=== PATIENT | female | born 1945 | race Caucasian/White ===

== ENCOUNTER 2017-03-22 16:22 | Inpatient (IN) | payer OTHER, MEDICARE ==
[2017-03-22] VITALS (12 sets, daily range): BP systolic 127–169; BP diastolic 60–80; PULSE 86–111; RESP 17–36; TEMP 98–98.3; O2SAT 69–97
[~2017-03-22] VITALS: Ht 162.6 cm; Wt 64.0 kg
[~2017-03-22 16:22] MED LIST: ASPI81TA82 PO; ATOR20TA PO; CENTCHW3; FLOR250C PO; FURO20 PO; K-TA10TA5 PO; LACT PO; LEVO88TA2 PO; LOMO PO; METR-1 PO; OMEP40CA2; PRED5 PO; SERT-129 PO; VANC1CAP6 PO
[2017-03-22 16:31] LABS: BLOOD GAS BASE EXCESS 0.2 mmol/L (-2-2); BLOOD GAS CARBOXYHEMOGLOBIN 2.4 % (0-4); BLOOD GAS HCO3 24 mmol/L (22-26); BLOOD GAS METHEMOGLOBIN 0.7 % (0-2); BLOOD GAS O2 HGB SATURATION 95 % (90-100); BLOOD GAS OXYGEN CONTENT 19.2 Vol % (12.0-20.0); BLOOD GAS PCO2 33 mmHg (38-42); BLOOD GAS PO2 112 mmHG (61-120); BLOOD GAS TOTAL HGB 14.2 G/DL (12.0-16.0); CRITICAL VALUE NO; OXYGEN DEVICE NRB; TEMP CORR TO 98.6
[2017-03-22 16:32] LABS: DRAW SITE RT RADIAL; LITER FLOW 15 L/M; NUMBER OF ARTERIAL PUNCTURES 1; STAT YES; ULNAR PULSE PRESENT
[2017-03-22] MEDS ORDERED: methylPREDNISolone SOD SUCC 125 MG/2 ML VIAL IVP ONE (16:45)
[2017-03-22] MEDS ORDERED: MULTTAB67 PO (16:45)
[2017-03-22] MEDS ORDERED: ASPI81CH CHEW (16:45)
[2017-03-22] MEDS ORDERED: APRI0.372 PO (16:45)
[2017-03-22] MEDS ORDERED: LACTPOW68 PO (16:45)
[2017-03-22] MEDS ORDERED: LEVO88TA2 PO (16:45)
[2017-03-22] MEDS ORDERED: ATOR20TA15 PO (16:45)
[2017-03-22] MEDS ORDERED: RESP: ALBUTEROL 2.5 MG/IPRATROPIUM 0.5 MG NEB (SCH) INH ONE (16:45)
[2017-03-22] MEDS ORDERED: SERT-129 PO (16:45)
[2017-03-22] MEDS ORDERED: POTA10CA PO (16:45)
[2017-03-22] MEDS ORDERED: OMEP40CA2 PO (16:45)
[2017-03-22] MEDS ORDERED: SACC1CAP3 PO (16:45)
[2017-03-22] MEDS: RESP: ALBUTEROL 2.5 MG/3 ML NEB (SCH) INH (16:52)
[2017-03-22 17:16] LABS: AUTOMATED NEUTROPHIL # 16.3 TH/MM3 (1.8-7.7); BASOPHIL # 0.1 TH/MM3 (0-0.2); BASOPHIL % 0.3 % (0.0-2.0); EOSINOPHIL # 0.2 TH/MM3 (0-0.4); EOSINOPHIL % 0.8 % (0.0-4.0); HEMATOCRIT 43.6 % (35.0-46.0); LYMPH % 7.1 % (9.0-44.0); LYMPHOCYTE # 1.3 TH/MM3 (1.0-4.8); MEAN CELL VOLUME 92.2 FL (80.0-100.0); MEAN CORPUSCULAR HEMOGLOBIN 30.2 PG (27.0-34.0); MEAN CORPUSCULAR HGB CONC 32.8 % (32.0-36.0); MONO % 3.5 % (0.0-8.0); NEUT % 88.3 % (16.0-70.0); PLATELET COUNT 434 TH/MM3 (150-450); RED BLOOD COUNT 4.74 MIL/MM3 (4.00-5.30); RED CELL DISTRIBUTION WIDTH 14.4 % (11.6-17.2); WHITE BLOOD COUNT 18.4 TH/MM3 (4.0-11.0)
[2017-03-22 17:23] LABS: HEMO FLAGS AUTO DIFF
[2017-03-22 17:49] LABS: APTT (PATIENT) 28.2 SEC (24.3-30.1); PROTHROMBIN TIME - PATIENT 12.2 SEC (9.8-11.6)
[2017-03-22 17:50] LABS: INTERNATIONAL NORMALIZED RATIO 1.1 RATIO
[2017-03-22 17:51] LABS: ALKALINE PHOSPHATASE 148 U/L (45-117); ALT (GPT) 25 U/L (10-53); ANION GAP 11 MEQ/L (5-15); AST (GOT) 70 U/L (15-37); BICARBONATE 26.1 MEQ/L (21.0-32.0); BLOOD UREA NITROGEN 14 MG/DL (7-18); CHLORIDE 102 MEQ/L (98-107); CREATINE KINASE 110 U/L (26-192); GLOMERULAR FILTRATION RATE 66 ML/MIN (>89); SODIUM (NA) 139 MEQ/L (136-145); TOTAL BILIRUBIN ADULT 1.1 MG/DL (0.2-1.0)
[2017-03-22 17:54] LABS: POTASSIUM 4.2 MEQ/L (3.5-5.1)
[2017-03-22 18:07] LABS: CKMB 2.1 NG/ML (0.5-3.6)
[2017-03-22] MEDS ORDERED: MISCELLANEOUS NURSING INFORMATION XX SCH (18:15)
[2017-03-22] MEDS ORDERED: BISACODYL 10 MG SUPP RECTAL PRN (18:15)
[2017-03-22] MEDS ORDERED: MAGNESIUM HYDROXIDE SUSP 30 ML CUP PO PRN (18:15)
[2017-03-22] MEDS ORDERED: ACETAMINOPHEN 325 MG TAB PO PRN (18:15)
[2017-03-22] MEDS ORDERED: CHLORHEXIDINE GLUCONATE 2 % 1 PACK (2 CLOTHS) TOP PRN (18:15)
[2017-03-22] MEDS ORDERED: ONDANSETRON HCL 4 MG/2 ML VIAL IV PRN (18:15)
[2017-03-22] MEDS ORDERED: MORPHINE SULFATE 4 MG/ML INJ IV PRN (18:15)
[2017-03-22] MEDS ORDERED: LACTULOSE SYRUP 20 GM/30 ML CUP PO PRN (18:15)
[2017-03-22] MEDS ORDERED: SENNOSIDES 8.6 MG TAB PO PRN (18:15)
[2017-03-22 18:16] LABS: BACTERIA, URINE RARE /hpf; BLOOD, URINE SMALL (NEG); CALCIUM OXALATE CRYSTALS,URINE RARE /hpf; COMMENT (UR) CULTURE INDICATED; CULTURE IF INDICATED CULTURE INDICATED; GLUCOSE,URINE NEG (NEG); HYALINE CAST, URINE 1 /lpf (RARE); KETONE, URINE NEG (NEG); MUCUS URINE FEW /lpf (OCC); NITRITE,URINE NEG (NEG); SQUAMOUS EPITHELIAL CELL URINE 5 /hpf (0-5); URINE COLOR YELLOW (YELLW/STRAW)
[2017-03-22 18:25] LABS: BANDS 8 % (0-6); NEUTROPHIL # MANUAL DIFF 16.4 TH/MM3 (1.8-7.7); PLATELET ESTIMATE SMEAR NORMAL (NORMAL); PLATELET MORPHOLOGY NORMAL (NORMAL); POLYS (SEG NEUTROPHILS) 81 % (16-70); SCAN/DIFF FINAL DIFF MANUAL; WBC DIFF SAMPLE 100
--- NOTE | 2017-03-22 18:28 | HHI.HP ---
[facility] Service Critical Care Medicine Primary Care Physician Narayan Raymundo, DO Admission Diagnosis Hypoxemic Respiratory Failure Diagnosis: Chief Complaint: Difficulty breathing, SOB. Travel History International Travel<30 Days: No Contact w/Intl Traveler <30 Da: No Traveled to Known Affected Are: No History of Present Illness 71 y/o woman with recent development of SOB and CT shows diffuse interstitial process, ? fibrosis. Severely hypoxemic on arrival, now acceptable on 100% NRBM. Past Family Social History Allergies: Coded Allergies: Ceclor (Verified Allergy, Severe, Rash, 03/22/17) Codeine (Verified Allergy, Severe, Rash, 03/22/17) Physical Exam Vital Signs Vital Signs Date Time Temp Pulse Resp B/P Pulse Ox O2 Delivery O2 Flow Rate FiO2 03/22/17 17:48 92 24 127/60 95 Non-Rebreather 15 03/22/17 17:25 111 24 169/73 95 Non-Rebreather 15 03/22/17 16:54 97 Non-Rebreather 15 03/22/17 16:52 96 Non-Rebreather 15.00 03/22/17 16:49 97 Non-Rebreather 15 03/22/17 16:31 98.0 102 26 130/78 95 Non-Rebreather 15 03/22/17 16:31 26 03/22/17 16:22 86 36 142/80 69 Physical Exam Gen: Ill-appearing, anxious. Head: Normal. Neck: Supple. Airway widely patent. Lungs: Diffuse crackles, good air movement. Heart: NL S1S2, no m,r. Neck veins flat. Abdomen: Benign, soft. Extremities: Warm, well perfused. Neuro: Anxious. O X 3, alert. Moves 4 limbs, follows commands. Laboratory Laboratory Tests Test 03/22/17 03/22/17 16:07 16:52 Blood Gas Puncture Site RT RADIAL Blood Gas Patient Temperature 98.6 Blood Gas HCO3 24 Blood Gas Base Excess 0.2 Blood Gas Oxygen Saturation 95 Arterial Blood pH 7.47 Arterial Blood Partial 33 Pressure CO2 Arterial Blood Partial 112 Pressure O2 Arterial Blood Oxygen Content 19.2 Arterial Blood 2.4 Carboxyhemoglobin Arterial Blood Methemoglobin 0.7 Blood Gas Hemoglobin 14.2 Oxygen Delivery Device NRB Blood Gas Liter Flow 15 White Blood Count 18.4 Red Blood Count 4.74 Hemoglobin 14.3 Hematocrit 43.6 Mean Corpuscular Volume 92.2 Mean Corpuscular Hemoglobin 30.2 Mean Corpuscular Hemoglobin 32.8 Concent Red Cell Distribution Width 14.4 Platelet Count 434 Mean Platelet Volume 8.3 Neutrophils (%) (Auto) 88.3 Lymphocytes (%) (Auto) 7.1 Monocytes (%) (Auto) 3.5 Eosinophils (%) (Auto) 0.8 Basophils (%) (Auto) 0.3 Neutrophils # (Auto) 16.3 Lymphocytes # (Auto) 1.3 Monocytes # (Auto) 0.6 Eosinophils # (Auto) 0.2 Basophils # (Auto) 0.1 CBC Comment AUTO DIFF Prothrombin Time 12.2 Prothromb Time International 1.1 Ratio Activated Partial 28.2 Thromboplast Time D-Dimer Quantitative (PE/DVT) 4.71 Sodium Level 139 Potassium Level 4.2 Chloride Level 102 Carbon Dioxide Level 26.1 Anion Gap 11 Blood Urea Nitrogen 14 Creatinine 0.85 Estimat Glomerular Filtration 66 Rate Random Glucose 100 Calcium Level 9.0 Total Bilirubin 1.1 Aspartate Amino Transf 70 (AST/SGOT) Alanine Aminotransferase 25 (ALT/SGPT) Alkaline Phosphatase 148 Total Creatine Kinase 110 Creatine Kinase MB 2.1 Troponin I 0.06 B-Type Natriuretic Peptide 138 Total Protein 9.3 Albumin 2.3 Result Diagram: 03/22/17165103/22/171651 Assessment and Plan Assessment and Plan Assessment: 1. Hypoxemic Respiratory Failure. 2. Pulmonary fibrosis (? hypersensitivity reaction due to environmental exposure ). 3. Hx of colitis. 4. UTI. Plan: 1. NRBM 100%. 2. Steroids. 3. Broad antibiotric coverage for UTI and possible infectious pneumonitis. 4. Bed rest. 5. Lovenox DVT px. 6. Protonix. 7. Sputum, urine, blood culture. 8. Pulmonology consult - Dr. Banks. Overall impression: Critically ill with rapidly worsening interstitial pneumonitis and hypoxemic respiratory failure. Critical Care 38 mins Jim Adame MD Mar 22, 2017 18:28
--- NOTE | 2017-03-22 18:32 | MB ---
cc: BRICE ROY DATE OF CONSULTATION 03/22/[address] Gu REASON FOR CONSULTATION Respiratory failure. HISTORY OF PRESENT ILLNESS Mrs. Dunne is a pleasant 71-year-old white female with history of colitis, atrial fibrillation and history of colon surgery. She has colostomy done which was reversed. She has been having shortness of breath increasing for the last 2-3 weeks. The patient says that she moved into a new apartment and they had done a chelsey work and there was lot of dust in the house. Two to three weeks later she started having shortness of breath. She was seen by Dr. Narayan Raymundo. She had a chest x-ray done which shows lung infiltrate. The patient was seen in the office. She was started on oxygen therapy. One week later she came back. She was sent for a CT scan of the chest which shows extensive interstitial infiltrate. She was seen in the office today. She was short of breath, has dry cough and she was severely hypoxic with saturations in the 60s. The patient was sent to the emergency room. She was put on non-rebreather mask. She had a blood gas done which showed pH 7.47, pCO2 33, pO2 112, bicarb 24. Her WBC count 18.4, hemoglobin 14.3, hematocrit 43, platelet count 434. Electrolytes are pending. PAST MEDICAL HISTORY Medical history is significant for history of atrial fibrillation, history of colitis. She was taking Humira. History of colon surgery, status post colostomy which was reversed. History of C. diff colitis. MEDICATIONS AT HOME 1. She takes Levothyroxine 88 micrograms. 2. Zoloft 100 milligrams. 3. Prilosec 40 milligrams a day. 4. Lipitor 20 milligrams a day. 6. Aspirin 81 milligrams a day. 7. Apriso 0.375 oral capsule, two capsules twice a day. 8. Florastor 250 milligrams a day. 10. Humira 40 milligrams every 2 weeks. 11. Meloxicam 7.5 milligrams a day. ALLERGIES SHE IS ALLERGIC TO CODEINE AND CECLOR. SOCIAL HISTORY She has a history of smoking 48 years, one pack a day which she quit 6 years ago. She drinks on occasion. 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 FAMILY HISTORY She is for 50 years. She has two children. No siblings. Both parents are . REVIEW OF SYSTEMS She is short of breath with any activity, has lost some weight. No hemoptysis. No DVT or pulmonary embolism. PHYSICAL EXAMINATION GENERAL: Frail elderly female, short of breath. VITAL SIGNS: Blood pressure 169/73, heart rate 111, respirations 24, temperature 98.0. HEENT: Examination unremarkable. NECK: Supple. JVP not raised. CHEST: She has bilateral inspiratory rales. CARDIOVASCULAR: S1-S2 normal. ABDOMEN: Benign. EXTREMITIES: No edema. IMPRESSION 1. Acute hypoxic respiratory failure. 2. Pulmonary fibrosis. 3. Exacerbation of pulmonary fibrosis or superimposed hypersensitivity pneumonia. 4. History of colitis. She was taking Humira. 5. Atrial fibrillation. 6. History of C. Diff colitis. PLAN I discussed with the patient and family at the bedside. She is on non-rebreather mask. She will be admitted to the intensive care unit and if she does not get better she needs to be intubated which they agree at this point, I will start her on Solu-Medrol 125 milligrams q.6 hours, Protonix 40 milligrams a day and start her on antibiotic Rocephin and Zithromax. Check sputum for culture sensitivity. Further treatment will depend on the course in the hospital. Thank you gu for this consultation. MD JOSSELIN Freedman/EAN /5:47 PM /6:14 PM SHANNA
--- NOTE | 2017-03-22 18:41 | PD ---
HPI Chief Complaint: Respiratory Distress Time Seen by Provider: 16:37 Travel History International Travel<30 days: No Contact w/Intl Traveler<30days: No Traveled to known affect area: No History of Present Illness HPI This is a 71-year-old female with a history of pulmonary fibrosis, who presents from her student life dean office for admission for severe hypoxemia. Apparently the patient had recently been started on home O2. She was currently on 2 L of oxygen at home and when she presented to the student life dean office she was found to have a PO2 of 35. He sent her here as she could not get her oxygen level up on the nasal cannula. She denies any chest pain chest pressure. She does report shortness of breath. She denies any dizziness. She recently had a CT scan done at [facility] on Saturday that showed diffuse pulmonary fibrosis and disease. PFSH Past Medical History Hx Anticoagulant Therapy: Yes (ASA 81 MG) Anxiety: Yes Heart Rhythm Problems: Yes Cancer: No Cardiovascular Problems: No Chemotherapy: No COPD: Yes Cerebrovascular Accident: No Diabetes: No Diminished Hearing: No Gastrointestinal Disorders: Yes (C-DIFF) Genitourinary: Yes Immune Disorder: No Musculoskeletal: No Neurologic: No Reproductive: No Respiratory: No Thyroid Disease: Yes Ectopic : No Ovarian Cysts: No Dilation and Curettage (D&C): No Tubal Ligation: No Past Surgical History Abdominal Surgery: Yes (colon resection, colostomy, reversal05/02/15) Cardiac Surgery: No Section: No Ear Surgery: No Endocrine Surgery: No Eye Surgery: No Genitourinary Surgery: No Gynecologic Surgery: No Hysterectomy: Yes Oral Surgery: No Thoracic Surgery: No Social History Alcohol Use: No Tobacco Use: No Substance Use: No Allergies-Medications (Allergen,Severity, Reaction): Coded Allergies: Ceclor (Verified Allergy, Severe, Rash, 03/22/17) Codeine (Verified Allergy, Severe, Rash, 03/22/17) Reported Meds & Prescriptions Reported Meds & Active Scripts Active Reported Sertraline (Sertraline HCl) 100 Mg Tab 100 Mg PO DAILY Probiotic (Saccharomyces Boulardii) 250 Mg Cap 250 Mg PO BID Potassium Chloride ER (Potassium Chloride) 10 Meq Cap 10 Meq PO DAILY Omeprazole 40 Mg Cap 40 Mg PO DAILY Multiple Vitamin 1 Tab 1 Tab PO DAILY Levothyroxine (Levothyroxine Sodium) 88 Mcg Tab 88 Mcg PO DAILY Lactobacillus Acidophilus 1 Pkt 1 Pkt PO TID Atorvastatin (Atorvastatin Calcium) 20 Mg Tab 20 Mg PO HS Aspirin 81 Mg Chew 81 Mg CHEW DAILY Apriso (Mesalamine) 0.375 Gm Caper 1.5 Gm PO DAILY Review of Systems Except as stated in HPI: all other systems reviewed are Neg General / Constitutional: No: Fever, Chills HENT: Positive: Lightheadedness, No: Headaches Cardiovascular: No: Chest Pain or Discomfort, Palpitations Respiratory: Positive: Shortness of Breath, No: Cough Gastrointestinal: No: Nausea, Vomiting, Abdominal Pain Genitourinary: No: Frequency, Dysuria Musculoskeletal: No: Weakness, Pain Neurologic: Positive: Dizziness, No: Weakness, Headache Physical Exam Narrative GENERAL: Well-developed well-nourished female in severe respiratory distress. SKIN: Focused skin assessment warm/dry. HEAD: Atraumatic. Normocephalic. EYES: No scleral icterus. No injection or drainage. ENT: No nasal bleeding or discharge. Mucous membranes pink and moist. NECK: Trachea midline. No JVD. CARDIOVASCULAR: Initial rhythm was sinus tachycardia with a rate of 108. No murmur appreciated. RESPIRATORY: Positive accessory muscle use. Diffuse Rales appreciated in all 4 lung hyman. GASTROINTESTINAL: Abdomen soft, non-tender, nondistended. MUSCULOSKELETAL: No obvious deformities. No clubbing. No cyanosis. No edema. NEUROLOGICAL: Awake and fragmented speech secondary to shortness of breath.. No obvious cranial nerve deficits. Motor grossly within normal limits. Data Data Last Documented VS Vital Signs Date Time Temp Pulse Resp B/P Pulse Ox O2 Delivery O2 Flow Rate FiO2 03/22/17 17:48 92 24 127/60 95 Non-Rebreather 15 03/22/17 16:31 98.0 Orders Electrocardiogram (03/22/17 16:29) Arterial Blood Gas (Abg) (03/22/17 16:07) Complete Blood Count With Diff (03/22/17 16:37) Comprehensive Metabolic Panel (03/22/17 16:37) B-Type Natriuretic Peptide (03/22/17 16:37) D-Dimer (03/22/17 16:37) Act Partial Throm Time (Ptt) (03/22/17 16:37) Prothrombin Time / Inr (Pt) (03/22/17 16:37) Ckmb (Isoenzyme) Profile (03/22/17 16:37) Troponin I (03/22/17 16:37) Urinalysis - C+S If Indicated (03/22/17 16:37) Iv Access Insert/Monitor (03/22/17 16:37) Ecg Monitoring (03/22/17 16:37) Oximetry (03/22/17 16:37) Oxygen Administration (03/22/17 16:37) Sodium Chloride 0.9% Flush (Ns Flush) (03/22/17 16:45) Methylprednisolone So Succ Inj (Solumedr (03/22/17 16:45) Albuterol-Ipratropium Neb (Duoneb Neb) (03/22/17 16:45) Albuterol Neb (Albuterol Neb) (03/22/17 16:45) Methylprednisolone So Succ Inj (Solumedr (03/22/17 18:00) Ceftriaxone Inj (Rocephin Inj) (03/22/17 17:45) Azithromycin Inj (Zithromax Inj) (03/22/17 20:00) CKMB (03/22/17 16:52) CKMB% (03/22/17 16:52) Code Status (03/22/17 18:10) Vital Signs (Adult) NATALIE.Q1H (03/22/17 18:10) Elevate Head Of Bed (03/22/17 18:10) Activity Oob With Assistance (03/22/17 18:10) Intake + Output Q1H (03/22/17 18:10) Diet Heart Healthy (03/22/17 Dinner) Sodium Chlor 0.9% 1000 Ml Inj (Ns 1000 M (03/22/17 19:00) Acetaminophen (Tylenol) (03/22/17 18:15) Morphine Inj (Morphine Inj) (03/22/17 18:15) Famotidine (Pepcid) (03/22/17 21:00) Ondansetron Inj (Zofran Inj) (03/22/17 18:15) Complete Blood Count With Diff (03/23/17 04:00) Sputum Culture And Gram Stain (03/22/17 18:10) Chest, Single Ap (03/24/17 05:00) Resp Pulse Oximetry (03/22/17 ) Resp Pulse Oximetry (03/23/17 ) Resp Pulse Oximetry (03/24/17 ) Resp Pulse Oximetry (03/25/17 ) Agriculture Instructor / Telemetry NATALIE.Q8H (03/22/17 18:10) Enoxaparin Inj (Lovenox Inj) (03/22/17 20:00) ^ Initiate Protocol (03/22/17 18:10) Instruction (03/22/17 18:10) Misc Nursing Information (03/22/17 18:15) Chlorhexidine 2% Cloth (Chlorhexidine 2% (03/23/17 04:00) Chlorhexidine 2% Cloth (Chlorhexidine 2% (03/22/17 18:15) Mrsa Pcr Surveillance (03/22/17 18:10) Docusate Sodium-Senna (Maryjo-Colace) (03/22/17 21:00) Magnesium Hydroxide Liq (Milk Of Magnesi (03/22/17 18:15) Sennosides (Senokot) (03/22/17 18:15) Bisacodyl Supp (Dulcolax Supp) (03/22/17 18:15) Lactulose Liq (Lactulose Liq) (03/22/17 18:15) Urine Culture (03/22/17 17:46) Aspirin Chew (Aspirin Chew) (03/23/17 09:00) Atorvastatin (Lipitor) (03/22/17 21:00) Lactobacillus Acidophilus Pkt (Lactinex (03/23/17 09:00) Levothyroxine (Synthroid) (03/23/17 06:00) Sertraline (Zoloft) (03/23/17 09:00) (Nf) Mesalamine Er 24 Hr (Apriso) (03/23/17 09:00) (Nf) Multiple Vitamin (03/23/17 09:00) (Nf) Saccharomyces Boulardii (Probiotic) (03/22/17 21:00) Admit Order (Ed Use Only) (03/22/17 18:30) Labs Laboratory Tests Test 03/22/17 03/22/17 03/22/17 16:07 16:52 17:46 Blood Gas Puncture Site RT RADIAL Blood Gas Patient Temperature 98.6 Blood Gas HCO3 24 mmol/L Blood Gas Base Excess 0.2 mmol/L Blood Gas Oxygen Saturation 95 % Arterial Blood pH 7.47 Arterial Blood Partial 33 mmHg Pressure CO2 Arterial Blood Partial 112 mmHG Pressure O2 Arterial Blood Oxygen Content 19.2 Vol % Arterial Blood 2.4 % Carboxyhemoglobin Arterial Blood Methemoglobin 0.7 % Blood Gas Hemoglobin 14.2 G/DL Oxygen Delivery Device NRB Blood Gas Liter Flow 15 L/M White Blood Count 18.4 TH/MM3 Red Blood Count 4.74 MIL/MM3 Hemoglobin 14.3 GM/DL Hematocrit 43.6 % Mean Corpuscular Volume 92.2 FL Mean Corpuscular Hemoglobin 30.2 PG Mean Corpuscular Hemoglobin 32.8 % Concent Red Cell Distribution Width 14.4 % Platelet Count 434 TH/MM3 Mean Platelet Volume 8.3 FL Neutrophils (%) (Auto) 88.3 % Lymphocytes (%) (Auto) 7.1 % Monocytes (%) (Auto) 3.5 % Eosinophils (%) (Auto) 0.8 % Basophils (%) (Auto) 0.3 % Neutrophils # (Auto) 16.3 TH/MM3 Lymphocytes # (Auto) 1.3 TH/MM3 Monocytes # (Auto) 0.6 TH/MM3 Eosinophils # (Auto) 0.2 TH/MM3 Basophils # (Auto) 0.1 TH/MM3 CBC Comment AUTO DIFF Differential Total Cells 100 Counted Neutrophils % (Manual) 81 % Band Neutrophils % 8 % Lymphocytes % 11 % Neutrophils # (Manual) 16.4 TH/MM3 Differential Comment FINAL DIFF MANUAL Platelet Estimate NORMAL Platelet Morphology Comment NORMAL Prothrombin Time 12.2 SEC Prothromb Time International 1.1 RATIO Ratio Activated Partial 28.2 SEC Thromboplast Time D-Dimer Quantitative (PE/DVT) 4.71 MG/L FEU Sodium Level 139 MEQ/L Potassium Level 4.2 MEQ/L Chloride Level 102 MEQ/L Carbon Dioxide Level 26.1 MEQ/L Anion Gap 11 MEQ/L Blood Urea Nitrogen 14 MG/DL Creatinine 0.85 MG/DL Estimat Glomerular Filtration 66 ML/MIN Rate Random Glucose 100 MG/DL Calcium Level 9.0 MG/DL Total Bilirubin 1.1 MG/DL Aspartate Amino Transf 70 U/L (AST/SGOT) Alanine Aminotransferase 25 U/L (ALT/SGPT) Alkaline Phosphatase 148 U/L Total Creatine Kinase 110 U/L Creatine Kinase MB 2.1 NG/ML Troponin I 0.06 NG/ML B-Type Natriuretic Peptide 138 PG/ML Total Protein 9.3 GM/DL Albumin 2.3 GM/DL Urine Color YELLOW Urine Turbidity HAZY Urine pH 6.0 Urine Specific [place] 1.025 Urine Protein 30 mg/dL Urine Glucose (UA) NEG mg/dL Urine Ketones NEG mg/dL Urine Occult Blood SMALL Urine Nitrite NEG Urine Bilirubin NEG Urine Urobilinogen 2.0 MG/DL Urine Leukocyte Esterase LARGE Urine RBC 5 /hpf Urine WBC 75 /hpf Urine Squamous Epithelial 5 /hpf Cells Urine Calcium Oxalate Crystals RARE /hpf Urine Bacteria RARE /hpf Urine Hyaline Casts 1 /lpf Urine Mucus FEW /lpf Microscopic Urinalysis Comment CULTURE INDICATED MDM Medical Decision Making Medical Screen Exam Complete: Yes Emergency Medical Condition: Yes Differential Diagnosis Pneumonia versus COPD exacerbation versus pulmonary embolus Narrative Course 71-year-old female history pulmonary fibrosis, presents from her pulmonology's office for respiratory distress and hypoxemia. The patient's O2 sat was 61% when she arrived. She's been started on 100% nonrebreather and is in no acute distress at this point. She will be admitted to the intensive care unit. Dr. Banks, the patient's student life dean is come in to see her. He is recommending high dose steroids. The case was discussed Dr. Crystal who will be the admitting doctor for the intensive care unit. Critical Care Narrative Aggregate critical care time was 60 minutes. Time to perform other separately billable procedures was not included in the critical care time. My time did not include minutes spent treating any other patients simultaneously or on activities that did not directly contribute to the patient's treatment. The services I provided to this patient were to treat and/or prevent clinically significant deterioration that could result in: I provided critical care services requiring my management, as noted below: Chart data review, documentation time, medication orders and management, vital sign assessments/reviewing monitor data, ordering and reviewing lab tests, ordering and interpreting/reviewing x-rays and diagnostic studies, care of the patient and discussion of the patient with the admitting physicians. Diagnosis Primary Impression: Acute respiratory distress Additional Impressions: Severe hypoxemia Pulmonary fibrosis Admitting Information Admitting Physician Requests: Admit Jim Montelongo MD Mar 22, 2017 18:41
[2017-03-22] MEDS: SODIUM CHLOR 0.9% 1000 ML INJ 1,000 ML IV SCH ×2 (19:34→21:39)
[2017-03-22] MEDS: cefTRIAXone 1,000 MG/NS 100 ML IV SCH ×4 (19:34→21:39)
[2017-03-22] MEDS: AZITHROMYCIN INJ 500 MG in SODIUM CHLOR 0.9% 250 ML INJ 250 ML IV SCH (20:00)
[2017-03-22] MEDS: CHLORHEXIDINE GLUCONATE 2 % 1 PACK (2 CLOTHS) TOP SCH (20:54)
[2017-03-22] MEDS ORDERED: NON-FORMULARY DRUG (Saccharomyces Boulardii (Probiotic) 250 MG) PO SCH (21:00)
[2017-03-22] MEDS: FAMOTIDINE 20 MG TAB PO SCH (21:38)
[2017-03-22] MEDS: DOCUSATE SODIUM 50 MG/SENNA 8.6 MG TAB PO SCH (21:38)
[2017-03-22] MEDS: ATORVASTATIN 20 MG TAB PO SCH (21:38)
[2017-03-22] MEDS: ENOXAPARIN SODIUM 40 MG/0.4 ML SYRINGE SQ SCH (21:38)
[2017-03-22] MEDS: methylPREDNISolone SOD SUCC 125 MG/2 ML VIAL IV PUSH SCH (21:38)
[2017-03-22] MEDS: ALPRAZolam 0.25 MG TAB PO PRN (23:56)
[2017-03-23] VITALS (15 sets, daily range): BP systolic 114–160; BP diastolic 63–84; PULSE 78–103; RESP 24–36; TEMP 97–98.1; O2SAT 90–96
[2017-03-23 04:53] LABS: AUTOMATED NEUTROPHIL # 10.6 TH/MM3 (1.8-7.7); BASOPHIL # 0.1 TH/MM3 (0-0.2); BASOPHIL % 0.6 % (0.0-2.0); HEMATOCRIT 35.2 % (35.0-46.0); HEMO FLAGS DIFF FINAL; LYMPH % 8.1 % (9.0-44.0); MEAN CELL VOLUME 90.5 FL (80.0-100.0); MEAN CORPUSCULAR HGB CONC 33.1 % (32.0-36.0); MONO % 1.3 % (0.0-8.0); PLATELET COUNT 326 TH/MM3 (150-450); RED BLOOD COUNT 3.89 MIL/MM3 (4.00-5.30); RED CELL DISTRIBUTION WIDTH 14.5 % (11.6-17.2); WHITE BLOOD COUNT 11.8 TH/MM3 (4.0-11.0)
[2017-03-23] MEDS: LEVOTHYROXINE SODIUM 88 MCG TAB PO SCH (05:42)
[2017-03-23] MEDS: methylPREDNISolone SOD SUCC 125 MG/2 ML VIAL IV PUSH SCH ×4 (05:43→23:00)
[2017-03-23] MEDS ORDERED: NON-FORMULARY DRUG (Mesalamine ER 24 HR (Apriso) 1.5 GM) PO SCH (09:00)
[2017-03-23] MEDS ORDERED: [UNRECOGNIZED DRUG - OTHER] PO SCH (09:00)
[2017-03-23] MEDS ORDERED: MESALAMINE 0.375 GM PO SCH (09:00)
[2017-03-23] MEDS ORDERED: NON-FORMULARY DRUG (Multiple Vitamin 1 TAB) PO SCH (09:00)
[2017-03-23] MEDS: LACTOBACILLUS ACIDOPHILUS 1 GM PACKET PO SCH ×3 (09:00→16:32)
--- NOTE | 2017-03-23 09:03 | HHI.CCPN ---
Subjective Remarks/Hospital Course 71 y/o woman with recent development of SOB and CT shows diffuse interstitial process, ? fibrosis. Severely hypoxemic on arrival, now acceptable on 100% NRBM. 03/23 Patient is on partial rebreather with good sats. Afebrile. Awake and alert. Objective Vital Signs Date Time Temp Pulse Resp B/P Pulse Ox O2 Delivery O2 Flow Rate FiO2 03/23/17 08:29 96 Partial Rebreather 03/23/17 06:00 80 03/23/17 04:00 97.5 26 114/65 03/22/17 22:00 15.00 Intake and Output 03/22/17 03/22/17 03/23/17 08:00 16:00 00:00 Intake Total 605 ml Balance 605 ml Result Diagram: 03/23/17 0413 03/22/17 1652 Other Results Laboratory Tests Test 03/22/17 03/22/17 03/22/17 03/22/17 16:07 16:52 17:46 20:30 Blood Gas Puncture Site RT RADIAL Blood Gas Patient Temperature 98.6 Blood Gas HCO3 24 mmol/L Blood Gas Base Excess 0.2 mmol/L Blood Gas Oxygen Saturation 95 % Arterial Blood pH 7.47 Arterial Blood Partial 33 mmHg Pressure CO2 Arterial Blood Partial 112 mmHG Pressure O2 Arterial Blood Oxygen Content 19.2 Vol % Arterial Blood 2.4 % Carboxyhemoglobin Arterial Blood Methemoglobin 0.7 % Blood Gas Hemoglobin 14.2 G/DL Oxygen Delivery Device NRB Blood Gas Liter Flow 15 L/M White Blood Count 18.4 TH/MM3 Red Blood Count 4.74 MIL/MM3 Hemoglobin 14.3 GM/DL Hematocrit 43.6 % Mean Corpuscular Volume 92.2 FL Mean Corpuscular Hemoglobin 30.2 PG Mean Corpuscular Hemoglobin 32.8 % Concent Red Cell Distribution Width 14.4 % Platelet Count 434 TH/MM3 Mean Platelet Volume 8.3 FL Neutrophils (%) (Auto) 88.3 % Lymphocytes (%) (Auto) 7.1 % Monocytes (%) (Auto) 3.5 % Eosinophils (%) (Auto) 0.8 % Basophils (%) (Auto) 0.3 % Neutrophils # (Auto) 16.3 TH/MM3 Lymphocytes # (Auto) 1.3 TH/MM3 Monocytes # (Auto) 0.6 TH/MM3 Eosinophils # (Auto) 0.2 TH/MM3 Basophils # (Auto) 0.1 TH/MM3 CBC Comment AUTO DIFF Differential Total Cells 100 Counted Neutrophils % (Manual) 81 % Band Neutrophils % 8 % Lymphocytes % 11 % Neutrophils # (Manual) 16.4 TH/MM3 Differential Comment FINAL DIFF MANUAL Platelet Estimate NORMAL Platelet Morphology Comment NORMAL Prothrombin Time 12.2 SEC Prothromb Time International 1.1 RATIO Ratio Activated Partial 28.2 SEC Thromboplast Time D-Dimer Quantitative (PE/DVT) 4.71 MG/L FEU Sodium Level 139 MEQ/L Potassium Level 4.2 MEQ/L Chloride Level 102 MEQ/L Carbon Dioxide Level 26.1 MEQ/L Anion Gap 11 MEQ/L Blood Urea Nitrogen 14 MG/DL Creatinine 0.85 MG/DL Estimat Glomerular Filtration 66 ML/MIN Rate Random Glucose 100 MG/DL Calcium Level 9.0 MG/DL Total Bilirubin 1.1 MG/DL Aspartate Amino Transf 70 U/L (AST/SGOT) Alanine Aminotransferase 25 U/L (ALT/SGPT) Alkaline Phosphatase 148 U/L Total Creatine Kinase 110 U/L Creatine Kinase MB 2.1 NG/ML Troponin I 0.06 NG/ML B-Type Natriuretic Peptide 138 PG/ML Total Protein 9.3 GM/DL Albumin 2.3 GM/DL Urine Color YELLOW Urine Turbidity HAZY Urine pH 6.0 Urine Specific [place] 1.025 Urine Protein 30 mg/dL Urine Glucose (UA) NEG mg/dL Urine Ketones NEG mg/dL Urine Occult Blood SMALL Urine Nitrite NEG Urine Bilirubin NEG Urine Urobilinogen 2.0 MG/DL Urine Leukocyte Esterase LARGE Urine RBC 5 /hpf Urine WBC 75 /hpf Urine Squamous Epithelial 5 /hpf Cells Urine Calcium Oxalate Crystals RARE /hpf Urine Bacteria RARE /hpf Urine Hyaline Casts 1 /lpf Urine Mucus FEW /lpf Microscopic Urinalysis Comment CULTURE INDICATED Nasal Screen MRSA (PCR) MRSA NOT DETECTED Test 03/23/17 04:13 White Blood Count 11.8 TH/MM3 Red Blood Count 3.89 MIL/MM3 Hemoglobin 11.7 GM/DL Hematocrit 35.2 % Mean Corpuscular Volume 90.5 FL Mean Corpuscular Hemoglobin 30.0 PG Mean Corpuscular Hemoglobin 33.1 % Concent Red Cell Distribution Width 14.5 % Platelet Count 326 TH/MM3 Mean Platelet Volume 8.0 FL Neutrophils (%) (Auto) 90.0 % Lymphocytes (%) (Auto) 8.1 % Monocytes (%) (Auto) 1.3 % Eosinophils (%) (Auto) 0.0 % Basophils (%) (Auto) 0.6 % Neutrophils # (Auto) 10.6 TH/MM3 Lymphocytes # (Auto) 1.0 TH/MM3 Monocytes # (Auto) 0.2 TH/MM3 Eosinophils # (Auto) 0.0 TH/MM3 Basophils # (Auto) 0.1 TH/MM3 CBC Comment DIFF FINAL Differential Comment Objective Remarks GENERAL: Patient is 71 yo on partial rebreather with good sats SKIN: Warm and dry. HEAD: Normocephalic. EYES: No scleral icterus. No injection or drainage. NECK: Supple, trachea midline. No JVD or lymphadenopathy. CARDIOVASCULAR: Regular rate and rhythm without murmurs, gallops, or rubs. RESPIRATORY: Breath sounds equal bilaterally. Coarse BS/crackles GASTROINTESTINAL: Abdomen soft, non-tender, nondistended. MUSCULOSKELETAL: No cyanosis, or edema. Neuro: Awake and alert. A/P Assessment and Plan Imp 1) Hypoxemic Respiratory Failure. 2)Pulmonary fibrosis (? hypersensitivity reaction due to environmental exposure) . 3)Hx of colitis. 4)UTI. 50Leukocytosis...trending down 6)Elevated AST 7)Hypothyroidism Plan: Neuro: Awake and alert Pulm: Wean down oxygen as chance keep sat >92% Bronchodilators, Solumederol 125mg IV Q6, Pulm is follow -Dr. Jocelyn GERMANPV PRN for resp distress CV: Monitor HR and BP keep MAP>65mmHg. On ASA, Lipitor ; Monitor renal function, I/O's, electrolytes replacement per protocol GI: On PO diet, monitor LFT's. Heme: Monitor CBC ID: Continue with abx ( Rocephin, Zithromax)monitor for signs of infections ( Fever, WBC) WBC trending down Check sputum cx, follow up on urine cx Endo: SSI with accuchecks for glycemic control GI prophylaxis- On pepcid DVT prophylaxis- On Lovenox 40mg daily level 3 Reynaldo Gutierrez MD Mar 23, 2017 09:03
[2017-03-23] MEDS: SERTRALINE HCL 100 MG TAB PO SCH (09:07)
[2017-03-23] MEDS: MULTIVITAMIN TAB PO SCH (09:07)
[2017-03-23] MEDS: DOCUSATE SODIUM 50 MG/SENNA 8.6 MG TAB PO SCH ×2 (09:07→21:00)
[2017-03-23] MEDS: FAMOTIDINE 20 MG TAB PO SCH ×2 (09:07→21:00)
[2017-03-23] MEDS: ASPIRIN 81 MG CHEW TAB CHEW SCH (09:08)
[2017-03-23] MEDS ORDERED: GLUCAGON 1 MG/ML VIAL OTHER PRN (09:15)
[2017-03-23] MEDS ORDERED: DEXTROSE 50% IN WATER 50 ML VIAL(D50) IV PRN (09:15)
--- NOTE | 2017-03-23 09:38 | RADRPT ---
EXAM DATE/TIME: 03/23/2017 09:16 [facility] COMPARISON: No previous studies available for comparison. INDICATIONS : Shortness of breath. MEDICAL HISTORY : None. SURGICAL HISTORY : None. ENCOUNTER: Initial ACUITY: 1 day PAIN SCORE: 0/10 LOCATION: chest FINDINGS: There is interstitial infiltrate throughout both lung hyman. No definite pleural effusions. The hear t size is within normal limits. Bony structures are grossly intact. There are no prior studies for co mparison. CONCLUSION: Bilateral interstitial infiltrates which can be seen with either interstitial pulmonary edema versus pneumonia. This could also be on a chronic basis however there are no prior studies for comparison. Norberto Jesus MD on March 23, 2017 at 9:36 Board Certified Radiologist. This report was verified electronically.
[2017-03-23] MEDS: INSULIN NovoLIN REGULAR SUPPLEMENTAL SCALE SQ SCH ×3 (10:00→22:00)
[2017-03-23] MEDS ORDERED: RESP: ALBUTEROL 2.5 MG/IPRATROPIUM 0.5 MG NEB (SCH) NEB (12:00)
[2017-03-23 12:15] LABS: AUTOMATED NEUTROPHIL # 17.1 TH/MM3 (1.8-7.7); BASOPHIL # 0.1 TH/MM3 (0-0.2); BASOPHIL % 0.4 % (0.0-2.0); HEMATOCRIT 36.5 % (35.0-46.0); HEMO FLAGS DIFF FINAL; LYMPH % 6.5 % (9.0-44.0); LYMPHOCYTE # 1.2 TH/MM3 (1.0-4.8); MEAN CELL VOLUME 90.3 FL (80.0-100.0); MEAN CORPUSCULAR HEMOGLOBIN 31.1 PG (27.0-34.0); MEAN CORPUSCULAR HGB CONC 34.4 % (32.0-36.0); MONO % 1.5 % (0.0-8.0); NEUT % 91.6 % (16.0-70.0); PLATELET COUNT 371 TH/MM3 (150-450); RED BLOOD COUNT 4.05 MIL/MM3 (4.00-5.30); RED CELL DISTRIBUTION WIDTH 14.6 % (11.6-17.2); WHITE BLOOD COUNT 18.6 TH/MM3 (4.0-11.0)
--- NOTE | 2017-03-23 12:18 | EKG ---
Date Performed: 03/22/2017 Time Performed: 16:32:18 PTAGE: 71 years EKG: Sinus rhythm POSSIBLE INFERIOR MYOCARDIAL INFARCTION BORDERLINE ECG NO PREVIOUS TRACING DOCTOR: Jorge Robles Interpretating Date/Time 03/23/2017 12:15:49
[2017-03-23 12:33] LABS: ALT (GPT) 24 U/L (10-53); ANION GAP 8 MEQ/L (5-15); AST (GOT) 43 U/L (15-37); BICARBONATE 25.7 MEQ/L (21.0-32.0); BLOOD UREA NITROGEN 14 MG/DL (7-18); CHLORIDE 107 MEQ/L (98-107); GLOMERULAR FILTRATION RATE 88 ML/MIN (>89); MAGNESIUM 2.2 MG/DL (1.5-2.5); POTASSIUM 3.5 MEQ/L (3.5-5.1); SODIUM (NA) 141 MEQ/L (136-145)
[2017-03-23 12:35] LABS: ALKALINE PHOSPHATASE 130 U/L (45-117); TOTAL BILIRUBIN ADULT 0.6 MG/DL (0.2-1.0)
[2017-03-23] MEDS: RESP: ALBUTEROL 2.5 MG/IPRATROPIUM 0.5 MG NEB (SCH) NEB ×2 (14:26→20:35)
[2017-03-23] MEDS ORDERED: MAGNESIUM SULFATE INJ 4 GM in SODIUM CHLORIDE 0.9% INJ 92 ML IV PRN (16:30)
[2017-03-23] MEDS ORDERED: MAGNESIUM OXIDE 400 MG TAB PO PRN (16:30)
[2017-03-23] MEDS ORDERED: POTASSIUM CHLOR 20 MEQ PREMIX 100 ML IV PRN ×2 (16:30)
[2017-03-23] MEDS ORDERED: POTASSIUM PHOSPHATE MONOBASIC 500 MG TAB PO/TUBE PRN (16:30)
[2017-03-23] MEDS ORDERED: POTASSIUM CHLOR 40 MEQ PREMIX 100 ML IV PRN ×2 (16:30)
[2017-03-23] MEDS ORDERED: POTASSIUM CHLORIDE 25 MEQ EFFERVESCENT TAB PO PRN (16:30)
[2017-03-23] MEDS ORDERED: POTASSIUM PHOSPHATE INJ 30 MMOL in SODIUM CHLOR 0.9% 250 ML INJ 250 ML IV PRN (16:30)
[2017-03-23] MEDS ORDERED: MAGNESIUM SULFATE INJ 2 GM in SODIUM CHLORIDE 0.9% INJ 96 ML IV PRN (16:30)
[2017-03-23] MEDS: AZITHROMYCIN INJ 500 MG in SODIUM CHLOR 0.9% 250 ML INJ 250 ML IV SCH (19:51)
[2017-03-23] MEDS: ENOXAPARIN SODIUM 40 MG/0.4 ML SYRINGE SQ SCH (19:52)
[2017-03-23] MEDS: SODIUM CHLORIDE 0.9% FLUSH 10 ML FLUSH IVF PRN (19:52)
[2017-03-23] MEDS: ATORVASTATIN 20 MG TAB PO SCH (21:00)
[2017-03-24] VITALS (13 sets, daily range): BP systolic 114–147; BP diastolic 56–81; PULSE 78–101; RESP 24–32; TEMP 97.5–98.5; O2SAT 90–95
[2017-03-24] MEDS: CHLORHEXIDINE GLUCONATE 2 % 1 PACK (2 CLOTHS) TOP SCH (01:00)
[2017-03-24] MEDS: INSULIN NovoLIN REGULAR SUPPLEMENTAL SCALE SQ SCH ×4 (04:00→22:00)
[2017-03-24 05:49] LABS: AUTOMATED NEUTROPHIL # 21.8 TH/MM3 (1.8-7.7); BASOPHIL % 0.1 % (0.0-2.0); HEMATOCRIT 34.3 % (35.0-46.0); HEMO FLAGS DIFF FINAL; LYMPH % 4.7 % (9.0-44.0); LYMPHOCYTE # 1.1 TH/MM3 (1.0-4.8); MEAN CELL VOLUME 90.7 FL (80.0-100.0); MEAN CORPUSCULAR HEMOGLOBIN 29.6 PG (27.0-34.0); MEAN CORPUSCULAR HGB CONC 32.6 % (32.0-36.0); MONO % 2.6 % (0.0-8.0); NEUT % 92.6 % (16.0-70.0); PLATELET COUNT 382 TH/MM3 (150-450); RED BLOOD COUNT 3.79 MIL/MM3 (4.00-5.30); RED CELL DISTRIBUTION WIDTH 14.4 % (11.6-17.2); WHITE BLOOD COUNT 23.6 TH/MM3 (4.0-11.0)
[2017-03-24 06:16] LABS: ANION GAP 8 MEQ/L (5-15); AST (GOT) 77 U/L (15-37); BLOOD UREA NITROGEN 13 MG/DL (7-18); CHLORIDE 109 MEQ/L (98-107); GLOMERULAR FILTRATION RATE 116 ML/MIN (>89); POTASSIUM 4.1 MEQ/L (3.5-5.1); SODIUM (NA) 142 MEQ/L (136-145)
[2017-03-24 06:17] LABS: ALT (GPT) 33 U/L (10-53)
--- NOTE | 2017-03-24 06:18 | RADRPT ---
EXAM DATE/TIME: 03/24/2017 05:05 [facility] COMPARISON: CHEST SINGLE AP, March 23, 2017, 9:16. INDICATIONS : Shortness of breath, possible pulmonary disease. MEDICAL HISTORY : None. SURGICAL HISTORY : None. ENCOUNTER: Subsequent ACUITY: 2 days PAIN SCORE: 0/10 LOCATION: Bilateral chest FINDINGS: A single view of the chest demonstrates diffuse interstitial and alveolar opacities. Heart enlarged. Osseous structures are intact. CONCLUSION: 1. Stable chest with interstitial and alveolar opacities. Sebastien Tolbert MD on March 24, 2017 at 6:16 Board Certified Radiologist. This report was verified electronically.
[2017-03-24 06:19] LABS: ALKALINE PHOSPHATASE 114 U/L (45-117); TOTAL BILIRUBIN ADULT 0.6 MG/DL (0.2-1.0)
[2017-03-24] MEDS: methylPREDNISolone SOD SUCC 125 MG/2 ML VIAL IV PUSH SCH ×3 (06:21→22:02)
[2017-03-24] MEDS: LEVOTHYROXINE SODIUM 88 MCG TAB PO SCH (06:21)
[2017-03-24] MEDS: RESP: ALBUTEROL 2.5 MG/IPRATROPIUM 0.5 MG NEB (SCH) NEB ×3 (07:57→20:05)
--- NOTE | 2017-03-24 08:48 | HHI.CCPN ---
Subjective Remarks/Hospital Course 71 y/o woman with recent development of SOB and CT shows diffuse interstitial process, ? fibrosis. Severely hypoxemic on arrival, now acceptable on 100% NRBM. 03/23 Patient is on partial rebreather with good sats. Afebrile. Awake and alert. 03/24 Patient is on non rebreather states she is feeling somewhat better. Objective Vital Signs Date Time Temp Pulse Resp B/P Pulse Ox O2 Delivery O2 Flow Rate FiO2 03/24/17 08:00 97.9 91 27 134/81 91 03/24/17 07:57 Non-Rebreather 03/24/17 07:00 15.00 03/23/17 20:37 100 Intake and Output 03/23/17 03/23/17 03/24/17 08:00 16:00 00:00 Intake Total 709 ml 1112 ml 1170 ml Output Total 225 ml 150 ml Balance 709 ml 887 ml 1020 ml Result Diagram: 03/24/17 0426 03/24/17 0426 Other Results Laboratory Tests Test 03/23/17 03/23/17 03/24/17 03/24/17 11:10 18:28 02:02 04:26 White Blood Count 18.6 TH/MM3 23.6 TH/MM3 Red Blood Count 4.05 MIL/MM3 3.79 MIL/MM3 Hemoglobin 12.6 GM/DL 11.2 GM/DL Hematocrit 36.5 % 34.3 % Mean Corpuscular Volume 90.3 FL 90.7 FL Mean Corpuscular Hemoglobin 31.1 PG 29.6 PG Mean Corpuscular Hemoglobin 34.4 % 32.6 % Concent Red Cell Distribution Width 14.6 % 14.4 % Platelet Count 371 TH/MM3 382 TH/MM3 Mean Platelet Volume 8.1 FL 8.0 FL Neutrophils (%) (Auto) 91.6 % 92.6 % Lymphocytes (%) (Auto) 6.5 % 4.7 % Monocytes (%) (Auto) 1.5 % 2.6 % Eosinophils (%) (Auto) 0.0 % 0.0 % Basophils (%) (Auto) 0.4 % 0.1 % Neutrophils # (Auto) 17.1 TH/MM3 21.8 TH/MM3 Lymphocytes # (Auto) 1.2 TH/MM3 1.1 TH/MM3 Monocytes # (Auto) 0.3 TH/MM3 0.6 TH/MM3 Eosinophils # (Auto) 0.0 TH/MM3 0.0 TH/MM3 Basophils # (Auto) 0.1 TH/MM3 0.0 TH/MM3 CBC Comment DIFF FINAL DIFF FINAL Differential Comment Sodium Level 141 MEQ/L 142 MEQ/L Potassium Level 3.5 MEQ/L 4.1 MEQ/L Chloride Level 107 MEQ/L 109 MEQ/L Carbon Dioxide Level 25.7 MEQ/L 25.0 MEQ/L Anion Gap 8 MEQ/L 8 MEQ/L Blood Urea Nitrogen 14 MG/DL 13 MG/DL Creatinine 0.66 MG/DL 0.52 MG/DL Estimat Glomerular Filtration 88 ML/MIN 116 ML/MIN Rate Random Glucose 143 MG/DL 110 MG/DL Calcium Level 8.5 MG/DL 8.6 MG/DL Phosphorus Level 2.5 MG/DL 2.1 MG/DL Magnesium Level 2.2 MG/DL Total Bilirubin 0.6 MG/DL 0.6 MG/DL Aspartate Amino Transf 43 U/L 77 U/L (AST/SGOT) Alanine Aminotransferase 24 U/L 33 U/L (ALT/SGPT) Alkaline Phosphatase 130 U/L 114 U/L Troponin I 0.03 NG/ML 0.04 NG/ML 0.05 NG/ML Total Protein 8.4 GM/DL 7.4 GM/DL Albumin 2.2 GM/DL 2.0 GM/DL Imaging Last Impressions Chest X-Ray 03/24/17 0500 Signed Impressions: Service Date/Time: Friday, March 24, 2017 05:05 - CONCLUSION: 1. Stable chest with interstitial and alveolar opacities. Sebastien Tolbert MD Objective Remarks GENERAL: Patient is 71 yo on non rebreather with good sats SKIN: Warm and dry. HEAD: Normocephalic. EYES: No scleral icterus. No injection or drainage. NECK: Supple, trachea midline. No JVD or lymphadenopathy. CARDIOVASCULAR: Regular rate and rhythm without murmurs, gallops, or rubs. RESPIRATORY: Breath sounds equal bilaterally. Coarse BS/crackles GASTROINTESTINAL: Abdomen soft, non-tender, nondistended. MUSCULOSKELETAL: No cyanosis, or edema. Neuro: Awake and alert. A/P Assessment and Plan Imp 1) Hypoxemic Respiratory Failure. 2)Pulmonary fibrosis 3)Hx of colitis. 4)UTI. 50Leukocytosis...trending down 6)Elevated AST 7)Hypothyroidism 8)Leukocytosis Plan: Neuro: Awake and alert Pulm: Wean down oxygen as chance keep sat >92% Bronchodilators, decrease Solumederol 80mg IV Q8, Pulm is follow -Dr. Jocelyn GERMANPV PRN for resp distress CV: Monitor HR and BP keep MAP>65mmHg. On ASA, Lipitor ; Monitor renal function, I/O's, electrolytes replacement per protocol Diurese with Bumex 1mg x1 GI: On PO diet, monitor LFT's.check US liver Heme: Monitor CBC, Leukocytosis likely related to high dose steroids, continue with abx. ID: Continue with abx ( Rocephin, Zithromax)monitor for signs of infections ( Fever, WBC) Check sputum cx, follow up on urine cx, check strep pneumonia and Legionella urinary Ag Endo: SSI with accuchecks for glycemic control Hold Synthroid 88 mcg daily. TSH : 0.23 GI prophylaxis- On pepcid DVT prophylaxis- On Lovenox 40mg daily level 3 Reynaldo Gutierrez MD Mar 24, 2017 08:48
[2017-03-24] MEDS: LACTOBACILLUS ACIDOPHILUS 1 GM PACKET PO SCH ×3 (09:00→18:00)
[2017-03-24] MEDS ORDERED: BUMETANIDE INJ 1 MG/4 ML VIAL IV PUSH ONE (09:00)
[2017-03-24] MEDS: ASPIRIN 81 MG CHEW TAB CHEW SCH (09:00)
[2017-03-24] MEDS: FAMOTIDINE 20 MG TAB PO SCH ×2 (09:00→20:54)
[2017-03-24] MEDS: DOCUSATE SODIUM 50 MG/SENNA 8.6 MG TAB PO SCH ×2 (09:00→21:00)
[2017-03-24] MEDS: SERTRALINE HCL 100 MG TAB PO SCH (09:00)
[2017-03-24] MEDS: MULTIVITAMIN TAB PO SCH (09:00)
[2017-03-24] MEDS: POTASSIUM PHOSPHATE MONOBASIC 500 MG TAB PO PRN (09:00)
[2017-03-24] MEDS: SODIUM PHOSPHATE INJ 30 MMOL in SODIUM CHLOR 0.9% 250 ML INJ 240 ML IV PRN (09:03)
--- NOTE | 2017-03-24 16:43 | RADRPT ---
EXAM DATE/TIME: 03/24/2017 15:32 [facility] COMPARISON: CHEST SINGLE AP, March 24, 2017, 5:05. INDICATIONS : Increased lab values. MEDICAL HISTORY : Chronic obstructive pulmonary disease. Anticoagulant therapy, Aspirin. C.diff. Depression. Anxiet y. Measles. Blood transfusion. SURGICAL HISTORY : Hysterectomy. Colostomy. Colon resection. ENCOUNTER: Initial ACUITY: 1 day PAIN SCORE: 0/10 LOCATION: Abdomen. MEASUREMENTS: LIVER: 13.8 cm length COMMON DUCT: 6 mm RIGHT KIDNEY: 10.2 x 3.9 x 4.6 cm SPLEEN: 8.1 cm length FINDINGS: LIVER: Normal echotexture without focal lesion or ductal dilatation. COMMON DUCT: No intraluminal mass or stone visualized. GALLBLADDER: The patient is status post cholecystectomy. PANCREAS: The visualized portions are within normal limits. RIGHT KIDNEY: No hydronephrosis, stone or mass. SPLEEN: No focal lesion. There is a 1. 3 cm rounded calcification of the splenic hilum likely related to vas cular structure/splenic artery aneurysm. CONCLUSION: No acute disease. 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 All Prater MD on March 24, 2017 at 16:36 Board Certified Radiologist. This report was verified electronically.
[2017-03-24] MEDS: cefTRIAXone 1,000 MG/NS 100 ML IV SCH ×2 (20:53)
[2017-03-24] MEDS: ENOXAPARIN SODIUM 40 MG/0.4 ML SYRINGE SQ SCH (20:54)
[2017-03-24] MEDS: SODIUM CHLORIDE 0.9% FLUSH 10 ML FLUSH IVF PRN (20:54)
[2017-03-24] MEDS: ATORVASTATIN 20 MG TAB PO SCH (20:54)
[2017-03-24] MEDS: AZITHROMYCIN INJ 500 MG in SODIUM CHLOR 0.9% 250 ML INJ 250 ML IV SCH (21:27)
[2017-03-25] VITALS (26 sets, daily range): BP systolic 123–170; BP diastolic 66–106; PULSE 65–93; RESP 19–48; TEMP 97.9–98.2; O2SAT 87–98
[2017-03-25] MEDS: CHLORHEXIDINE GLUCONATE 2 % 1 PACK (2 CLOTHS) TOP SCH (01:00)
[2017-03-25] MEDS: INSULIN NovoLIN REGULAR SUPPLEMENTAL SCALE SQ SCH ×4 (04:00→21:47)
[2017-03-25] MEDS: RESP: ALBUTEROL 2.5 MG/IPRATROPIUM 0.5 MG NEB (PRN) NEB (04:39)
[2017-03-25] MEDS: methylPREDNISolone SOD SUCC 125 MG/2 ML VIAL IV PUSH SCH ×3 (05:29→21:47)
[2017-03-25] MEDS: ALPRAZolam 0.25 MG TAB PO PRN ×2 (05:29→21:53)
[2017-03-25 05:55] LABS: BASOPHIL % 0.2 % (0.0-2.0); HEMATOCRIT 34.7 % (35.0-46.0); LYMPH % 5.4 % (9.0-44.0); MEAN CELL VOLUME 90.7 FL (80.0-100.0); MEAN CORPUSCULAR HEMOGLOBIN 29.7 PG (27.0-34.0); MEAN CORPUSCULAR HGB CONC 32.7 % (32.0-36.0); MONO % 2.7 % (0.0-8.0); NEUT % 91.7 % (16.0-70.0); PLATELET COUNT 373 TH/MM3 (150-450); RED BLOOD COUNT 3.83 MIL/MM3 (4.00-5.30); WHITE BLOOD COUNT 18.5 TH/MM3 (4.0-11.0)
[2017-03-25 05:56] LABS: HEMO FLAGS AUTO DIFF
[2017-03-25 06:26] LABS: BICARBONATE 28.9 MEQ/L (21.0-32.0); MAGNESIUM 2.2 MG/DL (1.5-2.5); POTASSIUM 3.8 MEQ/L (3.5-5.1)
[2017-03-25 07:06] LABS: SCAN/DIFF AUTO DIFF CONFIRMED
[2017-03-25] MEDS: RESP: ALBUTEROL 2.5 MG/IPRATROPIUM 0.5 MG NEB (SCH) NEB ×3 (07:54→20:37)
[2017-03-25] MEDS: LACTOBACILLUS ACIDOPHILUS 1 GM PACKET PO SCH ×3 (09:00→17:48)
[2017-03-25] MEDS: DOCUSATE SODIUM 50 MG/SENNA 8.6 MG TAB PO SCH ×2 (09:00→21:00)
[2017-03-25] MEDS: MULTIVITAMIN TAB PO SCH (09:38)
[2017-03-25] MEDS: SERTRALINE HCL 100 MG TAB PO SCH (09:38)
[2017-03-25] MEDS: FAMOTIDINE 20 MG TAB PO SCH ×2 (09:38→21:47)
[2017-03-25] MEDS: ASPIRIN 81 MG CHEW TAB CHEW SCH (09:38)
--- NOTE | 2017-03-25 10:29 | HHI.CCPN ---
Subjective Remarks/Hospital Course 71 y/o woman with recent development of SOB and CT shows diffuse interstitial process, ? fibrosis. Severely hypoxemic on arrival, now acceptable on 100% NRBM. 03/23 Patient is on partial rebreather with good sats. Afebrile. Awake and alert. 03/24 Patient is on non rebreather states she is feeling somewhat better. 03/25 No events overnight. Patient is on high flow O2 with 100% FIO2. Objective Vital Signs Date Time Temp Pulse Resp B/P Pulse Ox O2 Delivery O2 Flow Rate FiO2 03/25/17 07:55 97 High Flow Nasal Cannula 35.00 100 03/25/17 06:00 89 03/25/17 06:00 48 170/81 03/25/17 04:00 98.2 Intake and Output 03/24/17 03/24/17 03/24/17 07:59 15:59 23:59 Intake Total 560 ml 970 ml 1131 ml Output Total 230 ml 2000 ml 100 ml Balance 330 ml -1030 ml 1031 ml Result Diagram: 03/25/17 0444 03/25/17 0444 Other Results Laboratory Tests Test 03/25/17 04:44 White Blood Count 18.5 TH/MM3 Red Blood Count 3.83 MIL/MM3 Hemoglobin 11.4 GM/DL Hematocrit 34.7 % Mean Corpuscular Volume 90.7 FL Mean Corpuscular Hemoglobin 29.7 PG Mean Corpuscular Hemoglobin 32.7 % Concent Red Cell Distribution Width 15.0 % Platelet Count 373 TH/MM3 Mean Platelet Volume 8.3 FL Neutrophils (%) (Auto) 91.7 % Lymphocytes (%) (Auto) 5.4 % Monocytes (%) (Auto) 2.7 % Eosinophils (%) (Auto) 0.0 % Basophils (%) (Auto) 0.2 % Neutrophils # (Auto) 17.0 TH/MM3 Lymphocytes # (Auto) 1.0 TH/MM3 Monocytes # (Auto) 0.5 TH/MM3 Eosinophils # (Auto) 0.0 TH/MM3 Basophils # (Auto) 0.0 TH/MM3 CBC Comment AUTO DIFF Differential Comment AUTO DIFF CONFIRMED Sodium Level 142 MEQ/L Potassium Level 3.8 MEQ/L Chloride Level 105 MEQ/L Carbon Dioxide Level 28.9 MEQ/L Anion Gap 8 MEQ/L Blood Urea Nitrogen 17 MG/DL Creatinine 0.55 MG/DL Estimat Glomerular Filtration 109 ML/MIN Rate Random Glucose 106 MG/DL Calcium Level 8.3 MG/DL Phosphorus Level 2.6 MG/DL Magnesium Level 2.2 MG/DL Imaging Last Impressions Chest X-Ray 03/24/17 0500 Signed Impressions: Service Date/Time: Friday, March 24, 2017 05:05 - CONCLUSION: 1. Stable chest with interstitial and alveolar opacities. Sebastien Tolbert MD Liver Ultrasound 03/24/17 0000 Signed Impressions: Service Date/Time: Friday, March 24, 2017 15:32 - CONCLUSION: No acute disease. 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 All Prater MD Objective Remarks GENERAL: Patient is 71 yo remains on high flow oxygen SKIN: Warm and dry. HEAD: Normocephalic. EYES: No scleral icterus. No injection or drainage. NECK: Supple, trachea midline. No JVD or lymphadenopathy. CARDIOVASCULAR: Regular rate and rhythm without murmurs, gallops, or rubs. RESPIRATORY: Breath sounds equal bilaterally. Coarse BS/crackles GASTROINTESTINAL: Abdomen soft, non-tender, nondistended. MUSCULOSKELETAL: No cyanosis, or edema. Neuro: Awake and alert. A/P Assessment and Plan Imp 1) Hypoxemic Respiratory Failure. 2)Pulmonary fibrosis 3)Hx of colitis. 4)UTI. 50Leukocytosis...trending down 6)Elevated AST 7)Hypothyroidism 8)Leukocytosis...trending down Plan: Neuro: Awake and alert Pulm: Wean down oxygen as chance keep sat >92% Bronchodilators, decrease Solumederol 80mg IV Q8, Pulm is follow -Dr. Jocelyn ROMERO PRN for resp distress CV: Monitor HR and BP keep MAP>65mmHg. On ASA, Lipitor Place on Lopressor 25mg Q12 ; Monitor renal function, I/O's, electrolytes replacement per protocol Diurese with Bumex 1mg x1 GI: On PO diet, monitor LFT's. US liver: No acute disease. 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 Heme: Monitor CBC, ID: Continue with abx ( Rocephin, Zithromax)monitor for signs of infections ( Fever, WBC) strep pneumonia Ag positive Endo: SSI with accuchecks for glycemic control Synthroid 88 mcg daily on hold. TSH : 0.23 GI prophylaxis- On Pepcid DVT prophylaxis- On Lovenox 40mg daily level 3 Reynaldo Gutierrez MD Mar 25, 2017 10:28
[2017-03-25] MEDS ORDERED: BUMETANIDE INJ 1 MG/4 ML VIAL IV PUSH ONE (10:30)
[2017-03-25] MEDS ORDERED: hydrALAZINE HCL 20 MG/ML VIAL IV PUSH PRN (10:30)
[2017-03-25] MEDS: METOPROLOL TARTRATE 25 MG TAB PO SCH ×2 (11:02→21:47)
--- NOTE | 2017-03-25 19:41 | HHI.PR ---
Subjective Remarks 71 YOWF with Hypoxic RF,Colitis,PF Worsening bilat infilt On High flow 02 100% Feels comfortable, able to talk in Full sentences No Fever Objective Vital Signs Vital Signs Date Time Temp Pulse Resp B/P Pulse Ox O2 Delivery O2 Flow Rate FiO2 03/25/17 17:00 71 28 98 03/25/17 16:00 98.2 68 24 148/83 96 03/25/17 15:00 75 30 149/106 98 03/25/17 14:00 72 31 143/90 91 03/25/17 13:00 68 35 164/100 93 03/25/17 12:00 98.2 65 19 146/77 95 03/25/17 11:00 86 39 160/93 92 03/25/17 10:00 87 30 149/79 90 03/25/17 09:00 92 37 156/83 87 03/25/17 08:00 97.9 28 155/96 96 03/25/17 07:55 97 High Flow Nasal Cannula 35.00 100 03/25/17 07:00 100 03/25/17 06:21 96 High Flow Nasal Cannula 35.00 100 03/25/17 06:00 89 03/25/17 06:00 89 48 170/81 95 03/25/17 05:00 84 45 147/72 96 03/25/17 04:56 93 High Flow Nasal Cannula 40.00 100 03/25/17 04:48 95 High Flow Nasal Cannula 35.00 100 03/25/17 04:00 79 03/25/17 04:00 98.2 79 32 135/70 94 03/25/17 04:00 79 25 135/70 94 03/25/17 03:00 82 26 141/74 95 03/25/17 02:00 86 31 131/76 94 03/25/17 02:00 86 03/25/17 01:00 90 36 123/66 93 03/25/17 00:00 98.1 93 28 129/79 93 03/25/17 00:00 93 42 129/79 93 03/25/17 00:00 93 03/24/17 22:00 94 03/24/17 21:18 93 High Flow Nasal Cannula 25.00 100 03/24/17 21:05 100 03/24/17 20:04 94 Non-Rebreather 15.00 100 03/24/17 20:00 95 Non-Rebreather 100 03/24/17 20:00 91 03/24/17 20:00 98.3 91 32 123/67 95 I/O 03/24/17 03/24/17 03/24/17 03/25/17 03/25/17 03/25/17 07:00 15:00 23:00 07:00 15:00 23:00 Intake Total 560 ml 970 ml 1131 ml 254 ml 502 ml Output Total 230 ml 2000 ml 100 ml 225 ml 1000 ml 250 ml Balance 330 ml -1030 ml 1031 ml 29 ml -498 ml -250 ml Intake Oral 560 ml 720 ml 720 ml 34 ml 480 ml IV Total 0 ml 250 ml 411 ml 220 ml 22 ml Output Urine Total 230 ml 2000 ml 100 ml 225 ml 1000 ml 250 ml # Voids 2 6 2 # Bowel Movements 1 0 0 0 Result Diagram: 03/25/174 03/25/17443 Objective Remarks GENERAL: MBMN WF, sob SKIN: Warm and dry. HEAD: Normocephalic. EYES: No scleral icterus. No injection or drainage. NECK: Supple, trachea midline. No JVD or lymphadenopathy. CARDIOVASCULAR: Regular rate and rhythm without murmurs, gallops, or rubs. RESPIRATORY: Breath sounds equal bilaterally. No accessory muscle use. Bilat insp rales GASTROINTESTINAL: Abdomen soft, non-tender, nondistended. MUSCULOSKELETAL: No cyanosis, or edema. BACK: Nontender without obvious deformity. No CVA tenderness. A/P Assessment and Plan Hypoxic RF Pulm Fibrosis with exac Colitis Anxiert Bilat infilt PLAN: DW pt and her Will try BIPAP 10/5 Cont Abx IV solumedrol DVT Prophylaxis Gurinder Banks MD Mar 25, 2017 19:41
[2017-03-25] MEDS: AZITHROMYCIN INJ 500 MG in SODIUM CHLOR 0.9% 250 ML INJ 250 ML IV SCH (21:45)
[2017-03-25] MEDS: ENOXAPARIN SODIUM 40 MG/0.4 ML SYRINGE SQ SCH (21:46)
[2017-03-25] MEDS: cefTRIAXone 1,000 MG/NS 100 ML IV SCH ×2 (21:46)
[2017-03-25] MEDS: ATORVASTATIN 20 MG TAB PO SCH (21:47)
[2017-03-26] VITALS (29 sets, daily range): BP systolic 133–174; BP diastolic 70–102; PULSE 53–74; RESP 16–46; TEMP 97.3–98.3; O2SAT 88–100
[2017-03-26] MEDS: INSULIN NovoLIN REGULAR SUPPLEMENTAL SCALE SQ SCH ×4 (04:00→21:34)
[2017-03-26] MEDS: CHLORHEXIDINE GLUCONATE 2 % 1 PACK (2 CLOTHS) TOP SCH ×2 (05:52→21:34)
[2017-03-26] MEDS: methylPREDNISolone SOD SUCC 125 MG/2 ML VIAL IV PUSH SCH ×3 (05:52→21:31)
--- NOTE | 2017-03-26 07:03 | HHI.CCPN ---
Subjective Remarks/Hospital Course 71 y/o woman with recent development of SOB and CT shows diffuse interstitial process, ? fibrosis. Severely hypoxemic on arrival, now acceptable on 100% NRBM. 03/23 Patient is on partial rebreather with good sats. Afebrile. Awake and alert. 03/24 Patient is on non rebreather states she is feeling somewhat better. 03/25 No events overnight. Patient is on high flow O2 with 100% FIO2. 03/26 Patient was placed on BIPAP x 5 hrs overnight now back to high flow oxygen 35L with 100% FIO2. Awake and alert states she is feeling better. Objective Vital Signs Date Time Temp Pulse Resp B/P Pulse Ox O2 Delivery O2 Flow Rate FiO2 03/26/17 06:00 58 03/26/17 06:00 98 03/26/17 05:41 High Flow Nasal Cannula 35.00 100 03/26/17 04:00 97.3 18 144/85 Intake and Output 03/25/17 03/25/17 03/26/17 08:00 16:00 00:00 Intake Total 254 ml 502 ml 863 ml Output Total 225 ml 1000 ml 600 ml Balance 29 ml -498 ml 263 ml Result Diagram: 03/25/17 0444 03/25/17 0444 Imaging Last Impressions Chest X-Ray 03/24/17 0500 Signed Impressions: Service Date/Time: Friday, March 24, 2017 05:05 - CONCLUSION: 1. Stable chest with interstitial and alveolar opacities. Sebastien Tolbert MD Liver Ultrasound 03/24/17 0000 Signed Impressions: Service Date/Time: Friday, March 24, 2017 15:32 - CONCLUSION: No acute disease. 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 All Prater MD Objective Remarks GENERAL: Patient is 71 yo remains on high flow oxygen SKIN: Warm and dry. HEAD: Normocephalic. EYES: No scleral icterus. No injection or drainage. NECK: Supple, trachea midline. No JVD or lymphadenopathy. CARDIOVASCULAR: Regular rate and rhythm without murmurs, gallops, or rubs. RESPIRATORY: Breath sounds equal bilaterally. Coarse BS/crackles GASTROINTESTINAL: Abdomen soft, non-tender, nondistended. MUSCULOSKELETAL: No cyanosis, or edema. Neuro: Awake and alert. A/P Assessment and Plan Imp 1) Hypoxemic Respiratory Failure. 2)Pulmonary fibrosis 3)Hx of colitis. 4)UTI. 50Leukocytosis...trending down 6)Elevated AST 7)Hypothyroidism 8)Leukocytosis...trending down Plan: Neuro: Awake and alert Pulm: Wean down oxygen as chance keep sat >92% Bronchodilators, decrease Solumederol 80mg IV Q8, Pulm is follow -Dr. Jocelyn ROMERO PRN for resp distress CV: Monitor HR and BP keep MAP>65mmHg. On ASA, Lipitor on Lopressor 25mg Q12 ; Monitor renal function, I/O's, electrolytes replacement per protocol GI: On PO diet, monitor LFT's. US liver: No acute disease. 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 Heme: Monitor CBC, ID: Continue with abx ( Rocephin, Zithromax)monitor for signs of infections ( Fever, WBC) strep pneumonia Ag positive. WBC trending down Endo: SSI with accuchecks for glycemic control Synthroid 88 mcg daily on hold. TSH : 0.23 GI prophylaxis- On Pepcid DVT prophylaxis- On Lovenox 40mg daily Follow up on labs Spoke to patient's yesterday and updated him on patient's condition. All questions answered. level 3 Reynaldo Gutierrez MD Mar 26, 2017 07:03
[2017-03-26 07:06] LABS: AUTOMATED NEUTROPHIL # 17.8 TH/MM3 (1.8-7.7); BASOPHIL % 0.2 % (0.0-2.0); HEMATOCRIT 39.1 % (35.0-46.0); LYMPH % 6.4 % (9.0-44.0); LYMPHOCYTE # 1.3 TH/MM3 (1.0-4.8); MEAN CELL VOLUME 90.8 FL (80.0-100.0); MEAN CORPUSCULAR HEMOGLOBIN 29.8 PG (27.0-34.0); MEAN CORPUSCULAR HGB CONC 32.9 % (32.0-36.0); NEUT % 90.4 % (16.0-70.0); PLATELET COUNT 403 TH/MM3 (150-450); RED CELL DISTRIBUTION WIDTH 14.5 % (11.6-17.2); WHITE BLOOD COUNT 19.7 TH/MM3 (4.0-11.0)
[2017-03-26 07:07] LABS: HEMO FLAGS AUTO DIFF
[2017-03-26 07:27] LABS: BICARBONATE 33.1 MEQ/L (21.0-32.0); POTASSIUM 4.2 MEQ/L (3.5-5.1)
[2017-03-26] MEDS: RESP: ALBUTEROL 2.5 MG/IPRATROPIUM 0.5 MG NEB (SCH) NEB ×3 (07:38→19:49)
[2017-03-26 08:11] LABS: BANDS 4 % (0-6); MYELOCYTES 2 % (0-0); NEUTROPHIL # MANUAL DIFF 18.7 TH/MM3 (1.8-7.7); PLATELET ESTIMATE SMEAR NORMAL (NORMAL); PLATELET MORPHOLOGY NORMAL (NORMAL); POLYS (SEG NEUTROPHILS) 89 % (16-70); SCAN/DIFF FINAL DIFF MANUAL; WBC DIFF SAMPLE 100
[2017-03-26] MEDS: FAMOTIDINE 20 MG TAB PO SCH ×2 (08:50→21:32)
[2017-03-26] MEDS: LACTOBACILLUS ACIDOPHILUS 1 GM PACKET PO SCH ×3 (08:50→18:00)
[2017-03-26] MEDS: METOPROLOL TARTRATE 25 MG TAB PO SCH ×2 (08:50→21:32)
[2017-03-26] MEDS: SERTRALINE HCL 100 MG TAB PO SCH (08:50)
[2017-03-26] MEDS: MULTIVITAMIN TAB PO SCH (08:50)
[2017-03-26] MEDS: ASPIRIN 81 MG CHEW TAB CHEW SCH (08:50)
[2017-03-26] MEDS: DOCUSATE SODIUM 50 MG/SENNA 8.6 MG TAB PO SCH ×2 (08:50→21:00)
--- NOTE | 2017-03-26 17:54 | HHI.PR ---
Subjective Remarks 71 YOWF with Hypoxic RF,Colitis,PF Worsening bilat infilt Feels comfortable, able to talk in Full sentences No Fever Tried and Tolerated BIPAP on high bryanna, weaned to 60% Objective Vital Signs Vital Signs Date Time Temp Pulse Resp B/P Pulse Ox O2 Delivery O2 Flow Rate FiO2 03/26/17 12:00 97.6 53 19 138/84 93 03/26/17 11:00 60 28 155/89 90 03/26/17 10:01 60 27 156/80 100 03/26/17 09:26 69 30 168/75 90 03/26/17 09:00 68 46 166/102 93 03/26/17 08:00 97.6 61 16 174/85 97 03/26/17 07:40 100 High Flow Nasal Cannula 35.00 90 03/26/17 07:00 Nasal Cannula 100 03/26/17 06:00 58 03/26/17 06:00 98 03/26/17 05:41 98 High Flow Nasal Cannula 35.00 100 03/26/17 05:30 93 Nasal Cannula 03/26/17 05:00 97 03/26/17 04:00 58 03/26/17 04:00 97.3 58 18 144/85 97 03/26/17 04:00 97 03/26/17 03:46 98 90 03/26/17 03:00 57 16 147/81 96 03/26/17 03:00 57 03/26/17 03:00 96 03/26/17 02:00 95 03/26/17 02:00 65 03/26/17 01:00 95 03/26/17 00:30 96 Bi-Pap 100 03/26/17 00:30 97 100 03/26/17 00:01 97.4 74 39 168/85 93 03/26/17 00:00 63 35 91 03/26/17 00:00 91 03/26/17 00:00 91 03/26/17 00:00 63 03/25/17 23:00 92 03/25/17 23:00 74 44 159/85 92 03/25/17 23:00 74 03/25/17 22:00 79 03/25/17 22:00 79 41 153/86 90 03/25/17 22:00 90 03/25/17 21:00 68 36 138/79 95 03/25/17 21:00 68 03/25/17 21:00 95 03/25/17 20:39 93 High Flow Nasal Cannula 40.00 100 03/25/17 20:00 75 03/25/17 20:00 98.1 75 30 138/82 94 03/25/17 20:00 94 03/25/17 19:00 92 100 I/O 03/25/17 03/25/17 03/25/17 03/26/17 03/26/17 03/26/17 07:00 15:00 23:00 07:00 15:00 23:00 Intake Total 254 ml 502 ml 963 ml Output Total 225 ml 1000 ml 250 ml 475 ml Balance 29 ml -498 ml -250 ml 488 ml Intake Oral 34 ml 480 ml 600 ml IV Total 220 ml 22 ml 363 ml Output Urine Total 225 ml 1000 ml 250 ml 475 ml # Voids 6 2 4 # Bowel Movements 0 0 Result Diagram: 03/26/1751203/26/17512 Objective Remarks GENERAL: MBMN WF, sob SKIN: Warm and dry. HEAD: Normocephalic. EYES: No scleral icterus. No injection or drainage. NECK: Supple, trachea midline. No JVD or lymphadenopathy. CARDIOVASCULAR: Regular rate and rhythm without murmurs, gallops, or rubs. RESPIRATORY: Breath sounds equal bilaterally. No accessory muscle use. Bilat insp rales GASTROINTESTINAL: Abdomen soft, non-tender, nondistended. MUSCULOSKELETAL: No cyanosis, or edema. BACK: Nontender without obvious deformity. No CVA tenderness. A/P Assessment and Plan Hypoxic RF Pulm Fibrosis with exac Colitis Anxiert Bilat infilt PLAN: DW pt and her Will try BIPAP 10/5 Cont Abx IV solumedrol DVT Prophylaxis titerate 02 to keep sat >88% Gurinder Banks MD Mar 26, 2017 17:54
[2017-03-26] MEDS: ENOXAPARIN SODIUM 40 MG/0.4 ML SYRINGE SQ SCH (21:31)
[2017-03-26] MEDS: ATORVASTATIN 20 MG TAB PO SCH (21:31)
[2017-03-26] MEDS: AZITHROMYCIN INJ 500 MG in SODIUM CHLOR 0.9% 250 ML INJ 250 ML IV SCH (21:32)
[2017-03-26] MEDS: cefTRIAXone 1,000 MG/NS 100 ML IV SCH ×2 (21:32)
[2017-03-26] MEDS: ALPRAZolam 0.25 MG TAB PO PRN (22:49)
[2017-03-27] VITALS (25 sets, daily range): BP systolic 124–162; BP diastolic 67–113; PULSE 7–83; RESP 21–47; TEMP 97.4–98.5; O2SAT 84–100
[2017-03-27] MEDS: INSULIN NovoLIN REGULAR SUPPLEMENTAL SCALE SQ SCH ×4 (04:00→21:36)
[2017-03-27 05:41] LABS: AUTOMATED NEUTROPHIL # 18.4 TH/MM3 (1.8-7.7); BASOPHIL % 0.2 % (0.0-2.0); HEMATOCRIT 38.4 % (35.0-46.0); LYMPH % 5.6 % (9.0-44.0); LYMPHOCYTE # 1.1 TH/MM3 (1.0-4.8); MEAN CELL VOLUME 90.3 FL (80.0-100.0); MEAN CORPUSCULAR HGB CONC 33.2 % (32.0-36.0); MONO % 3.4 % (0.0-8.0); NEUT % 90.8 % (16.0-70.0); PLATELET COUNT 410 TH/MM3 (150-450); RED BLOOD COUNT 4.25 MIL/MM3 (4.00-5.30); RED CELL DISTRIBUTION WIDTH 14.5 % (11.6-17.2); WHITE BLOOD COUNT 20.2 TH/MM3 (4.0-11.0)
[2017-03-27 06:00] LABS: BICARBONATE 28.1 MEQ/L (21.0-32.0); POTASSIUM 4.3 MEQ/L (3.5-5.1)
[2017-03-27 06:03] LABS: HEMO FLAGS AUTO DIFF
[2017-03-27] MEDS: methylPREDNISolone SOD SUCC 125 MG/2 ML VIAL IV PUSH SCH ×3 (06:04→21:36)
[2017-03-27] MEDS: RESP: ALBUTEROL 2.5 MG/IPRATROPIUM 0.5 MG NEB (SCH) NEB ×3 (07:22→19:46)
[2017-03-27] MEDS ORDERED: CEFEPIME INJ 2,000 MG in SODIUM CHLORIDE 0.9% INJ 100 ML IV ONE (07:37)
--- NOTE | 2017-03-27 07:43 | HHI.CCPN ---
Subjective Remarks/Hospital Course 71 y/o woman with recent development of SOB and CT shows diffuse interstitial process, ? fibrosis. Severely hypoxemic on arrival, now acceptable on 100% NRBM. 03/23 Patient is on partial rebreather with good sats. Afebrile. Awake and alert. 03/24 Patient is on non rebreather states she is feeling somewhat better. 03/25 No events overnight. Patient is on high flow O2 with 100% FIO2. 03/26 Patient was placed on BIPAP x 5 hrs overnight now back to high flow oxygen 35L with 100% FIO2. Awake and alert states she is feeling better. 03/27: Tolerated BiPAP overnight, currently on hi bryanna oxygen at 55%. Sputum culture 03/24 pseudomonas, I have discontinued ceftriaxone and started Cefepime 2 GM IV q 8hr, ist dose stat called to pharmacy. Also DCd Azithro and placed on Levaquin Objective Vital Signs Date Time Temp Pulse Resp B/P Pulse Ox O2 Delivery O2 Flow Rate FiO2 03/27/17 07:23 91 High Flow Nasal Cannula 35.00 55 03/27/17 06:00 53 03/27/17 04:01 97.4 32 152/96 Intake and Output 03/26/17 03/26/17 03/27/17 08:00 16:00 00:00 Intake Total 100 ml 400 ml 365 ml Output Total 125 ml 325 ml 200 ml Balance -25 ml 75 ml 165 ml Result Diagram: 03/27/17 0316 03/27/17 0316 Other Results Microbiology Date/Time Procedure Status Source Growth 03/24/17 10:05 Legionella Antigen - Final Complete Urine Catheterized Urine PRESUMPTIVE NEGATIVE FOR LEGIONELLA P... 03/24/17 10:05 Streptococcus pneumoniae Antigen (M - Final Complete Pos S.pneumoniae Antigen Imaging Last Impressions Chest X-Ray 03/24/17 0500 Signed Impressions: Service Date/Time: Friday, March 24, 2017 05:05 - CONCLUSION: 1. Stable chest with interstitial and alveolar opacities. Sebastien Tolbert MD Liver Ultrasound 03/24/17 0000 Signed Impressions: Service Date/Time: Friday, March 24, 2017 15:32 - CONCLUSION: No acute disease. 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 All Prater MD Objective Remarks GENERAL: Patient is 71 yo remains on high flow oxygen at 55% SKIN: Warm and dry. HEAD: Normocephalic. EYES: No scleral icterus. No injection or drainage. NECK: Supple, trachea midline. No JVD or lymphadenopathy. CARDIOVASCULAR: Regular rate and rhythm without murmurs, gallops, or rubs. RESPIRATORY: Breath sounds equal bilaterally. Coarse BS/crackles bilaterally GASTROINTESTINAL: Abdomen soft, non-tender, nondistended. MUSCULOSKELETAL: No cyanosis, or edema. Neuro: Awake and alert. No FND A/P Assessment and Plan Imp: Hypoxemic Respiratory Failure. Acute on chronic Pneumonia with Pseudomonas and strep pneumo Sepsis Pulmonary fibrosis UTI. Elevated AST Hypothyroidism Leukocytosis...trending down Plan: Neuro: Awake and alert. Minimize sedation Pulm: Wean down oxygen as chance keep sat >88% Bronchodilators, Solumedrol 80mg IV Q8, Pulm is follow -Dr. Banks NIPPV PRN for resp distress Add EzPAP, IS Start Spiriva 1 cap daily, Pulmicort 1 puff daily. Pulm Jocelyn ABX as below CV: Monitor HR and BP keep MAP>65mmHg. On ASA, Lipitor On Lopressor 25mg Q12 : Monitor renal function, I/O's, electrolytes replacement per protocol GI: On PO diet, monitor LFT's. US liver: No acute disease. 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 Heme: Monitor CBC, ID: DC Rocephin, Zithromax. Start Cefepime, Levaquin for sputum cx growing pseudomonas sp. Strep pneumonia Ag positive. WBC trending up. CXR pending Endo: SSI with accuchecks for glycemic control Synthroid 88 mcg daily on hold. TSH : 0.23 GI prophylaxis- On Pepcid DVT prophylaxis- On Lovenox 40mg daily Follow up on labs Dr. valadez had spoken to patient's and updated him on patient's condition. All questions answered. level 3 Penny Carrizales MD Mar 27, 2017 07:43
[2017-03-27] MEDS: RESP: BUDESONIDE 0.5 MG/2 ML NEB NEB SCH ×2 (08:15→19:46)
[2017-03-27 08:20] LABS: BANDS 3 % (0-6); METAMYELOCYTES 1 % (0-1); MYELOCYTES 1 % (0-0); NEUTROPHIL # MANUAL DIFF 19.6 TH/MM3 (1.8-7.7); POLYS (SEG NEUTROPHILS) 92 % (16-70); WBC DIFF SAMPLE 100
[2017-03-27 08:21] LABS: PLATELET ESTIMATE SMEAR HIGH (NORMAL); PLATELET MORPHOLOGY ENLARGED (NORMAL); SCAN/DIFF FINAL DIFF MANUAL
[2017-03-27] MEDS: LEVOFLOXACIN 750 MG PREMIX INJ 150 ML IV SCH (08:39)
[2017-03-27] MEDS: LACTOBACILLUS ACIDOPHILUS 1 GM PACKET PO SCH ×3 (08:40→18:00)
[2017-03-27] MEDS: SERTRALINE HCL 100 MG TAB PO SCH (08:41)
[2017-03-27] MEDS: ASPIRIN 81 MG CHEW TAB CHEW SCH (08:41)
[2017-03-27] MEDS: FAMOTIDINE 20 MG TAB PO SCH ×2 (08:41→20:58)
[2017-03-27] MEDS: MULTIVITAMIN TAB PO SCH (08:41)
[2017-03-27] MEDS: METOPROLOL TARTRATE 25 MG TAB PO SCH ×2 (08:41→20:58)
[2017-03-27] MEDS: DOCUSATE SODIUM 50 MG/SENNA 8.6 MG TAB PO SCH ×2 (08:41→20:58)
--- NOTE | 2017-03-27 09:20 | RADRPT ---
EXAM DATE/TIME: 03/27/2017 08:25 [facility] COMPARISON: CHEST SINGLE AP, March 24, 2017, 5:05. INDICATIONS : Short of breath. MEDICAL HISTORY : None. SURGICAL HISTORY : None. ENCOUNTER: Subsequent ACUITY: 3 days PAIN SCORE: 0/10 LOCATION: Bilateral chest FINDINGS: Course interstitial changes are present in both lungs with cardiomegaly, thought to representing fibr osis. This is substantially improved from 03/24/17. The portion of the bony skeleton visualized is un remarkable. CONCLUSION: Coarse interstitial changes both lungs, probably fibrosis. The heart is enlarged. Congestive failur e should be excluded clinically. Narayan Lane MD FACR on March 27, 2017 at 9:15 Board Certified Radiologist. This report was verified electronically.
[2017-03-27] MEDS: TIOTROPIUM BROMIDE 18 MCG INH INH SCH (12:25)
--- NOTE | 2017-03-27 15:17 | HHI.PR ---
Subjective Remarks 71 YOWF with Hypoxic RF,Colitis,PF Worsening bilat infilt Feels comfortable, able to talk in Full sentences No Fever weaned to Oxymask On Cefepime and Levquin for Pseudomonas coverage. Objective Vital Signs Vital Signs Date Time Temp Pulse Resp B/P Pulse Ox O2 Delivery O2 Flow Rate FiO2 03/27/17 14:00 62 03/27/17 12:00 57 03/27/17 12:00 98.0 57 32 148/89 96 03/27/17 10:34 90 Venturi Mask 8.00 50 03/27/17 10:00 63 03/27/17 08:00 57 03/27/17 08:00 98.1 57 29 160/85 90 03/27/17 07:23 91 High Flow Nasal Cannula 35.00 55 03/27/17 07:00 92 Nasal Cannula 55 [employer] 03/27/17 06:00 53 03/27/17 04:10 94 70 03/27/17 04:01 97.4 63 32 152/96 84 03/27/17 04:00 60 43 88 03/27/17 04:00 60 03/27/17 03:35 90 High Flow Nasal Cannula 35.00 60 03/27/17 03:00 54 21 129/67 89 03/27/17 02:00 63 03/27/17 02:00 96 High Flow Nasal Cannula 35.00 60 03/27/17 02:00 63 27 154/86 96 03/27/17 01:00 68 32 137/85 86 03/27/17 00:20 96 70 03/27/17 00:00 52 24 147/82 99 03/27/17 00:00 52 03/27/17 00:00 97.6 51 24 147/82 99 03/26/17 23:00 58 29 166/88 97 03/26/17 22:52 97 70 03/26/17 22:00 65 31 157/78 88 03/26/17 22:00 65 03/26/17 21:00 59 17 137/74 93 03/26/17 20:00 94 Nasal Cannula 100 03/26/17 20:00 98.2 59 34 136/78 94 03/26/17 20:00 59 03/26/17 19:58 94 High Flow Nasal Cannula 35.00 60 03/26/17 19:00 62 29 138/80 96 03/26/17 18:01 67 35 166/79 93 03/26/17 17:00 59 19 137/70 93 03/26/17 16:00 98.3 62 28 148/78 96 I/O 03/26/17 03/26/17 03/26/17 03/27/17 03/27/17 03/27/17 07:00 15:00 23:00 07:00 15:00 23:00 Intake Total 963 ml 400 ml 365 ml 256 ml 600 ml Output Total 475 ml 325 ml 200 ml 300 ml Balance 488 ml 75 ml 165 ml -44 ml 600 ml Intake Oral 600 ml 400 ml 250 ml 600 ml IV Total 363 ml 115 ml 256 ml Output Urine Total 475 ml 325 ml 200 ml 300 ml # Voids 4 6 # Bowel Movements 0 1 Result Diagram: 03/27/1731503/27/17315 Objective Remarks GENERAL: MBMN WF, sob SKIN: Warm and dry. HEAD: Normocephalic. EYES: No scleral icterus. No injection or drainage. NECK: Supple, trachea midline. No JVD or lymphadenopathy. CARDIOVASCULAR: Regular rate and rhythm without murmurs, gallops, or rubs. RESPIRATORY: Breath sounds equal bilaterally. No accessory muscle use. Bilat insp rales GASTROINTESTINAL: Abdomen soft, non-tender, nondistended. MUSCULOSKELETAL: No cyanosis, or edema. BACK: Nontender without obvious deformity. No CVA tenderness. A/P Assessment and Plan Hypoxic RF Pulm Fibrosis with exac Colitis Anxiert Bilat infilt PLAN: DW pt and her Cont VM Cont Abx Cefepime and Levaquin IV solumedrol DVT Prophylaxis titerate 02 to keep sat >88% Gurinder Banks MD Mar 27, 2017 15:17
[2017-03-27] MEDS: CEFEPIME INJ 2,000 MG in SODIUM CHLORIDE 0.9% INJ 100 ML IV SCH (16:00)
[2017-03-27] MEDS: SODIUM CHLORIDE 0.9% FLUSH 10 ML FLUSH IVF PRN (20:58)
[2017-03-27] MEDS: ATORVASTATIN 20 MG TAB PO SCH (20:58)
[2017-03-27] MEDS: ENOXAPARIN SODIUM 40 MG/0.4 ML SYRINGE SQ SCH (20:58)
[2017-03-27] MEDS: ALPRAZolam 0.25 MG TAB PO PRN (22:47)
[2017-03-28] VITALS (18 sets, daily range): BP systolic 124–164; BP diastolic 69–100; PULSE 56–76; RESP 20–28; TEMP 94.7–99; O2SAT 87–100
[2017-03-28] MEDS: CEFEPIME INJ 2,000 MG in SODIUM CHLORIDE 0.9% INJ 100 ML IV SCH ×4 (00:55→23:52)
[2017-03-28] MEDS: RESP: ALBUTEROL 2.5 MG/IPRATROPIUM 0.5 MG NEB (SCH) NEB ×4 (03:29→19:24)
[2017-03-28] MEDS: CHLORHEXIDINE GLUCONATE 2 % 1 PACK (2 CLOTHS) TOP SCH (04:00)
[2017-03-28] MEDS: INSULIN NovoLIN REGULAR SUPPLEMENTAL SCALE SQ SCH ×4 (04:00→21:17)
[2017-03-28] MEDS: methylPREDNISolone SOD SUCC 125 MG/2 ML VIAL IV PUSH SCH ×3 (05:27→21:13)
[2017-03-28] MEDS: LACTOBACILLUS ACIDOPHILUS 1 GM PACKET PO SCH ×3 (08:10→17:41)
[2017-03-28] MEDS: FAMOTIDINE 20 MG TAB PO SCH ×2 (08:10→21:12)
[2017-03-28] MEDS: METOPROLOL TARTRATE 25 MG TAB PO SCH ×2 (08:10→21:12)
[2017-03-28] MEDS: ASPIRIN 81 MG CHEW TAB CHEW SCH (08:10)
[2017-03-28] MEDS: TIOTROPIUM BROMIDE 18 MCG INH INH SCH (08:10)
[2017-03-28] MEDS: SERTRALINE HCL 100 MG TAB PO SCH (08:11)
[2017-03-28] MEDS: MULTIVITAMIN TAB PO SCH (08:11)
[2017-03-28] MEDS: DOCUSATE SODIUM 50 MG/SENNA 8.6 MG TAB PO SCH ×2 (08:11→21:00)
[2017-03-28] MEDS: ALPRAZolam 0.25 MG TAB PO PRN ×3 (08:12→23:52)
[2017-03-28] MEDS: RESP: BUDESONIDE 0.5 MG/2 ML NEB NEB SCH ×2 (09:12→19:24)
--- NOTE | 2017-03-28 09:27 | HHI.CCPN ---
Subjective Remarks/Hospital Course 71 y/o woman with recent development of SOB and CT shows diffuse interstitial process, ? fibrosis. Severely hypoxemic on arrival, now acceptable on 100% NRBM. 03/23 Patient is on partial rebreather with good sats. Afebrile. Awake and alert. 03/24 Patient is on non rebreather states she is feeling somewhat better. 03/25 No events overnight. Patient is on high flow O2 with 100% FIO2. 03/26 Patient was placed on BIPAP x 5 hrs overnight now back to high flow oxygen 35L with 100% FIO2. Awake and alert states she is feeling better. 03/27: Tolerated BiPAP overnight, currently on hi bryanna oxygen at 55%. Sputum culture 03/24 pseudomonas, I have discontinued ceftriaxone and started Cefepime 2 GM IV q 8hr, ist dose stat called to pharmacy. Also DCd Azithro and placed on Levaquin 03/28: Remains on high flow oxygen 70% FiO2. appears comfortable, but desaturates quickly with any activity. Cefepime and Levaquin started yesterday for pseudomonas in sputum Objective Vital Signs Date Time Temp Pulse Resp B/P Pulse Ox O2 Delivery O2 Flow Rate FiO2 03/28/17 09:18 96 High Flow Nasal Cannula 20.00 70 03/28/17 08:00 98.0 68 24 164/86 Intake and Output 03/27/17 03/27/17 03/28/17 08:00 16:00 00:00 Intake Total 256 ml 600 ml 160 ml Output Total 300 ml 225 ml Balance -44 ml 600 ml -65 ml Result Diagram: 03/27/17 0316 03/27/17 0316 Imaging Last Impressions Chest X-Ray 03/24/17 0500 Signed Impressions: Service Date/Time: Friday, March 24, 2017 05:05 - CONCLUSION: 1. Stable chest with interstitial and alveolar opacities. Sebastien Tolbert MD Liver Ultrasound 03/24/17 0000 Signed Impressions: Service Date/Time: Friday, March 24, 2017 15:32 - CONCLUSION: No acute disease. 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 All Prater MD Objective Remarks GENERAL: Patient is 71 yo remains on high flow oxygen at 70% SKIN: Warm and dry. HEAD: Normocephalic. EYES: No scleral icterus. No injection or drainage. NECK: Supple, trachea midline. No JVD or lymphadenopathy. CARDIOVASCULAR: Regular rate and rhythm without murmurs, gallops, or rubs. RESPIRATORY: Breath sounds equal bilaterally. Coarse BS/crackles bilaterally, no wheezes GASTROINTESTINAL: Abdomen soft, non-tender, nondistended. MUSCULOSKELETAL: No cyanosis, or edema. Neuro: Awake and alert. No FND A/P Assessment and Plan Imp: Hypoxemic Respiratory Failure. Acute on chronic Pneumonia with Pseudomonas and strep pneumo Sepsis Pulmonary fibrosis UTI. Elevated AST Hypothyroidism Leukocytosis Plan: Neuro: Awake and alert. Minimize sedation Pulm: Wean down oxygen as chance keep sat >88% currently on 70% oxygen by high flow cannula Bronchodilators, Solumedrol 80mg IV Q8, Pulm is follow -Dr. Jocelyn GERMANPV PRN for resp distress EzPAP, IS Continue Spiriva 1 cap daily, Pulmicort 1 puff daily. ABX as below CV: Monitor HR and BP keep MAP>65mmHg. On ASA, Lipitor On Lopressor 25mg Q12 : Monitor renal function, I/O's, electrolytes replacement per protocol GI: On PO diet, monitor LFT's. US liver: No acute disease. 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 Heme: Monitor CBC, ID: Cefepime, Levaquin for sputum cx growing pseudomonas sp. Strep pneumonia Ag positive. WBC trending up. CXR pending Endo: SSI with accuchecks for glycemic control Synthroid 88 mcg daily on hold. TSH : 0.23 GI prophylaxis- On Pepcid DVT prophylaxis- On Lovenox 40mg daily Follow up on labs Dr. valadez had spoken to patient's and updated him on patient's condition. All questions answered. level 2 Penny Carrizales MD Mar 28, 2017 09:27
--- NOTE | 2017-03-28 10:35 | RADRPT ---
EXAM DATE/TIME: 03/28/2017 09:24 [facility] COMPARISON: CHEST SINGLE AP, March 27, 2017, 8:25. INDICATIONS : Respiratory disease MEDICAL HISTORY : None. SURGICAL HISTORY : None. ENCOUNTER: Subsequent ACUITY: 4 - 6 days PAIN SCORE: 0/10 LOCATION: Bilateral chest FINDINGS: Diffuse infiltrates are noted bilaterally and are stable. The heart is stable. Degenerative changes and scoliosis of the thoracic spine are noted. CONCLUSION: 1. Stable diffuse infiltrates. 2. Mild cardiomegaly. 3. Degenerative changes and scoliosis of the thoracic spine. Buddy Garcia MD on March 28, 2017 at 10:24 Board Certified Radiologist. This report was verified electronically.
[2017-03-28 11:22] LABS: AUTOMATED NEUTROPHIL # 19.1 TH/MM3 (1.8-7.7); EOSINOPHIL # 0.2 TH/MM3 (0-0.4); EOSINOPHIL % 0.7 % (0.0-4.0); HEMATOCRIT 43.3 % (35.0-46.0); LYMPH % 4.2 % (9.0-44.0); LYMPHOCYTE # 0.9 TH/MM3 (1.0-4.8); MEAN CELL VOLUME 90.9 FL (80.0-100.0); MEAN CORPUSCULAR HEMOGLOBIN 30.2 PG (27.0-34.0); MEAN CORPUSCULAR HGB CONC 33.2 % (32.0-36.0); MONO % 2.9 % (0.0-8.0); NEUT % 92.2 % (16.0-70.0); PLATELET COUNT 419 TH/MM3 (150-450); RED BLOOD COUNT 4.77 MIL/MM3 (4.00-5.30); RED CELL DISTRIBUTION WIDTH 14.7 % (11.6-17.2); WHITE BLOOD COUNT 20.7 TH/MM3 (4.0-11.0)
[2017-03-28 11:24] LABS: HEMO FLAGS AUTO DIFF
[2017-03-28 12:03] LABS: MYELOCYTES 1 % (0-0); NEUTROPHIL # MANUAL DIFF 19.7 TH/MM3 (1.8-7.7); POLYS (SEG NEUTROPHILS) 94 % (16-70); WBC DIFF SAMPLE 100
[2017-03-28 12:04] LABS: TOXIC VACUOLATION PRESENT (NONE SEEN)
[2017-03-28 12:06] LABS: PLATELET ESTIMATE SMEAR HIGH (NORMAL); PLATELET MORPHOLOGY NORMAL (NORMAL); SCAN/DIFF FINAL DIFF MANUAL
--- NOTE | 2017-03-28 17:58 | HHI.PR ---
Subjective Remarks 71 YOWF with Hypoxic RF,Colitis,PF Worsening bilat infilt No Fever weaned to Oxymask On Cefepime and Levquin for Pseudomonas coverage. More SOB, on high flow 75% Objective Vital Signs Vital Signs Date Time Temp Pulse Resp B/P Pulse Ox O2 Delivery O2 Flow Rate FiO2 03/28/17 17:08 96 75 03/28/17 16:00 76 03/28/17 16:00 99.0 72 24 146/76 94 03/28/17 14:00 68 03/28/17 12:00 99.0 75 24 124/70 94 03/28/17 12:00 76 03/28/17 10:00 76 03/28/17 09:18 90 High Flow Nasal Cannula 20.00 76 03/28/17 08:00 98.0 68 24 164/86 94 03/28/17 08:00 76 03/28/17 06:00 56 03/28/17 04:00 94.7 59 24 142/73 94 03/28/17 04:00 59 03/28/17 02:00 61 03/28/17 00:45 99 Nasal Cannula 80 03/28/17 00:00 100 Nasal Cannula 100 03/28/17 00:00 64 03/28/17 00:00 98.1 64 28 144/84 100 03/27/17 23:10 Bi-Pap 75 03/27/17 23:00 65 27 159/79 100 03/27/17 23:00 98 75 03/27/17 22:00 71 47 152/81 100 03/27/17 22:00 74 03/27/17 21:01 83 46 162/113 97 03/27/17 21:00 81 44 98 03/27/17 20:00 76 03/27/17 20:00 97 Nasal Cannula 100 03/27/17 20:00 97.7 76 24 124/71 97 03/27/17 19:49 93 High Flow Nasal Cannula 20.00 100 03/27/17 18:00 74 I/O 03/27/17 03/27/17 03/27/17 03/28/17 03/28/17 03/28/17 07:00 15:00 23:00 07:00 15:00 23:00 Intake Total 256 ml 600 ml 160 ml 251 ml 370 ml Output Total 300 ml 225 ml 350 ml 500 ml Balance -44 ml 600 ml -65 ml -99 ml -130 ml Intake Oral 600 ml 120 ml 120 ml 240 ml IV Total 256 ml 40 ml 131 ml 130 ml Output Urine Total 300 ml 225 ml 350 ml 500 ml # Voids 6 # Bowel Movements 1 0 0 0 Result Diagram: 03/28/17 1024 03/27/17 0316 Objective Remarks GENERAL: MBMN WF, sob SKIN: Warm and dry. HEAD: Normocephalic. EYES: No scleral icterus. No injection or drainage. NECK: Supple, trachea midline. No JVD or lymphadenopathy. CARDIOVASCULAR: Regular rate and rhythm without murmurs, gallops, or rubs. RESPIRATORY: Breath sounds equal bilaterally. No accessory muscle use. Bilat insp rales GASTROINTESTINAL: Abdomen soft, non-tender, nondistended. MUSCULOSKELETAL: No cyanosis, or edema. BACK: Nontender without obvious deformity. No CVA tenderness. A/P Assessment and Plan Hypoxic RF Pulm Fibrosis with exac Colitis Anxiert Bilat infilt PLAN: DW pt and her Cont Abx Cefepime and Levaquin IV solumedrol DVT Prophylaxis titerate 02 to keep sat >88% Will try BIPAP Gurinder Banks MD Mar 28, 2017 17:58
[2017-03-28] MEDS: ATORVASTATIN 20 MG TAB PO SCH (21:12)
[2017-03-28] MEDS: ENOXAPARIN SODIUM 40 MG/0.4 ML SYRINGE SQ SCH (21:12)
[2017-03-29] VITALS (21 sets, daily range): BP systolic 115–165; BP diastolic 63–91; PULSE 54–80; RESP 15–36; TEMP 97.8–98.7; O2SAT 88–100
[2017-03-29] MEDS: RESP: ALBUTEROL 2.5 MG/IPRATROPIUM 0.5 MG NEB (SCH) NEB ×4 (03:01→19:45)
[2017-03-29] MEDS: INSULIN NovoLIN REGULAR SUPPLEMENTAL SCALE SQ SCH ×4 (04:00→22:00)
[2017-03-29] MEDS: CHLORHEXIDINE GLUCONATE 2 % 1 PACK (2 CLOTHS) TOP SCH (04:00)
--- NOTE | 2017-03-29 04:34 | RADRPT ---
EXAM DATE/TIME: 03/29/2017 03:31 [facility] COMPARISON: CHEST SINGLE AP, March 28, 2017, 9:24. INDICATIONS : Re-evaluate after respiratory failure. MEDICAL HISTORY : None. SURGICAL HISTORY : None. ENCOUNTER: Subsequent ACUITY: 1 week PAIN SCORE: Non-responsive. LOCATION: Bilateral chest FINDINGS: Bilateral reticular interstitial process has not significantly changed. Heart and mediastinum are unr emarkable for technique. CONCLUSION: No appreciable change. Austin Hector MD on March 29, 2017 at 4:32 Board Certified Radiologist. This report was verified electronically.
[2017-03-29] MEDS: methylPREDNISolone SOD SUCC 125 MG/2 ML VIAL IV PUSH SCH ×3 (05:28→21:58)
[2017-03-29 06:09] LABS: AUTOMATED NEUTROPHIL # 16.2 TH/MM3 (1.8-7.7); BASOPHIL # 0.1 TH/MM3 (0-0.2); BASOPHIL % 0.4 % (0.0-2.0); HEMATOCRIT 43.4 % (35.0-46.0); LYMPH % 6.5 % (9.0-44.0); LYMPHOCYTE # 1.2 TH/MM3 (1.0-4.8); MEAN CELL VOLUME 91.3 FL (80.0-100.0); MEAN CORPUSCULAR HEMOGLOBIN 30.3 PG (27.0-34.0); MEAN CORPUSCULAR HGB CONC 33.2 % (32.0-36.0); MONO % 3.9 % (0.0-8.0); NEUT % 89.2 % (16.0-70.0); PLATELET COUNT 403 TH/MM3 (150-450); RED BLOOD COUNT 4.75 MIL/MM3 (4.00-5.30); RED CELL DISTRIBUTION WIDTH 14.6 % (11.6-17.2); WHITE BLOOD COUNT 18.2 TH/MM3 (4.0-11.0)
[2017-03-29 06:14] LABS: HEMO FLAGS AUTO DIFF
[2017-03-29 06:32] LABS: ALT (GPT) 136 U/L (10-53); ANION GAP 6 MEQ/L (5-15); AST (GOT) 54 U/L (15-37); BICARBONATE 26.3 MEQ/L (21.0-32.0); BLOOD UREA NITROGEN 27 MG/DL (7-18); CHLORIDE 107 MEQ/L (98-107); GLOMERULAR FILTRATION RATE 95 ML/MIN (>89); POTASSIUM 4.5 MEQ/L (3.5-5.1); SODIUM (NA) 139 MEQ/L (136-145)
[2017-03-29 06:34] LABS: ALKALINE PHOSPHATASE 104 U/L (45-117); TOTAL BILIRUBIN ADULT 0.5 MG/DL (0.2-1.0)
[2017-03-29 08:41] LABS: SCAN/DIFF AUTO DIFF CONFIRMED; TOXIC VACUOLATION PRESENT (NONE SEEN)
[2017-03-29] MEDS: ASPIRIN 81 MG CHEW TAB CHEW SCH (08:51)
[2017-03-29] MEDS: CEFEPIME INJ 2,000 MG in SODIUM CHLORIDE 0.9% INJ 100 ML IV SCH ×3 (08:51→23:57)
[2017-03-29] MEDS: SERTRALINE HCL 100 MG TAB PO SCH (08:51)
[2017-03-29] MEDS: MULTIVITAMIN TAB PO SCH (08:51)
[2017-03-29] MEDS: DOCUSATE SODIUM 50 MG/SENNA 8.6 MG TAB PO SCH ×2 (08:51→21:00)
[2017-03-29] MEDS: LACTOBACILLUS ACIDOPHILUS 1 GM PACKET PO SCH ×3 (08:51→17:35)
[2017-03-29] MEDS: LEVOFLOXACIN 750 MG PREMIX INJ 150 ML IV SCH (08:51)
[2017-03-29] MEDS: FAMOTIDINE 20 MG TAB PO SCH ×2 (08:52→21:58)
[2017-03-29] MEDS: METOPROLOL TARTRATE 25 MG TAB PO SCH ×2 (08:52→21:57)
[2017-03-29] MEDS: SODIUM CHLORIDE 0.9% FLUSH 10 ML FLUSH IVF PRN (08:52)
[2017-03-29] MEDS: TIOTROPIUM BROMIDE 18 MCG INH INH SCH (08:53)
[2017-03-29] MEDS: RESP: BUDESONIDE 0.5 MG/2 ML NEB NEB SCH ×2 (10:06→19:45)
--- NOTE | 2017-03-29 10:49 | HHI.CCPN ---
Subjective Remarks/Hospital Course 71 y/o woman with recent development of SOB and CT shows diffuse interstitial process, ? fibrosis. Severely hypoxemic on arrival, now acceptable on 100% NRBM. 03/23 Patient is on partial rebreather with good sats. Afebrile. Awake and alert. 03/24 Patient is on non rebreather states she is feeling somewhat better. 03/25 No events overnight. Patient is on high flow O2 with 100% FIO2. 03/26 Patient was placed on BIPAP x 5 hrs overnight now back to high flow oxygen 35L with 100% FIO2. Awake and alert states she is feeling better. 03/27: Tolerated BiPAP overnight, currently on hi bryanna oxygen at 55%. Sputum culture 03/24 pseudomonas, I have discontinued ceftriaxone and started Cefepime 2 GM IV q 8hr, ist dose stat called to pharmacy. Also DCd Azithro and placed on Levaquin 03/28: Remains on high flow oxygen 70% FiO2. appears comfortable, but desaturates quickly with any activity. Cefepime and Levaquin started yesterday for pseudomonas in sputum Subjective 03/29: Afebrile. On high flow nasal cannula 60%/25 L feels better today. Desaturates with any movement. Objective Vital Signs Date Time Temp Pulse Resp B/P Pulse Ox O2 Delivery O2 Flow Rate FiO2 03/29/17 10:07 96 High Flow Nasal Cannula 25.00 65 03/29/17 08:00 57 03/29/17 06:00 21 131/79 03/29/17 04:00 97.9 Intake and Output 03/28/17 03/28/17 03/29/17 08:00 16:00 00:00 Intake Total 251 ml 370 ml 659 ml Output Total 350 ml 500 ml 175 ml Balance -99 ml -130 ml 484 ml Result Diagram: 03/29/17 0523 03/29/17 0523 Other Results Microbiology Date/Time Procedure Status Source Growth 03/25/17 16:40 Acid Fast Stain - Final Resulted Sputum Expectorated Sputum NO ACID FAST BACILLI SEEN 03/25/17 16:40 Mycobacterial Culture Resulted Sputum Expectorated Sputum Pending 03/24/17 11:05 Gram Stain - Final Complete Sputum Expectorated Sputum 03/24/17 11:05 Sputum Culture - Final Complete Pseudomonas Aeruginosa 03/24/17 11:05 Acid Fast Stain Ordered Sputum Expectorated Sputum Pending 03/24/17 11:05 Mycobacterial Culture Ordered Sputum Expectorated Sputum Pending Imaging Last Impressions Chest X-Ray 03/29/17 0600 Signed Impressions: Service Date/Time: Wednesday, March 29, 2017 03:31 - CONCLUSION: No appreciable change. Austin Hector MD Liver Ultrasound 03/24/17 0000 Signed Impressions: Service Date/Time: Friday, March 24, 2017 15:32 - CONCLUSION: No acute disease. 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 All Prater MD Objective Remarks GENERAL: Patient is 71 yo female, critically ill currently on high flow nasal cannula SKIN: Warm and dry. No rash HEAD: Normocephalic. EYES: Pupils equally round and reactive. No scleral icterus. No injection or drainage. NECK: Supple, trachea midline. No JVD or lymphadenopathy. CARDIOVASCULAR: RRR. S1, S2 no S4 without murmur RESPIRATORY: Breath sounds equal and symmetrical excursion bilaterally. Coarse BS/crackles bilaterally, no wheezes GASTROINTESTINAL: Abdomen soft, non-tender, nondistended. Hypoactive bowel sounds MUSCULOSKELETAL: No peripheral edema. Neuro: Awake and alert. No FND A/P Assessment and Plan Neuro/Psych: Depression Awake and alert. Minimize sedation Acetaminophen for pain/fever On sertraline 100 mg by mouth daily for depression On Xanax 0.25 mg every 8 when necessary anxiety Pulm: Community acquired pneumonia COPD Type I respiratory failure/acute and chronic Wean down oxygen as chance keep sat >88% currently on 70% oxygen by high flow cannula Bronchodilators with DuoNeb every 6 hours/2 hours when necessary, Pulmicort twice a day, Solumedrol 80mg IV Q8, Pulm is follow -Dr. Jocelyn ROMERO PRN for resp distress Currently on high flow nasal cannula 6%/25 L EzPAP, IS as needed Continue Spiriva 1 cap daily ABX as below CV: Hypertension Dyslipidemia Monitor HR and BP keep MAP>65mmHg. On ASA 81 mg daily, Lipitor 20 mg by mouth daily On Lopressor 25mg Q12 : Monitor renal function, I/O's, electrolytes replacement per protocol GI: IBS Splenic artery aneurysm Elevated transaminases Gastroesophageal reflux disease Currently on mesalamine 1.5 g by mouth daily. Tolerating oral diet Pepcid for GI prophylaxis Maryjo-Colace twice a day for bowel regimen On PO diet, monitor LFT's. US liver: No acute disease. 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 On Prilosec 40 mg by mouth daily at home for GERD Heme: Leukocytosis Monitor CBC, ID: Pseudomonas/strep pneumonia pneumonia Cefepime, Levaquin for sputum cx 03/24 growing pseudomonas sp. 03/24 Strep pneumonia Ag positive. WBC trending up. Chest x-ray in a.m. Endo: Hypothyroidism SSI with accuchecks for glycemic control Synthroid 88 mcg daily on hold. Switch to 25 mics grams daily TSH : 0.23 GI prophylaxis- On Pepcid DVT prophylaxis- On Lovenox 40mg daily Level II Ever Gallardo MD Mar 29, 2017 10:49
--- NOTE | 2017-03-29 19:16 | HHI.PR ---
Subjective Remarks 71 YOWF with Hypoxic RF,Colitis,PF Worsening bilat infilt No Fever weaned to Oxymask On Cefepime and Levquin for Pseudomonas coverage. More SOB, on high flow 65% Little upset which makes her breathing worse Objective Vital Signs Vital Signs Date Time Temp Pulse Resp B/P Pulse Ox O2 Delivery O2 Flow Rate FiO2 03/29/17 18:00 80 03/29/17 16:00 69 03/29/17 16:00 98.7 69 25 138/82 96 03/29/17 14:00 69 03/29/17 12:00 58 03/29/17 12:00 98.1 58 19 126/72 98 03/29/17 10:07 96 High Flow Nasal Cannula 25.00 65 03/29/17 10:00 62 03/29/17 08:00 57 03/29/17 08:00 98.5 61 22 152/83 100 03/29/17 07:00 99 Nasal Cannula 80 03/29/17 06:00 60 21 131/79 93 03/29/17 06:00 60 03/29/17 05:00 57 16 120/69 93 03/29/17 04:00 54 17 124/69 94 03/29/17 04:00 97.9 61 24 124/69 94 03/29/17 04:00 54 03/29/17 03:00 56 15 115/71 94 03/29/17 02:00 55 03/29/17 02:00 55 16 121/74 95 03/29/17 01:00 61 23 159/87 95 03/29/17 00:00 61 27 165/79 94 03/29/17 00:00 61 03/29/17 00:00 61 27 165/79 94 03/29/17 00:00 98.6 61 24 165/79 94 03/28/17 23:00 59 25 138/69 95 03/28/17 22:08 71 28 141/76 87 03/28/17 22:00 72 28 155/100 92 03/28/17 22:00 72 03/28/17 21:00 68 20 125/71 98 03/28/17 20:00 75 03/28/17 20:00 98.1 75 24 131/78 99 03/28/17 20:00 99 Nasal Cannula 80 03/28/17 19:24 98 High Flow Nasal Cannula 25.00 80 I/O 03/28/17 03/28/17 03/28/17 03/29/17 03/29/17 03/29/17 07:00 15:00 23:00 07:00 15:00 23:00 Intake Total 251 ml 370 ml 659 ml 195 ml 727 ml Output Total 350 ml 500 ml 175 ml 275 ml Balance -99 ml -130 ml 484 ml -80 ml 727 ml Intake Oral 120 ml 240 ml 480 ml 60 ml 480 ml IV Total 131 ml 130 ml 179 ml 135 ml 247 ml Output Urine Total 350 ml 500 ml 175 ml 275 ml # Voids 4 # Bowel Movements 0 0 0 0 Result Diagram: 03/29/1752203/29/17522 Objective Remarks GENERAL: MBMN WF, sob SKIN: Warm and dry. HEAD: Normocephalic. EYES: No scleral icterus. No injection or drainage. NECK: Supple, trachea midline. No JVD or lymphadenopathy. CARDIOVASCULAR: Regular rate and rhythm without murmurs, gallops, or rubs. RESPIRATORY: Breath sounds equal bilaterally. No accessory muscle use. Bilat insp rales GASTROINTESTINAL: Abdomen soft, non-tender, nondistended. MUSCULOSKELETAL: No cyanosis, or edema. BACK: Nontender without obvious deformity. No CVA tenderness. A/P Assessment and Plan Hypoxic RF Pulm Fibrosis with exac Colitis Anxiert Bilat infilt PLAN: DW pt and her Cont Abx Cefepime and Levaquin IV solumedrol DVT Prophylaxis High flow 02 titerate 02 to keep sat >88% Will try BIPAP Gurinder Banks MD Mar 29, 2017 19:16
[2017-03-29] MEDS: ENOXAPARIN SODIUM 40 MG/0.4 ML SYRINGE SQ SCH (20:19)
[2017-03-29] MEDS: ATORVASTATIN 20 MG TAB PO SCH (21:58)
[2017-03-29] MEDS: ALPRAZolam 0.25 MG TAB PO PRN (21:58)
[2017-03-30] VITALS (19 sets, daily range): BP systolic 120–166; BP diastolic 5–96; PULSE 54–75; RESP 16–44; TEMP 97.8–98.1; O2SAT 91–97
[2017-03-30] MEDS: RESP: ALBUTEROL 2.5 MG/IPRATROPIUM 0.5 MG NEB (SCH) NEB ×4 (02:47→21:49)
[2017-03-30] MEDS: CHLORHEXIDINE GLUCONATE 2 % 1 PACK (2 CLOTHS) TOP SCH (04:00)
[2017-03-30] MEDS: INSULIN NovoLIN REGULAR SUPPLEMENTAL SCALE SQ SCH ×4 (04:00→21:27)
--- NOTE | 2017-03-30 05:03 | RADRPT ---
EXAM DATE/TIME: 03/30/2017 03:42 [facility] COMPARISON: CHEST SINGLE AP, March 29, 2017, 3:31. INDICATIONS : Shortness of breath, possible pulmonary disease. MEDICAL HISTORY : Colitis SURGICAL HISTORY : None. ENCOUNTER: Subsequent ACUITY: 1 week PAIN SCORE: Non-responsive. LOCATION: Bilateral chest FINDINGS: A single view of the chest demonstrates diffuse interstitial lung disease, stable. The cardiomediast inal contours are unremarkable. Osseous structures are intact. CONCLUSION: Diffuse interstitial lung disease worse in the apices, unchanged since previous study. Tate Duran MD on March 30, 2017 at 5:01 Board Certified Radiologist. This report was verified electronically.
[2017-03-30] MEDS: methylPREDNISolone SOD SUCC 125 MG/2 ML VIAL IV PUSH SCH ×3 (05:40→21:18)
[2017-03-30] MEDS: LEVOTHYROXINE SODIUM 25 MCG TAB PO SCH (05:40)
[2017-03-30] MEDS: CEFEPIME INJ 2,000 MG in SODIUM CHLORIDE 0.9% INJ 100 ML IV SCH ×2 (07:59→17:06)
[2017-03-30] MEDS: RESP: BUDESONIDE 0.5 MG/2 ML NEB NEB SCH ×2 (08:00→21:49)
[2017-03-30] MEDS: TIOTROPIUM BROMIDE 18 MCG INH INH SCH (08:05)
[2017-03-30] MEDS: FAMOTIDINE 20 MG TAB PO SCH ×2 (08:05→21:17)
[2017-03-30] MEDS: MULTIVITAMIN TAB PO SCH (08:05)
[2017-03-30] MEDS: DOCUSATE SODIUM 50 MG/SENNA 8.6 MG TAB PO SCH ×2 (08:05→21:00)
[2017-03-30] MEDS: METOPROLOL TARTRATE 25 MG TAB PO SCH ×2 (08:05→21:17)
[2017-03-30] MEDS: ASPIRIN 81 MG CHEW TAB CHEW SCH (08:05)
[2017-03-30] MEDS: SERTRALINE HCL 100 MG TAB PO SCH (08:05)
[2017-03-30] MEDS: LACTOBACILLUS ACIDOPHILUS 1 GM PACKET PO SCH ×3 (08:06→17:06)
[2017-03-30 08:24] LABS: ALKALINE PHOSPHATASE 104 U/L (45-117); ALT (GPT) 147 U/L (10-53); ANION GAP 5 MEQ/L (5-15); AST (GOT) 48 U/L (15-37); BICARBONATE 23.6 MEQ/L (21.0-32.0); BLOOD UREA NITROGEN 27 MG/DL (7-18); CHLORIDE 107 MEQ/L (98-107); GLOMERULAR FILTRATION RATE 104 ML/MIN (>89); MAGNESIUM 2.2 MG/DL (1.5-2.5); POTASSIUM 4.2 MEQ/L (3.5-5.1); SODIUM (NA) 136 MEQ/L (136-145); TOTAL BILIRUBIN ADULT 0.6 MG/DL (0.2-1.0)
--- NOTE | 2017-03-30 10:09 | HHI.CCPN ---
Subjective Remarks/Hospital Course 71 y/o woman with recent development of SOB and CT shows diffuse interstitial process, ? fibrosis. Severely hypoxemic on arrival, now acceptable on 100% NRBM. 03/23 Patient is on partial rebreather with good sats. Afebrile. Awake and alert. 03/24 Patient is on non rebreather states she is feeling somewhat better. 03/25 No events overnight. Patient is on high flow O2 with 100% FIO2. 03/26 Patient was placed on BIPAP x 5 hrs overnight now back to high flow oxygen 35L with 100% FIO2. Awake and alert states she is feeling better. 03/27: Tolerated BiPAP overnight, currently on hi bryanna oxygen at 55%. Sputum culture 03/24 pseudomonas, I have discontinued ceftriaxone and started Cefepime 2 GM IV q 8hr, ist dose stat called to pharmacy. Also DCd Azithro and placed on Levaquin 03/28: Remains on high flow oxygen 70% FiO2. appears comfortable, but desaturates quickly with any activity. Cefepime and Levaquin started yesterday for pseudomonas in sputum 03/29: Afebrile. On high flow nasal cannula 60%/25 L feels better today. Desaturates with any movement. Subjective 03/30: Afebrile. On high flow nasal cannula 40%/25 L. Desaturated with any movement. No bowel movement overnight. Tolerating diet. Objective Vital Signs Date Time Temp Pulse Resp B/P Pulse Ox O2 Delivery O2 Flow Rate FiO2 03/30/17 08:26 96 High Flow Nasal Cannula 20.00 40 03/30/17 08:00 75 03/30/17 08:00 97.8 24 148/96 Intake and Output 03/29/17 03/29/17 03/30/17 08:00 16:00 00:00 Intake Total 195 ml 727 ml 607 ml Output Total 275 ml 225 ml Balance -80 ml 727 ml 382 ml Result Diagram: 03/29/17 0523 03/30/17 0726 Other Results Microbiology Date/Time Procedure Status Source Growth 03/25/17 16:40 Acid Fast Stain - Final Resulted Sputum Expectorated Sputum NO ACID FAST BACILLI SEEN 03/25/17 16:40 Mycobacterial Culture Resulted Sputum Expectorated Sputum Pending Imaging Last Impressions Chest X-Ray 03/30/17 0600 Signed Impressions: Service Date/Time: Thursday, March 30, 2017 03:42 - CONCLUSION: Diffuse interstitial lung disease worse in the apices, unchanged since previous study. Tate Duran MD Liver Ultrasound 03/24/17 0000 Signed Impressions: Service Date/Time: Friday, March 24, 2017 15:32 - CONCLUSION: No acute disease. 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 All Prater MD Objective Remarks GENERAL: Patient is 71 yo female, critically ill currently on high flow nasal cannula SKIN: Warm and dry. No rash HEAD: Normocephalic. EYES: Pupils equally round and reactive. No scleral icterus. No injection or drainage. NECK: Supple, trachea midline. No JVD or lymphadenopathy. CARDIOVASCULAR: RRR. S1, S2 no S4 without murmur RESPIRATORY: Breath sounds equal and symmetrical excursion bilaterally. Coarse BS/crackles bilaterally, no wheezes GASTROINTESTINAL: Abdomen soft, non-tender, nondistended. Hypoactive bowel sounds MUSCULOSKELETAL: No peripheral edema. Neuro: Awake and alert. No FND A/P Assessment and Plan Neuro/Psych: Depression Awake and alert. Minimize sedation Acetaminophen for pain/fever On sertraline 100 mg by mouth daily for depression On Xanax 0.25 mg every 8 when necessary anxiety Pulm: Community acquired pneumonia COPD Type I respiratory failure/acute on chronic Wean down oxygen as chance keep sat >88% currently on 70% oxygen by high flow cannula Bronchodilators with DuoNeb every 6 hours/2 hours when necessary, Pulmicort twice a day, Solumedrol 80mg IV Q8, Pulm is follow -Dr. Jocelyn ROMERO PRN for resp distress Currently on high flow nasal rxgnvij35%/20 L EzPAP, IS as needed Continue Spiriva 18 g 1 cap daily ABX as below CV: Hypertension Dyslipidemia Monitor HR and BP keep MAP>65mmHg. On ASA 81 mg daily, Lipitor 20 mg by mouth daily On Lopressor 25mg Q12 : Monitor renal function, I/O's, electrolytes replacement per protocol GI: IBS Splenic artery aneurysm Elevated transaminases Gastroesophageal reflux disease Currently on mesalamine 1.5 g by mouth daily. Tolerating oral diet Pepcid for GI prophylaxis Maryjo-Colace twice a day for bowel regimen On PO diet, monitor LFT's. US liver: No acute disease. 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 On Prilosec 40 mg by mouth daily at home for GERD Heme: Leukocytosis Monitor CBC, follow daily. Today's pending ID: Pseudomonas/strep pneumonia pneumonia Cefepime, Levaquin for sputum cx 03/24 growing pseudomonas sp. 03/24 Strep pneumonia Ag positive. WBC trending up. Chest x-ray in a.m. 03/30 stable. Holiday for 03/31 Endo: Hypothyroidism SSI with accuchecks for glycemic control Synthroid 88 mcg daily on hold. Switch to 25 mics grams daily TSH : 0.23 GI prophylaxis- On Pepcid DVT prophylaxis- On Lovenox 40mg daily Level II Ever Gallardo MD Mar 30, 2017 10:09
[2017-03-30 13:23] LABS: AUTOMATED NEUTROPHIL # 16.9 TH/MM3 (1.8-7.7); BASOPHIL % 0.1 % (0.0-2.0); EOSINOPHIL % 0.1 % (0.0-4.0); HEMATOCRIT 43.8 % (35.0-46.0); LYMPH % 5.6 % (9.0-44.0); MEAN CELL VOLUME 90.6 FL (80.0-100.0); MEAN CORPUSCULAR HEMOGLOBIN 30.5 PG (27.0-34.0); MEAN CORPUSCULAR HGB CONC 33.7 % (32.0-36.0); MONO % 2.9 % (0.0-8.0); NEUT % 91.3 % (16.0-70.0); PLATELET COUNT 432 TH/MM3 (150-450); RED BLOOD COUNT 4.83 MIL/MM3 (4.00-5.30); RED CELL DISTRIBUTION WIDTH 14.9 % (11.6-17.2); WHITE BLOOD COUNT 18.5 TH/MM3 (4.0-11.0)
[2017-03-30 13:26] LABS: HEMO FLAGS AUTO DIFF
[2017-03-30 13:58] LABS: SCAN/DIFF AUTO DIFF CONFIRMED
--- NOTE | 2017-03-30 15:32 | HHI.PR ---
Subjective Remarks 71 YOWF with Hypoxic RF,Colitis,PF Worsening bilat infilt No Fever weaned to Oxymask On Cefepime and Levquin for Pseudomonas coverage. Betetr rested high flow decreased to 45% Fi02 Objective Vital Signs Vital Signs Date Time Temp Pulse Resp B/P Pulse Ox O2 Delivery O2 Flow Rate FiO2 03/30/17 14:09 64 03/30/17 12:00 65 03/30/17 12:00 98.1 66 28 152/68 92 03/30/17 10:00 70 03/30/17 08:26 96 High Flow Nasal Cannula 20.00 40 03/30/17 08:00 75 03/30/17 08:00 97.8 60 24 148/96 94 03/30/17 07:00 Nasal Cannula 25.00 45 03/30/17 06:00 61 36 153/82 91 03/30/17 06:00 61 03/30/17 05:58 97 High Flow Nasal Cannula 25.00 45 03/30/17 05:00 54 16 120/72 93 03/30/17 04:45 Nasal Cannula 25.00 45 03/30/17 04:00 57 25 140/79 94 03/30/17 04:00 57 03/30/17 04:00 98.0 57 22 140/76 95 03/30/17 03:00 59 44 146/79 95 03/30/17 03:00 Nasal Cannula 25.00 50 03/30/17 02:45 Nasal Cannula 25.00 60 03/30/17 02:00 55 03/30/17 02:00 55 17 134/72 95 03/30/17 01:25 Nasal Cannula 25.00 65 03/30/17 01:00 56 37 122/70 97 03/30/17 00:00 60 03/30/17 00:00 98.1 60 22 146/85 95 03/30/17 00:00 60 28 146/85 95 03/30/17 00:00 60 28 146/85 95 03/29/17 23:00 64 17 115/63 93 03/29/17 22:21 94 High Flow Nasal Cannula 25.00 70 03/29/17 22:00 79 03/29/17 22:00 96 Nasal Cannula 25.00 70 03/29/17 22:00 79 36 142/78 94 03/29/17 21:00 79 31 156/91 94 03/29/17 20:24 95 75 03/29/17 20:20 Bi-Pap 75 03/29/17 20:00 97.8 75 24 151/70 88 03/29/17 20:00 75 29 151/90 88 03/29/17 20:00 88 Nasal Cannula 25.00 60 03/29/17 20:00 75 03/29/17 19:45 99 Nasal Cannula 60 03/29/17 19:42 93 High Flow Nasal Cannula 25.00 60 03/29/17 18:00 80 03/29/17 16:00 69 03/29/17 16:00 98.7 69 25 138/82 96 I/O 03/29/17 03/29/17 03/29/17 03/30/17 03/30/17 03/30/17 07:00 15:00 23:00 07:00 15:00 23:00 Intake Total 195 ml 727 ml 607 ml 166 ml 445 ml Output Total 275 ml 225 ml 325 ml 450 ml Balance -80 ml 727 ml 382 ml -159 ml -5 ml Intake Oral 60 ml 480 ml 500 ml 30 ml 320 ml IV Total 135 ml 247 ml 107 ml 136 ml 125 ml Output Urine Total 275 ml 225 ml 325 ml 450 ml # Voids 4 # Bowel Movements 0 0 0 0 Result Diagram: 03/30/17 1256 03/30/17 0726 Objective Remarks GENERAL: MBMN WF, sob SKIN: Warm and dry. HEAD: Normocephalic. EYES: No scleral icterus. No injection or drainage. NECK: Supple, trachea midline. No JVD or lymphadenopathy. CARDIOVASCULAR: Regular rate and rhythm without murmurs, gallops, or rubs. RESPIRATORY: Breath sounds equal bilaterally. No accessory muscle use. Bilat insp rales GASTROINTESTINAL: Abdomen soft, non-tender, nondistended. MUSCULOSKELETAL: No cyanosis, or edema. BACK: Nontender without obvious deformity. No CVA tenderness. 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
[2017-03-30] MEDS: POTASSIUM PHOSPHATE MONOBASIC 500 MG TAB PO PRN (18:55)
[2017-03-30] MEDS: ATORVASTATIN 20 MG TAB PO SCH (21:17)
[2017-03-30] MEDS: ENOXAPARIN SODIUM 40 MG/0.4 ML SYRINGE SQ SCH (21:18)
[2017-03-31] VITALS (28 sets, daily range): BP systolic 122–183; BP diastolic 69–88; PULSE 57–84; RESP 19–36; TEMP 97.6–98.2; O2SAT 82–100
[2017-03-31] MEDS: CHLORHEXIDINE GLUCONATE 2 % 1 PACK (2 CLOTHS) TOP SCH (00:14)
[2017-03-31] MEDS: CEFEPIME INJ 2,000 MG in SODIUM CHLORIDE 0.9% INJ 100 ML IV SCH ×3 (00:25→16:00)
[2017-03-31] MEDS: POTASSIUM PHOSPHATE MONOBASIC 500 MG TAB PO PRN (03:01)
[2017-03-31] MEDS: RESP: ALBUTEROL 2.5 MG/IPRATROPIUM 0.5 MG NEB (SCH) NEB ×4 (03:09→19:57)
[2017-03-31] MEDS: INSULIN NovoLIN REGULAR SUPPLEMENTAL SCALE SQ SCH ×4 (04:00→20:39)
[2017-03-31 04:37] LABS: HEMATOCRIT 45.1 % (35.0-46.0); MEAN CELL VOLUME 92.7 FL (80.0-100.0); MEAN CORPUSCULAR HEMOGLOBIN 30.3 PG (27.0-34.0); MEAN CORPUSCULAR HGB CONC 32.7 % (32.0-36.0); PLATELET COUNT 364 TH/MM3 (150-450); RED BLOOD COUNT 4.87 MIL/MM3 (4.00-5.30); RED CELL DISTRIBUTION WIDTH 14.9 % (11.6-17.2); REVIEW FLAG FINAL; WHITE BLOOD COUNT 18.9 TH/MM3 (4.0-11.0)
[2017-03-31 04:54] LABS: BICARBONATE 19.8 MEQ/L (21.0-32.0); POTASSIUM 4.4 MEQ/L (3.5-5.1)
[2017-03-31] MEDS: methylPREDNISolone SOD SUCC 125 MG/2 ML VIAL IV PUSH SCH ×3 (05:23→20:33)
[2017-03-31] MEDS: LEVOTHYROXINE SODIUM 25 MCG TAB PO SCH (05:23)
[2017-03-31] MEDS: RESP: BUDESONIDE 0.5 MG/2 ML NEB NEB SCH ×2 (07:20→19:57)
[2017-03-31] MEDS: LACTOBACILLUS ACIDOPHILUS 1 GM PACKET PO SCH ×3 (09:00→18:00)
[2017-03-31] MEDS: DOCUSATE SODIUM 50 MG/SENNA 8.6 MG TAB PO SCH ×2 (09:00→20:33)
[2017-03-31] MEDS: TIOTROPIUM BROMIDE 18 MCG INH INH SCH (09:18)
[2017-03-31] MEDS: LEVOFLOXACIN 750 MG PREMIX INJ 150 ML IV SCH (09:18)
[2017-03-31] MEDS: SERTRALINE HCL 100 MG TAB PO SCH (09:18)
[2017-03-31] MEDS: MULTIVITAMIN TAB PO SCH (09:19)
[2017-03-31] MEDS: FAMOTIDINE 20 MG TAB PO SCH ×2 (09:19→20:33)
[2017-03-31] MEDS: METOPROLOL TARTRATE 25 MG TAB PO SCH ×2 (09:19→20:33)
[2017-03-31] MEDS: ASPIRIN 81 MG CHEW TAB CHEW SCH (09:19)
--- NOTE | 2017-03-31 12:47 | HHI.CCPN ---
Subjective Remarks/Hospital Course 71 y/o woman with recent development of SOB and CT shows diffuse interstitial process, ? fibrosis. Severely hypoxemic on arrival, now acceptable on 100% NRBM. 03/23 Patient is on partial rebreather with good sats. Afebrile. Awake and alert. 03/24 Patient is on non rebreather states she is feeling somewhat better. 03/25 No events overnight. Patient is on high flow O2 with 100% FIO2. 03/26 Patient was placed on BIPAP x 5 hrs overnight now back to high flow oxygen 35L with 100% FIO2. Awake and alert states she is feeling better. 03/27: Tolerated BiPAP overnight, currently on hi bryanna oxygen at 55%. Sputum culture 03/24 pseudomonas, I have discontinued ceftriaxone and started Cefepime 2 GM IV q 8hr, ist dose stat called to pharmacy. Also DCd Azithro and placed on Levaquin 03/28: Remains on high flow oxygen 70% FiO2. appears comfortable, but desaturates quickly with any activity. Cefepime and Levaquin started yesterday for pseudomonas in sputum 03/29: Afebrile. On high flow nasal cannula 60%/25 L feels better today. Desaturates with any movement. 03/30: Afebrile. On high flow nasal cannula 40%/25 L. Desaturated with any movement. No bowel movement overnight. Tolerating diet. Subjective 03/31: Resting comfortably in bed. On eye flow nasal cannula 40%/10 L. Easily desaturates. No bowel movement overnight. Objective Vital Signs Date Time Temp Pulse Resp B/P Pulse Ox O2 Delivery O2 Flow Rate FiO2 03/31/17 09:43 96 High Flow Nasal Cannula 10.00 40 03/31/17 06:00 65 03/31/17 04:00 98.1 29 163/79 Intake and Output 03/30/17 03/30/17 03/31/17 08:00 16:00 00:00 Intake Total 166 ml 445 ml 200 ml Output Total 325 ml 450 ml 125 ml Balance -159 ml -5 ml 75 ml Result Diagram: 03/31/17 0411 03/31/17 041 Imaging Last Impressions Chest X-Ray 03/30/17 0600 Signed Impressions: Service Date/Time: Thursday, March 30, 2017 03:42 - CONCLUSION: Diffuse interstitial lung disease worse in the apices, unchanged since previous study. Tate Duran MD Liver Ultrasound 03/24/17 0000 Signed Impressions: Service Date/Time: Friday, March 24, 2017 15:32 - CONCLUSION: No acute disease. 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 All Prater MD Objective Remarks GENERAL: Patient is 71 yo female, critically ill currently on high flow nasal cannula SKIN: Warm and dry. No rash HEAD: Normocephalic. EYES: Pupils equally round and reactive. No scleral icterus. No injection or drainage. NECK: Supple, trachea midline. No JVD or lymphadenopathy. CARDIOVASCULAR: RRR. S1, S2 no S4 without murmur RESPIRATORY: Breath sounds equal and symmetrical excursion bilaterally. Coarse BS/crackles bilaterally, no wheezes GASTROINTESTINAL: Abdomen soft, non-tender, nondistended. Hypoactive bowel sounds MUSCULOSKELETAL: No peripheral edema. Neuro: Awake and alert. No FND A/P Assessment and Plan Neuro/Psych: Depression Awake and alert. Minimize sedation Acetaminophen for pain/fever On sertraline 100 mg by mouth daily for depression On Xanax 0.25 mg every 8 when necessary anxiety Pulm: Community acquired pneumonia COPD Type I respiratory failure/acute on chronic Wean down oxygen as chance keep sat >88% currently on 70% oxygen by high flow cannula Bronchodilators with DuoNeb every 6 hours/2 hours when necessary, Pulmicort twice a day, Solumedrol 80mg IV Q8, Pulm is follow -Dr. Jocelyn ROMERO PRN for resp distress Currently on high flow nasal [id number]%/20 L EzPAP, IS as needed Continue Spiriva 18 g 1 cap daily ABX as below CV: Hypertension Dyslipidemia Monitor HR and BP keep MAP>65mmHg. On ASA 81 mg daily, Lipitor 20 mg by mouth daily On Lopressor 25mg Q12 : Monitor renal function, I/O's, electrolytes replacement per protocol GI: IBS Splenic artery aneurysm Elevated transaminases Gastroesophageal reflux disease Currently on mesalamine 1.5 g by mouth daily. Tolerating oral diet Pepcid for GI prophylaxis Maryjo-Colace twice a day for bowel regimen On PO diet, monitor LFT's. US liver: No acute disease. 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 On Prilosec 40 mg by mouth daily at home for GERD Heme: Leukocytosis Monitor CBC, follow daily. Stable on 18 ID: Pseudomonas/strep pneumonia pneumonia Cefepime, Levaquin for sputum cx 03/24 growing pseudomonas sp. 03/24 Strep pneumonia Ag positive. WBC trending up. Chest x-ray in a.m. 03/30 stable. Holiday for 03/31 Endo: Hypothyroidism SSI with accuchecks for glycemic control Synthroid 88 mcg daily on hold. Switch to 25 mics grams daily TSH : 0.23 GI prophylaxis- On Pepcid DVT prophylaxis- On Lovenox 40mg daily Level II Ever Gallardo MD Mar 31, 2017 12:47
--- NOTE | 2017-03-31 16:33 | HHI.PR ---
Subjective Remarks 71 YOWF with Hypoxic RF,Colitis,PF Worsening bilat infilt No Fever weaned to Oxymask On Cefepime and Levquin for Pseudomonas coverage. high flow decreased to 60% Fi02 Objective Vital Signs Vital Signs Date Time Temp Pulse Resp B/P Pulse Ox O2 Delivery O2 Flow Rate FiO2 03/31/17 09:43 96 High Flow Nasal Cannula 10.00 40 03/31/17 08:46 100 High Flow Nasal Cannula 15.00 40 03/31/17 07:22 99 High Flow Nasal Cannula 25.00 40 03/31/17 06:00 65 03/31/17 05:31 97 Nasal Cannula 25.00 60 03/31/17 05:20 92 High Flow Nasal Cannula 25.00 60 03/31/17 04:13 99 Bi-Pap 03/31/17 04:00 98.1 68 29 163/79 97 03/31/17 04:00 68 03/31/17 03:30 97 70 03/31/17 03:09 90 Nasal Cannula 25.00 60 03/31/17 03:09 91 High Flow Nasal Cannula 25.00 60 03/31/17 02:00 58 03/31/17 00:00 57 03/31/17 00:00 98.0 57 19 142/77 96 03/30/17 22:00 63 03/30/17 21:51 93 High Flow Nasal Cannula 20.00 38 03/30/17 20:00 68 03/30/17 20:00 98.1 68 29 137/73 96 03/30/17 19:00 Nasal Cannula 25.00 40 03/30/17 18:00 67 03/30/17 17:22 Nasal Cannula 25.00 40 03/30/17 17:14 98.0 75 26 166/5 96 I/O 03/30/17 03/30/17 03/30/17 03/31/17 03/31/17 03/31/17 07:00 15:00 23:00 07:00 15:00 23:00 Intake Total 166 ml 445 ml 200 ml 200 ml Output Total 325 ml 450 ml 125 ml Balance -159 ml -5 ml 75 ml 200 ml Intake Oral 30 ml 320 ml 200 ml 100 ml IV Total 136 ml 125 ml 100 ml Output Urine Total 325 ml 450 ml 125 ml # Voids 2 1 # Bowel Movements 0 0 3 1 Result Diagram: 03/31/1741003/31/17410 Objective Remarks GENERAL: MBMN WF, sob SKIN: Warm and dry. HEAD: Normocephalic. EYES: No scleral icterus. No injection or drainage. NECK: Supple, trachea midline. No JVD or lymphadenopathy. CARDIOVASCULAR: Regular rate and rhythm without murmurs, gallops, or rubs. RESPIRATORY: Breath sounds equal bilaterally. No accessory muscle use. Bilat insp rales GASTROINTESTINAL: Abdomen soft, non-tender, nondistended. MUSCULOSKELETAL: No cyanosis, or edema. BACK: Nontender without obvious deformity. No CVA tenderness. 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
[2017-03-31] MEDS: ENOXAPARIN SODIUM 40 MG/0.4 ML SYRINGE SQ SCH (20:33)
[2017-03-31] MEDS: ATORVASTATIN 20 MG TAB PO SCH (20:33)
[2017-04-01] VITALS (35 sets, daily range): BP systolic 118–138; BP diastolic 63–87; PULSE 59–77; RESP 20–41; TEMP 97.5–98.5; O2SAT 87–97
[2017-04-01] MEDS: CEFEPIME INJ 2,000 MG in SODIUM CHLORIDE 0.9% INJ 100 ML IV SCH ×3 (00:38→15:55)
[2017-04-01] MEDS: RESP: ALBUTEROL 2.5 MG/IPRATROPIUM 0.5 MG NEB (SCH) NEB ×4 (02:31→20:13)
[2017-04-01] MEDS: CHLORHEXIDINE GLUCONATE 2 % 1 PACK (2 CLOTHS) TOP SCH (04:00)
[2017-04-01] MEDS: INSULIN NovoLIN REGULAR SUPPLEMENTAL SCALE SQ SCH (04:00)
[2017-04-01 05:05] LABS: AUTOMATED NEUTROPHIL # 15.4 TH/MM3 (1.8-7.7); BASOPHIL % 0.2 % (0.0-2.0); HEMATOCRIT 43.7 % (35.0-46.0); LYMPH % 5.2 % (9.0-44.0); LYMPHOCYTE # 0.9 TH/MM3 (1.0-4.8); MEAN CELL VOLUME 91.6 FL (80.0-100.0); MEAN CORPUSCULAR HEMOGLOBIN 29.6 PG (27.0-34.0); MEAN CORPUSCULAR HGB CONC 32.3 % (32.0-36.0); MONO % 4.5 % (0.0-8.0); NEUT % 90.1 % (16.0-70.0); PLATELET COUNT 342 TH/MM3 (150-450); RED BLOOD COUNT 4.77 MIL/MM3 (4.00-5.30); RED CELL DISTRIBUTION WIDTH 14.9 % (11.6-17.2); WHITE BLOOD COUNT 17.1 TH/MM3 (4.0-11.0)
[2017-04-01 05:16] LABS: HEMO FLAGS AUTO DIFF
[2017-04-01 05:33] LABS: ALT (GPT) 149 U/L (10-53); ANION GAP 8 MEQ/L (5-15); AST (GOT) 47 U/L (15-37); BICARBONATE 22.1 MEQ/L (21.0-32.0); BLOOD UREA NITROGEN 27 MG/DL (7-18); CHLORIDE 109 MEQ/L (98-107); GLOMERULAR FILTRATION RATE 109 ML/MIN (>89); POTASSIUM 4.1 MEQ/L (3.5-5.1); SODIUM (NA) 139 MEQ/L (136-145)
[2017-04-01 05:35] LABS: ALKALINE PHOSPHATASE 96 U/L (45-117); TOTAL BILIRUBIN ADULT 0.7 MG/DL (0.2-1.0)
--- NOTE | 2017-04-01 05:42 | RADRPT ---
EXAM DATE/TIME: 04/01/2017 04:27 [facility] COMPARISON: CHEST SINGLE AP, March 30, 2017, 3:42. INDICATIONS : Shortness of breath, possible pulmonary disease. MEDICAL HISTORY : A-Fib Colitis SURGICAL HISTORY : Colon resection. ENCOUNTER: Subsequent ACUITY: 1 week PAIN SCORE: Non-responsive. LOCATION: Bilateral chest FINDINGS: A single view of the chest demonstrates unchanged interstitial lung disease. Cardiomegaly.. Osseous structures are intact. CONCLUSION: 1. Stable interstitial lung changes. 2. Cardiomegaly. Sebastien Tolbert MD on April 01, 2017 at 5:40 Board Certified Radiologist. This report was verified electronically.
[2017-04-01] MEDS: LEVOTHYROXINE SODIUM 25 MCG TAB PO SCH (06:29)
[2017-04-01] MEDS: methylPREDNISolone SOD SUCC 125 MG/2 ML VIAL IV PUSH SCH (06:30)
[2017-04-01] MEDS: SODIUM PHOSPHATE INJ 30 MMOL in SODIUM CHLOR 0.9% 250 ML INJ 240 ML IV PRN (06:30)
[2017-04-01 07:00] LABS: SCAN/DIFF AUTO DIFF CONFIRMED
--- NOTE | 2017-04-01 07:09 | HHI.CCPN ---
Subjective Remarks/Hospital Course 71 y/o woman with recent development of SOB and CT shows diffuse interstitial process, ? fibrosis. Severely hypoxemic on arrival, now acceptable on 100% NRBM. 03/23 Patient is on partial rebreather with good sats. Afebrile. Awake and alert. 03/24 Patient is on non rebreather states she is feeling somewhat better. 03/25 No events overnight. Patient is on high flow O2 with 100% FIO2. 03/26 Patient was placed on BIPAP x 5 hrs overnight now back to high flow oxygen 35L with 100% FIO2. Awake and alert states she is feeling better. 03/27: Tolerated BiPAP overnight, currently on hi bryanna oxygen at 55%. Sputum culture 03/24 pseudomonas, I have discontinued ceftriaxone and started Cefepime 2 GM IV q 8hr, ist dose stat called to pharmacy. Also DCd Azithro and placed on Levaquin 03/28: Remains on high flow oxygen 70% FiO2. appears comfortable, but desaturates quickly with any activity. Cefepime and Levaquin started yesterday for pseudomonas in sputum 03/29: Afebrile. On high flow nasal cannula 60%/25 L feels better today. Desaturates with any movement. 03/30: Afebrile. On high flow nasal cannula 40%/25 L. Desaturated with any movement. No bowel movement overnight. Tolerating diet. Subjective 03/31: Resting comfortably in bed. On eye flow nasal cannula 40%/10 L. Easily desaturates. No bowel movement overnight. 04/01 Patient was on BIPAP overnight now on high flow oxygen with 60% FIO2. Afebrile. CXR unchanged this morning. Objective Vital Signs Date Time Temp Pulse Resp B/P Pulse Ox O2 Delivery O2 Flow Rate FiO2 04/01/17 06:00 65 04/01/17 04:00 98.1 26 128/70 90 04/01/17 02:30 70 03/31/17 19:57 BiPAP 03/31/17 09:43 10.00 Intake and Output 03/31/17 03/31/17 04/01/17 08:00 16:00 00:00 Intake Total 200 ml 550 ml 50 ml Output Total 500 ml 250 ml Balance 200 ml 50 ml -200 ml Result Diagram: 04/01/17 0359 04/01/17 0359 Other Results Laboratory Tests Test 04/01/17 03:59 White Blood Count 17.1 TH/MM3 Red Blood Count 4.77 MIL/MM3 Hemoglobin 14.1 GM/DL Hematocrit 43.7 % Mean Corpuscular Volume 91.6 FL Mean Corpuscular Hemoglobin 29.6 PG Mean Corpuscular Hemoglobin 32.3 % Concent Red Cell Distribution Width 14.9 % Platelet Count 342 TH/MM3 Mean Platelet Volume 8.6 FL Neutrophils (%) (Auto) 90.1 % Lymphocytes (%) (Auto) 5.2 % Monocytes (%) (Auto) 4.5 % Eosinophils (%) (Auto) 0.0 % Basophils (%) (Auto) 0.2 % Neutrophils # (Auto) 15.4 TH/MM3 Lymphocytes # (Auto) 0.9 TH/MM3 Monocytes # (Auto) 0.8 TH/MM3 Eosinophils # (Auto) 0.0 TH/MM3 Basophils # (Auto) 0.0 TH/MM3 CBC Comment AUTO DIFF Differential Comment AUTO DIFF CONFIRMED Sodium Level 139 MEQ/L Potassium Level 4.1 MEQ/L Chloride Level 109 MEQ/L Carbon Dioxide Level 22.1 MEQ/L Anion Gap 8 MEQ/L Blood Urea Nitrogen 27 MG/DL Creatinine 0.55 MG/DL Estimat Glomerular Filtration 109 ML/MIN Rate Random Glucose 103 MG/DL Calcium Level 8.3 MG/DL Phosphorus Level 2.4 MG/DL Magnesium Level 2.0 MG/DL Total Bilirubin 0.7 MG/DL Aspartate Amino Transf 47 U/L (AST/SGOT) Alanine Aminotransferase 149 U/L (ALT/SGPT) Alkaline Phosphatase 96 U/L Total Protein 7.0 GM/DL Albumin 2.4 GM/DL Imaging Last Impressions Chest X-Ray 04/01/17 0600 Signed Impressions: Service Date/Time: Saturday, April 01, 2017 04:27 - CONCLUSION: 1. Stable interstitial lung changes. 2. Cardiomegaly. Sebastien Tolbert MD Liver Ultrasound 03/24/17 0000 Signed Impressions: Service Date/Time: Friday, March 24, 2017 15:32 - CONCLUSION: No acute disease. 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 All Prater MD Objective Remarks GENERAL: Patient is 71 yo female, critically ill currently on high flow nasal cannula SKIN: Warm and dry. No rash HEAD: Normocephalic. EYES: Pupils equally round and reactive. No scleral icterus. No injection or drainage. NECK: Supple, trachea midline. No JVD or lymphadenopathy. CARDIOVASCULAR: RRR. S1, S2 no S4 without murmur RESPIRATORY: Breath sounds equal and symmetrical excursion bilaterally. Coarse BS/crackles bilaterally, no wheezes GASTROINTESTINAL: Abdomen soft, non-tender, nondistended. Hypoactive bowel sounds MUSCULOSKELETAL: No peripheral edema. Neuro: Awake and alert. No FND A/P Assessment and Plan Neuro/Psych: Depression Awake and alert. Minimize sedation Acetaminophen for pain/fever On sertraline 100 mg by mouth daily for depression On Xanax 0.25 mg every 8 when necessary anxiety Pulm: Community acquired pneumonia COPD Type I respiratory failure/acute on chronic Wean down oxygen as chance keep sat >88% currently on 60% oxygen by high flow cannula Bronchodilators with DuoNeb every 6 hours/2 hours when necessary, Pulmicort twice a day, decrease Solumedrol 40mg IV Q8, Pulm is follow -Dr. Jocelyn ROMERO PRN for resp distress Currently on high flow nasal cannula 60%/25 L EzPAP, IS as needed Continue Spiriva 18 g 1 cap daily ABX as below CV: Hypertension Dyslipidemia Monitor HR and BP keep MAP>65mmHg. On ASA 81 mg daily, Lipitor 20 mg by mouth daily On Lopressor 25mg Q12 : Monitor renal function, I/O's, electrolytes replacement per protocol GI: IBS Splenic artery aneurysm Elevated transaminases Gastroesophageal reflux disease Currently on mesalamine 1.5 g by mouth daily. Tolerating oral diet Pepcid for GI prophylaxis Maryjo-Colace twice a day for bowel regimen On PO diet, monitor LFT's. US liver: No acute disease. 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 On Prilosec 40 mg by mouth daily at home for GERD Heme: Leukocytosis Monitor CBC, follow daily. ID: Pseudomonas/strep pneumonia pneumonia Cefepime, Levaquin for sputum cx 03/24 growing pseudomonas sp. 03/24 Strep pneumonia Ag positive. Recheck sputum cx CXR this morning unchanged Endo: Hypothyroidism SSI with accuchecks for glycemic control Synthroid 25 mics grams daily TSH : 0.23 GI prophylaxis- On Pepcid DVT prophylaxis- On Lovenox 40mg daily Level III Reynaldo Gutierrez MD Apr 01, 2017 07:09
[2017-04-01] MEDS: TIOTROPIUM BROMIDE 18 MCG INH INH SCH (08:34)
[2017-04-01] MEDS: SERTRALINE HCL 100 MG TAB PO SCH (08:34)
[2017-04-01] MEDS: METOPROLOL TARTRATE 25 MG TAB PO SCH ×2 (08:34→21:00)
[2017-04-01] MEDS: FAMOTIDINE 20 MG TAB PO SCH ×2 (08:35→21:00)
[2017-04-01] MEDS: LACTOBACILLUS ACIDOPHILUS 1 GM PACKET PO SCH (08:35)
[2017-04-01] MEDS: ASPIRIN 81 MG CHEW TAB CHEW SCH (08:35)
[2017-04-01] MEDS: DOCUSATE SODIUM 50 MG/SENNA 8.6 MG TAB PO SCH ×2 (08:35→21:00)
[2017-04-01] MEDS: MULTIVITAMIN TAB PO SCH (08:35)
[2017-04-01] MEDS: RESP: BUDESONIDE 0.5 MG/2 ML NEB NEB SCH ×2 (09:12→20:13)
[2017-04-01] MEDS: LACTOBACILLUS ACIDOPHILUS TAB PO SCH ×2 (13:22→18:03)
[2017-04-01] MEDS: methylPREDNISolone SOD SUCC 40 MG/1 ML VIAL IV PUSH SCH ×2 (13:23→22:00)
--- NOTE | 2017-04-01 19:59 | HHI.PR ---
Subjective Remarks 71 YOWF with Hypoxic RF,Colitis,PF Worsening bilat infilt No Fever weaned to Oxymask On Cefepime and Levquin for Pseudomonas coverage. high flow decreased to 60% Fi02 Feels much better today more energy Worked with PT Objective Vital Signs Vital Signs Date Time Temp Pulse Resp B/P Pulse Ox O2 Delivery O2 Flow Rate FiO2 04/01/17 18:00 71 29 120/87 94 04/01/17 17:00 66 24 118/66 94 04/01/17 16:00 98.5 73 28 124/66 90 04/01/17 15:00 75 33 136/71 93 04/01/17 14:00 66 25 128/67 93 04/01/17 13:00 70 36 138/80 93 04/01/17 12:00 97.5 64 26 128/63 93 04/01/17 11:00 65 27 122/68 91 04/01/17 10:00 73 28 134/73 89 04/01/17 09:00 77 28 132/70 87 04/01/17 08:00 97.5 64 25 136/75 92 04/01/17 07:45 97 High Flow Nasal Cannula 25.00 60 04/01/17 07:00 Nasal Cannula 60 04/01/17 06:00 65 04/01/17 04:00 62 04/01/17 04:00 98.1 62 26 128/70 90 04/01/17 02:30 91 70 04/01/17 02:00 70 04/01/17 01:06 91 70 04/01/17 00:00 59 04/01/17 00:00 98.0 59 34 125/72 92 03/31/17 22:15 95 70 03/31/17 22:00 67 03/31/17 20:00 79 03/31/17 20:00 98.2 79 36 130/72 82 I/O 03/31/17 03/31/17 03/31/17 04/01/17 04/01/17 04/01/17 07:00 15:00 23:00 07:00 15:00 23:00 Intake Total 200 ml 550 ml 50 ml 150 ml 875 ml Output Total 500 ml 250 ml 300 ml 300 ml 100 ml Balance 200 ml 50 ml -200 ml -150 ml 575 ml -100 ml Intake Oral 100 ml 400 ml 50 ml 50 ml 400 ml IV Total 100 ml 150 ml 100 ml 475 ml Output Urine Total 500 ml 250 ml 300 ml 300 ml 100 ml # Voids 1 # Bowel Movements 1 1 1 Result Diagram: 04/01/1735804/01/17358 Objective Remarks GENERAL: MBMN WF, sob SKIN: Warm and dry. HEAD: Normocephalic. EYES: No scleral icterus. No injection or drainage. NECK: Supple, trachea midline. No JVD or lymphadenopathy. CARDIOVASCULAR: Regular rate and rhythm without murmurs, gallops, or rubs. RESPIRATORY: Breath sounds equal bilaterally. No accessory muscle use. Bilat insp rales GASTROINTESTINAL: Abdomen soft, non-tender, nondistended. MUSCULOSKELETAL: No cyanosis, or edema. BACK: Nontender without obvious deformity. No CVA tenderness. 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
[2017-04-01] MEDS: ENOXAPARIN SODIUM 40 MG/0.4 ML SYRINGE SQ SCH (20:00)
[2017-04-01] MEDS: ATORVASTATIN 20 MG TAB PO SCH (21:00)
[2017-04-02] VITALS (42 sets, daily range): BP systolic 118–160; BP diastolic 63–86; PULSE 57–78; RESP 16–47; TEMP 97.7–98.5; O2SAT 80–98
[2017-04-02] MEDS: CEFEPIME INJ 2,000 MG in SODIUM CHLORIDE 0.9% INJ 100 ML IV SCH ×4 (00:43→23:51)
[2017-04-02] MEDS: CHLORHEXIDINE GLUCONATE 2 % 1 PACK (2 CLOTHS) TOP SCH (04:00)
[2017-04-02 04:09] LABS: AUTOMATED NEUTROPHIL # 17.7 TH/MM3 (1.8-7.7); BASOPHIL % 0.2 % (0.0-2.0); HEMATOCRIT 41.6 % (35.0-46.0); LYMPH % 4.8 % (9.0-44.0); LYMPHOCYTE # 0.9 TH/MM3 (1.0-4.8); MEAN CORPUSCULAR HEMOGLOBIN 29.6 PG (27.0-34.0); MEAN CORPUSCULAR HGB CONC 32.6 % (32.0-36.0); MONO % 4.5 % (0.0-8.0); NEUT % 90.5 % (16.0-70.0); PLATELET COUNT 302 TH/MM3 (150-450); RED BLOOD COUNT 4.57 MIL/MM3 (4.00-5.30); RED CELL DISTRIBUTION WIDTH 14.6 % (11.6-17.2); WHITE BLOOD COUNT 19.5 TH/MM3 (4.0-11.0)
[2017-04-02 04:13] LABS: HEMO FLAGS AUTO DIFF
[2017-04-02] MEDS: RESP: ALBUTEROL 2.5 MG/IPRATROPIUM 0.5 MG NEB (SCH) NEB ×4 (04:15→19:15)
[2017-04-02 04:39] LABS: ANION GAP 8 MEQ/L (5-15); AST (GOT) 51 U/L (15-37); BICARBONATE 22.8 MEQ/L (21.0-32.0); BLOOD UREA NITROGEN 25 MG/DL (7-18); CHLORIDE 109 MEQ/L (98-107); GLOMERULAR FILTRATION RATE 104 ML/MIN (>89); POTASSIUM 4.1 MEQ/L (3.5-5.1); SODIUM (NA) 140 MEQ/L (136-145)
[2017-04-02 04:40] LABS: ALT (GPT) 159 U/L (10-53)
[2017-04-02 04:42] LABS: ALKALINE PHOSPHATASE 88 U/L (45-117); TOTAL BILIRUBIN ADULT 0.6 MG/DL (0.2-1.0)
[2017-04-02] MEDS: methylPREDNISolone SOD SUCC 40 MG/1 ML VIAL IV PUSH SCH ×3 (05:44→20:08)
[2017-04-02] MEDS: LEVOTHYROXINE SODIUM 25 MCG TAB PO SCH (05:45)
--- NOTE | 2017-04-02 07:01 | HHI.CCPN ---
Subjective Remarks/Hospital Course 71 y/o woman with recent development of SOB and CT shows diffuse interstitial process, ? fibrosis. Severely hypoxemic on arrival, now acceptable on 100% NRBM. 03/23 Patient is on partial rebreather with good sats. Afebrile. Awake and alert. 03/24 Patient is on non rebreather states she is feeling somewhat better. 03/25 No events overnight. Patient is on high flow O2 with 100% FIO2. 03/26 Patient was placed on BIPAP x 5 hrs overnight now back to high flow oxygen 35L with 100% FIO2. Awake and alert states she is feeling better. 03/27: Tolerated BiPAP overnight, currently on hi bryanna oxygen at 55%. Sputum culture 03/24 pseudomonas, I have discontinued ceftriaxone and started Cefepime 2 GM IV q 8hr, ist dose stat called to pharmacy. Also DCd Azithro and placed on Levaquin 03/28: Remains on high flow oxygen 70% FiO2. appears comfortable, but desaturates quickly with any activity. Cefepime and Levaquin started yesterday for pseudomonas in sputum 03/29: Afebrile. On high flow nasal cannula 60%/25 L feels better today. Desaturates with any movement. 03/30: Afebrile. On high flow nasal cannula 40%/25 L. Desaturated with any movement. No bowel movement overnight. Tolerating diet. Subjective 03/31: Resting comfortably in bed. On eye flow nasal cannula 40%/10 L. Easily desaturates. No bowel movement overnight. 04/01 Patient was on BIPAP overnight now on high flow oxygen with 60% FIO2. Afebrile. CXR unchanged this morning. 04/02 No events overnight. on high flow oxygen 25L with 60% FIO2. Afebrile. Objective Vital Signs Date Time Temp Pulse Resp B/P Pulse Ox O2 Delivery O2 Flow Rate FiO2 04/02/17 06:00 63 04/02/17 05:15 27 93 04/02/17 05:00 151/77 04/02/17 04:00 97.8 04/01/17 20:28 High Flow Nasal Cannula 25.00 50 Intake and Output 04/01/17 04/01/17 04/02/17 08:00 16:00 00:00 Intake Total 150 ml 875 ml 380 ml Output Total 300 ml 300 ml 200 ml Balance -150 ml 575 ml 180 ml Result Diagram: 04/02/17 0350 04/02/17 0350 Other Results Laboratory Tests Test 04/02/17 03:50 White Blood Count 19.5 TH/MM3 Red Blood Count 4.57 MIL/MM3 Hemoglobin 13.5 GM/DL Hematocrit 41.6 % Mean Corpuscular Volume 91.0 FL Mean Corpuscular Hemoglobin 29.6 PG Mean Corpuscular Hemoglobin 32.6 % Concent Red Cell Distribution Width 14.6 % Platelet Count 302 TH/MM3 Mean Platelet Volume 8.6 FL Neutrophils (%) (Auto) 90.5 % Lymphocytes (%) (Auto) 4.8 % Monocytes (%) (Auto) 4.5 % Eosinophils (%) (Auto) 0.0 % Basophils (%) (Auto) 0.2 % Neutrophils # (Auto) 17.7 TH/MM3 Lymphocytes # (Auto) 0.9 TH/MM3 Monocytes # (Auto) 0.9 TH/MM3 Eosinophils # (Auto) 0.0 TH/MM3 Basophils # (Auto) 0.0 TH/MM3 CBC Comment AUTO DIFF Sodium Level 140 MEQ/L Potassium Level 4.1 MEQ/L Chloride Level 109 MEQ/L Carbon Dioxide Level 22.8 MEQ/L Anion Gap 8 MEQ/L Blood Urea Nitrogen 25 MG/DL Creatinine 0.57 MG/DL Estimat Glomerular Filtration 104 ML/MIN Rate Random Glucose 110 MG/DL Calcium Level 7.7 MG/DL Phosphorus Level 2.1 MG/DL Magnesium Level 2.0 MG/DL Total Bilirubin 0.6 MG/DL Aspartate Amino Transf 51 U/L (AST/SGOT) Alanine Aminotransferase 159 U/L (ALT/SGPT) Alkaline Phosphatase 88 U/L Total Protein 6.4 GM/DL Albumin 2.3 GM/DL Imaging Last Impressions Chest X-Ray 04/01/17 0600 Signed Impressions: Service Date/Time: Saturday, April 01, 2017 04:27 - CONCLUSION: 1. Stable interstitial lung changes. 2. Cardiomegaly. Sebastien Tolbert MD Liver Ultrasound 03/24/17 0000 Signed Impressions: Service Date/Time: Friday, March 24, 2017 15:32 - CONCLUSION: No acute disease. 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 All Prater MD Objective Remarks GENERAL: Patient is 71 yo female, critically ill currently on high flow nasal cannula SKIN: Warm and dry. No rash HEAD: Normocephalic. EYES: Pupils equally round and reactive. No scleral icterus. No injection or drainage. NECK: Supple, trachea midline. No JVD or lymphadenopathy. CARDIOVASCULAR: RRR. S1, S2 no S4 without murmur RESPIRATORY: Breath sounds equal and symmetrical excursion bilaterally. Coarse BS/crackles bilaterally, no wheezes GASTROINTESTINAL: Abdomen soft, non-tender, nondistended. Hypoactive bowel sounds MUSCULOSKELETAL: No peripheral edema. Neuro: Awake and alert. No FND A/P Assessment and Plan Neuro/Psych: Depression Awake and alert. Minimize sedation Acetaminophen for pain/fever On sertraline 100 mg by mouth daily for depression On Xanax 0.25 mg every 8 when necessary anxiety Pulm: Community acquired pneumonia COPD Type I respiratory failure/acute on chronic Wean down oxygen as chance keep sat >88% currently on 60% oxygen by high flow cannula-25L Bronchodilators with DuoNeb every 6 hours/2 hours when necessary, Pulmicort twice a day, Solumedrol 40mg IV Q8, Pulm is follow -Dr. Jocelyn GERMANPV PRN for resp distress Currently on high flow nasal cannula 60%/25 L EzPAP, IS as needed Continue Spiriva 18 g 1 cap daily ABX as below CV: Hypertension Dyslipidemia Monitor HR and BP keep MAP>65mmHg. On ASA 81 mg daily, Hold Lipitor for elevated LFT's. On Lopressor 25mg Q12 : Monitor renal function, I/O's, electrolytes replacement per protocol GI: IBS Splenic artery aneurysm Elevated transaminases Gastroesophageal reflux disease on mesalamine 1.5 g by mouth daily. Tolerating oral diet Pepcid for GI prophylaxis Maryjo-Colace twice a day for bowel regimen On PO diet, monitor LFT's. US liver: No acute disease. 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 On Prilosec 40 mg by mouth daily at home for GERD Heme: Leukocytosis Monitor CBC, follow daily. ID: Pseudomonas/strep pneumonia pneumonia Cefepime, Levaquin for sputum cx 03/24 growing pseudomonas sp. 03/24 Strep pneumonia Ag positive. Recheck sputum cx Endo: Hypothyroidism SSI with accuchecks for glycemic control Synthroid 25 mics grams daily TSH : 0.23 GI prophylaxis- On Pepcid DVT prophylaxis- On Lovenox 40mg daily Level III Reynaldo Gutierrez MD Apr 02, 2017 07:01
[2017-04-02 07:07] LABS: SCAN/DIFF AUTO DIFF CONFIRMED
[2017-04-02] MEDS: LEVOFLOXACIN 750 MG PREMIX INJ 150 ML IV SCH (08:24)
[2017-04-02] MEDS: FAMOTIDINE 20 MG TAB PO SCH ×2 (08:26→20:07)
[2017-04-02] MEDS: METOPROLOL TARTRATE 25 MG TAB PO SCH ×2 (08:26→20:00)
[2017-04-02] MEDS: LACTOBACILLUS ACIDOPHILUS TAB PO SCH ×3 (08:26→19:59)
[2017-04-02] MEDS: SERTRALINE HCL 100 MG TAB PO SCH (08:27)
[2017-04-02] MEDS: MULTIVITAMIN TAB PO SCH (08:27)
[2017-04-02] MEDS: ASPIRIN 81 MG CHEW TAB CHEW SCH (08:27)
[2017-04-02] MEDS: DOCUSATE SODIUM 50 MG/SENNA 8.6 MG TAB PO SCH ×2 (08:29→20:08)
[2017-04-02] MEDS: TIOTROPIUM BROMIDE 18 MCG INH INH SCH (08:30)
[2017-04-02] MEDS: RESP: BUDESONIDE 0.5 MG/2 ML NEB NEB SCH ×2 (09:40→19:15)
--- NOTE | 2017-04-02 14:53 | HHI.PR ---
Subjective Remarks 71 YOWF with Hypoxic RF,Colitis,PF Worsening bilat infilt No Fever weaned to Oxymask On Cefepime and Levquin for Pseudomonas coverage. high flow decreased to 60% Fi02 Feels much better today Objective Vital Signs Vital Signs Date Time Temp Pulse Resp B/P Pulse Ox O2 Delivery O2 Flow Rate FiO2 04/02/17 07:45 98.2 04/02/17 07:00 22 04/02/17 06:00 63 04/02/17 05:15 68 27 93 04/02/17 05:00 71 35 151/77 95 04/02/17 04:45 68 47 83 04/02/17 04:30 62 35 92 04/02/17 04:15 59 24 95 04/02/17 04:00 97.8 04/02/17 04:00 66 04/02/17 04:00 66 39 140/86 95 04/02/17 03:53 64 33 134/66 92 04/02/17 03:45 59 25 85 04/02/17 03:30 58 28 95 04/02/17 03:15 65 33 91 04/02/17 03:00 57 24 87 04/02/17 02:45 57 19 92 04/02/17 02:30 58 24 91 04/02/17 02:15 60 28 90 04/02/17 02:00 61 04/02/17 02:00 61 18 124/70 85 04/02/17 01:45 61 18 89 04/02/17 01:30 63 26 94 04/02/17 01:15 64 23 94 04/02/17 01:00 63 31 146/70 89 04/02/17 00:45 60 23 93 04/02/17 00:30 60 40 80 04/02/17 00:15 66 35 98 04/02/17 00:00 97.7 04/02/17 00:00 61 04/02/17 00:00 61 20 143/79 92 04/02/17 00:00 61 20 143/79 92 04/01/17 23:45 62 21 94 04/01/17 23:30 67 27 96 04/01/17 23:15 63 28 95 04/01/17 23:00 64 21 135/73 93 04/01/17 22:45 65 20 96 04/01/17 22:30 73 40 91 04/01/17 22:15 77 33 88 04/01/17 22:00 72 04/01/17 22:00 72 27 135/72 88 04/01/17 21:45 76 37 94 04/01/17 21:30 74 41 94 04/01/17 21:15 71 27 92 04/01/17 21:00 72 26 123/68 92 04/01/17 20:45 68 32 94 04/01/17 20:30 68 31 90 04/01/17 20:28 92 High Flow Nasal Cannula 25.00 50 04/01/17 20:15 69 35 95 04/01/17 20:00 67 24 134/69 91 04/01/17 20:00 98.0 04/01/17 20:00 67 04/01/17 20:00 Nasal Cannula 60 04/01/17 18:00 71 29 120/87 94 04/01/17 17:00 66 24 118/66 94 04/01/17 16:00 98.5 73 28 124/66 90 04/01/17 15:00 75 33 136/71 93 I/O 04/01/17 04/01/17 04/01/17 04/02/17 04/02/17 04/02/17 07:00 15:00 23:00 07:00 15:00 23:00 Intake Total 150 ml 875 ml 380 ml 309 ml 603 ml Output Total 300 ml 300 ml 200 ml 350 ml 350 ml Balance -150 ml 575 ml 180 ml -41 ml 253 ml Intake Oral 50 ml 400 ml 380 ml 140 ml 480 ml IV Total 100 ml 475 ml 169 ml 123 ml Output Urine Total 300 ml 300 ml 200 ml 350 ml 350 ml # Bowel Movements 1 0 Result Diagram: 04/02/17 0350 04/02/17 0350 Objective Remarks GENERAL: MBMN WF, sob SKIN: Warm and dry. HEAD: Normocephalic. EYES: No scleral icterus. No injection or drainage. NECK: Supple, trachea midline. No JVD or lymphadenopathy. CARDIOVASCULAR: Regular rate and rhythm without murmurs, gallops, or rubs. RESPIRATORY: Breath sounds equal bilaterally. No accessory muscle use. Bilat insp rales GASTROINTESTINAL: Abdomen soft, non-tender, nondistended. MUSCULOSKELETAL: No cyanosis, or edema. BACK: Nontender without obvious deformity. No CVA tenderness. 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
[2017-04-02] MEDS: ENOXAPARIN SODIUM 40 MG/0.4 ML SYRINGE SQ SCH (19:59)
[2017-04-03] VITALS (14 sets, daily range): BP systolic 111–139; BP diastolic 61–87; PULSE 59–83; RESP 14–36; TEMP 97.4–98.6; O2SAT 86–95
[2017-04-03] MEDS: ALPRAZolam 0.25 MG TAB PO PRN ×2 (00:46→14:51)
[2017-04-03] MEDS: RESP: ALBUTEROL 2.5 MG/IPRATROPIUM 0.5 MG NEB (SCH) NEB ×2 (03:22→08:07)
[2017-04-03] MEDS: CHLORHEXIDINE GLUCONATE 2 % 1 PACK (2 CLOTHS) TOP SCH (03:59)
[2017-04-03] MEDS: LEVOTHYROXINE SODIUM 25 MCG TAB PO SCH (05:44)
[2017-04-03] MEDS: methylPREDNISolone SOD SUCC 40 MG/1 ML VIAL IV PUSH SCH ×3 (05:44→20:21)
[2017-04-03 06:19] LABS: AUTOMATED NEUTROPHIL # 16.5 TH/MM3 (1.8-7.7); BASOPHIL % 0.1 % (0.0-2.0); HEMATOCRIT 42.1 % (35.0-46.0); LYMPHOCYTE # 1.3 TH/MM3 (1.0-4.8); MEAN CELL VOLUME 92.2 FL (80.0-100.0); MEAN CORPUSCULAR HEMOGLOBIN 29.3 PG (27.0-34.0); MEAN CORPUSCULAR HGB CONC 31.8 % (32.0-36.0); MONO % 5.2 % (0.0-8.0); NEUT % 87.7 % (16.0-70.0); PLATELET COUNT 296 TH/MM3 (150-450); RED BLOOD COUNT 4.57 MIL/MM3 (4.00-5.30); RED CELL DISTRIBUTION WIDTH 15.1 % (11.6-17.2); WHITE BLOOD COUNT 18.8 TH/MM3 (4.0-11.0)
[2017-04-03 06:20] LABS: HEMO FLAGS AUTO DIFF
[2017-04-03 06:51] LABS: ALT (GPT) 136 U/L (10-53); ANION GAP 8 MEQ/L (5-15); AST (GOT) 32 U/L (15-37); BICARBONATE 24.2 MEQ/L (21.0-32.0); BLOOD UREA NITROGEN 21 MG/DL (7-18); CHLORIDE 106 MEQ/L (98-107); GLOMERULAR FILTRATION RATE 124 ML/MIN (>89); SODIUM (NA) 138 MEQ/L (136-145)
[2017-04-03 06:54] LABS: ALKALINE PHOSPHATASE 82 U/L (45-117); TOTAL BILIRUBIN ADULT 0.7 MG/DL (0.2-1.0)
[2017-04-03 08:00] LABS: SCAN/DIFF AUTO DIFF CONFIRMED
[2017-04-03] MEDS: RESP: BUDESONIDE 0.5 MG/2 ML NEB NEB SCH ×2 (08:08→19:30)
[2017-04-03] MEDS: TIOTROPIUM BROMIDE 18 MCG INH INH SCH (08:18)
[2017-04-03] MEDS: FAMOTIDINE 20 MG TAB PO SCH ×2 (08:18→20:21)
[2017-04-03] MEDS: SERTRALINE HCL 100 MG TAB PO SCH (08:18)
[2017-04-03] MEDS: METOPROLOL TARTRATE 25 MG TAB PO SCH ×2 (08:18→20:21)
[2017-04-03] MEDS: ASPIRIN 81 MG CHEW TAB CHEW SCH (08:18)
[2017-04-03] MEDS: MULTIVITAMIN TAB PO SCH (08:18)
[2017-04-03] MEDS: LACTOBACILLUS ACIDOPHILUS TAB PO SCH ×3 (08:18→18:11)
[2017-04-03] MEDS: CEFEPIME INJ 2,000 MG in SODIUM CHLORIDE 0.9% INJ 100 ML IV SCH ×3 (08:19→23:36)
[2017-04-03] MEDS: DOCUSATE SODIUM 50 MG/SENNA 8.6 MG TAB PO SCH ×2 (08:33→20:21)
--- NOTE | 2017-04-03 09:11 | HHI.CCPN ---
Subjective Remarks/Hospital Course 71 y/o woman with recent development of SOB and CT shows diffuse interstitial process, ? fibrosis. Severely hypoxemic on arrival, now acceptable on 100% NRBM. 03/23 Patient is on partial rebreather with good sats. Afebrile. Awake and alert. 03/24 Patient is on non rebreather states she is feeling somewhat better. 03/25 No events overnight. Patient is on high flow O2 with 100% FIO2. 03/26 Patient was placed on BIPAP x 5 hrs overnight now back to high flow oxygen 35L with 100% FIO2. Awake and alert states she is feeling better. 03/27: Tolerated BiPAP overnight, currently on hi bryanna oxygen at 55%. Sputum culture 03/24 pseudomonas, I have discontinued ceftriaxone and started Cefepime 2 GM IV q 8hr, ist dose stat called to pharmacy. Also DCd Azithro and placed on Levaquin 03/28: Remains on high flow oxygen 70% FiO2. appears comfortable, but desaturates quickly with any activity. Cefepime and Levaquin started yesterday for pseudomonas in sputum 03/29: Afebrile. On high flow nasal cannula 60%/25 L feels better today. Desaturates with any movement. 03/30: Afebrile. On high flow nasal cannula 40%/25 L. Desaturated with any movement. No bowel movement overnight. Tolerating diet. Subjective 03/31: Resting comfortably in bed. On eye flow nasal cannula 40%/10 L. Easily desaturates. No bowel movement overnight. 04/01 Patient was on BIPAP overnight now on high flow oxygen with 60% FIO2. Afebrile. CXR unchanged this morning. 04/02 No events overnight. on high flow oxygen 25L with 60% FIO2. Afebrile. 04/03: Remains on high flow oxygen 55%, with a saturation 96%., I have requested RT to titrate FiO2 down to keep oxygen saturation 88-89% Objective Vital Signs Date Time Temp Pulse Resp B/P Pulse Ox O2 Delivery O2 Flow Rate FiO2 04/03/17 08:10 95 High Flow Nasal Cannula 25.00 55 04/03/17 08:00 66 26 139/75 04/03/17 04:00 98.1 Intake and Output 04/02/17 04/02/17 04/03/17 08:00 16:00 00:00 Intake Total 309 ml 603 ml 150 ml Output Total 350 ml 350 ml 300 ml Balance -41 ml 253 ml -150 ml Result Diagram: 04/03/17 0516 04/03/17 0516 Imaging Last Impressions Chest X-Ray 04/01/17 0600 Signed Impressions: Service Date/Time: Saturday, April 01, 2017 04:27 - CONCLUSION: 1. Stable interstitial lung changes. 2. Cardiomegaly. Sebastien Tolbert MD Liver Ultrasound 03/24/17 0000 Signed Impressions: Service Date/Time: Friday, March 24, 2017 15:32 - CONCLUSION: No acute disease. 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 All Prater MD Objective Remarks GENERAL: Patient is 71 yo female, on high flow nasal cannula SKIN: Warm and dry. No rash HEAD: Normocephalic. EYES: Pupils equally round and reactive. No scleral icterus. No injection or drainage. NECK: Supple, trachea midline. No JVD or lymphadenopathy. CARDIOVASCULAR: RRR. S1, S2 no S4 without murmur RESPIRATORY: Breath sounds equal and symmetrical excursion bilaterally. Coarse BS/crackles bilaterally, no wheezes GASTROINTESTINAL: Abdomen soft, non-tender, nondistended. Hypoactive bowel sounds MUSCULOSKELETAL: No peripheral edema. Neuro: Awake and alert. No FND A/P Assessment and Plan Neuro/Psych: Depression Awake and alert. Minimize sedation Acetaminophen for pain/fever On sertraline 100 mg by mouth daily for depression On Xanax 0.25 mg every 8 when necessary anxiety Pulm: Pneumonia COPD Type I respiratory failure/acute on chronic Wean down oxygen as chance keep sat >88% currently on 55% oxygen by high flow cannula-25L Bronchodilators with DuoNeb q 6 hours/2 hours when necessary, Pulmicort twice a day, Solumedrol 40mg IV Q8. Pulm is follow -Dr. Jocelyn GERMANPV PRN for resp distress Currently on high flow nasal cannula 55%/25 L EzPAP, IS as needed Continue Spiriva 18 g 1 cap daily ABX as below Aggressive pulmonary toilet. Up to chair daily CV: Hypertension Dyslipidemia Monitor HR and BP keep MAP>65mmHg. On ASA 81 mg daily, Hold Lipitor for elevated LFT's. On Lopressor 25mg Q12 : Monitor renal function, I/O's, electrolytes replacement per protocol GI: IBS Splenic artery aneurysm Elevated transaminases Gastroesophageal reflux disease On mesalamine 1.5 g by mouth daily. Tolerating oral diet Pepcid for GI prophylaxis, Maryjo-Colace twice a day for bowel regimen On PO diet, monitor LFT's. US liver: No acute disease. 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 On Prilosec 40 mg by mouth daily at home for GERD Heme: Leukocytosis Monitor CBC, follow daily. ID: Pseudomonas/strep pneumonia pneumonia Cefepime, Levaquin for sputum cx 03/24 growing pseudomonas sp. 03/24 Strep pneumonia Ag positive. Endo: Hypothyroidism SSI with accuchecks for glycemic control Synthroid 25 mics grams daily TSH : 0.23 GI prophylaxis- On Pepcid DVT prophylaxis- On Lovenox 40mg daily Level III Remains critically ill on high flow nasal cannula, but stable Penny Carrizales MD Apr 03, 2017 09:11
--- NOTE | 2017-04-03 18:15 | HHI.PR ---
Subjective Remarks 71 YOWF with Hypoxic RF,Colitis,PF Worsening bilat infilt No Fever On Cefepime and Levquin for Pseudomonas coverage. high flow decreased to 65% Fi02 Feels much better today Objective Vital Signs Vital Signs Date Time Temp Pulse Resp B/P Pulse Ox O2 Delivery O2 Flow Rate FiO2 04/03/17 16:00 75 04/03/17 16:00 97.9 75 31 111/65 89 04/03/17 14:00 80 04/03/17 12:00 97.7 68 36 124/79 88 04/03/17 12:00 68 04/03/17 10:00 65 04/03/17 08:10 95 High Flow Nasal Cannula 25.00 55 04/03/17 08:00 66 26 139/75 89 04/03/17 08:00 66 04/03/17 07:00 89 Timber Setter 45 04/03/17 06:00 63 04/03/17 04:00 98.1 59 14 122/65 93 04/03/17 04:00 59 04/03/17 02:00 63 04/03/17 00:00 65 04/03/17 00:00 98.6 65 36 132/87 86 04/02/17 23:00 94 45 04/02/17 22:00 71 04/02/17 20:00 98.5 74 29 132/63 94 04/02/17 20:00 74 04/02/17 19:15 92 High Flow Nasal Cannula 25.00 45 04/02/17 19:00 Timber Setter 45 04/02/17 19:00 78 24 131/63 91 I/O 04/02/17 04/02/17 04/02/17 04/03/17 04/03/17 04/03/17 07:00 15:00 23:00 07:00 15:00 23:00 Intake Total 309 ml 603 ml 150 ml 250 ml 634 ml Output Total 350 ml 350 ml 300 ml 150 ml 200 ml Balance -41 ml 253 ml -150 ml 100 ml 434 ml Intake Oral 140 ml 480 ml 150 ml 150 ml 420 ml IV Total 169 ml 123 ml 100 ml 214 ml Output Urine Total 350 ml 350 ml 300 ml 150 ml 200 ml # Bowel Movements 0 1 Result Diagram: 04/03/1751504/03/1716 Objective Remarks GENERAL: MBMN WF, sob SKIN: Warm and dry. HEAD: Normocephalic. EYES: No scleral icterus. No injection or drainage. NECK: Supple, trachea midline. No JVD or lymphadenopathy. CARDIOVASCULAR: Regular rate and rhythm without murmurs, gallops, or rubs. RESPIRATORY: Breath sounds equal bilaterally. No accessory muscle use. Bilat insp rales GASTROINTESTINAL: Abdomen soft, non-tender, nondistended. MUSCULOSKELETAL: No cyanosis, or edema. BACK: Nontender without obvious deformity. No CVA tenderness. 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
[2017-04-03] MEDS: ENOXAPARIN SODIUM 40 MG/0.4 ML SYRINGE SQ SCH (20:20)
[2017-04-04] VITALS (14 sets, daily range): BP systolic 132–155; BP diastolic 65–80; PULSE 61–92; RESP 24–38; TEMP 96.8–98.4; O2SAT 85–98
[2017-04-04] MEDS: CHLORHEXIDINE GLUCONATE 2 % 1 PACK (2 CLOTHS) TOP SCH (03:33)
--- NOTE | 2017-04-04 04:14 | RADRPT ---
EXAM DATE/TIME: 04/04/2017 02:53 [facility] COMPARISON: CHEST SINGLE AP, April 01, 2017, 4:27. INDICATIONS : Shortness of breath, possible pulmonary disease. MEDICAL HISTORY : Colitis A-fib SURGICAL HISTORY : Colon resection. ENCOUNTER: Subsequent ACUITY: 2 weeks PAIN SCORE: Non-responsive. LOCATION: Bilateral chest FINDINGS: A single view of the chest demonstrates scattered interstitial densities. Heart enlarged. Osseous st ructures are intact. CONCLUSION: Stable scattered interstitial densities. Sebastien Tolbert MD on April 04, 2017 at 4:12 Board Certified Radiologist. This report was verified electronically.
[2017-04-04] MEDS: LEVOTHYROXINE SODIUM 25 MCG TAB PO SCH (05:53)
[2017-04-04] MEDS: methylPREDNISolone SOD SUCC 40 MG/1 ML VIAL IV PUSH SCH ×3 (05:54→20:16)
[2017-04-04] MEDS: RESP: BUDESONIDE 0.5 MG/2 ML NEB NEB SCH ×2 (07:44→19:59)
[2017-04-04] MEDS: RESP: ALBUTEROL 2.5 MG/IPRATROPIUM 0.5 MG NEB (PRN) NEB ×2 (07:45→15:43)
[2017-04-04] MEDS: TIOTROPIUM BROMIDE 18 MCG INH INH SCH (08:03)
[2017-04-04] MEDS: FAMOTIDINE 20 MG TAB PO SCH ×2 (08:03→20:16)
[2017-04-04] MEDS: LACTOBACILLUS ACIDOPHILUS TAB PO SCH ×3 (08:03→18:21)
[2017-04-04] MEDS: LEVOFLOXACIN 750 MG PREMIX INJ 150 ML IV SCH (08:03)
[2017-04-04] MEDS: DOCUSATE SODIUM 50 MG/SENNA 8.6 MG TAB PO SCH ×2 (08:03→20:15)
[2017-04-04] MEDS: CEFEPIME INJ 2,000 MG in SODIUM CHLORIDE 0.9% INJ 100 ML IV SCH ×2 (08:03→15:10)
[2017-04-04] MEDS: METOPROLOL TARTRATE 25 MG TAB PO SCH ×2 (08:03→20:16)
[2017-04-04] MEDS: ASPIRIN 81 MG CHEW TAB CHEW SCH (08:04)
[2017-04-04] MEDS: SERTRALINE HCL 100 MG TAB PO SCH (08:04)
[2017-04-04] MEDS: MULTIVITAMIN TAB PO SCH (08:04)
--- NOTE | 2017-04-04 10:20 | HHI.CCPN ---
Subjective Remarks/Hospital Course 71 y/o woman with recent development of SOB and CT shows diffuse interstitial process, ? fibrosis. Severely hypoxemic on arrival, now acceptable on 100% NRBM. 03/23 Patient is on partial rebreather with good sats. Afebrile. Awake and alert. 03/24 Patient is on non rebreather states she is feeling somewhat better. 03/25 No events overnight. Patient is on high flow O2 with 100% FIO2. 03/26 Patient was placed on BIPAP x 5 hrs overnight now back to high flow oxygen 35L with 100% FIO2. Awake and alert states she is feeling better. 03/27: Tolerated BiPAP overnight, currently on hi bryanna oxygen at 55%. Sputum culture 03/24 pseudomonas, I have discontinued ceftriaxone and started Cefepime 2 GM IV q 8hr, ist dose stat called to pharmacy. Also DCd Azithro and placed on Levaquin 03/28: Remains on high flow oxygen 70% FiO2. appears comfortable, but desaturates quickly with any activity. Cefepime and Levaquin started yesterday for pseudomonas in sputum 03/29: Afebrile. On high flow nasal cannula 60%/25 L feels better today. Desaturates with any movement. 03/30: Afebrile. On high flow nasal cannula 40%/25 L. Desaturated with any movement. No bowel movement overnight. Tolerating diet. Subjective 03/31: Resting comfortably in bed. On eye flow nasal cannula 40%/10 L. Easily desaturates. No bowel movement overnight. 04/01 Patient was on BIPAP overnight now on high flow oxygen with 60% FIO2. Afebrile. CXR unchanged this morning. 04/02 No events overnight. on high flow oxygen 25L with 60% FIO2. Afebrile. 04/03: Remains on high flow oxygen 55%, with a saturation 96%., I have requested RT to titrate FiO2 down to keep oxygen saturation 88-89% 04/04: Breathing comfortably but requiring 60% oxygen. Clinically improving but slowly. Not requiring pressors. Objective Vital Signs Date Time Temp Pulse Resp B/P Pulse Ox O2 Delivery O2 Flow Rate FiO2 04/04/17 08:00 96.8 67 25 155/78 97 04/04/17 07:45 High Flow Nasal Cannula 30.00 60 Intake and Output 7/02/1304/03/17 04/03/17 07:59 15:59 23:59 Intake Total 250 ml 634 ml 240 ml Output Total 150 ml 200 ml 150 ml Balance 100 ml 434 ml 90 ml Result Diagram: 04/03/17 0516 04/03/17 0516 Imaging Last Impressions Chest X-Ray 04/01/17 0600 Signed Impressions: Service Date/Time: Saturday, April 01, 2017 04:27 - CONCLUSION: 1. Stable interstitial lung changes. 2. Cardiomegaly. Sebastien Tolbert MD Liver Ultrasound 03/24/17 0000 Signed Impressions: Service Date/Time: Friday, March 24, 2017 15:32 - CONCLUSION: No acute disease. 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 All Prater MD Objective Remarks GENERAL: Patient is 71 yo female, on high flow nasal cannula SKIN: Warm and dry. HEAD: Normocephalic. EYES: Pupils equally round and reactive. No scleral icterus. No injection or drainage. NECK: Supple, trachea midline. No JVD or lymphadenopathy. CARDIOVASCULAR: RRR. S1, S2 no S4 without murmur RESPIRATORY: Breath sounds equal and symmetrical excursion bilaterally. Coarse BS/crackles bilaterally, no wheezes GASTROINTESTINAL: Abdomen soft, non-tender, nondistended. MUSCULOSKELETAL: No peripheral edema. Neuro: Awake and alert. No focal deficits Urinary Catheter: Yes Assessment to: Continue A/P Assessment and Plan Neuro/Psych: Depression Awake and alert. Minimize sedation Acetaminophen for pain/fever Sertraline 100 mg by mouth daily for depression Xanax 0.25 mg every 8 when necessary anxiety Pulm: Pneumonia COPD Type I respiratory failure/acute on chronic Wean down oxygen as chance keep sat >88% currently on 60% oxygen by high flow cannula Bronchodilators with DuoNeb q 6 hours/2 hours when necessary, Pulmicort twice a day, Solumedrol 40mg IV Q8. Pulm is follow -Dr. Jocelyn ROMERO PRN for resp distress EzPAP, IS Continue Spiriva 18 g 1 cap daily ABX as below Aggressive pulmonary toilet. Up to chair daily CV: Hypertension Dyslipidemia Monitor HR and BP keep MAP>65mmHg. On ASA 81 mg daily, Hold Lipitor for elevated LFT's. On Lopressor 25mg Q12 : Monitor renal function, I/O's, electrolytes replacement per protocol GI: IBS Splenic artery aneurysm Elevated transaminases Gastroesophageal reflux disease On mesalamine 1.5 g by mouth daily. Tolerating oral diet Pepcid for GI prophylaxis, Maryjo-Colace twice a day for bowel regimen On PO diet, monitor LFT's. US liver: No acute disease. 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 On Prilosec 40 mg by mouth daily at home for GERD Heme: Leukocytosis Monitor CBC, follow daily. ID: Pseudomonas/strep pneumonia pneumonia Cefepime, Levaquin for sputum cx 03/24 growing pseudomonas sp. 03/24 Strep pneumonia Ag positive. Endo: Hypothyroidism SSI with accuchecks for glycemic control Synthroid 25 mics grams daily TSH : 0.23 GI prophylaxis- On Pepcid DVT prophylaxis- On Lovenox 40mg daily Level II Remains on high flow nasal cannula, but stable Penny Carrizales MD Apr 04, 2017 10:20
[2017-04-04] MEDS: ALPRAZolam 0.25 MG TAB PO PRN ×2 (11:11→20:16)
--- NOTE | 2017-04-04 18:53 | HHI.PR ---
Subjective Remarks 71 YOWF with Hypoxic RF,Colitis,PF Worsening bilat infilt No Fever On Cefepime and Levquin for Pseudomonas coverage. high flow decreased to 55% Fi02 Feels much better today Was oob in chair Desaturates with any activity. CXR stable infilterates Objective Vital Signs Vital Signs Date Time Temp Pulse Resp B/P Pulse Ox O2 Delivery O2 Flow Rate FiO2 04/04/17 16:00 97.9 66 28 133/67 98 04/04/17 16:00 66 04/04/17 14:00 92 04/04/17 12:00 70 04/04/17 12:00 96.8 70 28 148/80 95 04/04/17 10:00 68 04/04/17 08:00 96.8 67 25 155/78 97 04/04/17 08:00 67 04/04/17 07:45 96 High Flow Nasal Cannula 30.00 60 04/04/17 07:00 93 Director Supply 50 04/04/17 06:00 64 04/04/17 04:00 80 04/04/17 04:00 98.4 61 27 137/74 93 04/04/17 02:00 62 04/04/17 00:00 98.4 65 24 137/72 94 04/04/17 00:00 65 04/03/17 22:00 69 04/03/17 20:00 98.2 75 20 115/61 91 04/03/17 20:00 75 04/03/17 19:33 92 High Flow Nasal Cannula 30.00 60 04/03/17 19:00 92 Director Supply 50 I/O 04/03/17 04/03/17 04/03/17 04/04/17 04/04/17 04/04/17 07:00 15:00 23:00 07:00 15:00 23:00 Intake Total 250 ml 634 ml 240 ml 100 ml 710 ml Output Total 150 ml 200 ml 150 ml 150 ml 570 ml Balance 100 ml 434 ml 90 ml -50 ml 140 ml Intake Oral 150 ml 420 ml 240 ml 360 ml IV Total 100 ml 214 ml 100 ml 350 ml Output Urine Total 150 ml 200 ml 150 ml 150 ml 570 ml # Bowel Movements 1 1 Result Diagram: 04/03/1751504/03/1716 Objective Remarks GENERAL: MBMN WF, sob SKIN: Warm and dry. HEAD: Normocephalic. EYES: No scleral icterus. No injection or drainage. NECK: Supple, trachea midline. No JVD or lymphadenopathy. CARDIOVASCULAR: Regular rate and rhythm without murmurs, gallops, or rubs. RESPIRATORY: Breath sounds equal bilaterally. No accessory muscle use. Bilat insp rales GASTROINTESTINAL: Abdomen soft, non-tender, nondistended. MUSCULOSKELETAL: No cyanosis, or edema. BACK: Nontender without obvious deformity. No CVA tenderness. 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
[2017-04-04] MEDS: ENOXAPARIN SODIUM 40 MG/0.4 ML SYRINGE SQ SCH (20:16)
[2017-04-05] VITALS (20 sets, daily range): BP systolic 118–198; BP diastolic 67–95; PULSE 61–93; RESP 17–34; TEMP 97.6–98; O2SAT 89–97
[2017-04-05] MEDS: CEFEPIME INJ 2,000 MG in SODIUM CHLORIDE 0.9% INJ 100 ML IV SCH ×3 (01:12→17:01)
[2017-04-05] MEDS: CHLORHEXIDINE GLUCONATE 2 % 1 PACK (2 CLOTHS) TOP SCH (04:00)
[2017-04-05] MEDS: LEVOTHYROXINE SODIUM 25 MCG TAB PO SCH (05:01)
[2017-04-05] MEDS: methylPREDNISolone SOD SUCC 40 MG/1 ML VIAL IV PUSH SCH ×3 (05:02→20:03)
--- NOTE | 2017-04-05 05:35 | RADRPT ---
EXAM DATE/TIME: 04/05/2017 03:58 [facility] COMPARISON: CHEST SINGLE AP, April 04, 2017, 2:53. INDICATIONS : Evaluate for respiratory disease. MEDICAL HISTORY : Colitis A-fib SURGICAL HISTORY : None. ENCOUNTER: Subsequent ACUITY: 2 weeks PAIN SCORE: Non-responsive. LOCATION: chest FINDINGS: A single view of the chest demonstrates persistent bilateral interstitial lung disease most prominent in the apices. Findings are basically stable. No associated effusions. Heart size is borderline prom inent but well compensated. There are emphysematous changes in the soft tissues of the upper chest/ne ck base. CONCLUSION: 1. Stable, diffuse interstitial changes, most prominent in the apices. 2. Developing emphysematous changes in the soft tissues of the upper chest/lower neck. Nolberto Gonsalves MD on April 05, 2017 at 5:30 Board Certified Radiologist. This report was verified electronically.
--- NOTE | 2017-04-05 06:54 | HHI.CCPN ---
Subjective Remarks/Hospital Course 71 y/o woman with recent development of SOB and CT shows diffuse interstitial process, ? fibrosis. Severely hypoxemic on arrival, now acceptable on 100% NRBM. 03/23 Patient is on partial rebreather with good sats. Afebrile. Awake and alert. 03/24 Patient is on non rebreather states she is feeling somewhat better. 03/25 No events overnight. Patient is on high flow O2 with 100% FIO2. 03/26 Patient was placed on BIPAP x 5 hrs overnight now back to high flow oxygen 35L with 100% FIO2. Awake and alert states she is feeling better. 03/27: Tolerated BiPAP overnight, currently on hi bryanna oxygen at 55%. Sputum culture 03/24 pseudomonas, I have discontinued ceftriaxone and started Cefepime 2 GM IV q 8hr, ist dose stat called to pharmacy. Also DCd Azithro and placed on Levaquin 03/28: Remains on high flow oxygen 70% FiO2. appears comfortable, but desaturates quickly with any activity. Cefepime and Levaquin started yesterday for pseudomonas in sputum 03/29: Afebrile. On high flow nasal cannula 60%/25 L feels better today. Desaturates with any movement. 03/30: Afebrile. On high flow nasal cannula 40%/25 L. Desaturated with any movement. No bowel movement overnight. Tolerating diet. Subjective 03/31: Resting comfortably in bed. On eye flow nasal cannula 40%/10 L. Easily desaturates. No bowel movement overnight. 04/01 Patient was on BIPAP overnight now on high flow oxygen with 60% FIO2. Afebrile. CXR unchanged this morning. 04/02 No events overnight. on high flow oxygen 25L with 60% FIO2. Afebrile. 04/03: Remains on high flow oxygen 55%, with a saturation 96%., I have requested RT to titrate FiO2 down to keep oxygen saturation 88-89% 04/04: Breathing comfortably but requiring 60% oxygen. Clinically improving but slowly. Not requiring pressors. 04/05 Patient states she is breathing better on high flow oxygen 30L with 45% FIO2. Afebrile. Objective Vital Signs Date Time Temp Pulse Resp B/P Pulse Ox O2 Delivery O2 Flow Rate FiO2 04/05/17 04:00 97.9 61 21 140/70 97 04/04/17 20:01 High Flow Nasal Cannula 30.00 60 Intake and Output 04/04/17 04/04/17 04/05/17 08:00 16:00 00:00 Intake Total 100 ml 710 ml 240 ml Output Total 150 ml 570 ml 600 ml Balance -50 ml 140 ml -360 ml Result Diagram: 04/03/17 0516 04/03/17 0516 Imaging Last Impressions Chest X-Ray 04/05/17 0600 Signed Impressions: Service Date/Time: Wednesday, April 05, 2017 03:58 - CONCLUSION: 1. Stable, diffuse interstitial changes, most prominent in the apices. 2. Developing emphysematous changes in the soft tissues of the upper chest/lower neck. Nolberto Gonsalves MD Liver Ultrasound 03/24/17 0000 Signed Impressions: Service Date/Time: Friday, March 24, 2017 15:32 - CONCLUSION: No acute disease. 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 All Prater MD Objective Remarks GENERAL: Patient is 71 yo female, on high flow nasal cannula SKIN: Warm and dry. HEAD: Normocephalic. EYES: Pupils equally round and reactive. No scleral icterus. No injection or drainage. NECK: Supple, trachea midline. No JVD or lymphadenopathy. CARDIOVASCULAR: RRR. S1, S2 no S4 without murmur RESPIRATORY: Breath sounds equal and symmetrical excursion bilaterally. Coarse BS/crackles bilaterally, no wheezes GASTROINTESTINAL: Abdomen soft, non-tender, nondistended. MUSCULOSKELETAL: No peripheral edema. Neuro: Awake and alert. No focal deficits A/P Assessment and Plan Neuro/Psych: Depression Awake and alert. Minimize sedation Acetaminophen for pain/fever Sertraline 100 mg by mouth daily for depression Xanax 0.25 mg every 8 when necessary anxiety Pulm: Pneumonia COPD Type I respiratory failure/acute on chronic Wean down oxygen as chance keep sat >88% currently on 60% oxygen by high flow cannula Bronchodilators with DuoNeb q 6 hours/2 hours when necessary, Pulmicort twice a day, Solumedrol 40mg IV Q8. Pulm is follow -Dr. Jocelyn ROMERO PRN for resp distress EzPAP, IS Continue Spiriva 18 g 1 cap daily ABX as below Aggressive pulmonary toilet. Up to chair daily CV: Hypertension Dyslipidemia Monitor HR and BP keep MAP>65mmHg. On ASA 81 mg daily, Hold Lipitor for elevated LFT's. On Lopressor 25mg Q12 : Monitor renal function, I/O's, electrolytes replacement per protocol GI: IBS Splenic artery aneurysm Elevated transaminases Gastroesophageal reflux disease On mesalamine 1.5 g by mouth daily. Tolerating oral diet Pepcid for GI prophylaxis, Maryjo-Colace twice a day for bowel regimen On PO diet, monitor LFT's. US liver: No acute disease. 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 On Prilosec 40 mg by mouth daily at home for GERD Heme: Leukocytosis Monitor CBC, follow daily. ID: Pseudomonas/strep pneumonia pneumonia Cefepime, Levaquin for sputum cx 03/24 growing pseudomonas sp. 03/24 Strep pneumonia Ag positive. Recheck sputum cx Endo: Hypothyroidism SSI with accuchecks for glycemic control Synthroid 25 mics grams daily TSH : 0.23 GI prophylaxis- On Pepcid DVT prophylaxis- On Lovenox 40mg daily Level II Remains on high flow nasal cannula, but stable Reynaldo Gutierrez MD Apr 05, 2017 06:54
[2017-04-05 07:06] LABS: AUTOMATED NEUTROPHIL # 19.8 TH/MM3 (1.8-7.7); BASOPHIL % 0.1 % (0.0-2.0); EOSINOPHIL % 0.1 % (0.0-4.0); HEMATOCRIT 42.9 % (35.0-46.0); LYMPH % 5.3 % (9.0-44.0); LYMPHOCYTE # 1.2 TH/MM3 (1.0-4.8); MEAN CELL VOLUME 92.8 FL (80.0-100.0); MEAN CORPUSCULAR HGB CONC 31.3 % (32.0-36.0); MONO % 5.3 % (0.0-8.0); NEUT % 89.2 % (16.0-70.0); PLATELET COUNT 273 TH/MM3 (150-450); RED BLOOD COUNT 4.62 MIL/MM3 (4.00-5.30); RED CELL DISTRIBUTION WIDTH 15.5 % (11.6-17.2); WHITE BLOOD COUNT 22.2 TH/MM3 (4.0-11.0)
[2017-04-05 07:09] LABS: ANION GAP 6 MEQ/L (5-15); AST (GOT) 25 U/L (15-37); BLOOD UREA NITROGEN 23 MG/DL (7-18); CHLORIDE 105 MEQ/L (98-107); GLOMERULAR FILTRATION RATE 116 ML/MIN (>89); POTASSIUM 4.1 MEQ/L (3.5-5.1); SODIUM (NA) 139 MEQ/L (136-145)
[2017-04-05 07:11] LABS: ALT (GPT) 103 U/L (10-53)
[2017-04-05 07:13] LABS: ALKALINE PHOSPHATASE 84 U/L (45-117); TOTAL BILIRUBIN ADULT 0.7 MG/DL (0.2-1.0)
[2017-04-05 07:18] LABS: HEMO FLAGS AUTO DIFF
[2017-04-05] MEDS: RESP: BUDESONIDE 0.5 MG/2 ML NEB NEB SCH ×2 (07:24→20:05)
[2017-04-05] MEDS: TIOTROPIUM BROMIDE 18 MCG INH INH SCH (07:49)
[2017-04-05] MEDS: ASPIRIN 81 MG CHEW TAB CHEW SCH (07:50)
[2017-04-05] MEDS: METOPROLOL TARTRATE 25 MG TAB PO SCH ×2 (07:50→20:03)
[2017-04-05] MEDS: SERTRALINE HCL 100 MG TAB PO SCH (07:50)
[2017-04-05] MEDS: LACTOBACILLUS ACIDOPHILUS TAB PO SCH ×3 (07:50→17:15)
[2017-04-05] MEDS: FAMOTIDINE 20 MG TAB PO SCH ×2 (07:50→20:03)
[2017-04-05] MEDS: MULTIVITAMIN TAB PO SCH (07:50)
[2017-04-05] MEDS: DOCUSATE SODIUM 50 MG/SENNA 8.6 MG TAB PO SCH ×3 (07:50→20:04)
[2017-04-05 08:07] LABS: BANDS 2 % (0-6); METAMYELOCYTES 2 % (0-1); MYELOCYTES 1 % (0-0); NEUTROPHIL # MANUAL DIFF 21.3 TH/MM3 (1.8-7.7); POLYS (SEG NEUTROPHILS) 91 % (16-70); WBC DIFF SAMPLE 100
[2017-04-05 08:08] LABS: SCAN/DIFF FINAL DIFF MANUAL
[2017-04-05] MEDS: ALPRAZolam 0.25 MG TAB PO PRN ×2 (09:42→20:01)
--- NOTE | 2017-04-05 17:48 | HHI.PR ---
Subjective Remarks 71 YOWF with Hypoxic RF,Colitis,PF Worsening bilat infilt No Fever On Cefepime and Levquin for Pseudomonas coverage. high flow decreased to 45% Fi02, sat 95% Feels much better today Was oob in chair Desaturates with any activity. Was up in chair Objective Vital Signs Vital Signs Date Time Temp Pulse Resp B/P Pulse Ox O2 Delivery O2 Flow Rate FiO2 04/05/17 16:00 97.9 74 30 125/67 95 04/05/17 16:00 74 04/05/17 15:25 75 32 118/70 90 04/05/17 15:00 72 26 121/75 94 04/05/17 15:00 72 04/05/17 14:00 71 26 130/75 94 04/05/17 14:00 71 04/05/17 13:00 80 29 129/86 94 04/05/17 13:00 80 04/05/17 12:00 97.9 66 26 122/82 94 04/05/17 12:00 66 04/05/17 11:00 74 04/05/17 10:00 75 04/05/17 09:00 93 30 155/95 89 04/05/17 09:00 93 04/05/17 08:00 97.6 73 28 152/72 93 04/05/17 08:00 73 04/05/17 08:00 93 Nasal Cannula 45 04/05/17 07:29 94 High Flow Nasal Cannula 30.00 40 04/05/17 07:00 67 27 152/80 93 04/05/17 07:00 67 04/05/17 06:00 61 17 148/72 96 04/05/17 05:00 67 28 159/74 92 04/05/17 04:00 97.9 61 21 140/70 97 04/05/17 00:00 97.8 69 34 198/93 94 04/04/17 20:01 88 High Flow Nasal Cannula 30.00 60 04/04/17 20:00 97.6 91 38 132/65 85 04/04/17 19:00 92 Nasal Cannula 45 Physician Office Rep 04/04/17 18:00 88 I/O 04/04/17 04/04/17 04/04/17 04/05/17 04/05/17 04/05/17 07:00 15:00 23:00 07:00 15:00 23:00 Intake Total 100 ml 710 ml 240 ml 315 ml 340 ml Output Total 150 ml 570 ml 600 ml 400 ml 300 ml Balance -50 ml 140 ml -360 ml -85 ml 40 ml Intake Oral 360 ml 240 ml 240 ml 240 ml IV Total 100 ml 350 ml 0 ml 75 ml 100 ml Output Urine Total 150 ml 570 ml 600 ml 400 ml 300 ml # Bowel Movements 1 0 0 Result Diagram: 04/05/1762004/05/17620 Objective Remarks GENERAL: MBMN WF, sob SKIN: Warm and dry. HEAD: Normocephalic. EYES: No scleral icterus. No injection or drainage. NECK: Supple, trachea midline. No JVD or lymphadenopathy. CARDIOVASCULAR: Regular rate and rhythm without murmurs, gallops, or rubs. RESPIRATORY: Breath sounds equal bilaterally. No accessory muscle use. Bilat insp rales GASTROINTESTINAL: Abdomen soft, non-tender, nondistended. MUSCULOSKELETAL: No cyanosis, or edema. BACK: Nontender without obvious deformity. No CVA tenderness. A/P Assessment and Plan Hypoxic RF Pulm Fibrosis with exac Colitis Anxiert Bilat infilt PLAN: DW pt and her Cont Abx Cefepime and Levaquin IV solumedrol DVT Prophylaxis High flow 02 55% titerate 02 to keep sat >88% BIPAP at night and prn Will try to wean to 6LNC uGrinder Banks MD Apr 05, 2017 17:48
[2017-04-05] MEDS: ENOXAPARIN SODIUM 40 MG/0.4 ML SYRINGE SQ SCH (20:03)
[2017-04-05] MEDS: RESP: ALBUTEROL 2.5 MG/IPRATROPIUM 0.5 MG NEB (PRN) NEB (20:05)
[2017-04-06] VITALS (20 sets, daily range): BP systolic 107–163; BP diastolic 62–80; PULSE 61–90; RESP 16–34; TEMP 97.9–98.2; O2SAT 88–98
[2017-04-06] MEDS: CHLORHEXIDINE GLUCONATE 2 % 1 PACK (2 CLOTHS) TOP SCH ×2 (03:30→20:27)
[2017-04-06] MEDS: methylPREDNISolone SOD SUCC 40 MG/1 ML VIAL IV PUSH SCH ×3 (04:47→21:22)
[2017-04-06] MEDS: LEVOTHYROXINE SODIUM 25 MCG TAB PO SCH (04:47)
--- NOTE | 2017-04-06 05:12 | RADRPT ---
EXAM DATE/TIME: 04/06/2017 03:26 [facility] COMPARISON: CHEST SINGLE AP, April 05, 2017, 3:58. INDICATIONS : Shortness of breath, possible pulmonary disease. MEDICAL HISTORY : Colitis A-Fib SURGICAL HISTORY : Colon resection. ENCOUNTER: Subsequent ACUITY: 2 weeks PAIN SCORE: 1/10 LOCATION: Bilateral chest FINDINGS: A single view of the chest demonstrates stable but rather extensive interstitial changes most promine nt in the apices. This may be chronic. No associated effusions. Heart size is borderline prominent th e lung compensated. Again noted are some emphysematous changes in the deep tissues of the upper chest and neck. CONCLUSION: 1. Stable appearance of the chest with extensive bilateral interstitial changes most prominent in the apices. 2. Borderline prominent for compensated heart. 3. Deep tissue emphysematous changes in the upper chest and lower neck. Nolberto Gonsalves MD on April 06, 2017 at 5:09 Board Certified Radiologist. This report was verified electronically.
[2017-04-06 05:34] LABS: AUTOMATED NEUTROPHIL # 19.5 TH/MM3 (1.8-7.7); BASOPHIL # 0.1 TH/MM3 (0-0.2); BASOPHIL % 0.5 % (0.0-2.0); LYMPH % 4.7 % (9.0-44.0); MEAN CELL VOLUME 91.1 FL (80.0-100.0); MEAN CORPUSCULAR HEMOGLOBIN 30.1 PG (27.0-34.0); MEAN CORPUSCULAR HGB CONC 33.1 % (32.0-36.0); MONO % 4.3 % (0.0-8.0); NEUT % 90.5 % (16.0-70.0); PLATELET COUNT 277 TH/MM3 (150-450); RED BLOOD COUNT 4.39 MIL/MM3 (4.00-5.30); RED CELL DISTRIBUTION WIDTH 15.4 % (11.6-17.2); WHITE BLOOD COUNT 21.6 TH/MM3 (4.0-11.0)
[2017-04-06 05:37] LABS: HEMO FLAGS AUTO DIFF
[2017-04-06 05:51] LABS: ANION GAP 7 MEQ/L (5-15); AST (GOT) 31 U/L (15-37); BICARBONATE 27.8 MEQ/L (21.0-32.0); BLOOD UREA NITROGEN 24 MG/DL (7-18); CHLORIDE 104 MEQ/L (98-107); GLOMERULAR FILTRATION RATE 111 ML/MIN (>89); MAGNESIUM 1.9 MG/DL (1.5-2.5); SODIUM (NA) 139 MEQ/L (136-145)
[2017-04-06 05:52] LABS: ALT (GPT) 100 U/L (10-53)
[2017-04-06 05:54] LABS: ALKALINE PHOSPHATASE 83 U/L (45-117); TOTAL BILIRUBIN ADULT 0.6 MG/DL (0.2-1.0)
[2017-04-06 07:08] LABS: PLATELET ESTIMATE SMEAR NORMAL (NORMAL); PLATELET MORPHOLOGY NORMAL (NORMAL); SCAN/DIFF AUTO DIFF CONFIRMED
[2017-04-06] MEDS: ALPRAZolam 0.25 MG TAB PO PRN ×3 (07:25→20:26)
[2017-04-06] MEDS: CEFEPIME INJ 2,000 MG in SODIUM CHLORIDE 0.9% INJ 100 ML IV SCH ×4 (07:56→16:39)
[2017-04-06] MEDS: LEVOFLOXACIN 750 MG PREMIX INJ 150 ML IV SCH (07:56)
[2017-04-06] MEDS: LACTOBACILLUS ACIDOPHILUS TAB PO SCH ×3 (08:06→17:59)
[2017-04-06] MEDS: DOCUSATE SODIUM 50 MG/SENNA 8.6 MG TAB PO SCH ×2 (08:06→20:27)
[2017-04-06] MEDS: MULTIVITAMIN TAB PO SCH (08:07)
[2017-04-06] MEDS: TIOTROPIUM BROMIDE 18 MCG INH INH SCH (08:07)
[2017-04-06] MEDS: METOPROLOL TARTRATE 25 MG TAB PO SCH ×2 (08:07→20:27)
[2017-04-06] MEDS: FAMOTIDINE 20 MG TAB PO SCH ×2 (08:07→20:26)
[2017-04-06] MEDS: SERTRALINE HCL 100 MG TAB PO SCH (08:07)
[2017-04-06] MEDS: ASPIRIN 81 MG CHEW TAB CHEW SCH (08:07)
[2017-04-06] MEDS: RESP: BUDESONIDE 0.5 MG/2 ML NEB NEB SCH ×2 (09:35→19:52)
--- NOTE | 2017-04-06 11:48 | PD.TRANSFR ---
Transfer Summary Admission Date Mar 22, 2017 at 18:38 Admitting Diagnosis Hypoxemic Respiratory Failure Diagnoses: (1) Acute on chronic respiratory failure Diagnosis: Principal (2) Pseudomonas pneumonia Diagnosis: Principal (3) Severe hypoxemia Diagnosis: Principal (4) COPD (chronic obstructive pulmonary disease) Diagnosis: Principal (5) Pulmonary fibrosis Diagnosis: Secondary Transfer Summary/Subjective 71 y/o woman with recent development of SOB and CT shows diffuse interstitial process, ? fibrosis. Severely hypoxemic on arrival, now acceptable on 100% NRBM. 03/23 Patient is on partial rebreather with good sats. Afebrile. Awake and alert. 03/24 Patient is on non rebreather states she is feeling somewhat better. 03/25 No events overnight. Patient is on high flow O2 with 100% FIO2. 03/26 Patient was placed on BIPAP x 5 hrs overnight now back to high flow oxygen 35L with 100% FIO2. Awake and alert states she is feeling better. 03/27: Tolerated BiPAP overnight, currently on hi bryanna oxygen at 55%. Sputum culture 03/24 pseudomonas, I have discontinued ceftriaxone and started Cefepime 2 GM IV q 8hr, ist dose stat called to pharmacy. Also DCd Azithro and placed on Levaquin 03/28: Remains on high flow oxygen 70% FiO2. appears comfortable, but desaturates quickly with any activity. Cefepime and Levaquin started yesterday for pseudomonas in sputum 03/29: Afebrile. On high flow nasal cannula 60%/25 L feels better today. Desaturates with any movement. 03/30: Afebrile. On high flow nasal cannula 40%/25 L. Desaturated with any movement. No bowel movement overnight. Tolerating diet. 03/31: Resting comfortably in bed. On eye flow nasal cannula 40%/10 L. Easily desaturates. No bowel movement overnight. 04/01 Patient was on BIPAP overnight now on high flow oxygen with 60% FIO2. Afebrile. CXR unchanged this morning. 04/02 No events overnight. on high flow oxygen 25L with 60% FIO2. Afebrile. 04/03: Remains on high flow oxygen 55%, with a saturation 96%., I have requested RT to titrate FiO2 down to keep oxygen saturation 88-89% 04/04: Breathing comfortably but requiring 60% oxygen. Clinically improving but slowly. Not requiring pressors. 04/05 Patient states she is breathing better on high flow oxygen 30L with 45% FIO2. Afebrile. 04/06: Subjectively improved. Weaned off high flow nasal cannula currently on 3 L nasal cannula with good oxygen saturation Objective Vital Signs Date Time Temp Pulse Resp B/P Pulse Ox O2 Delivery O2 Flow Rate FiO2 04/06/17 11:00 75 24 132/73 96 04/06/17 09:35 Nasal Cannula 3.00 04/06/17 08:00 98.0 04/05/17 08:00 45 Intake and Output 04/05/17 04/05/17 04/06/17 08:00 16:00 00:00 Intake Total 315 ml 691 ml Output Total 400 ml 600 ml Balance -85 ml 91 ml Result Diagram: 04/06/17 0432 04/06/17 0432 Imaging Last Impressions Chest X-Ray 04/05/17 0600 Signed Impressions: Service Date/Time: Wednesday, April 05, 2017 03:58 - CONCLUSION: 1. Stable, diffuse interstitial changes, most prominent in the apices. 2. Developing emphysematous changes in the soft tissues of the upper chest/lower neck. Nolberto Gonsalves MD Liver Ultrasound 03/24/17 0000 Signed Impressions: Service Date/Time: Friday, March 24, 2017 15:32 - CONCLUSION: No acute disease. 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 All Prater MD Objective Remarks GENERAL: Patient is 71 yo female, on 3L nasal cannula SKIN: Warm and dry. HEAD: Normocephalic. EYES: Pupils equally round and reactive. No scleral icterus. No injection or drainage. NECK: Supple, trachea midline. No JVD or lymphadenopathy. CARDIOVASCULAR: RRR. S1, S2 no S4 without murmur RESPIRATORY: Breath sounds equal and symmetrical excursion bilaterally. Coarse BS/crackles bilaterally, no wheezes GASTROINTESTINAL: Abdomen soft, non-tender, nondistended. MUSCULOSKELETAL: No peripheral edema. Neuro: Awake and alert. No focal deficits A/P Assessment and Plan Neuro/Psych: Depression Acetaminophen for pain/fever Sertraline 100 mg by mouth daily for depression Xanax 0.25 mg every 8 when necessary anxiety Pulm: Pneumonia, with Pseudomonas COPD Type I respiratory failure/acute on chronic Pulmonary fibrosis Wean down oxygen as chance keep sat >88% currently on 3L NC Bronchodilators with DuoNeb q 6 hours/2 hours when necessary, Pulmicort twice a day, Solumedrol 40mg IV Q8. Pulm is follow -Dr. Jocelyn ROMERO PRN for resp distress EzPAP, IS Continue Spiriva 18 g 1 cap daily ABX as below Aggressive pulmonary toilet. Up to chair daily CV: Hypertension Dyslipidemia Monitor HR and BP keep MAP>65mmHg. On ASA 81 mg daily, Hold Lipitor for elevated LFT's. On Lopressor 25mg Q12 : Monitor renal function, I/O's, electrolytes replacement per protocol GI: IBS Splenic artery aneurysm Elevated transaminases Gastroesophageal reflux disease On mesalamine 1.5 g by mouth daily. Tolerating oral diet Pepcid for GI prophylaxis, Maryjo-Colace twice a day for bowel regimen On PO diet, monitor LFT's. US liver: No acute disease. 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 On Prilosec 40 mg by mouth daily at home for GERD Heme: Leukocytosis Monitor CBC, follow daily. ID: Pseudomonas/strep pneumonia pneumonia Cefepime, Levaquin for sputum cx 03/24 growing pseudomonas sp. 03/24 Strep pneumonia Ag positive. Recheck sputum cx Endo: Hypothyroidism SSI with accuchecks for glycemic control Synthroid 25 mics grams daily TSH : 0.23 GI prophylaxis- On Pepcid DVT prophylaxis- On Lovenox 40mg daily Level II Remains on nasal cannula, stable, transfer to Med-Surg. Consult hospitalist to assume care in a.. Penny Carrizales MD Apr 06, 2017 11:48
[2017-04-06] MEDS: ENOXAPARIN SODIUM 40 MG/0.4 ML SYRINGE SQ SCH (20:26)
[2017-04-07] VITALS (15 sets, daily range): BP systolic 117–146; BP diastolic 58–81; PULSE 61–88; RESP 18–24; TEMP 96.4–98.1; O2SAT 88–96
[2017-04-07] MEDS: CEFEPIME INJ 2,000 MG in SODIUM CHLORIDE 0.9% INJ 100 ML IV SCH ×3 (00:48→15:59)
[2017-04-07] MEDS: LEVOTHYROXINE SODIUM 25 MCG TAB PO SCH (05:27)
[2017-04-07] MEDS: methylPREDNISolone SOD SUCC 40 MG/1 ML VIAL IV PUSH SCH ×3 (05:27→20:50)
[2017-04-07] MEDS: RESP: BUDESONIDE 0.5 MG/2 ML NEB NEB SCH ×2 (08:08→20:11)
[2017-04-07] MEDS: METOPROLOL TARTRATE 25 MG TAB PO SCH ×2 (08:33→20:49)
[2017-04-07] MEDS: ASPIRIN 81 MG CHEW TAB CHEW SCH (08:33)
[2017-04-07] MEDS: SERTRALINE HCL 100 MG TAB PO SCH (08:33)
[2017-04-07] MEDS: FAMOTIDINE 20 MG TAB PO SCH ×2 (08:33→20:49)
[2017-04-07] MEDS: MULTIVITAMIN TAB PO SCH (08:33)
[2017-04-07] MEDS: LACTOBACILLUS ACIDOPHILUS TAB PO SCH ×3 (08:33→17:00)
[2017-04-07] MEDS: DOCUSATE SODIUM 50 MG/SENNA 8.6 MG TAB PO SCH ×2 (08:33→21:00)
--- NOTE | 2017-04-07 09:37 | HHI.PR ---
Subjective Remarks Follow-up acute on chronic type I respiratory failure/strep pneumonia 04/07/17-patient seen and examined, currently on 4 L nasal cannula oxygen and afebrile. Some shortness of breath. Tolerated by mouth without any complication nausea and vomiting. Objective Vitals Vital Signs Date Time Temp Pulse Resp B/P Pulse Ox O2 Delivery O2 Flow Rate FiO2 04/07/17 08:44 96.8 71 20 146/77 90 04/07/17 08:12 Nasal Cannula 4.00 04/07/17 07:00 69 04/07/17 07:00 90 Nasal Cannula 4.00 04/07/17 06:34 97.0 88 18 127/81 88 04/07/17 06:00 66 04/07/17 04:00 98.1 68 24 122/58 93 04/07/17 04:00 70 04/07/17 02:00 77 04/07/17 00:00 61 04/07/17 00:00 98.1 63 21 117/66 96 04/06/17 22:00 63 04/06/17 20:00 98.0 79 26 107/62 91 04/06/17 20:00 79 04/06/17 19:52 89 Nasal Cannula 4.00 04/06/17 19:00 Nasal Cannula 3.00 04/06/17 18:00 90 04/06/17 17:00 76 24 119/63 88 04/06/17 17:00 76 04/06/17 16:51 Nasal Cannula 3.00 04/06/17 16:00 98.2 73 27 121/75 90 04/06/17 16:00 73 04/06/17 15:00 81 04/06/17 15:00 81 29 156/80 89 04/06/17 14:00 73 26 129/69 93 04/06/17 14:00 73 04/06/17 13:00 80 34 129/71 96 04/06/17 13:00 80 04/06/17 12:00 97.9 61 16 131/67 98 04/06/17 12:00 61 04/06/17 11:00 75 24 132/73 96 04/06/17 11:00 75 04/06/17 10:00 80 04/06/17 10:00 80 25 126/75 93 04/06/17 09:35 93 Nasal Cannula 3.00 I/O 04/06/17 04/06/17 04/06/17 04/07/17 04/07/17 04/07/17 07:00 15:00 23:00 07:00 15:00 23:00 Intake Total 345 ml 730 ml 250 ml Balance 345 ml 730 ml 250 ml Intake Oral 240 ml 480 ml 120 ml IV Total 105 ml 250 ml 130 ml # Voids 3 3 2 # Bowel Movements 0 1 1 Result Diagram: 04/06/17 0432 04/06/17 0432 Imaging Last Impressions Chest X-Ray 04/06/17 0600 Signed Impressions: Service Date/Time: Thursday, April 06, 2017 03:26 - CONCLUSION: 1. Stable appearance of the chest with extensive bilateral interstitial changes most prominent in the apices. 2. Borderline prominent for compensated heart. 3. Deep tissue emphysematous changes in the upper chest and lower neck. Nolberto Gonsalves MD Liver Ultrasound 03/24/17 0000 Signed Impressions: Service Date/Time: Friday, March 24, 2017 15:32 - CONCLUSION: No acute disease. 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 All Prater MD Objective Remarks GENERAL: NAD SKIN: Warm and dry. HEAD: Normocephalic. EYES: No scleral icterus. No injection or drainage. NECK: Supple, trachea midline. No JVD or lymphadenopathy. CARDIOVASCULAR: Regular rate and rhythm without murmurs, gallops, or rubs. RESPIRATORY: Breath sounds decrease bilaterally. No accessory muscle use. GASTROINTESTINAL: Abdomen soft, non-tender, nondistended. MUSCULOSKELETAL: No cyanosis, or edema. BACK: Nontender without obvious deformity. No CVA tenderness. A/P Problem List: (1) Acute on chronic respiratory failure ICD Code: J96.20 Status: Acute (2) Pseudomonas pneumonia ICD Code: J15.1 Status: Acute (3) Severe hypoxemia ICD Code: R09.02 Status: Resolved (4) COPD (chronic obstructive pulmonary disease) ICD Code: J44.9 Status: Chronic (5) Pulmonary fibrosis ICD Code: J84.10 Status: Chronic Assessment and Plan 71-year-old female with Depression Sertraline 100 mg by mouth daily for depression Xanax 0.25 mg every 8 when necessary anxiety Pneumonia, with Pseudomonas COPD Type I respiratory failure/acute on chronic Pulmonary fibrosis Bronchodilators with DuoNeb q 6 hours/2 hours when necessary, Pulmicort twice a day, Solumedrol 40mg IV Q8. Pulmonary medicine input appreciated -Dr. Banks Aggressive pulmonary toilet Hypertension Dyslipidemia On ASA 81 mg daily, Lopressor 25 mg every 12 hours, Hold Lipitor for elevated LFT's. IBS Splenic artery aneurysm Elevated transaminases Gastroesophageal reflux disease On mesalamine 1.5 g by mouth daily. Pepcid for GI prophylaxis, Maryjo-Colace twice a day for bowel regimen US liver: No acute disease. 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 Pseudomonas/strep pneumonia pneumonia Cefepime, Levaquin for sputum cx 03/24 growing pseudomonas sp. 03/24 Strep pneumonia Ag positive. Hypothyroidism Synthroid 25 mics grams daily GI prophylaxis- On Pepcid DVT prophylaxis- On Lovenox 40mg daily Sebastien Mitchell MD Apr 07, 2017 09:37
[2017-04-07] MEDS: TIOTROPIUM BROMIDE 18 MCG INH INH SCH (12:38)
[2017-04-07] MEDS: ALPRAZolam 0.25 MG TAB PO PRN (20:49)
[2017-04-07] MEDS: ENOXAPARIN SODIUM 40 MG/0.4 ML SYRINGE SQ SCH (20:51)
[2017-04-08] VITALS (13 sets, daily range): BP systolic 126–154; BP diastolic 70–91; PULSE 61–98; RESP 16–23; TEMP 96.3–98.3; O2SAT 93–96
[2017-04-08] MEDS: CEFEPIME INJ 2,000 MG in SODIUM CHLORIDE 0.9% INJ 100 ML IV SCH ×3 (00:49→15:50)
[2017-04-08] MEDS: CHLORHEXIDINE GLUCONATE 2 % 1 PACK (2 CLOTHS) TOP SCH ×2 (03:26→23:59)
[2017-04-08] MEDS: LEVOTHYROXINE SODIUM 25 MCG TAB PO SCH (07:26)
[2017-04-08] MEDS: RESP: BUDESONIDE 0.5 MG/2 ML NEB NEB SCH ×2 (08:06→21:13)
[2017-04-08] MEDS: LEVOFLOXACIN 750 MG PREMIX INJ 150 ML IV SCH (08:44)
[2017-04-08] MEDS: FAMOTIDINE 20 MG TAB PO SCH ×2 (08:45→20:35)
[2017-04-08] MEDS: METOPROLOL TARTRATE 25 MG TAB PO SCH ×2 (08:45→20:35)
[2017-04-08] MEDS: MULTIVITAMIN TAB PO SCH (08:45)
[2017-04-08] MEDS: methylPREDNISolone SOD SUCC 40 MG/1 ML VIAL IV PUSH SCH (08:45)
[2017-04-08] MEDS: LACTOBACILLUS ACIDOPHILUS TAB PO SCH ×3 (08:45→18:02)
[2017-04-08] MEDS: DOCUSATE SODIUM 50 MG/SENNA 8.6 MG TAB PO SCH ×2 (08:46→19:17)
[2017-04-08] MEDS: SERTRALINE HCL 100 MG TAB PO SCH (08:46)
[2017-04-08] MEDS: ASPIRIN 81 MG CHEW TAB CHEW SCH (08:46)
[2017-04-08] MEDS: TIOTROPIUM BROMIDE 18 MCG INH INH SCH (08:48)
--- NOTE | 2017-04-08 09:46 | HHI.PR ---
Subjective Remarks Follow-up acute on chronic type I respiratory failure/strep pneumonia 04/07/17-patient seen and examined, currently on 4 L nasal cannula oxygen and afebrile. Some shortness of breath. Tolerated by mouth without any complication nausea and vomiting. 04/08/17-patient seen and examined, currently on 2 L nasal cannula and satting at 96%. No significant shortness of breath this morning. No acute event overnight. by the bedside Objective Vitals Vital Signs Date Time Temp Pulse Resp B/P Pulse Ox O2 Delivery O2 Flow Rate FiO2 04/08/17 08:44 96 Nasal Cannula 2.00 04/08/17 08:43 98.3 67 16 133/70 96 04/08/17 08:08 95 Nasal Cannula 3.00 04/08/17 04:00 96.3 66 21 129/76 96 04/08/17 00:00 97.6 89 20 141/76 94 04/07/17 20:53 Nasal Cannula 4.00 45 04/07/17 20:18 82 04/07/17 20:11 93 Nasal Cannula 4.00 04/07/17 20:00 96.6 84 19 128/75 94 04/07/17 16:20 97.5 72 21 124/64 96 04/07/17 16:00 75 04/07/17 12:45 96.4 68 22 126/66 88 04/07/17 12:04 81 I/O 04/07/17 04/07/17 04/07/17 04/08/17 04/08/17 04/08/17 07:00 15:00 23:00 07:00 15:00 23:00 Intake Total 250 ml 480 ml 480 ml 240 ml Output Total 400 ml 700 ml Balance 250 ml 480 ml 80 ml -460 ml Intake Oral 120 ml 480 ml 480 ml 240 ml IV Total 130 ml Output Urine Total 400 ml 700 ml # Voids 2 2 # Bowel Movements 1 1 Result Diagram: 04/06/1743104/06/17431 Imaging Last Impressions Chest X-Ray 04/06/17 06 Signed Impressions: Service Date/Time: Thursday, April 06, 2017 03:26 - CONCLUSION: 1. Stable appearance of the chest with extensive bilateral interstitial changes most prominent in the apices. 2. Borderline prominent for compensated heart. 3. Deep tissue emphysematous changes in the upper chest and lower neck. Nolberto Gonsalves MD Liver Ultrasound 03/24/17 0000 Signed Impressions: Service Date/Time: Friday, March 24, 2017 15:32 - CONCLUSION: No acute disease. 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 All Prater MD Objective Remarks GENERAL: NAD SKIN: Warm and dry. HEAD: Normocephalic. EYES: No scleral icterus. No injection or drainage. NECK: Supple, trachea midline. No JVD or lymphadenopathy. CARDIOVASCULAR: Regular rate and rhythm without murmurs, gallops, or rubs. RESPIRATORY: Breath sounds decrease bilaterally. No accessory muscle use. GASTROINTESTINAL: Abdomen soft, non-tender, nondistended. MUSCULOSKELETAL: No cyanosis, or edema. BACK: Nontender without obvious deformity. No CVA tenderness. A/P Problem List: (1) Acute on chronic respiratory failure ICD Code: J96.20 Status: Acute (2) Pseudomonas pneumonia ICD Code: J15.1 Status: Acute (3) Severe hypoxemia ICD Code: R09.02 Status: Resolved (4) COPD (chronic obstructive pulmonary disease) ICD Code: J44.9 Status: Chronic (5) Pulmonary fibrosis ICD Code: J84.10 Status: Chronic Assessment and Plan 71-year-old female with Depression Sertraline 100 mg by mouth daily for depression Xanax 0.25 mg every 8 when necessary anxiety Pneumonia, with Pseudomonas COPD Type I respiratory failure/acute on chronic Pulmonary fibrosis Bronchodilators with DuoNeb q 6 hours/2 hours when necessary, Pulmicort twice a day, Solumedrol 40mg IV Q12H. Pulmonary medicine input appreciated -Dr. Banks Aggressive pulmonary toilet Hypertension Dyslipidemia On ASA 81 mg daily, Lopressor 25 mg every 12 hours, Hold Lipitor for elevated LFT's. IBS Splenic artery aneurysm Elevated transaminases Gastroesophageal reflux disease On mesalamine 1.5 g by mouth daily. Pepcid for GI prophylaxis, Maryjo-Colace twice a day for bowel regimen US liver: No acute disease. 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 Pseudomonas/strep pneumonia pneumonia Cefepime, Levaquin for sputum cx 03/24 growing pseudomonas sp. Will discontinue Levaquin and only continue cefepime IV 03/24 Strep pneumonia Ag positive. Hypothyroidism Synthroid 25 mics grams daily GI prophylaxis- On Pepcid DVT prophylaxis- On Lovenox 40mg daily Sebastien Mitchell MD Apr 08, 2017 09:46 Sebastien Mitchell MD Apr 08, 2017 09:46
--- NOTE | 2017-04-08 18:49 | HHI.PR ---
Subjective Remarks 71 YOWF with Hypoxic RF,Colitis,PF Worsening bilat infilt No Fever On Cefepime and Levquin for Pseudomonas coverage. Feels much better today Was up in chair weaned to NC Objective Vital Signs Vital Signs Date Time Temp Pulse Resp B/P Pulse Ox O2 Delivery O2 Flow Rate FiO2 04/08/17 17:30 143/83 04/08/17 16:09 88 04/08/17 16:00 97.0 80 23 154/91 93 04/08/17 12:15 61 04/08/17 12:00 96.6 83 18 128/81 96 04/08/17 08:44 96 Nasal Cannula 2.00 04/08/17 08:43 98.3 67 16 133/70 96 04/08/17 08:08 95 Nasal Cannula 3.00 04/08/17 08:06 86 04/08/17 04:00 96.3 66 21 129/76 96 04/08/17 00:00 97.6 89 20 141/76 94 04/07/17 20:53 Nasal Cannula 4.00 45 04/07/17 20:18 82 04/07/17 20:11 93 Nasal Cannula 4.00 04/07/17 20:00 96.6 84 19 128/75 94 I/O 04/07/17 04/07/17 04/07/17 04/08/17 04/08/17 04/08/17 07:00 15:00 23:00 07:00 15:00 23:00 Intake Total 250 ml 480 ml 480 ml 240 ml Output Total 400 ml 700 ml Balance 250 ml 480 ml 80 ml -460 ml Intake Oral 120 ml 480 ml 480 ml 240 ml IV Total 130 ml Output Urine Total 400 ml 700 ml # Voids 2 2 # Bowel Movements 1 1 Result Diagram: 04/06/1743104/06/17 0432 Objective Remarks GENERAL: MBMN WF, sob SKIN: Warm and dry. HEAD: Normocephalic. EYES: No scleral icterus. No injection or drainage. NECK: Supple, trachea midline. No JVD or lymphadenopathy. CARDIOVASCULAR: Regular rate and rhythm without murmurs, gallops, or rubs. RESPIRATORY: Breath sounds equal bilaterally. No accessory muscle use. Bilat insp rales GASTROINTESTINAL: Abdomen soft, non-tender, nondistended. MUSCULOSKELETAL: No cyanosis, or edema. BACK: Nontender without obvious deformity. No CVA tenderness. A/P Assessment and Plan Hypoxic RF Pulm Fibrosis with exac Colitis Anxiert Bilat infilt PLAN: DW pt and her Cont Abx Cefepime and Levaquin IV solumedrol DVT Prophylaxis 02 3LNC titerate 02 to keep sat >88% PT eval Will try to wean to 6LNC Gurinder Banks MD Apr 08, 2017 18:48
[2017-04-08] MEDS: ALPRAZolam 0.25 MG TAB PO PRN (20:35)
[2017-04-08] MEDS: ENOXAPARIN SODIUM 40 MG/0.4 ML SYRINGE SQ SCH (20:36)
[2017-04-09] VITALS (16 sets, daily range): BP systolic 104–123; BP diastolic 60–69; PULSE 53–104; RESP 16–20; TEMP 96.5–97.8; O2SAT 86–94
[2017-04-09] MEDS: CEFEPIME INJ 2,000 MG in SODIUM CHLORIDE 0.9% INJ 100 ML IV SCH ×3 (00:22→16:02)
[2017-04-09] MEDS: SODIUM CHLORIDE 0.9% FLUSH 10 ML FLUSH IVF PRN ×2 (01:40→07:59)
[2017-04-09 05:29] LABS: AUTOMATED NEUTROPHIL # 16.3 TH/MM3 (1.8-7.7); BASOPHIL % 0.2 % (0.0-2.0); EOSINOPHIL # 0.2 TH/MM3 (0-0.4); EOSINOPHIL % 0.9 % (0.0-4.0); HEMO FLAGS DIFF FINAL; LYMPH % 11.6 % (9.0-44.0); LYMPHOCYTE # 2.3 TH/MM3 (1.0-4.8); MEAN CORPUSCULAR HEMOGLOBIN 29.8 PG (27.0-34.0); NEUT % 83.3 % (16.0-70.0); PLATELET COUNT 157 TH/MM3 (150-450); RED BLOOD COUNT 4.41 MIL/MM3 (4.00-5.30); RED CELL DISTRIBUTION WIDTH 16.4 % (11.6-17.2); WHITE BLOOD COUNT 19.6 TH/MM3 (4.0-11.0)
[2017-04-09 05:42] LABS: BICARBONATE 25.9 MEQ/L (21.0-32.0); MAGNESIUM 1.8 MG/DL (1.5-2.5); POTASSIUM 3.7 MEQ/L (3.5-5.1)
[2017-04-09] MEDS: LEVOTHYROXINE SODIUM 25 MCG TAB PO SCH (06:12)
[2017-04-09] MEDS: LACTOBACILLUS ACIDOPHILUS TAB PO SCH ×3 (08:00→18:18)
[2017-04-09] MEDS: ASPIRIN 81 MG CHEW TAB CHEW SCH (08:00)
[2017-04-09] MEDS: FAMOTIDINE 20 MG TAB PO SCH ×2 (08:00→20:50)
[2017-04-09] MEDS: DOCUSATE SODIUM 50 MG/SENNA 8.6 MG TAB PO SCH ×2 (08:00→20:56)
[2017-04-09] MEDS: SERTRALINE HCL 100 MG TAB PO SCH (08:00)
[2017-04-09] MEDS: MULTIVITAMIN TAB PO SCH (08:00)
[2017-04-09] MEDS: RESP: BUDESONIDE 0.5 MG/2 ML NEB NEB SCH ×2 (08:40→21:38)
--- NOTE | 2017-04-09 09:11 | HHI.PR ---
Subjective Remarks Follow-up acute on chronic type I respiratory failure/strep pneumonia 04/07/17-patient seen and examined, currently on 4 L nasal cannula oxygen and afebrile. Some shortness of breath. Tolerated by mouth without any complication nausea and vomiting. 04/08/17-patient seen and examined, currently on 2 L nasal cannula and satting at 96%. No significant shortness of breath this morning. No acute event overnight. by the bedside 04/09/17-patient seen and examined, positive for shortness of breath, currently on 3 L nasal cannula, no acute event overnight Objective Vitals Vital Signs Date Time Temp Pulse Resp B/P Pulse Ox O2 Delivery O2 Flow Rate FiO2 04/09/17 08:43 93 Nasal Cannula 3.00 04/09/17 08:00 Nasal Cannula 3.00 04/09/17 08:00 97.8 53 20 104/69 93 04/09/17 07:15 92 04/09/17 04:16 73 04/09/17 04:00 96.5 67 16 119/69 93 04/09/17 03:46 98 04/09/17 00:03 80 04/09/17 00:00 96.6 86 18 123/60 93 04/08/17 23:41 90 Nasal Cannula 3.00 04/08/17 21:15 93 Nasal Cannula 3.00 04/08/17 20:21 98 04/08/17 20:00 96.7 70 16 126/74 95 04/08/17 17:30 143/83 04/08/17 16:09 88 04/08/17 16:00 97.0 80 23 154/91 93 04/08/17 12:15 61 04/08/17 12:00 96.6 83 18 128/81 96 I/O 04/08/17 04/08/17 04/08/17 04/09/17 04/09/17 04/09/17 07:00 15:00 23:00 07:00 15:00 23:00 Intake Total 240 ml 1320 ml 110 ml Output Total 700 ml 200 ml 225 ml Balance -460 ml 1120 ml -115 ml Intake Oral 240 ml 1320 ml IV Total 110 ml Output Urine Total 700 ml 200 ml 225 ml # Voids 3 # Bowel Movements 1 1 1 Result Diagram: 04/09/1751604/09/17516 Objective Remarks GENERAL: NAD SKIN: Warm and dry. HEAD: Normocephalic. EYES: No scleral icterus. No injection or drainage. NECK: Supple, trachea midline. No JVD or lymphadenopathy. CARDIOVASCULAR: Regular rate and rhythm without murmurs, gallops, or rubs. RESPIRATORY: Breath sounds decrease bilaterally. No accessory muscle use. GASTROINTESTINAL: Abdomen soft, non-tender, nondistended. MUSCULOSKELETAL: No cyanosis, or edema. BACK: Nontender without obvious deformity. No CVA tenderness. A/P Problem List: (1) Acute on chronic respiratory failure ICD Code: J96.20 Status: Acute (2) Pseudomonas pneumonia ICD Code: J15.1 Status: Acute (3) Severe hypoxemia ICD Code: R09.02 Status: Resolved (4) COPD (chronic obstructive pulmonary disease) ICD Code: J44.9 Status: Chronic (5) Pulmonary fibrosis ICD Code: J84.10 Status: Chronic Assessment and Plan 71-year-old female with Depression Sertraline 100 mg by mouth daily for depression Xanax 0.25 mg every 8 when necessary anxiety Pneumonia, with Pseudomonas COPD Type I respiratory failure/acute on chronic Pulmonary fibrosis Bronchodilators with DuoNeb q 6 hours/2 hours when necessary, Pulmicort twice a day, s/p Solumedrol 40mg IV Q12H start by mouth prednisone Pulmonary medicine input appreciated -Dr. Banks Aggressive pulmonary toilet Hypertension Dyslipidemia On ASA 81 mg daily, Lopressor 25 mg every 12 hours, Hold Lipitor for elevated LFT's. IBS Splenic artery aneurysm Elevated transaminases Gastroesophageal reflux disease On mesalamine 1.5 g by mouth daily. Pepcid for GI prophylaxis US liver: No acute disease. 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 Pseudomonas/strep pneumonia pneumonia Currently on Cefepime for sputum cx 03/24 growing pseudomonas sp. 03/24 Strep pneumonia Ag positive. Hypothyroidism Synthroid 25 mics grams daily GI prophylaxis- On Pepcid DVT prophylaxis- On Lovenox 40mg daily Consult OT Discharge Planning Consider discharge to Sebastien Lovell MD Apr 09, 2017 09:11
[2017-04-09] MEDS: TIOTROPIUM BROMIDE 18 MCG INH INH SCH (11:37)
[2017-04-09] MEDS: ALPRAZolam 0.25 MG TAB PO PRN ×2 (11:37→21:02)
[2017-04-09] MEDS: METOPROLOL TARTRATE 25 MG TAB PO SCH ×2 (12:50→20:49)
--- NOTE | 2017-04-09 20:02 | HHI.PR ---
Subjective Remarks 71 YOWF with Hypoxic RF,Colitis,PF Worsening bilat infilt No Fever On Cefepime and Levquin for Pseudomonas coverage. Feels much better today weaned to NC Objective Vital Signs Vital Signs Date Time Temp Pulse Resp B/P Pulse Ox O2 Delivery O2 Flow Rate FiO2 04/09/17 16:16 88 04/09/17 16:00 94 Nasal Cannula 2.50 04/09/17 16:00 97.4 61 18 106/66 94 04/09/17 12:07 104 04/09/17 12:00 97.7 76 18 119/68 92 04/09/17 08:43 93 Nasal Cannula 3.00 04/09/17 08:00 Nasal Cannula 3.00 04/09/17 08:00 97.8 53 20 104/69 93 04/09/17 07:15 92 04/09/17 04:16 73 04/09/17 04:00 96.5 67 16 119/69 93 04/09/17 03:46 98 04/09/17 00:03 80 04/09/17 00:00 96.6 86 18 123/60 93 04/08/17 23:41 90 Nasal Cannula 3.00 04/08/17 21:15 93 Nasal Cannula 3.00 04/08/17 20:21 98 I/O 04/08/17 04/08/17 04/08/17 04/09/17 04/09/17 04/09/17 07:00 15:00 23:00 07:00 15:00 23:00 Intake Total 240 ml 1320 ml 110 ml 1080 ml Output Total 700 ml 200 ml 225 ml 400 ml 150 ml Balance -460 ml 1120 ml -115 ml 680 ml -150 ml Intake Oral 240 ml 1320 ml 1080 ml IV Total 110 ml Output Urine Total 700 ml 200 ml 225 ml 400 ml 150 ml # Voids 3 # Bowel Movements 1 1 2 1 Result Diagram: 04/09/1751604/09/17516 Objective Remarks GENERAL: MBMN WF, sob SKIN: Warm and dry. HEAD: Normocephalic. EYES: No scleral icterus. No injection or drainage. NECK: Supple, trachea midline. No JVD or lymphadenopathy. CARDIOVASCULAR: Regular rate and rhythm without murmurs, gallops, or rubs. RESPIRATORY: Breath sounds equal bilaterally. No accessory muscle use. Bilat insp rales GASTROINTESTINAL: Abdomen soft, non-tender, nondistended. MUSCULOSKELETAL: No cyanosis, or edema. BACK: Nontender without obvious deformity. No CVA tenderness. A/P Assessment and Plan Hypoxic RF Pulm Fibrosis with exac Colitis Anxiert Bilat infilt PLAN: DW pt and her Cont Abx Cefepime and Levaquin IV solumedrol DVT Prophylaxis 02 3LNC titerate 02 to keep sat >88% PT Gurinder Campos MD Apr 09, 2017 20:02
[2017-04-09] MEDS: ENOXAPARIN SODIUM 40 MG/0.4 ML SYRINGE SQ SCH (20:50)
[2017-04-09] MEDS: predniSONE 10 MG TAB PO SCH (20:50)
[2017-04-10] VITALS (13 sets, daily range): BP systolic 111–130; BP diastolic 64–78; PULSE 59–90; RESP 16–20; TEMP 96.3–97.3; O2SAT 92–98
[2017-04-10] MEDS: CEFEPIME INJ 2,000 MG in SODIUM CHLORIDE 0.9% INJ 100 ML IV SCH ×4 (00:52→23:40)
[2017-04-10] MEDS: SODIUM CHLORIDE 0.9% FLUSH 10 ML FLUSH IVF PRN ×2 (00:53→02:11)
[2017-04-10] MEDS: CHLORHEXIDINE GLUCONATE 2 % 1 PACK (2 CLOTHS) TOP SCH (00:57)
[2017-04-10] MEDS: LEVOTHYROXINE SODIUM 25 MCG TAB PO SCH (06:27)
[2017-04-10] MEDS: RESP: BUDESONIDE 0.5 MG/2 ML NEB NEB SCH ×2 (08:00→21:12)
[2017-04-10] MEDS: METOPROLOL TARTRATE 25 MG TAB PO SCH ×2 (08:31→20:32)
[2017-04-10] MEDS: SERTRALINE HCL 100 MG TAB PO SCH (08:31)
[2017-04-10] MEDS: LACTOBACILLUS ACIDOPHILUS TAB PO SCH ×3 (08:31→17:50)
[2017-04-10] MEDS: MULTIVITAMIN TAB PO SCH (08:31)
[2017-04-10] MEDS: predniSONE 10 MG TAB PO SCH ×2 (08:31→20:32)
[2017-04-10] MEDS: FAMOTIDINE 20 MG TAB PO SCH ×2 (08:31→20:32)
[2017-04-10] MEDS: DOCUSATE SODIUM 50 MG/SENNA 8.6 MG TAB PO SCH ×2 (08:42→20:32)
[2017-04-10] MEDS: ASPIRIN 81 MG CHEW TAB CHEW SCH (08:43)
--- NOTE | 2017-04-10 09:43 | HHI.PR ---
Subjective Remarks Follow-up acute on chronic type I respiratory failure/strep pneumonia 04/07/17-patient seen and examined, currently on 4 L nasal cannula oxygen and afebrile. Some shortness of breath. Tolerated by mouth without any complication nausea and vomiting. 04/08/17-patient seen and examined, currently on 2 L nasal cannula and satting at 96%. No significant shortness of breath this morning. No acute event overnight. by the bedside 04/09/17-patient seen and examined, positive for shortness of breath, currently on 3 L nasal cannula, no acute event overnight 04/10/17-patient seen and examined and currently on 4 L nasal cannula, some shortness of breath however stable. Case discussed with case management rn regarding discharge disposition to [place] versus SNF by the bedside Objective Vitals Vital Signs Date Time Temp Pulse Resp B/P Pulse Ox O2 Delivery O2 Flow Rate FiO2 04/10/17 08:00 96.7 76 20 113/73 93 04/10/17 07:39 69 04/10/17 04:30 97.3 90 18 113/69 96 04/10/17 04:05 81 04/10/17 00:30 96.3 72 18 111/64 98 04/10/17 00:10 73 04/09/17 21:40 94 Nasal Cannula 4.00 04/09/17 20:48 92 04/09/17 20:43 90 Nasal Cannula 4.00 04/09/17 20:30 96.8 74 18 115/69 04/09/17 20:30 86 04/09/17 20:11 98 04/09/17 16:16 88 04/09/17 16:00 94 Nasal Cannula 2.50 04/09/17 16:00 97.4 61 18 106/66 94 04/09/17 12:07 104 04/09/17 12:00 97.7 76 18 119/68 92 I/O 04/09/17 04/09/17 04/09/17 04/10/17 04/10/17 04/10/17 07:00 15:00 23:00 07:00 15:00 23:00 Intake Total 110 ml 1080 ml 240 ml 350 ml 300 ml Output Total 225 ml 400 ml 325 ml Balance -115 ml 680 ml -85 ml 350 ml 300 ml Intake Oral 1080 ml 240 ml 240 ml 300 ml IV Total 110 ml 110 ml Output Urine Total 225 ml 400 ml 325 ml # Voids 1 # Bowel Movements 1 2 1 Result Diagram: 04/09/17 0517 04/09/17 0517 Imaging Last Impressions Chest X-Ray 04/06/17 0600 Signed Impressions: Service Date/Time: Thursday, April 06, 2017 03:26 - CONCLUSION: 1. Stable appearance of the chest with extensive bilateral interstitial changes most prominent in the apices. 2. Borderline prominent for compensated heart. 3. Deep tissue emphysematous changes in the upper chest and lower neck. Nolberto Gonsalves MD Liver Ultrasound 03/24/17 0000 Signed Impressions: Service Date/Time: Friday, March 24, 2017 15:32 - CONCLUSION: No acute disease. 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 All Prater MD Objective Remarks GENERAL: NAD SKIN: Warm and dry. HEAD: Normocephalic. EYES: No scleral icterus. No injection or drainage. NECK: Supple, trachea midline. No JVD or lymphadenopathy. CARDIOVASCULAR: Regular rate and rhythm without murmurs, gallops, or rubs. RESPIRATORY: Breath sounds decrease bilaterally. No accessory muscle use. GASTROINTESTINAL: Abdomen soft, non-tender, nondistended. MUSCULOSKELETAL: No cyanosis, or edema. BACK: Nontender without obvious deformity. No CVA tenderness. Procedures None A/P Problem List: (1) Acute on chronic respiratory failure ICD Code: J96.20 Status: Resolved (2) Pseudomonas pneumonia ICD Code: J15.1 Status: Acute (3) Severe hypoxemia ICD Code: R09.02 Status: Resolved (4) COPD (chronic obstructive pulmonary disease) ICD Code: J44.9 Status: Chronic (5) Pulmonary fibrosis ICD Code: J84.10 Status: Chronic Assessment and Plan 71-year-old female with Depression Sertraline 100 mg by mouth daily for depression Xanax 0.25 mg every 8 when necessary anxiety Pneumonia, with Pseudomonas COPD Type I respiratory failure/acute on chronic Pulmonary fibrosis Bronchodilators with DuoNeb q 6 hours/2 hours when necessary, Pulmicort twice a day, s/p Solumedrol 40mg IV Q12H . Now on 10 mg prednisone twice a day Pulmonary medicine input appreciated -Dr. Banks Aggressive pulmonary toilet Hypertension Dyslipidemia On ASA 81 mg daily, Lopressor 25 mg every 12 hours, Hold Lipitor for elevated LFT's. IBS Splenic artery aneurysm Elevated transaminases Gastroesophageal reflux disease On mesalamine 1.5 g by mouth daily. Pepcid for GI prophylaxis US liver: No acute disease. 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 Pseudomonas/strep pneumonia pneumonia Currently on Cefepime for sputum cx 03/24 growing pseudomonas sp. 03/24 Strep pneumonia Ag positive. Hypothyroidism Synthroid 25 mics grams daily GI prophylaxis- On Pepcid DVT prophylaxis- On Lovenox 40mg daily Discharge Planning Discharged to [facility] Sebastien Mitchell MD Apr 10, 2017 09:43
[2017-04-10] MEDS: TIOTROPIUM BROMIDE 18 MCG INH INH SCH (14:01)
[2017-04-10] MEDS: ENOXAPARIN SODIUM 40 MG/0.4 ML SYRINGE SQ SCH (20:31)
[2017-04-10] MEDS: ALPRAZolam 0.25 MG TAB PO PRN (20:32)
[2017-04-11] VITALS (13 sets, daily range): BP systolic 109–141; BP diastolic 55–77; PULSE 63–89; RESP 16–20; TEMP 96.1–98.4; O2SAT 90–95
[2017-04-11] MEDS: CHLORHEXIDINE GLUCONATE 2 % 1 PACK (2 CLOTHS) TOP SCH (03:29)
[2017-04-11] MEDS: LEVOTHYROXINE SODIUM 25 MCG TAB PO SCH (06:39)
[2017-04-11] MEDS: DOCUSATE SODIUM 50 MG/SENNA 8.6 MG TAB PO SCH ×2 (09:00→20:39)
[2017-04-11] MEDS: CEFEPIME INJ 2,000 MG in SODIUM CHLORIDE 0.9% INJ 100 ML IV SCH (09:16)
[2017-04-11] MEDS: LACTOBACILLUS ACIDOPHILUS TAB PO SCH ×3 (09:17→17:56)
[2017-04-11] MEDS: FAMOTIDINE 20 MG TAB PO SCH ×2 (09:17→20:36)
[2017-04-11] MEDS: METOPROLOL TARTRATE 25 MG TAB PO SCH ×2 (09:17→20:36)
[2017-04-11] MEDS: ASPIRIN 81 MG CHEW TAB CHEW SCH (09:18)
[2017-04-11] MEDS: SERTRALINE HCL 100 MG TAB PO SCH (09:18)
[2017-04-11] MEDS: MULTIVITAMIN TAB PO SCH (09:18)
[2017-04-11] MEDS: predniSONE 10 MG TAB PO SCH ×2 (09:18→20:36)
[2017-04-11] MEDS: TIOTROPIUM BROMIDE 18 MCG INH INH SCH (09:24)
[2017-04-11] MEDS: RESP: BUDESONIDE 0.5 MG/2 ML NEB NEB SCH ×2 (10:05→22:00)
--- NOTE | 2017-04-11 12:42 | HHI.PR ---
Subjective Remarks Follow-up acute on chronic type I respiratory failure/strep pneumonia 04/07/17-patient seen and examined, currently on 4 L nasal cannula oxygen and afebrile. Some shortness of breath. Tolerated by mouth without any complication nausea and vomiting. 04/08/17-patient seen and examined, currently on 2 L nasal cannula and satting at 96%. No significant shortness of breath this morning. No acute event overnight. by the bedside 04/09/17-patient seen and examined, positive for shortness of breath, currently on 3 L nasal cannula, no acute event overnight 04/10/17-patient seen and examined and currently on 4 L nasal cannula, some shortness of breath however stable. Case discussed with piano case and bench assembler regarding discharge disposition to [place] versus [facility] by the bedside 04/11/17-patient seen and examined, stable and 90% currently on 3 L. Afebrile. [facility] Objective Vitals Vital Signs Date Time Temp Pulse Resp B/P Pulse Ox O2 Delivery O2 Flow Rate FiO2 04/11/17 10:06 90 Nasal Cannula 3.00 04/11/17 09: Nasal Cannula 3.00 04/11/17 08:51 96.1 69 20 141/77 93 04/11/17 04:00 96.9 85 16 115/75 94 04/11/17 00:03 82 04/11/17 00:00 97.7 66 16 109/55 94 04/10/17 21:13 94 Nasal Cannula 3.00 04/10/17 20:35 Nasal Cannula 3.00 45 04/10/17 20:24 87 04/10/17 20:00 97.2 86 16 130/68 93 04/10/17 16:24 79 04/10/17 16:00 96.7 59 20 116/78 95 I/O 04/10/17 04/10/17 04/10/17 04/11/17 04/11/17 04/11/17 07:00 15:00 23:00 07:00 15:00 23:00 Intake Total 350 ml 660 ml 460 ml 450 ml Output Total 400 ml 600 ml Balance 350 ml 660 ml 60 ml -150 ml Intake Oral 240 ml 660 ml 460 ml 450 ml IV Total 110 ml Output Urine Total 400 ml 600 ml # Voids 1 # Bowel Movements 0 1 Result Diagram: 04/09/1717 04/09/17 0517 Imaging Last Impressions Chest X-Ray 04/06/17 0600 Signed Impressions: Service Date/Time: Thursday, April 06, 2017 03:26 - CONCLUSION: 1. Stable appearance of the chest with extensive bilateral interstitial changes most prominent in the apices. 2. Borderline prominent for compensated heart. 3. Deep tissue emphysematous changes in the upper chest and lower neck. Nolberto Gonsalves MD Liver Ultrasound 03/24/17 0000 Signed Impressions: Service Date/Time: Friday, March 24, 2017 15:32 - CONCLUSION: No acute disease. 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 All Prater MD Objective Remarks GENERAL: NAD SKIN: Warm and dry. HEAD: Normocephalic. EYES: No scleral icterus. No injection or drainage. NECK: Supple, trachea midline. No JVD or lymphadenopathy. CARDIOVASCULAR: Regular rate and rhythm without murmurs, gallops, or rubs. RESPIRATORY: Breath sounds decrease bilaterally. No accessory muscle use. GASTROINTESTINAL: Abdomen soft, non-tender, nondistended. MUSCULOSKELETAL: No cyanosis, or edema. BACK: Nontender without obvious deformity. No CVA tenderness. Procedures None A/P Problem List: (1) Acute on chronic respiratory failure ICD Code: J96.20 Status: Resolved (2) Pseudomonas pneumonia ICD Code: J15.1 Status: Acute (3) Severe hypoxemia ICD Code: R09.02 Status: Resolved (4) COPD (chronic obstructive pulmonary disease) ICD Code: J44.9 Status: Chronic (5) Pulmonary fibrosis ICD Code: J84.10 Status: Chronic Assessment and Plan 71-year-old female with Depression Sertraline 100 mg by mouth daily for depression Xanax 0.25 mg every 8 when necessary anxiety Pneumonia, with Pseudomonas COPD Type I respiratory failure/acute on chronic Pulmonary fibrosis Bronchodilators with DuoNeb q 6 hours/2 hours when necessary, Pulmicort twice a day, s/p Solumedrol 40mg IV Q12H . Currently on 10 mg prednisone twice a day Pulmonary medicine input appreciated -Dr. Banks Aggressive pulmonary toilet Hypertension Dyslipidemia On ASA 81 mg daily, Lopressor 25 mg every 12 hours, Hold Lipitor for elevated LFT's. IBS Splenic artery aneurysm Elevated transaminases Gastroesophageal reflux disease On mesalamine 1.5 g by mouth daily. Pepcid for GI prophylaxis US liver: No acute disease. 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 Pseudomonas/strep pneumonia pneumonia Currently on Cefepime for sputum cx 03/24 growing pseudomonas sp. Switch to by mouth Levaquin Hypothyroidism Synthroid 25 mics grams daily GI prophylaxis- On Pepcid DVT prophylaxis- On Lovenox 40mg daily Discharge Planning Discharged to [place] versus [facility] pending approval Sebastien Mitchell MD Apr 11, 2017 12:42
[2017-04-11] MEDS ORDERED: BUDE.5I NEB (12:47)
[2017-04-11] MEDS ORDERED: ALPR.25 PO (12:47)
[2017-04-11] MEDS ORDERED: SPIRCAP INH (12:47)
[2017-04-11] MEDS ORDERED: LEVO25TA4 PO (12:47)
[2017-04-11] MEDS ORDERED: PRED10 PO (12:47)
[2017-04-11] MEDS ORDERED: METO25TA3 PO (12:47)
[2017-04-11] MEDS ORDERED: LEVA750T9 PO (13:12)
[2017-04-11] MEDS: ENOXAPARIN SODIUM 40 MG/0.4 ML SYRINGE SQ SCH (20:36)
[2017-04-11] MEDS: ALPRAZolam 0.25 MG TAB PO PRN (20:38)
[2017-04-12] VITALS (9 sets, daily range): BP systolic 124–152; BP diastolic 63–82; PULSE 66–95; RESP 16–20; TEMP 96.2–97.3; O2SAT 90–99
[2017-04-12] MEDS: CHLORHEXIDINE GLUCONATE 2 % 1 PACK (2 CLOTHS) TOP SCH (03:26)
[2017-04-12] MEDS: LEVOTHYROXINE SODIUM 25 MCG TAB PO SCH (06:11)
[2017-04-12] MEDS: DOCUSATE SODIUM 50 MG/SENNA 8.6 MG TAB PO SCH (09:00)
[2017-04-12] MEDS ORDERED: LEVOFLOXACIN 750 MG TAB PO SCH (09:00)
[2017-04-12] MEDS: MULTIVITAMIN TAB PO SCH (09:01)
[2017-04-12] MEDS: METOPROLOL TARTRATE 25 MG TAB PO SCH (09:01)
[2017-04-12] MEDS: predniSONE 10 MG TAB PO SCH (09:01)
[2017-04-12] MEDS: ASPIRIN 81 MG CHEW TAB CHEW SCH (09:01)
[2017-04-12] MEDS: FAMOTIDINE 20 MG TAB PO SCH (09:02)
[2017-04-12] MEDS: LACTOBACILLUS ACIDOPHILUS TAB PO SCH ×2 (09:02→12:38)
[2017-04-12] MEDS: TIOTROPIUM BROMIDE 18 MCG INH INH SCH (09:02)
[2017-04-12] MEDS: SERTRALINE HCL 100 MG TAB PO SCH (09:02)
[2017-04-12] MEDS: RESP: BUDESONIDE 0.5 MG/2 ML NEB NEB SCH (09:07)
--- NOTE | 2017-04-12 09:18 | HHI.PR ---
Subjective Remarks Follow-up acute on chronic type I respiratory failure/strep pneumonia. Patient states she is doing okay on 3 L nasal cannula denies shortness of breath. Seen with discussed with RN and physical therapy Objective Vitals Vital Signs Date Time Temp Pulse Resp B/P Pulse Ox O2 Delivery O2 Flow Rate FiO2 04/12/17 09:08 90 Nasal Cannula 3.00 04/12/17 08:39 96.2 67 20 152/82 90 04/12/17 04:08 78 04/12/17 04:00 96.2 81 16 137/63 98 04/12/17 00:28 78 04/12/17 00:00 96.4 86 16 149/71 95 04/11/17 22:02 95 Nasal Cannula 3.00 04/11/17 20:36 Nasal Cannula 3.00 45 04/11/17 20:05 81 04/11/17 20:00 98.4 63 18 122/65 94 04/11/17 16:40 96.7 65 20 118/70 92 04/11/17 16:03 86 04/11/17 12:59 96.5 84 20 138/63 93 04/11/17 12:09 74 04/11/17 10:06 90 Nasal Cannula 3.00 04/11/17 09:17 Nasal Cannula 3.00 I/O 04/11/17 04/11/17 04/11/17 04/12/17 04/12/17 04/12/17 07:00 15:00 23:00 07:00 15:00 23:00 Intake Total 450 ml 720 ml 480 ml 400 ml Output Total 600 ml 300 ml 500 ml Balance -150 ml 720 ml 180 ml -100 ml Intake Oral 450 ml 600 ml 480 ml 400 ml IV Total 120 ml Output Urine Total 600 ml 300 ml 500 ml # Voids 3 # Bowel Movements 1 0 1 Result Diagram: 04/09/1717 04/09/17 0517 Imaging Last Impressions Chest X-Ray 04/06/17 0600 Signed Impressions: Service Date/Time: Thursday, April 06, 2017 03:26 - CONCLUSION: 1. Stable appearance of the chest with extensive bilateral interstitial changes most prominent in the apices. 2. Borderline prominent for compensated heart. 3. Deep tissue emphysematous changes in the upper chest and lower neck. Nolberto Gonsalves MD Liver Ultrasound 03/24/17 0000 Signed Impressions: Service Date/Time: Friday, March 24, 2017 15:32 - CONCLUSION: No acute disease. 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 All Prater MD Objective Remarks GENERAL: NAD SKIN: Warm and dry. HEAD: Normocephalic. EYES: No scleral icterus. No injection or drainage. NECK: Supple, trachea midline. No JVD or lymphadenopathy. CARDIOVASCULAR: Regular rate and rhythm without murmurs, gallops, or rubs. RESPIRATORY: Breath sounds decrease bilaterally. No accessory muscle use. GASTROINTESTINAL: Abdomen soft, non-tender, nondistended. MUSCULOSKELETAL: No cyanosis, or edema. BACK: Nontender without obvious deformity. No CVA tenderness. Procedures None A/P Problem List: (1) Acute on chronic respiratory failure ICD Code: J96.20 Status: Resolved (2) Pseudomonas pneumonia ICD Code: J15.1 Status: Resolved (3) Severe hypoxemia ICD Code: R09.02 Status: Resolved (4) COPD (chronic obstructive pulmonary disease) ICD Code: J44.9 Status: Chronic (5) Pulmonary fibrosis ICD Code: J84.10 Status: Chronic Assessment and Plan 71-year-old female with respiratory failure secondary to pneumonia, COPD and pulmonary fibrosis Pneumonia, with Pseudomonas status post treatment COPD. Improving Type I respiratory failure/acute on chronic. Improved Pulmonary fibrosis Bronchodilators with DuoNeb q 6 hours/2 hours when necessary, Pulmicort twice a day, s/p Solumedrol 40mg IV Q12H . Currently on 10 mg prednisone twice a day will taper Pulmonary medicine input appreciated -Dr. Banks Aggressive pulmonary toilet Hypertension Dyslipidemia On ASA 81 mg daily, Lopressor 25 mg every 12 hours, Hold Lipitor for elevated LFT's. IBS Splenic artery aneurysm Elevated transaminases Gastroesophageal reflux disease On home mesalamine but not in formulary may use own med Pepcid for GI prophylaxis US liver: No acute disease. 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 Outpatient follow-up Pseudomonas/strep pneumonia pneumonia S/p Cefepime for sputum for 2 weeks cx 03/24 growing pseudomonas sp. Discontinue Levaquin Hypothyroidism TSH low needs Synthroid adjustment. to confirm dose Depression Sertraline 100 mg by mouth daily for depression Xanax 0.25 mg every 8 when necessary anxiety GI prophylaxis- On Pepcid DVT prophylaxis- On Lovenox 40mg daily Discharge Planning Discharge to SNF pending approval Ryley Garrison MD Apr 12, 2017 09:18
--- NOTE | 2017-04-12 15:14 | HHI.DCPOC ---
Discharge Care Plan Diagnosis: (1) Acute on chronic respiratory failure (2) Pulmonary fibrosis (3) COPD (chronic obstructive pulmonary disease) Your Health Problems Are: Difficulty with ADL Exercise Tolerance Goals to Promote Your Health * To prevent worsening of your condition and complications * To maintain your health at the optimal level Directions to Meet Your Goals Take your medications as prescribed Follow your dietary instruction Follow activity as directed Keep your appointments as scheduled Take your immunizations and boosters as scheduled If your symptoms worsen call your PCP, if no PCP go to Urgent Care Center or Emergency Room Smoking is Dangerous to Your Health. Avoid second hand smoke Call the 24-hour hour crisis hotline for domestic abuse at Ryley Garrison MD Apr 12, 2017 15:14
--- NOTE | 2017-04-12 15:16 | HHI.DS ---
Discharge Summary Admission Date Mar 22, 2017 at 18:38 Discharge Date: Apr 12, 2017 Admitting Diagnosis Hypoxemic Respiratory Failure (1) Acute on chronic respiratory failure ICD Code: J96.20 Diagnosis: Principal (2) Pseudomonas pneumonia ICD Code: J15.1 Diagnosis: Principal (3) Severe hypoxemia ICD Code: R09.02 Diagnosis: Principal (4) COPD (chronic obstructive pulmonary disease) ICD Code: J44.9 Diagnosis: Principal (5) Pulmonary fibrosis ICD Code: J84.10 Diagnosis: Secondary Procedures None Brief History - From Admission 71 y/o woman with recent development of SOB and CT shows diffuse interstitial process, ? fibrosis. Severely hypoxemic on arrival, now acceptable on 100% NRBM. CBC/BMP: 04/09/17 0517 04/09/17 0517 Imaging Last Impressions Chest X-Ray 04/06/17 0600 Signed Impressions: Service Date/Time: Thursday, April 06, 2017 03:26 - CONCLUSION: 1. Stable appearance of the chest with extensive bilateral interstitial changes most prominent in the apices. 2. Borderline prominent for compensated heart. 3. Deep tissue emphysematous changes in the upper chest and lower neck. Nolberto Gonsalves MD Liver Ultrasound 03/24/17 0000 Signed Impressions: Service Date/Time: Friday, March 24, 2017 15:32 - CONCLUSION: No acute disease. 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 All Prater MD PE at Discharge GENERAL: NAD SKIN: Warm and dry. HEAD: Normocephalic. EYES: No scleral icterus. No injection or drainage. NECK: Supple, trachea midline. No JVD or lymphadenopathy. CARDIOVASCULAR: Regular rate and rhythm without murmurs, gallops, or rubs. RESPIRATORY: Breath sounds decrease bilaterally. No accessory muscle use. GASTROINTESTINAL: Abdomen soft, non-tender, nondistended. MUSCULOSKELETAL: No cyanosis, or edema. BACK: Nontender without obvious deformity. No CVA tenderness. Transfer Summary 71 y/o woman with recent development of SOB and CT shows diffuse interstitial process, ? fibrosis. Severely hypoxemic on arrival, now acceptable on 100% NRBM. 03/23 Patient is on partial rebreather with good sats. Afebrile. Awake and alert. 03/24 Patient is on non rebreather states she is feeling somewhat better. 03/25 No events overnight. Patient is on high flow O2 with 100% FIO2. 03/26 Patient was placed on BIPAP x 5 hrs overnight now back to high flow oxygen 35L with 100% FIO2. Awake and alert states she is feeling better. 03/27: Tolerated BiPAP overnight, currently on hi bryanna oxygen at 55%. Sputum culture 03/24 pseudomonas, I have discontinued ceftriaxone and started Cefepime 2 GM IV q 8hr, ist dose stat called to pharmacy. Also DCd Azithro and placed on Levaquin 03/28: Remains on high flow oxygen 70% FiO2. appears comfortable, but desaturates quickly with any activity. Cefepime and Levaquin started yesterday for pseudomonas in sputum 03/29: Afebrile. On high flow nasal cannula 60%/25 L feels better today. Desaturates with any movement. 03/30: Afebrile. On high flow nasal cannula 40%/25 L. Desaturated with any movement. No bowel movement overnight. Tolerating diet. 03/31: Resting comfortably in bed. On eye flow nasal cannula 40%/10 L. Easily desaturates. No bowel movement overnight. 04/01 Patient was on BIPAP overnight now on high flow oxygen with 60% FIO2. Afebrile. CXR unchanged this morning. 04/02 No events overnight. on high flow oxygen 25L with 60% FIO2. Afebrile. 04/03: Remains on high flow oxygen 55%, with a saturation 96%., I have requested RT to titrate FiO2 down to keep oxygen saturation 88-89% 04/04: Breathing comfortably but requiring 60% oxygen. Clinically improving but slowly. Not requiring pressors. 04/05 Patient states she is breathing better on high flow oxygen 30L with 45% FIO2. Afebrile. 04/06: Subjectively improved. Weaned off high flow nasal cannula currently on 3 L nasal cannula with good oxygen saturation Hospital Course 71-year-old female with respiratory failure secondary to pneumonia, COPD and pulmonary fibrosis Pneumonia, with Pseudomonas status post treatment COPD. Improving Type I respiratory failure/acute on chronic. Improved Pulmonary fibrosis Bronchodilators with DuoNeb q 6 hours/2 hours when necessary, Pulmicort twice a day, s/p Solumedrol 40mg IV Q12H . Currently on 10 mg prednisone twice a day will taper Pulmonary medicine input appreciated -Dr. Banks Aggressive pulmonary toilet Hypertension Dyslipidemia On ASA 81 mg daily, Lopressor 25 mg every 12 hours, Hold Lipitor for elevated LFT's. IBS Splenic artery aneurysm Elevated transaminases Gastroesophageal reflux disease On home mesalamine but not in formulary may use own med Pepcid for GI prophylaxis US liver: No acute disease. 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 Outpatient follow-up Pseudomonas/strep pneumonia pneumonia S/p Cefepime for sputum for 2 weeks cx 03/24 growing pseudomonas sp. Discontinue Levaquin Hypothyroidism TSH low needs Synthroid adjustment. to confirm dose Depression Sertraline 100 mg by mouth daily for depression Xanax 0.25 mg every 8 when necessary anxiety GI prophylaxis- On Pepcid DVT prophylaxis- On Lovenox 40mg daily Pt Condition on Discharge: Stable Discharge Disposition: Discharge to SNF Discharge Time: > 30 minutes Discharge Instructions DIET: Follow Instructions for: Heart Healthy Diet Activities you can perform: Regular-No Restrictions Activities to Avoid: Driving Follow up Referrals: PCP Follow-up - 2-3 Days Pulmonology - 1 Week New Orders: TSH 3RD GEN - 6 Weeks New Medications: Levothyroxine (Levothyroxine) 75 Mcg Tab 75 MCG PO DAILY Thyroid #30 Ref 0 TAB Alprazolam (Xanax) 0.25 Mg Tab 0.25 MG PO Q8H PRN INSOMNIA #10 TAB Budesonide Neb (Pulmicort Respules) 0.5 Mg/2 Ml Neb 0.5 MG NEB Q12HR NEB Breathing Treatment #60 Ref 3 MG Metoprolol Tartrate (Metoprolol Tartrate) 25 Mg Tab 25 MG PO Q12HR Blood Pressure Management #60 TAB Prednisone (Prednisone) 10 Mg Tab 10 MG PO DAILY Breathing Treatment #7 TAB Tiotropium Inh (Spiriva Handihaler) 18 Mcg Cap 18 MCG INH DAILY Breathing Treatment #1 CAP Continued Medications: Aspirin (Aspirin) 81 Mg Chew 81 MG CHEW DAILY Ref 0 TAB Atorvastatin (Atorvastatin) 20 Mg Tab 20 MG PO HS Cholesterol Management #30 Ref 0 TAB Lactobacillus Acidophilus (Lactobacillus Acidophilus) 1 Pkt 1 PKT PO TID Nutritional Supplement #12 Ref 0 PKT Mesalamine ER 24 HR (Apriso) 0.375 Gm Caper 1.5 GM PO DAILY Ulcerative colitis Ref 0 CAP Multiple Vitamin (Multiple Vitamin) 1 Tab 1 TAB PO DAILY Nutritional Supplement Ref 0 TAB Omeprazole (Omeprazole) 40 Mg Cap 40 MG PO DAILY #30 Ref 0 CAP Sertraline (Sertraline) 100 Mg Tab 100 MG PO DAILY #30 Ref 0 TAB Discontinued Medications: Levothyroxine (Levothyroxine) 88 Mcg Tab 88 MCG PO DAILY Thyroid #30 Ref 0 TAB Potassium Chloride ER (Potassium Chloride ER) 10 Meq Cap 10 MEQ PO DAILY Electrolyte Replacement #30 Ref 0 CAP Saccharomyces Boulardii (Probiotic) 250 Mg Cap 250 MG PO BID Nutritional Supplement Ref 0 CAP Additional Information I spent 35 minutes [id number] with the patient or on the benedict discussing the patient's disposition, prognosis, and plan of care with patient's caregivers. Over half the time spent was devoted to counseling the patient regarding placement in coordinating care with caregivers and case management. Ryley Garrison MD Apr 12, 2017 15:16
[2017-04-12] MEDS ORDERED: LEVO75TA3 PO (15:50)
[2017-04-12] MEDS: ALPRAZolam 0.25 MG TAB PO PRN (16:08)
[2017-04-13] MEDS ORDERED: LEVOTHYROXINE SODIUM 75 MCG TAB PO SCH (06:00)
== END 2017-04-12 17:14 | DRG 177 ==
LOC: NEPC 16:22 → NEDA 18:38 → HIMW 20:15 → HOCA 04-07 06:20
PROVIDERS: ADMIT Internal Medicine; ATTEND Internal Medicine
PROC: 5A09457 Assistance with Respiratory Ventilation, 24-96 Consecutive Hours, Continuous Positive Airway Pressure (ICD-10-PCS; principal; 2017-03-22)
DX: J15.1 Pneumonia due to Pseudomonas (principal); J96.21 Acute and chronic respiratory failure with hypoxia; I72.8 Aneurysm of other specified arteries; N39.0 Urinary tract infection, site not specified; J44.0 Chronic obstructive pulmonary disease with (acute) lower respiratory infection; J15.4 Pneumonia due to other streptococci; J84.112 Idiopathic pulmonary fibrosis; I48.91 Unspecified atrial fibrillation; Z99.81 Dependence on supplemental oxygen; E03.9 Hypothyroidism, unspecified; T38.0X5A Adverse effect of glucocorticoids and synthetic analogues, initial encounter; I10 Essential (primary) hypertension; K21.9 Gastro-esophageal reflux disease without esophagitis; E78.5 Hyperlipidemia, unspecified; R74.0 Nonspecific elevation of levels of transaminase and lactic acid dehydrogenase [LDH]; K58.9 Irritable bowel syndrome, unspecified; F32.9 Major depressive disorder, single episode, unspecified; F41.9 Anxiety disorder, unspecified; Z87.891 Personal history of nicotine dependence; Z88.1 Allergy status to other antibiotic agents; Z88.5 Allergy status to narcotic agent
CPT/HCPCS: 36600; 71010; 76705; 76937; 80048; 80053; 81001; 82550; 82552; 82805; 82948; 83735; 83880; 84100; 84443; 84484; 85007; 85025; 85027; 85379; 85610; 85730; 87015; 87070; 87077; 87086; 87116; 87186; 87205; 87206; 87449; 87641; 93005; 94002; 94003; 94150; 94640; 94664; 96374; J0456; J0692; J0696; J1650; J1956; J2405; J2920; J2930; J7030; J7050; J7512; J7613; J7626

== ENCOUNTER 2017-07-19 14:59 | Inpatient (IN) | payer OTHER, MEDICARE ==
[2017-07-19] VITALS (10 sets, daily range): BP systolic 103–131; BP diastolic 72–80; PULSE 96–121; RESP 24–40; TEMP 98.6–99.7; O2SAT 87–97
[~2017-07-19] VITALS: Ht 160 cm; Wt 62.1 kg
[~2017-07-19 14:59] MED LIST changes: +ALPR.25 PO; +APRI0.372 PO; +ASPI81CH CHEW; -ASPI81TA82 PO; -ATOR20TA PO; +ATOR20TA15 PO; +BUDE.5I NEB; -CENTCHW3; -FLOR250C PO; -FURO20 PO; -K-TA10TA5 PO; -LACT PO; +LACTPOW68 PO; +LEVO75TA3 PO; -LEVO88TA2 PO; -LOMO PO; +METO25TA3 PO; -METR-1 PO; +MULTTAB67 PO; -OMEP40CA2; +OMEP40CA2 PO; +PRED10 PO; -PRED5 PO; +SPIRCAP INH; -VANC1CAP6 PO
[2017-07-19 15:56] LABS: BLOOD GAS BASE EXCESS 0.7 mmol/L (-2-2); BLOOD GAS CARBOXYHEMOGLOBIN 0.9 % (0-4); BLOOD GAS HCO3 24 mmol/L (22-26); BLOOD GAS METHEMOGLOBIN 0.6 % (0-2); BLOOD GAS O2 HGB SATURATION 97 % (90-100); BLOOD GAS OXYGEN CONTENT 23.4 Vol % (12.0-20.0); BLOOD GAS PCO2 35 mmHg (38-42); BLOOD GAS PO2 113 mmHG (61-120); BLOOD GAS TOTAL HGB 17.2 G/DL (12.0-16.0); CRITICAL VALUE NO; FIO2 75 %; OXYGEN DEVICE BiPAP; TEMP CORR TO 98.6
[2017-07-19 15:57] LABS: DRAW SITE RT RADIAL; NUMBER OF ARTERIAL PUNCTURES 1; STAT YES; ULNAR PULSE PRESENT
[2017-07-19 16:10] LABS: AUTOMATED NEUTROPHIL # 17.2 TH/MM3 (1.8-7.7); BASOPHIL # 0.1 TH/MM3 (0-0.2); BASOPHIL % 0.5 % (0.0-2.0); EOSINOPHIL # 0.9 TH/MM3 (0-0.4); EOSINOPHIL % 4.1 % (0.0-4.0); HEMATOCRIT 51.3 % (35.0-46.0); HEMO FLAGS DIFF FINAL; LYMPH % 13.3 % (9.0-44.0); MEAN CELL VOLUME 90.6 FL (80.0-100.0); MEAN CORPUSCULAR HEMOGLOBIN 29.7 PG (27.0-34.0); MEAN CORPUSCULAR HGB CONC 32.8 % (32.0-36.0); MONO % 5.7 % (0.0-8.0); NEUT % 76.4 % (16.0-70.0); PLATELET COUNT 365 TH/MM3 (150-450); RED BLOOD COUNT 5.67 MIL/MM3 (4.00-5.30); RED CELL DISTRIBUTION WIDTH 16.3 % (11.6-17.2); WHITE BLOOD COUNT 22.6 TH/MM3 (4.0-11.0)
--- NOTE | 2017-07-19 16:12 | RADRPT ---
EXAM DATE/TIME: 07/19/2017 15:34 [facility] COMPARISON: CHEST SINGLE AP, April 06, 2017, 3:26. INDICATIONS : Shortness of breath. MEDICAL HISTORY : Colitis, A-Fib. SURGICAL HISTORY : Colon resection. ENCOUNTER: Initial ACUITY: 1 day PAIN SCORE: 0/10 LOCATION: Bilateral chest FINDINGS: A single portable frontal view of the chest shows coarse interstitial markings throughout the lungs b ilaterally. These have progressed from the prior exam. In intra-alveolar opacities seen within the ri ght lung base. This is new. No effusions. Mild cardiomegaly. Bony structures are unremarkable. CONCLUSION: 1. Right lower lobe infiltrate. 2. Worsening chronic interstitial changes. 3. Cardiomegaly. Eusebio Lebron Jr., MD on July 19, 2017 at 16:10 Board Certified Radiologist. This report was verified electronically.
[2017-07-19 16:29] LABS: ANION GAP 9 MEQ/L (5-15); AST (GOT) 46 U/L (15-37); BLOOD UREA NITROGEN 14 MG/DL (7-18); CHLORIDE 98 MEQ/L (98-107); GLOMERULAR FILTRATION RATE 46 ML/MIN (>89); SODIUM (NA) 133 MEQ/L (136-145)
[2017-07-19 16:30] LABS: ALKALINE PHOSPHATASE 82 U/L (45-117); ALT (GPT) 58 U/L (10-53); TOTAL BILIRUBIN ADULT 0.6 MG/DL (0.2-1.0)
[2017-07-19 16:30] LABS: APTT (PATIENT) 25.7 SEC (24.3-30.1); PROTHROMBIN TIME - PATIENT 11.6 SEC (9.8-11.6)
--- NOTE | 2017-07-19 16:43 | PD ---
HPI Chief Complaint: Respiratory Distress Time Seen by Provider: 15:27 Travel History International Travel<30 days: No Contact w/Intl Traveler<30days: No Traveled to known affect area: No History of Present Illness HPI 72-year-old female complains of shortness of breath. Patient was admitted to [facility] in February for pneumonia. Culture grew Pseudomonas. Patient also was diagnosed with possible pulmonary fibrosis and on O2. Patient has been using her nebulizer treatment as directed. Patient had been seen by Dr. Banks, local in process inspector. Patient states that the shortness breath is worse for the past 2 days. Patient denies any fever chills. Patient denies any chest pain. EMS was called today. Patient was given BiPAP on with the ED. Patient has history hypertension, hyperlipidemia. Patient quit smoking about 7 years ago. PFSH Past Medical History Hx Anticoagulant Therapy: Yes (ASA 81 MG) Anxiety: Yes Depression: Yes Heart Rhythm Problems: Yes Cancer: No Cardiovascular Problems: No Chemotherapy: No COPD: Yes Cerebrovascular Accident: No Diabetes: No Diminished Hearing: No Endocrine: No Gastrointestinal Disorders: Yes (C-DIFF) Genitourinary: Yes Immune Disorder: No Musculoskeletal: No Neurologic: No Psychiatric: No Reproductive: No Respiratory: No Thyroid Disease: No ?: Not Ectopic : No Ovarian Cysts: No Dilation and Curettage (D&C): No Tubal Ligation: No Past Surgical History Abdominal Surgery: Yes (colon resection, colostomy, reversal05/02/15) Cardiac Surgery: No Section: No Cholecystectomy: Yes Ear Surgery: No Endocrine Surgery: No Eye Surgery: No Genitourinary Surgery: No Gynecologic Surgery: No Hysterectomy: Yes Oral Surgery: No Thoracic Surgery: No Other Surgery: Yes Social History Alcohol Use: No Tobacco Use: No Substance Use: No Allergies-Medications (Allergen,Severity, Reaction): Coded Allergies: cefaclor (Verified Allergy, Severe, Rash, 07/19/17) codeine (Verified Allergy, Severe, Rash, 07/19/17) Reported Meds & Prescriptions Reported Meds & Active Scripts Active Levothyroxine (Levothyroxine Sodium) 75 Mcg Tab 75 Mcg PO DAILY Pulmicort Respules (Budesonide) 0.5 Mg/2 Ml Neb 0.5 Mg NEB Q12HR NEB Metoprolol Tartrate 25 Mg Tab 25 Mg PO Q12HR Prednisone 10 Mg Tab 10 Mg PO DAILY Spiriva Handihaler (Tiotropium Inh) 18 Mcg Cap 18 Mcg INH DAILY Xanax (Alprazolam) 0.25 Mg Tab 0.25 Mg PO Q8H PRN Reported Sertraline (Sertraline HCl) 100 Mg Tab 100 Mg PO DAILY Omeprazole 40 Mg Cap 40 Mg PO DAILY Multiple Vitamin 1 Tab 1 Tab PO DAILY Lactobacillus Acidophilus 1 Pkt 1 Pkt PO TID Atorvastatin (Atorvastatin Calcium) 20 Mg Tab 20 Mg PO HS Aspirin 81 Mg Chew 81 Mg CHEW DAILY Apriso (Mesalamine) 0.375 Gm Caper 1.5 Gm PO DAILY Review of Systems General / Constitutional: No: Fever Eyes: No: Visual changes HENT: No: Headaches Cardiovascular: No: Chest Pain or Discomfort Respiratory: Positive: Shortness of Breath Gastrointestinal: No: Abdominal Pain Genitourinary: No: Dysuria Musculoskeletal: No: Pain Skin: No Rash Neurologic: No: Weakness Psychiatric: No: Depression Endocrine: No: Polydipsia Hematologic/Lymphatic: No: Easy Bruising Physical Exam Narrative GENERAL: Well-nourished, well-developed patient. Patient with tachypnea, mild respiratory distress. SKIN: Focused skin assessment warm/dry. HEAD: Normocephalic. EYES: No scleral icterus. No injection or drainage. NECK: Supple, trachea midline. No JVD or lymphadenopathy. CARDIOVASCULAR: Regular rate and rhythm without murmurs, gallops, or rubs. RESPIRATORY: Breath sounds equal bilaterally. No accessory muscle use. Patient has diffuse rhonchi bilaterally. No wheezes. GASTROINTESTINAL: Abdomen soft, non-tender, nondistended. MUSCULOSKELETAL: No cyanosis, or edema. BACK: Nontender without obvious deformity. No CVA tenderness. Neurologic exam normal. Data Data Last Documented VS Vital Signs Date Time Temp Pulse Resp B/P (MAP) Pulse Ox O2 Delivery O2 Flow Rate FiO2 07/19/17 15:46 99.7 109 29 111/74 (86) 96 BiPAP 75 07/19/17 15:11 15.00 Orders Orders Electrocardiogram (07/19/17 15:27) Complete Blood Count With Diff (07/19/17 15:27) Comprehensive Metabolic Panel (07/19/17 15:27) B-Type Natriuretic Peptide (07/19/17 15:27) Prothrombin Time / Inr (Pt) (07/19/17 15:27) Act Partial Throm Time (Ptt) (07/19/17 15:27) Arterial Blood Gas (Abg) (07/19/17 15:27) Blood Culture (07/19/17 15:27) Chest, Single Ap (07/19/17 15:27) Iv Access Insert/Monitor (07/19/17 15:27) Ecg Monitoring (07/19/17 15:27) Oximetry (07/19/17 15:27) Cefepime Inj (Maxipime Inj) (07/19/17 16:45) Levofloxacin 750 Mg Premix Inj (Levaquin (07/19/17 16:45) Aspirin Chew (Aspirin Chew) (07/20/17 09:00) Atorvastatin (Lipitor) (07/19/17 21:00) Budesonide Neb (Pulmicort Respule Neb) (07/19/17 20:00) Levothyroxine (Synthroid) (07/20/17 09:00) Metoprolol Tartrate (Lopressor) (07/19/17 21:00) Tiotropium Inh (Spiriva Inh) (07/20/17 09:00) (Nf) Mesalamine Er 24 Hr (Apriso) (07/20/17 09:00) Admit To Inpatient (07/19/17 ) Code Status (07/19/17 17:15) Vital Signs (Adult) NATALIE.Q1H (07/19/17 17:15) Activity Bed Rest (07/19/17 17:15) Threading Machine Operator / Telemetry NATALIE.Q8H (07/19/17 17:15) Intake + Output NATALIE.Q8H (07/19/17 17:15) Diet Npo (07/19/17 Dinner) Sodium Chlor 0.9% 1000 Ml Inj (Ns 1000 M (07/19/17 17:15) Sodium Chloride 0.9% Flush (Ns Flush) (07/19/17 17:15) Sodium Chloride 0.9% Flush (Ns Flush) (07/19/17 21:00) Albuterol-Ipratropium Neb (Duoneb Neb) (07/19/17 22:00) Albuterol-Ipratropium Neb (Duoneb Neb) (07/19/17 17:15) Chlorhexidine 0.12% Liq (Peridex 0.12% L (07/19/17 20:00) Complete Blood Count With Diff (07/20/17 06:00) Comprehensive Metabolic Panel (07/20/17 06:00) Chest, Single Ap (07/20/17 06:00) Resp Bipap / Cpap Non Invas Vt (07/19/17 ) Consult Cm-Day 5 Ltac Eval (07/19/17 ) Enoxaparin Inj (Lovenox Inj) (07/19/17 17:15) Scd Bilateral/Knee High NATALIE.BID (07/19/17 17:15) Abraham Bilateral/Knee High NATALIE.QSHIFT (07/19/17 18:00) ^ Initiate Protocol (07/19/17 17:15) Instruction (07/19/17 17:15) Misc Nursing Information (07/19/17 17:15) Chlorhexidine 2% Cloth (Chlorhexidine 2% (07/20/17 04:00) Chlorhexidine 2% Cloth (Chlorhexidine 2% (07/19/17 17:15) Mrsa Pcr Surveillance (07/19/17 17:15) Inpatient Certification (07/19/17 ) Piperacil-Tazo 4.5 Gm Premix (Zosyn 4.5 (07/19/17 17:15) Levofloxacin 750 Mg Premix Inj (Levaquin (07/19/17 17:15) Consult Pulmonology (07/19/17 ) Admit Order (Ed Use Only) (07/19/17 17:17) ^ Medication Admin Instruction (07/19/17 17:20) Notify Dr: Other (07/19/17 17:20) Phosphorus (Po4) (07/19/17 17:20) Magnesium (Mg) (07/19/17 17:20) Potassium Chlor 40 Meq Premix (Kcl 40 Me (07/19/17 17:30) Potassium Chlor 20 Meq Premix (Kcl 20 Me (07/19/17 17:30) Potassium Chloride Eff (K-Lyte Cl Eff) (07/19/17 17:30) Potassium Chlor 40 Meq Premix (Kcl 40 Me (07/19/17 17:30) Potassium Chlor 20 Meq Premix (Kcl 20 Me (07/19/17 17:30) Magnesium Sulfate Inj (Magnesium Sulfate (07/19/17 17:30) Magnesium Oxide (Mag-Ox) (07/19/17 17:30) Magnesium Sulfate Inj (Magnesium Sulfate (07/19/17 17:30) Potassium Phosphate (K-Phos) (07/19/17 17:30) Sodium Phosphate Inj (Sodium Phosphate I (07/19/17 17:30) Potassium Phosphate (K-Phos) (07/19/17 17:30) Potassium Phosphate Inj (Potassium Phosp (07/19/17 17:30) Labs Laboratory Tests Test 07/19/17 15:05 07/19/17 15:35 07/19/17 15:48 Prothrombin Time 11.6 SEC Prothromb Time International Ratio 1.0 RATIO Activated Partial Thromboplast Time 25.7 SEC White Blood Count 22.6 TH/MM3 Red Blood Count 5.67 MIL/MM3 Hemoglobin 16.9 GM/DL Hematocrit 51.3 % Mean Corpuscular Volume 90.6 FL Mean Corpuscular Hemoglobin 29.7 PG Mean Corpuscular Hemoglobin Concent 32.8 % Red Cell Distribution Width 16.3 % Platelet Count 365 TH/MM3 Mean Platelet Volume 9.2 FL Neutrophils (%) (Auto) 76.4 % Lymphocytes (%) (Auto) 13.3 % Monocytes (%) (Auto) 5.7 % Eosinophils (%) (Auto) 4.1 % Basophils (%) (Auto) 0.5 % Neutrophils # (Auto) 17.2 TH/MM3 Lymphocytes # (Auto) 3.0 TH/MM3 Monocytes # (Auto) 1.3 TH/MM3 Eosinophils # (Auto) 0.9 TH/MM3 Basophils # (Auto) 0.1 TH/MM3 CBC Comment DIFF FINAL Differential Comment Blood Urea Nitrogen 14 MG/DL Creatinine 1.16 MG/DL Random Glucose 135 MG/DL Total Protein 8.7 GM/DL Albumin 3.3 GM/DL Calcium Level 10.0 MG/DL Alkaline Phosphatase 82 U/L Aspartate Amino Transf (AST/SGOT) 46 U/L Alanine Aminotransferase (ALT/SGPT) 58 U/L Total Bilirubin 0.6 MG/DL Sodium Level 133 MEQ/L Potassium Level 4.0 MEQ/L Chloride Level 98 MEQ/L Carbon Dioxide Level 26.0 MEQ/L Anion Gap 9 MEQ/L Estimat Glomerular Filtration Rate 46 ML/MIN B-Type Natriuretic Peptide 50 PG/ML Blood Gas Puncture Site RT RADIAL Blood Gas Patient Temperature 98.6 Blood Gas HCO3 24 mmol/L Blood Gas Base Excess 0.7 mmol/L Blood Gas Oxygen Saturation 97 % Arterial Blood pH 7.45 Arterial Blood Partial Pressure CO2 35 mmHg Arterial Blood Partial Pressure O2 113 mmHG Arterial Blood Oxygen Content 23.4 Vol % Arterial Blood Carboxyhemoglobin 0.9 % Arterial Blood Methemoglobin 0.6 % Blood Gas Hemoglobin 17.2 G/DL Oxygen Delivery Device BiPAP Blood Gas Ventilator Setting IPAP 15, EPAP 6 Blood Gas Inspired Oxygen 75 % MDM Medical Decision Making Medical Screen Exam Complete: Yes Emergency Medical Condition: Yes Interpretation(s) Last Impressions Chest X-Ray 07/19/17 1527 Signed Impressions: Service Date/Time: Wednesday, July 19, 2017 15:34 - CONCLUSION: 1. Right lower lobe infiltrate. 2. Worsening chronic interstitial changes. 3. Cardiomegaly. Eusebio Lebron Jr., MD Differential Diagnosis Differential diagnosis including acute exacerbation of pulmonary fibrosis, bronchitis, pneumonia. Narrative Course 72-year-old female with respiratory distress and history of pulmonary fibrosis. Patient also has history of COPD. BiPAP. Cefepime 1 g IV. Levaquin [address] Banks, patient's pulmonology came to see patient at bedside. Diagnosis Primary Impression: UNSPECIFIED BACTERIAL PNEUMONIA Additional Impressions: Pulmonary fibrosis Acute on chronic respiratory failure Qualified Codes: J96.21 - Acute and chronic respiratory failure with hypoxia Admitting Information Admitting Physician Requests: Admit Richard Lan MD Jul 19, 2017 16:43
[2017-07-19] MEDS ORDERED: CEFEPIME INJ 1,000 MG in SODIUM CHLORIDE 0.9% INJ 100 ML IV ONE (16:45)
[2017-07-19] MEDS ORDERED: LEVOFLOXACIN 750 MG PREMIX INJ 150 ML IV ONE (16:45)
[2017-07-19] MEDS ORDERED: CHLORHEXIDINE GLUCONATE 2 % 1 PACK (2 CLOTHS) TOP PRN (17:15)
[2017-07-19] MEDS ORDERED: SODIUM CHLORIDE 0.9% FLUSH 10 ML FLUSH IV FLUSH PRN (17:15)
[2017-07-19] MEDS ORDERED: MISCELLANEOUS NURSING INFORMATION XX SCH (17:15)
[2017-07-19] MEDS ORDERED: RESP: ALBUTEROL 2.5 MG/IPRATROPIUM 0.5 MG NEB (PRN) INH (17:15)
[2017-07-19] MEDS ORDERED: SODIUM PHOSPHATE INJ 30 MMOL in SODIUM CHLOR 0.9% 250 ML INJ 240 ML IV PRN (17:30)
[2017-07-19] MEDS ORDERED: POTASSIUM PHOSPHATE MONOBASIC 500 MG TAB PO PRN (17:30)
[2017-07-19] MEDS ORDERED: POTASSIUM PHOSPHATE MONOBASIC 500 MG TAB PO/TUBE PRN (17:30)
[2017-07-19] MEDS ORDERED: MAGNESIUM SULFATE INJ 4 GM in SODIUM CHLORIDE 0.9% INJ 92 ML IV PRN (17:30)
[2017-07-19] MEDS ORDERED: MAGNESIUM SULFATE INJ 2 GM in SODIUM CHLORIDE 0.9% INJ 96 ML IV PRN (17:30)
[2017-07-19] MEDS ORDERED: POTASSIUM PHOSPHATE INJ 30 MMOL in SODIUM CHLOR 0.9% 250 ML INJ 250 ML IV PRN (17:30)
[2017-07-19] MEDS ORDERED: MAGNESIUM OXIDE 400 MG TAB PO PRN (17:30)
[2017-07-19] MEDS ORDERED: POTASSIUM CHLOR 40 MEQ PREMIX 100 ML IV PRN ×2 (17:30)
[2017-07-19] MEDS ORDERED: POTASSIUM CHLOR 20 MEQ PREMIX 100 ML IV PRN ×2 (17:30)
[2017-07-19] MEDS ORDERED: POTASSIUM CHLORIDE 25 MEQ EFFERVESCENT TAB PO PRN (17:30)
[2017-07-19] MEDS ORDERED: methylPREDNISolone SOD SUCC 40 MG/1 ML VIAL IV PUSH SCH ×2 (18:00→18:30)
--- NOTE | 2017-07-19 18:26 | HHI.HP ---
[facility] Service Critical Care Medicine Primary Care Physician Narayan Raymundo, DO Admission Diagnosis pneumonia. Pulmonary fibrosis. Acute on chronic respiratory failur Diagnosis: Travel History International Travel<30 Days: No Contact w/Intl Traveler <30 Da: No Traveled to Known Affected Are: No History of Present Illness 71-year-old very pleasant white female with a history of colitis atrial fibrillation, and colonic surgery, was admitted here in February this year with progressively and rapidly worsening shortness of breath. She has been having shortness of breath for the last 5 months. She was diagnosed with pulmonary fibrosis. She was doing well on 4 L nasal cannula oxygen at home however within the last day or 2 she was demanding more oxygen and wasn't comfortable even on 10 L per statement. Her x-ray showed the lung infiltrate and her CT scan of the chest showed extensive interstitial infiltrates. She has been seeing in the office of Dr. Narayan Luna. Review of Systems Constitutional: DENIES: Diaphoretic episodes, Fatigue, Fever, Weight gain, Weight loss, Chills, Dizziness, Change in appetite, Night Sweats Endocrine: DENIES: Abnorml menstrual pattern, Heat/cold intolerance, Polydipsia , Polyuria, Polyphagia Eyes: DENIES: Blurred vision, Diplopia, Eye inflammation, Eye pain, Vision loss , Photosensitivity, Double Vision Ears, nose, mouth, throat: DENIES: Tinnitus, Hearing loss, Vertigo, Nasal discharge, Oral lesions, Throat pain, Hoarseness, Ear Pain, Running Nose, Epistaxis, Sinus Pain, Toothache, Odynophagia Respiratory: COMPLAINS OF: Cough, Wheezing, Shortness of breath, DENIES: Apneas , Snoring, Hemoptysis, Sputum production Cardiovascular: COMPLAINS OF: Dyspnea on Exertion, DENIES: Chest pain, Palpitations, Syncope, PND, Lower Extremity Edema, Orthopnea, Claudication Genitourinary: DENIES: Abnormal vaginal bleeding, Dysmenorrhea, Dyspareunia, Sexual dysfunction, Urinary frequency, Urinary incontinence, Urgency, Hematuria , Dysuria, Nocturia, Vaginal discharge Musculoskeletal: DENIES: Joint pain, Muscle aches, Stiffness, Joint Swelling, Back pain, Neck pain Integumentary: DENIES: Abnormal pigmentation, Pruritus, Rash, Nail changes, Breast masses, Breast skin changes, Nipple discharge Hematologic/lymphatic: DENIES: Bruising, Lymphadenopathy Immunologic/allergic: DENIES: Eczema, Urticaria Neurologic: DENIES: Abnormal gait, Headache, Localized weakness, Paresthesias, Seizures, Speech Problems, Tremor, Poor Balance Psychiatric: COMPLAINS OF: Anxiety, DENIES: Confusion, Mood changes, Depression , Hallucinations, Agitation, Suicidal Ideation, Homicidal Ideation, Delusions Past Family Social History Allergies: Coded Allergies: cefaclor (Verified Allergy, Severe, Rash, 07/19/17) codeine (Verified Allergy, Severe, Rash, 07/19/17) Past Medical History Atrial fibrillation Colitis Pulmonary fibrosis C. difficile colitis Past Surgical History Colectomy and reversal Irasema procedure Reported Medications Reported Meds & Active Scripts Active Levothyroxine (Levothyroxine Sodium) 75 Mcg Tab 75 Mcg PO DAILY Pulmicort Respules (Budesonide) 0.5 Mg/2 Ml Neb 0.5 Mg NEB Q12HR NEB Metoprolol Tartrate 25 Mg Tab 25 Mg PO Q12HR Prednisone 10 Mg Tab 10 Mg PO DAILY Spiriva Handihaler (Tiotropium Inh) 18 Mcg Cap 18 Mcg INH DAILY Xanax (Alprazolam) 0.25 Mg Tab 0.25 Mg PO Q8H PRN Reported Sertraline (Sertraline HCl) 100 Mg Tab 100 Mg PO DAILY Omeprazole 40 Mg Cap 40 Mg PO DAILY Multiple Vitamin 1 Tab 1 Tab PO DAILY Lactobacillus Acidophilus 1 Pkt 1 Pkt PO TID Atorvastatin (Atorvastatin Calcium) 20 Mg Tab 20 Mg PO HS Aspirin 81 Mg Chew 81 Mg CHEW DAILY Apriso (Mesalamine) 0.375 Gm Caper 1.5 Gm PO DAILY Active Ordered Medications Current Medications Medications (Trade) Dose Ordered Sig/Namrata Route PRN Reason Start Time Stop Time Status Last Admin Dose Admin Aspirin (Aspirin Chew) 81 mg DAILY CHEW 07/20/17 09:00 Atorvastatin Calcium (Lipitor) 20 mg HS PO 07/19/17 21:00 Budesonide (Pulmicort Respule Neb) 0.5 mg Q12HR NEB NEB 07/19/17 20:00 Levothyroxine Sodium (Synthroid) 75 mcg DAILY@0600 PO 07/20/17 06:00 Metoprolol Tartrate (Lopressor) 25 mg Q12HR PO 07/19/17 21:00 Tiotropium [place] (Spiriva Inh) 18 mcg DAILY INH 07/20/17 09:00 Patient Own Medication PT OWN MED: (Mesalam... DAILY PO 07/20/17 09:00 Future Hold Sodium Chloride 1,000 ml @ 75 mls/hr [id number] IV 07/19/17 18:00 Sodium Chloride (NS Flush) 2 ml UNSCH PRN IV FLUSH FLUSH AFTER USING IV ACCESS 07/19/17 17:15 Sodium Chloride (NS Flush) 2 ml BID IV FLUSH 07/19/17 21:00 Albuterol/ Ipratropium (Duoneb Neb) 1 ampule Q6HR NEB NEB 07/19/17 22:00 Albuterol/ Ipratropium (Duoneb Neb) 1 ampule Q4HR NEB PRN INH SHORTNESS OF BREATH 07/19/17 17:15 Chlorhexidine Gluconate (Peridex 0.12% Liq) 15 ml BID@08,20 MT 07/19/17 20:00 Enoxaparin Sodium (Lovenox Inj) 40 mg Q24H SQ 07/19/17 18:00 Miscellaneous Information 1 [id number] XX 07/19/17 17:15 Chlorhexidine Gluconate (Chlorhexidine 2% Cloth) 3 pack Taper DAILY@04 TOP 07/20/17 04:00 07/16/18 03:59 Chlorhexidine Gluconate (Chlorhexidine 2% Cloth) 3 pack UNSCH PRN TOP HYGIENIC CARE 07/19/17 17:15 Piperacillin Sod/ Tazobactam Sod 100 ml @ 200 mls/hr Q6H IV 07/19/17 18:00 Levofloxacin/ Dextrose 150 ml @ 100 mls/hr Q24H IV 07/20/17 18:00 Potassium Chloride 100 ml @ 50 mls/hr Q2H PRN IV For Potassium 2.8 - 3.2 mEq/L 07/19/17 17:30 Potassium Chloride 100 ml @ 50 mls/hr Q2H PRN IV For Potassium 2.8 - 3.2 mEq/L 07/19/17 17:30 Potassium Bicarb/ Potassium Chloride (K-Lyte Cl Eff) 50 meq UNSCH PRN PO For Potassium 3.3 - 3.5 mEq/L 07/19/17 17:30 Potassium Chloride 100 ml @ 25 mls/hr UNSCH PRN IV For Potassium 3.3 - 3.5 mEq/L 07/19/17 17:30 Potassium Chloride 100 ml @ 50 mls/hr Q2H PRN IV For Potassium 3.3 - 3.5 mEq/L 07/19/17 17:30 Magnesium Sulfate 4 gm/Sodium Chloride 100 ml @ 50 mls/hr UNSCH PRN IV For Magnesium 0.9 - 1.1 mg/dL 07/19/17 17:30 Magnesium Oxide (Mag-Ox) 800 mg UNSCH PRN PO For Magnesium 1.2 - 1.6 mg/dL 07/19/17 17:30 Magnesium Sulfate 2 gm/Sodium Chloride 100 ml @ 50 mls/hr UNSCH PRN IV For Magnesium 1.2 - 1.6 mg/dL 07/19/17 17:30 Potassium Phosphate (K-Phos) 2,000 mg Q4H PRN PO For Phosphorus < 2.5 mg/dL 07/19/17 17:30 Sodium Phosphate 30 mmol/Sodium Chloride 250 ml @ 42 mls/hr UNSCH PRN IV For Phosphorus < 2.5 mg/dL 07/19/17 17:30 Potassium Phosphate (K-Phos) 2,000 mg UNSCH PRN PO/TUBE SEE LABEL COMMENTS 07/19/17 17:30 Potassium Phosphate 30 mmol/ Sodium Chloride 260 ml @ 42 mls/hr UNSCH PRN IV SEE LABEL COMMENTS 07/19/17 17:30 Methylprednisolone Sodium Succinate (SoluMEDROL INJ) 40 mg Q6HR IV PUSH 07/19/17 18:00 Alprazolam (Xanax) 0.25 mg Q8H PRN PO INSOMNIA 07/19/17 18:30 UNV Methylprednisolone Sodium Succinate (SoluMEDROL INJ) 40 mg Q6HR IV PUSH 07/19/17 18:30 UNV Family History She has been for 50 years. She has 2 children. No siblings. Both parents are . Social History Positive history of tobacco use for 45 years, quit 1 year ago, no alcohol, or illicit drug abuse. Physical Exam Vital Signs Vital Signs Date Time Temp Pulse Resp B/P (MAP) Pulse Ox O2 Delivery O2 Flow Rate FiO2 07/19/17 15:46 99.7 109 29 111/74 (86) 96 BiPAP 75 07/19/17 15:20 92 75 07/19/17 15:11 40 98 Non-Rebreather 15.00 07/19/17 15:09 40 07/19/17 15:01 121 30 131/78 (95) 87 10.00 Physical Exam GENERAL: Well-nourished, well-developed patient. On 100% facemask nonrebreather SKIN: Warm and dry. HEAD: Normocephalic. EYES: No scleral icterus. No injection or drainage. NECK: Supple, trachea midline. No JVD or lymphadenopathy. CARDIOVASCULAR: Regular rate and rhythm without murmurs, gallops, or rubs. RESPIRATORY: Breath sounds equal bilaterally. No accessory muscle use. Occasional wheezes and rhonchi. GASTROINTESTINAL: Abdomen soft, non-tender, nondistended. MUSCULOSKELETAL: No cyanosis, or edema. BACK: Nontender without obvious deformity. NEURO EXAM: GCS: M 6 V 5 E 4 Mental Status: The patient is alert and oriented to person, place, and time with normal speech. Cranial Nerves: Visual acuity intact bilaterally. Visual hyman normal in all quadrants. Pupils are round, reactive to light. Extraocular movements are intact without ptosis. Hearing is normal bilaterally. Voice is normal. Tongue protrudes midline and moves symmetrically. Laboratory Laboratory Tests Test 07/19/17 15:05 07/19/17 15:35 07/19/17 15:48 Prothrombin Time 11.6 Prothromb Time International Ratio 1.0 Activated Partial Thromboplast Time 25.7 White Blood Count 22.6 Red Blood Count 5.67 Hemoglobin 16.9 Hematocrit 51.3 Mean Corpuscular Volume 90.6 Mean Corpuscular Hemoglobin 29.7 Mean Corpuscular Hemoglobin Concent 32.8 Red Cell Distribution Width 16.3 Platelet Count 365 Mean Platelet Volume 9.2 Neutrophils (%) (Auto) 76.4 Lymphocytes (%) (Auto) 13.3 Monocytes (%) (Auto) 5.7 Eosinophils (%) (Auto) 4.1 Basophils (%) (Auto) 0.5 Neutrophils # (Auto) 17.2 Lymphocytes # (Auto) 3.0 Monocytes # (Auto) 1.3 Eosinophils # (Auto) 0.9 Basophils # (Auto) 0.1 CBC Comment DIFF FINAL Differential Comment Blood Urea Nitrogen 14 Creatinine 1.16 Random Glucose 135 Total Protein 8.7 Albumin 3.3 Calcium Level 10.0 Alkaline Phosphatase 82 Aspartate Amino Transf (AST/SGOT) 46 Alanine Aminotransferase (ALT/SGPT) 58 Total Bilirubin 0.6 Sodium Level 133 Potassium Level 4.0 Chloride Level 98 Carbon Dioxide Level 26.0 Anion Gap 9 Estimat Glomerular Filtration Rate 46 B-Type Natriuretic Peptide 50 Blood Gas Puncture Site RT RADIAL Blood Gas Patient Temperature 98.6 Blood Gas HCO3 24 Blood Gas Base Excess 0.7 Blood Gas Oxygen Saturation 97 Arterial Blood pH 7.45 Arterial Blood Partial Pressure CO2 35 Arterial Blood Partial Pressure O2 113 Arterial Blood Oxygen Content 23.4 Arterial Blood Carboxyhemoglobin 0.9 Arterial Blood Methemoglobin 0.6 Blood Gas Hemoglobin 17.2 Oxygen Delivery Device BiPAP Blood Gas Ventilator Setting IPAP 15, EPAP 6 Blood Gas Inspired Oxygen 75 Date/Time Source Procedure Growth Status 07/19/17 15:40 Blood Peripheral Aerobic Blood Culture Pending Received 07/19/17 15:40 Blood Peripheral Anaerobic Blood Culture Pending Received Result Diagram: 07/19/17 1535 07/19/17 1535 Imaging Last 24 hours Impressions Chest X-Ray 07/19/17 1527 Signed Impressions: Service Date/Time: Wednesday, July 19, 2017 15:34 - CONCLUSION: 1. Right lower lobe infiltrate. 2. Worsening chronic interstitial changes. 3. Cardiomegaly. MD Karyn Evans Jr. VTE Risk Assessment Caprini VTE Risk Assessment: Mod/High Risk (score >= 2) Caprini Risk Assessment Model Point Value = 1 Point Value = 2 Point Value = 3 Point Value = 5 Age 41-60 Minor surgery BMI > 25 kg/m2 Swollen legs Varicose veins or History of unexplained or recurrent spontaneous Oral contraceptives or hormone replacement Sepsis (< 1 month) Serious lung disease, including pneumonia (< 1 month) Abnormal pulmonary function Acute myocardial infarction Congestive heart failure (< 1 month) History of inflammatory bowel disease Medical patient at bed rest Age 61-74 Arthroscopic surgery Major open surgery (> 45 min) Laparoscopic surgery (> 45 min) Malignancy Confined to bed (> 72 hours) Immobilizing plaster cast Central venous access Age >= 75 History of VTE Family history of VTE Factor V Leiden Prothrombin [id number] Lupus anticoagulant Anticardiolipin antibodies Elevated serum homocysteine Heparin-induced thrombocytopenia Other congenital or acquired thrombophilia Stroke (< 1 month) Elective arthroplasty Hip, pelvis, or leg fracture Acute spinal cord injury (< 1 month) Prophylaxis Regimen Total Risk Factor Score Risk Level Prophylaxis Regimen 0-1 Low Early ambulation 2 Moderate Order ONE of the following: *Sequential Compression Device (SCD) *Heparin 5000 units SQ BID 3-4 Higher Order ONE of the following medications: *Heparin 5000 units SQ TID *Enoxaparin/Lovenox 40 mg SQ daily (WT < 150 kg, CrCl > 30 mL/min) *Enoxaparin/Lovenox 30 mg SQ daily (WT < 150 kg, CrCl > 10-29 mL/min) *Enoxaparin/Lovenox 30 mg SQ BID (WT < 150 kg, CrCl > 30 mL/min) AND/OR *Sequential Compression Device (SCD) 5 or more Highest Order ONE of the following medications: *Heparin 5000 units SQ TID (Preferred with Epidurals) *Enoxaparin/Lovenox 40 mg SQ daily (WT < 150 kg, CrCl > 30 mL/min) *Enoxaparin/Lovenox 30 mg SQ daily (WT < 150 kg, CrCl > 10-29 mL/min) *Enoxaparin/Lovenox 30 mg SQ BID (WT < 150 kg, CrCl > 30 mL/min) AND *Sequential Compression Device (SCD) Assessment and Plan Assessment and Plan Hypoxemic Respiratory Failure. Pulmonary fibrosis Hx of colitis. Plan: 1. NRBM 100%. 2. Steroids. 3. Broad antibiotric coverage for infectious pneumonitis. 4. Bed rest. 5. Lovenox DVT px. 6. Pepcid 7. Sputum, urine, blood culture. 8. Pulmonology consult appreciated- Dr. Banks. Overall impression: Critically ill with rapidly worsening interstitial pneumonitis and hypoxemic respiratory failure. Critical Care 38 mins Fab Martinez MD Jul 19, 2017 6:26 pm
[2017-07-19 18:28] LABS: MAGNESIUM 1.6 MG/DL (1.5-2.5)
--- NOTE | 2017-07-19 18:33 | RADRPT ---
EXAM DATE/TIME: 07/19/2017 18:09 [facility] COMPARISON: CHEST SINGLE AP, April 06, 2017, 3:26. CHEST SINGLE AP, July 19, 2017, 15:34. EXTERNAL COMPARISON : [facility], CT Chest w/o INDICATIONS : Pulmonary fibrosis. RADIATION DOSE: 3.68 CTDIvol (mGy) MEDICAL HISTORY : pulmonary fibrosis SURGICAL HISTORY : Colon resection. Cholecystectomy.Hysterectomy. ENCOUNTER: Initial ACUITY: 1 day PAIN SCALE: 3/10 LOCATION: Bilateral chest TECHNIQUE: Volumetric scanning of the chest was performed. Using automated exposure control and adjustment of t he mA and/or kV according to patient size, radiation dose was kept as low as reasonably achievable to obtain optimal diagnostic quality images. DICOM format image data is available electronically for r eview and comparison. Follow-up recommendations for detected pulmonary nodules are based at a minimum on nodule size and pa tient risk factors according to Fleischner Society Guidelines. FINDINGS: LUNGS: There is a diffuse bilateral honeycomb chronic interstitial fibrotic lung change without consolidated infiltrate, nodule, or mass. PLEURAE: There is no pleural thickening or pleural effusion. MEDIASTINUM: The heart and great vessels demonstrate no acute abnormality. There is no mediastinal or hilar lymph adenopathy. AXILLAE: Within normal limits. No lymphadenopathy. MUSCULOSKELETAL: Within normal limits for patient age. MISCELLANEOUS: The visualized upper abdominal organs demonstrate no acute abnormality. CONCLUSION: Diffuse bilateral interstitial chronic fibrotic lung disease which is honeycombed without consolidate d infiltrate, nodule, mass or adenopathy.. Ozzie Lopez MD on July 19, 2017 at 18:29 Board Certified Radiologist. This report was verified electronically.
[2017-07-19] MEDS: PIPERACIL-TAZO 4.5 GM PREMIX 100 ML IV SCH (19:05)
[2017-07-19] MEDS: ENOXAPARIN SODIUM 40 MG/0.4 ML SYRINGE SQ SCH (19:05)
[2017-07-19] MEDS: SODIUM CHLOR 0.9% 1000 ML INJ 1,000 ML IV SCH ×2 (19:46→21:34)
[2017-07-19] MEDS: CHLORHEXIDINE 0.12% (ORAL KIT) 15 ML CUP MT SCH (20:00)
[2017-07-19] MEDS: RESP: ALBUTEROL 2.5 MG/IPRATROPIUM 0.5 MG NEB (SCH) NEB (20:33)
[2017-07-19] MEDS: RESP: BUDESONIDE 0.5 MG/2 ML NEB NEB SCH (20:33)
--- NOTE | 2017-07-19 20:51 | MB ---
cc: BRICE ROY DATE OF CONSULTATION 07/19/[address] Richard Lan REASON FOR CONSULTATION Evaluation of respiratory failure. HISTORY OF PRESENT ILLNESS Ms. Dobson is a pleasant 72-year-old female with history of pulmonary fibrosis. She is oxygen dependent and was taking steroids at home. The patient came to the office with worsening of her shortness of breath for the last 2-3 days to the extent that even talking drops her oxygen saturation. She was using oxygen 8 liters nasal cannula, admitting saturation around 88%. She has cough and congestion. No nausea or vomiting. Because of worsening of symptoms, she was sent to the emergency room. She had a workup done. She was put on BiPap 75%. Blood gas - pH 7.45, pCO2 35, pO2 113, bicarb 24 on 75% FIO2. WBC count 22.6, hemoglobin 16.9, hematocrit 51.3, MCV 90, platelet count 365. Sodium 133, potassium was 4.0, chloride 98, CO2 26, BUN 14, creatinine 1.16. Her chest x-ray shows chronic worsening of the chronic right lower lobe infiltrate. PAST MEDICAL HISTORY 1. History of pulmonary fibrosis. 2. History of colitis 3. History of colostomy which was reversed 4. History of C diff colitis 5. History of atrial fibrillation. MEDICATIONS Currently 1. Aspirin 81 mg a day 2. levothyroxine 75 mcg a day 3. ____ once a day. 4. Lipitor 20 mg a day. 5. Lopressor 25 mg q. 12-hour. 6. Pulmicort Respules 0.5 mg q.12 h. 7. Zosyn IV 8. Cefepime one dose 9. Levaquin 750 mg. ALLERGIES CEFECLOR CODEINE. SOCIAL HISTORY She is for 52 years. She has history of smoking for 48 years one pack a day which she quit one year ago. She drinks occasionally. 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 FAMILY HISTORY She is . She has two children, no siblings. Both parents are . REVIEW OF SYSTEMS She gets short of breath even on talking, has been using 8-10 liters oxygen. Weight is stable. No hemoptysis. No DVT or pulmonary embolism. PHYSICAL EXAMINATION GENERAL: Elderly female mildly to moderately short of breath. Currently she is on 75% BiPap. VITAL SIGNS: Blood pressure 111/74, heart rate 109, respirations 29, Temperature 99.7 HEENT: Pupils are equal and reactive to light. Oral mucosa and nasal mucosa normal. NECK: Supple. JVP not raised. CHEST: Bilateral inspiratory rales. CARDIOVASCULAR: S1, S2 normal. ABDOMEN: Benign. EXTREMITIES: No edema. IMPRESSION 1. Hypoxic respiratory failure. 2. Pulmonary fibrosis with worsening of the pulmonary fibrosis, possible acute exacerbation. 3. Pneumonia 4. History of atrial fibrillation 5. History of colitis. PLAN I discussed with the patient and her . At this point, she wants everything to be done including intubation if needed. We will give her antibiotic. I will start her on Solu-Medrol 80 mg q.6 h. She has leukocytosis probably from infection as well as from chronic steroid use. We will monitor her blood sugar, monitor her electrolytes and continue BiPAP, keep saturation greater than 88%. We will give her Lovenox for DVT prophylaxis. Further treatment will depend on the course in the hospital. Thank you, Dr. Richard Lan, for this consultation. MD JOSSELIN Freedman/ /5:33 PM /8:31 PM MTDDominic
[2017-07-19] MEDS: SODIUM CHLORIDE 0.9% FLUSH 10 ML FLUSH IV FLUSH SCH (21:00)
[2017-07-19] MEDS: ATORVASTATIN 20 MG TAB PO SCH (21:35)
[2017-07-19] MEDS: METOPROLOL TARTRATE 25 MG TAB PO SCH (21:35)
[2017-07-19] MEDS: ALPRAZolam 0.25 MG TAB PO PRN (21:35)
[2017-07-20] VITALS (13 sets, daily range): BP systolic 93–124; BP diastolic 55–68; PULSE 73–93; RESP 18–44; TEMP 97.7–98.3; O2SAT 90–97
[2017-07-20] MEDS: methylPREDNISolone SOD SUCC 125 MG/2 ML VIAL IV SCH ×4 (00:11→18:10)
[2017-07-20] MEDS: PIPERACIL-TAZO 4.5 GM PREMIX 100 ML IV SCH ×4 (00:11→18:10)
[2017-07-20] MEDS: RESP: ALBUTEROL 2.5 MG/IPRATROPIUM 0.5 MG NEB (SCH) NEB ×4 (03:23→21:57)
[2017-07-20] MEDS: CHLORHEXIDINE GLUCONATE 2 % 1 PACK (2 CLOTHS) TOP SCH (04:00)
[2017-07-20 04:39] LABS: AUTOMATED NEUTROPHIL # 9.9 TH/MM3 (1.8-7.7); BASOPHIL % 0.4 % (0.0-2.0); HEMATOCRIT 46.6 % (35.0-46.0); HEMO FLAGS DIFF FINAL; LYMPH % 9.1 % (9.0-44.0); MEAN CELL VOLUME 90.4 FL (80.0-100.0); MEAN CORPUSCULAR HEMOGLOBIN 29.9 PG (27.0-34.0); MEAN CORPUSCULAR HGB CONC 33.1 % (32.0-36.0); MONO % 1.1 % (0.0-8.0); NEUT % 89.4 % (16.0-70.0); PLATELET COUNT 330 TH/MM3 (150-450); RED BLOOD COUNT 5.15 MIL/MM3 (4.00-5.30); RED CELL DISTRIBUTION WIDTH 16.1 % (11.6-17.2); WHITE BLOOD COUNT 11.1 TH/MM3 (4.0-11.0)
[2017-07-20 05:40] LABS: ALKALINE PHOSPHATASE 78 U/L (45-117); ALT (GPT) 65 U/L (10-53); ANION GAP 10 MEQ/L (5-15); AST (GOT) 47 U/L (15-37); BICARBONATE 26.5 MEQ/L (21.0-32.0); BLOOD UREA NITROGEN 15 MG/DL (7-18); CHLORIDE 99 MEQ/L (98-107); GLOMERULAR FILTRATION RATE 54 ML/MIN (>89); POTASSIUM 3.1 MEQ/L (3.5-5.1); SODIUM (NA) 135 MEQ/L (136-145); TOTAL BILIRUBIN ADULT 1.1 MG/DL (0.2-1.0)
[2017-07-20] MEDS: LEVOTHYROXINE SODIUM 75 MCG TAB PO SCH (05:44)
--- NOTE | 2017-07-20 06:04 | RADRPT ---
EXAM DATE/TIME: 07/20/2017 04:50 [facility] COMPARISON: CT THORAX W/O CONTRAST, July 19, 2017, 18:09. CHEST SINGLE AP, July 19, 2017, 15:34. INDICATIONS : Shortness of breath, pulmonary fibrosis. MEDICAL HISTORY : A-fib Colitis SURGICAL HISTORY : Colon resection. ENCOUNTER: Subsequent ACUITY: 2 days PAIN SCORE: 0/10 LOCATION: Bilateral chest FINDINGS: A single AP semierect view of the chest was obtained and again demonstrates coarse interstitial fibro sis without significant change. There are no new infiltrates or effusions. The heart size remains at the upper limits of normal. Atherosclerotic changes are present in the aorta. There are multiple over lying electrocardiogram leads. The bony thorax is intact. CONCLUSION: Chronic interstitial fibrosis without significant change. Omid Clemente MD on July 20, 2017 at 6:02 Board Certified Radiologist. This report was verified electronically.
[2017-07-20] MEDS: CHLORHEXIDINE 0.12% (ORAL KIT) 15 ML CUP MT SCH ×2 (08:00→20:00)
--- NOTE | 2017-07-20 08:16 | HHI.CCPN ---
Subjective Remarks/Hospital Course 71-year-old very pleasant white female with a history of colitis, atrial fibrillation, and colonic surgery, was admitted here in February this year with progressively and rapidly worsening shortness of breath. She has been having shortness of breath for the last 5 months. She was diagnosed with pulmonary fibrosis. She was doing well on 4 L nasal cannula oxygen at home however within the last day or 2 she was demanding more oxygen and wasn't comfortable even on 10 L per statement. Her x-ray showed the lung infiltrate and her CT scan of the chest showed extensive interstitial infiltrates. She has been seeing in the office of Dr. Narayan Luna. SUBJ 07/20: Breathing comfortably on NC 4L. Intermittently SOB, but now able to talk in full sentences. WBC improved from 22.6 to 11.1. Potassium getting replaced. Objective Vital Signs Date Time Temp Pulse Resp B/P (MAP) Pulse Ox O2 Delivery O2 Flow Rate FiO2 07/20/17 06:00 78 07/20/17 04:50 95 Nasal Cannula 4.00 07/20/17 04:00 97.9 25 93/57 (69) 07/19/17 15:46 75 Intake and Output 07/20/17 07/20/17 07/21/17 08:00 16:00 00:00 Intake Total 910 ml Balance 910 ml Result Diagram: 07/20/17 0404 07/20/17 0404 Other Results Laboratory Tests Test 07/19/17 15:48 Blood Gas Puncture Site RT RADIAL Blood Gas Patient Temperature 98.6 Blood Gas HCO3 24 mmol/L (22-26) Blood Gas Base Excess 0.7 mmol/L (-2-2) Blood Gas Oxygen Saturation 97 % (90-100) Arterial Blood pH 7.45 (7.380-7.420) Arterial Blood Partial Pressure CO2 35 mmHg (38-42) Arterial Blood Partial Pressure O2 113 mmHG (61-120) Arterial Blood Oxygen Content 23.4 Vol % (12.0-20.0) Arterial Blood Carboxyhemoglobin 0.9 % (0-4) Arterial Blood Methemoglobin 0.6 % (0-2) Blood Gas Hemoglobin 17.2 G/DL (12.0-16.0) Oxygen Delivery Device BiPAP Blood Gas Ventilator Setting IPAP 15, EPAP 6 Blood Gas Inspired Oxygen 75 % Imaging Last 24 hours Impressions Chest X-Ray 07/19/17 1527 Signed Impressions: Service Date/Time: Wednesday, July 19, 2017 15:34 - CONCLUSION: 1. Right lower lobe infiltrate. 2. Worsening chronic interstitial changes. 3. Cardiomegaly. Eusebio Lebron Jr., MD Objective Remarks GENERAL: Well-nourished, well-developed patient. On 4L NC SKIN: Warm and dry. HEAD: Normocephalic. EYES: No scleral icterus. No injection or drainage. NECK: Supple, trachea midline. No JVD or lymphadenopathy. CARDIOVASCULAR: Regular rate and rhythm without murmurs, gallops, or rubs. RESPIRATORY: Breath sounds equal bilaterally. No accessory muscle use. Occasional wheezes and rhonchi. Few fine crackles at the bases GASTROINTESTINAL: Abdomen soft, non-tender, nondistended. MUSCULOSKELETAL: No cyanosis, or edema. NEURO EXAM: AOx3. No FND A/P Assessment and Plan Hypoxemic Respiratory Failure. Pulmonary fibrosis Probable pneumonia Hx of colitis. Plan: 1. Currently weaned to 4L NC 2. Steroids. (On Solu-Medrol at 125 mg iv q6. Pulmonary is following Dr. Banks. Defer to pulmonary) 3. Broad antibiotric coverage for infectious pneumonitis. 4. Increase activity as tolerated 5. Lovenox DVT px. 6. Pepcid 7. Sputum, urine, blood culture. 8. Pulmonology consult appreciated- Dr. Banks. Overall impression: Improving with steroids and antibiotics Level2 Transfer to Med surg with Tele, Consult [facility] to assume care in Penny Carrizales MD Jul 20, 2017 08:16
[2017-07-20] MEDS: RESP: BUDESONIDE 0.5 MG/2 ML NEB NEB SCH ×2 (08:48→21:57)
[2017-07-20] MEDS ORDERED: TIOTROPIUM BROMIDE 18 MCG INH INH SCH (09:00)
[2017-07-20] MEDS ORDERED: INFLUENZA VIRUS VACCINE (QUADRIVALENT) 0.5 ML SYR IM ONE (09:00)
[2017-07-20] MEDS ORDERED: MESALAMINE 1.5 GM PO SCH (09:00)
[2017-07-20] MEDS: METOPROLOL TARTRATE 25 MG TAB PO SCH ×2 (09:43→21:07)
[2017-07-20] MEDS: ASPIRIN 81 MG CHEW TAB CHEW SCH (09:43)
[2017-07-20] MEDS: SODIUM CHLORIDE 0.9% FLUSH 10 ML FLUSH IV FLUSH SCH ×2 (09:44→21:08)
[2017-07-20] MEDS ORDERED: POTASSIUM CHLORIDE 25 MEQ EFFERVESCENT TAB PO ONE (14:45)
--- NOTE | 2017-07-20 17:26 | EKG ---
Date Performed: 07/19/2017 Time Performed: 15:11:48 PTAGE: 72 years EKG: SINUS TACHYCARDIA WITH FREQUENT SUPRAVENTRICULAR PREMATURE COMPLEXES INFERIOR MYOCARDIAL IN FARCTION ABNORMAL ECG INTERPRETATION BASED ON A DEFAULT AGE OF 39 YEARS NO PREVIOUS TRACING DOCTOR: Gina Rosas Interpretating Date/Time 07/20/2017 17:24:15
[2017-07-20] MEDS: ENOXAPARIN SODIUM 40 MG/0.4 ML SYRINGE SQ SCH (18:12)
[2017-07-20] MEDS: ALPRAZolam 0.25 MG TAB PO PRN (18:20)
[2017-07-20] MEDS: LEVOFLOXACIN 750 MG PREMIX INJ 150 ML IV SCH (19:48)
[2017-07-20] MEDS: ATORVASTATIN 20 MG TAB PO SCH (21:07)
[2017-07-20] MEDS: SODIUM CHLOR 0.9% 1000 ML INJ 1,000 ML IV SCH (21:07)
[2017-07-21] VITALS (9 sets, daily range): BP systolic 90–123; BP diastolic 57–86; PULSE 56–119; RESP 18–20; TEMP 97.5–98; O2SAT 88–98
[2017-07-21] MEDS: methylPREDNISolone SOD SUCC 125 MG/2 ML VIAL IV SCH ×2 (00:16→06:13)
[2017-07-21] MEDS: PIPERACIL-TAZO 4.5 GM PREMIX 100 ML IV SCH ×5 (00:16→23:49)
[2017-07-21] MEDS: ALPRAZolam 0.25 MG TAB PO PRN ×3 (02:52→20:34)
[2017-07-21] MEDS: CHLORHEXIDINE GLUCONATE 2 % 1 PACK (2 CLOTHS) TOP SCH (04:00)
[2017-07-21] MEDS: RESP: ALBUTEROL 2.5 MG/IPRATROPIUM 0.5 MG NEB (SCH) NEB ×4 (04:15→20:51)
[2017-07-21] MEDS: LEVOTHYROXINE SODIUM 75 MCG TAB PO SCH (06:13)
[2017-07-21] MEDS: CHLORHEXIDINE 0.12% (ORAL KIT) 15 ML CUP MT SCH ×2 (08:00→20:00)
[2017-07-21] MEDS: ASPIRIN 81 MG CHEW TAB CHEW SCH (08:37)
[2017-07-21] MEDS: SODIUM CHLORIDE 0.9% FLUSH 10 ML FLUSH IV FLUSH SCH ×2 (09:00→20:34)
[2017-07-21] MEDS: METOPROLOL TARTRATE 25 MG TAB PO SCH ×2 (09:00→20:36)
[2017-07-21] MEDS: RESP: BUDESONIDE 0.5 MG/2 ML NEB NEB SCH ×2 (09:28→20:51)
--- NOTE | 2017-07-21 11:06 | HHI.PR ---
Subjective Remarks Follow-up hypoxic respiratory failure/ worsening pulmonary fibrosis/community acquired bacterial pneumonia and now hypotension 07/21/17-patient seen and examined, reports some improvement or shortness of breath however patient currently on 4 L nasal cannula. Blood pressure soft. No other issues Objective Vitals Vital Signs Date Time Temp Pulse Resp B/P (MAP) Pulse Ox O2 Delivery O2 Flow Rate FiO2 07/21/17 09:34 93 Nasal Cannula 4.00 07/21/17 08:00 98.0 97 18 90/61 (71) 94 07/21/17 04:00 98.0 56 20 107/86 (93) 98 07/21/17 00:00 98.0 99 20 123/72 (89) 91 07/21/17 00:00 Nasal Cannula 4.00 07/20/17 22:00 91 Nasal Cannula 4.00 07/20/17 20:00 Nasal Cannula 4.00 07/20/17 20:00 84 07/20/17 20:00 98.1 82 20 100/57 (71) 94 07/20/17 16:00 98.0 88 18 102/60 (74) 92 07/20/17 12:00 97.8 80 20 120/59 (79) 95 I/O 07/20/17 07/20/17 07/20/17 07/21/17 07/21/17 07/21/17 07:00 15:00 23:00 07:00 15:00 23:00 Intake Total 910 ml 730 ml 1108 ml Output Total 1100 ml Balance 910 ml -370 ml 1108 ml Intake Oral 480 ml 240 ml IV Total 910 ml 250 ml 868 ml Output Urine Total 1100 ml # Voids 3 3 # Bowel Movements 1 1 Result Diagram: 07/20/17 0404 07/20/17 0404 Imaging Last Impressions Chest X-Ray 07/20/17 0600 Signed Impressions: Service Date/Time: Thursday, July 20, 2017 04:50 - CONCLUSION: Chronic interstitial fibrosis without significant change. Omid Clemente MD Chest CT 07/19/17 0000 Signed Impressions: Service Date/Time: Wednesday, July 19, 2017 18:09 - CONCLUSION: Diffuse bilateral interstitial chronic fibrotic lung disease which is honeycombed without consolidated infiltrate, nodule, mass or adenopathy.. Ozzie Lopez MD Objective Remarks GENERAL: NAD SKIN: Warm and dry. HEAD: Normocephalic. EYES: No scleral icterus. No injection or drainage. NECK: Supple, trachea midline. No JVD or lymphadenopathy. CARDIOVASCULAR: Regular rate and rhythm without murmurs, gallops, or rubs. RESPIRATORY: Breath sounds equal bilaterally. No accessory muscle use. GASTROINTESTINAL: Abdomen soft, non-tender, nondistended. MUSCULOSKELETAL: No cyanosis, or edema. BACK: Nontender without obvious deformity. No CVA tenderness. A/P Problem List: (1) Hypotension ICD Code: I95.9 - Hypotension, unspecified (2) Community acquired bacterial pneumonia ICD Code: J15.9 - Unspecified bacterial pneumonia (3) Acute on chronic respiratory failure ICD Code: J96.20 - Acute and chronic respiratory failure, unspecified whether with hypoxia or hypercapnia Status: Resolved (4) Pulmonary fibrosis ICD Code: J84.10 - Pulmonary fibrosis, unspecified Status: Chronic Assessment and Plan 72-year-old female with Acute on chronic respiratory failure Resolved Continue with DuoNeb, and maintain oxygen saturation above 92% Wean oxygen as as patient currently on 4 L nasal cannula Acute exacerbation of pulmonary fibrosis Improving Change Solu-Medrol to 40 mg every 3H, continue with DuoNeb when necessary Appreciate input from pulmonary medicine Community-acquired bacterial pneumonia Currently on Zosyn and Levaquin Monitor for sign of infection Hypotension Continue with gentle IV fluid hydration Hold beta sonido for BP<110/60 DVT prophylaxis: Lovenox Problem Qualifiers (1) Acute on chronic respiratory failure: Qualified Codes: J96.21 - Acute and chronic respiratory failure with hypoxia Sebastien Mitchell MD Jul 21, 2017 11:06
[2017-07-21] MEDS: SODIUM CHLOR 0.9% 1000 ML INJ 1,000 ML IV SCH ×2 (12:53→23:20)
[2017-07-21] MEDS: methylPREDNISolone SOD SUCC 40 MG/1 ML VIAL IV PUSH SCH ×5 (12:56→23:49)
[2017-07-21] MEDS: ENOXAPARIN SODIUM 40 MG/0.4 ML SYRINGE SQ SCH (17:22)
[2017-07-21] MEDS: LEVOFLOXACIN 750 MG PREMIX INJ 150 ML IV SCH (18:06)
[2017-07-21] MEDS: ATORVASTATIN 20 MG TAB PO SCH (20:34)
[2017-07-22] VITALS (15 sets, daily range): BP systolic 115–132; BP diastolic 57–98; PULSE 83–118; RESP 19–64; TEMP 97.4–99.8; O2SAT 80–93
[2017-07-22] MEDS: methylPREDNISolone SOD SUCC 40 MG/1 ML VIAL IV PUSH SCH ×4 (02:54→11:35)
[2017-07-22] MEDS: CHLORHEXIDINE GLUCONATE 2 % 1 PACK (2 CLOTHS) TOP SCH (04:00)
[2017-07-22] MEDS: RESP: ALBUTEROL 2.5 MG/IPRATROPIUM 0.5 MG NEB (SCH) NEB ×4 (04:15→20:15)
[2017-07-22] MEDS: ALPRAZolam 0.25 MG TAB PO PRN ×2 (05:43→18:28)
[2017-07-22] MEDS: LEVOTHYROXINE SODIUM 75 MCG TAB PO SCH (05:43)
[2017-07-22] MEDS: SODIUM CHLOR 0.9% 1000 ML INJ 1,000 ML IV SCH (05:51)
[2017-07-22] MEDS: PIPERACIL-TAZO 4.5 GM PREMIX 100 ML IV SCH ×2 (05:51→11:37)
[2017-07-22 07:27] LABS: AUTOMATED NEUTROPHIL # 22.8 TH/MM3 (1.8-7.7); HEMATOCRIT 38.7 % (35.0-46.0); HEMO FLAGS DIFF FINAL; LYMPH % 2.8 % (9.0-44.0); LYMPHOCYTE # 0.7 TH/MM3 (1.0-4.8); MEAN CELL VOLUME 90.9 FL (80.0-100.0); MEAN CORPUSCULAR HEMOGLOBIN 29.6 PG (27.0-34.0); MEAN CORPUSCULAR HGB CONC 32.6 % (32.0-36.0); MONO % 3.3 % (0.0-8.0); NEUT % 93.9 % (16.0-70.0); PLATELET COUNT 279 TH/MM3 (150-450); RED BLOOD COUNT 4.26 MIL/MM3 (4.00-5.30); RED CELL DISTRIBUTION WIDTH 16.4 % (11.6-17.2); WHITE BLOOD COUNT 24.3 TH/MM3 (4.0-11.0)
[2017-07-22 07:54] LABS: BICARBONATE 21.3 MEQ/L (21.0-32.0)
[2017-07-22 07:59] LABS: POTASSIUM 2.5 MEQ/L (3.5-5.1)
[2017-07-22] MEDS: CHLORHEXIDINE 0.12% (ORAL KIT) 15 ML CUP MT SCH ×2 (08:00→19:29)
[2017-07-22] MEDS: METOPROLOL TARTRATE 25 MG TAB PO SCH ×2 (08:23→19:30)
[2017-07-22] MEDS: ASPIRIN 81 MG CHEW TAB CHEW SCH (08:23)
[2017-07-22] MEDS: SODIUM CHLORIDE 0.9% FLUSH 10 ML FLUSH IV FLUSH SCH ×2 (08:24→19:30)
[2017-07-22] MEDS: POTASSIUM CHLOR 20 MEQ PREMIX 100 ML IV SCH ×2 (09:18→11:32)
[2017-07-22] MEDS: RESP: BUDESONIDE 0.5 MG/2 ML NEB NEB SCH ×2 (10:53→20:15)
[2017-07-22] MEDS ORDERED: FUROSEMIDE 20 MG/2 ML VIAL IV PUSH ONE (12:00)
[2017-07-22 12:07] LABS: BLOOD GAS BASE EXCESS -0.7 mmol/L (-2-2); BLOOD GAS CARBOXYHEMOGLOBIN 1.2 % (0-4); BLOOD GAS HCO3 23 mmol/L (22-26); BLOOD GAS METHEMOGLOBIN 0.7 % (0-2); BLOOD GAS O2 HGB SATURATION 96 % (90-100); BLOOD GAS OXYGEN CONTENT 16.3 Vol % (12.0-20.0); BLOOD GAS PCO2 34 mmHg (38-42); BLOOD GAS PO2 95 mmHg (61-120); BLOOD GAS TOTAL HGB 12.1 G/DL (12.0-16.0); TEMP CORR TO 98.6
[2017-07-22 12:08] LABS: CRITICAL VALUE NO; DRAW SITE RT RADIAL; LITER FLOW 15 L/M; NUMBER OF ARTERIAL PUNCTURES 1; OXYGEN DEVICE NRB; STAT YES; ULNAR PULSE PRESENT
--- NOTE | 2017-07-22 12:44 | RADRPT ---
EXAM DATE/TIME: 07/22/2017 12:46 [facility] COMPARISON: CHEST SINGLE AP, July 20, 2017, 4:50. INDICATIONS : Congestion. Pulmonary fibrosis. MEDICAL HISTORY : Chronic obstructive pulmonary disease. Irregular heartbeat. SURGICAL HISTORY : None. ENCOUNTER: Initial ACUITY: 4 - 6 days PAIN SCORE: 0/10 LOCATION: chest FINDINGS: A single AP semierect portable view of the chest was obtained and again demonstrate coarse interstiti al change in both lungs consistent with the known pulmonary fibrosis. There are no new confluent infi ltrates or effusions. The heart size remains at the upper limits of normal. There are atherosclerotic changes in the aorta. There are multiple overlying electrocardiogram leads again noted. The patient is status post cholecystectomy. CONCLUSION: Stable scarring and pulmonary fibrosis with no definite evidence of pneumonia. Omid Clemente MD on July 22, 2017 at 12:41 Board Certified Radiologist. This report was verified electronically.
--- NOTE | 2017-07-22 13:26 | HHI.CCPN ---
Subjective Remarks/Hospital Course 71-year-old very pleasant white female with a history of colitis, atrial fibrillation, and colonic surgery, was admitted here in February this year with progressively and rapidly worsening shortness of breath. She has been having shortness of breath for the last 5 months. She was diagnosed with pulmonary fibrosis. She was doing well on 4 L nasal cannula oxygen at home however within the last day or 2 she was demanding more oxygen and wasn't comfortable even on 10 L per statement. Her x-ray showed the lung infiltrate and her CT scan of the chest showed extensive interstitial infiltrates. She has been seeing in the office of Dr. Narayan Luna. SUBJ 07/20: Breathing comfortably on NC 4L. Intermittently SOB, but now able to talk in full sentences. WBC improved from 22.6 to 11.1. Potassium getting replaced. 07/22 Craig called for resp distress. Placed on NRB with good sats CXR showed stable pulm fibrosis with no acute findings. Afebrile. Awake and alert. Objective Vital Signs Date Time Temp Pulse Resp B/P (MAP) Pulse Ox O2 Delivery O2 Flow Rate FiO2 07/22/17 10:53 84 Nasal Cannula 5.00 07/22/17 08:00 97.4 97 19 115/58 (77) 07/19/17 15:46 75 Intake and Output 07/22/17 07/22/17 07/23/17 08:00 16:00 00:00 Intake Total 240 ml Balance 240 ml Result Diagram: 07/22/17 0635 07/22/17 0635 Other Results Laboratory Tests Test 07/22/17 06:35 07/22/17 11:50 White Blood Count 24.3 TH/MM3 Red Blood Count 4.26 MIL/MM3 Hemoglobin 12.6 GM/DL Hematocrit 38.7 % Mean Corpuscular Volume 90.9 FL Mean Corpuscular Hemoglobin 29.6 PG Mean Corpuscular Hemoglobin Concent 32.6 % Red Cell Distribution Width 16.4 % Platelet Count 279 TH/MM3 Mean Platelet Volume 8.5 FL Neutrophils (%) (Auto) 93.9 % Lymphocytes (%) (Auto) 2.8 % Monocytes (%) (Auto) 3.3 % Eosinophils (%) (Auto) 0.0 % Basophils (%) (Auto) 0.0 % Neutrophils # (Auto) 22.8 TH/MM3 Lymphocytes # (Auto) 0.7 TH/MM3 Monocytes # (Auto) 0.8 TH/MM3 Eosinophils # (Auto) 0.0 TH/MM3 Basophils # (Auto) 0.0 TH/MM3 CBC Comment DIFF FINAL Differential Comment Blood Urea Nitrogen 15 MG/DL Creatinine 0.88 MG/DL Random Glucose 143 MG/DL Calcium Level 9.0 MG/DL Sodium Level 143 MEQ/L Potassium Level 2.5 MEQ/L Chloride Level 108 MEQ/L Carbon Dioxide Level 21.3 MEQ/L Anion Gap 14 MEQ/L Estimat Glomerular Filtration Rate 63 ML/MIN Magnesium Level 1.8 MG/DL Blood Gas Puncture Site RT RADIAL Blood Gas Patient Temperature 98.6 Blood Gas HCO3 23 mmol/L Blood Gas Base Excess -0.7 mmol/L Blood Gas Oxygen Saturation 96 % Arterial Blood pH 7.44 Arterial Blood Partial Pressure CO2 34 mmHg Arterial Blood Partial Pressure O2 95 mmHg Arterial Blood Oxygen Content 16.3 Vol % Arterial Blood Carboxyhemoglobin 1.2 % Arterial Blood Methemoglobin 0.7 % Blood Gas Hemoglobin 12.1 G/DL Oxygen Delivery Device NRB Blood Gas Liter Flow 15 L/M Imaging Last Impressions Chest X-Ray 07/22/17 0000 Signed Impressions: Service Date/Time: Saturday, July 22, 2017 12:46 - CONCLUSION: Stable scarring and pulmonary fibrosis with no definite evidence of pneumonia. Omid Cleemnte MD Chest CT 07/19/17 0000 Signed Impressions: Service Date/Time: Wednesday, July 19, 2017 18:09 - CONCLUSION: Diffuse bilateral interstitial chronic fibrotic lung disease which is honeycombed without consolidated infiltrate, nodule, mass or adenopathy.. Ozzie Lopez MD Objective Remarks GENERAL: Well-nourished, well-developed patient. SKIN: Warm and dry. HEAD: Normocephalic. EYES: No scleral icterus. No injection or drainage. NECK: Supple, trachea midline. No JVD or lymphadenopathy. CARDIOVASCULAR: Regular rate and rhythm without murmurs, gallops, or rubs. RESPIRATORY: Breath sounds equal bilaterally. No accessory muscle use. Coarse BS GASTROINTESTINAL: Abdomen soft, non-tender, nondistended. MUSCULOSKELETAL: No cyanosis, or edema. NEURO EXAM: AOx3. A/P Assessment and Plan Hypoxemic Respiratory Failure. Pulmonary fibrosis Hypokalemia Leukocytosis Elevated LFT Hypothyroidism Plan: Neuro: Awake and alert Pulm: Continue with oxygen keep sat >92% Bronchodilators, increase solumederol 60mg Q6 NIPPV PRN for resp distress Pulm is following- Dr. Banks CV: Monitor HR and BP keep MAP>65mmHg d/c IVF. On ASA, Lopressor 25mg Q12, Lipitor : Monitor renal function, electrolytes replacement per protocol. Receiving K replacement. GI: On Pepcid for GI prophylaxis. ID:Monitor for signs of infection s( Fever, WBC) Continue with empiric abx ( Levaquin). d/c Zosyn Strep pneumonia and Legionella urinary Ag negative Heme. Monitor CBC Endo: SSI with accuchecks GI prophylaxis- On Pepcid DVT prophylaxis- On Lovenox 40mg daily Level 3 Reynaldo Gutierrez MD Jul 22, 2017 13:26
[2017-07-22] MEDS ORDERED: POTASSIUM CHLORIDE 25 MEQ EFFERVESCENT TAB PO PRN (13:30)
[2017-07-22] MEDS ORDERED: MAGNESIUM SULFATE INJ 2 GM in SODIUM CHLORIDE 0.9% INJ 96 ML IV PRN (13:30)
[2017-07-22] MEDS ORDERED: POTASSIUM CHLOR 40 MEQ PREMIX 100 ML IV PRN ×2 (13:30)
[2017-07-22] MEDS ORDERED: SODIUM PHOSPHATE INJ 30 MMOL in SODIUM CHLOR 0.9% 250 ML INJ 240 ML IV PRN (13:30)
[2017-07-22] MEDS ORDERED: POTASSIUM CHLOR 20 MEQ PREMIX 100 ML IV PRN ×2 (13:30)
[2017-07-22] MEDS ORDERED: MAGNESIUM SULFATE INJ 4 GM in SODIUM CHLORIDE 0.9% INJ 92 ML IV PRN (13:30)
[2017-07-22] MEDS ORDERED: DEXTROSE 50% IN WATER 50 ML VIAL(D50) IV PUSH PRN (13:30)
[2017-07-22] MEDS ORDERED: GLUCAGON 1 MG/ML VIAL OTHER PRN (13:30)
[2017-07-22] MEDS ORDERED: POTASSIUM PHOSPHATE MONOBASIC 500 MG TAB PO/TUBE PRN (13:30)
[2017-07-22] MEDS ORDERED: MAGNESIUM OXIDE 400 MG TAB PO PRN (13:30)
[2017-07-22] MEDS ORDERED: POTASSIUM PHOSPHATE INJ 30 MMOL in SODIUM CHLOR 0.9% 250 ML INJ 250 ML IV PRN (13:30)
[2017-07-22] MEDS ORDERED: POTASSIUM PHOSPHATE MONOBASIC 500 MG TAB PO PRN (13:30)
[2017-07-22] MEDS: INSULIN NovoLIN REGULAR SUPPLEMENTAL SCALE SQ SCH ×2 (14:00→19:35)
--- NOTE | 2017-07-22 14:20 | HHI.PR ---
Subjective Remarks I was called by our nurse practitioner at 1140 to see the patient having acute respiratory failure with hypoxia O2 sat dropped to mid 80s I ordered a stat chest x-ray, ABG, held iv fluid, transferred to ICU [facility] I CAT was called Pulmonary saw the patient this morning he recommended BiPAP at night Patient looks diaphoretic she is tachypneic 21/11/25, able to answer simple question she is on nonrebreathing mask, Objective Vitals Vital Signs Date Time Temp Pulse Resp B/P (MAP) Pulse Ox O2 Delivery O2 Flow Rate FiO2 07/22/17 11:00 97.8 83 22 121/61 (81) 88 07/22/17 10:53 84 Nasal Cannula 5.00 07/22/17 08:33 Nasal Cannula 4.00 07/22/17 08:00 97.4 97 19 115/58 (77) 90 07/22/17 04:18 93 Nasal Cannula 5.00 07/22/17 04:00 Nasal Cannula 4.00 07/22/17 04:00 98.8 106 22 129/64 (85) 90 07/22/17 00:00 98.2 103 24 120/57 (78) 90 07/22/17 00:00 Nasal Cannula 4.00 Humidified 07/21/17 21:00 Nasal Cannula 5.00 Humidified 07/21/17 20:52 88 Nasal Cannula 4.00 07/21/17 20:30 Nasal Cannula 4.00 Humidified 07/21/17 20:30 112/70 (84) 07/21/17 20:00 98.0 84 20 103/70 (81) 91 07/21/17 20:00 105 07/21/17 16:00 97.5 86 18 99/61 (74) 92 I/O 07/21/17 07/21/17 07/21/17 07/22/17 07/22/17 07/22/17 07:00 15:00 23:00 07:00 15:00 23:00 Intake Total 1108 ml 960 ml 240 ml Output Total 800 ml Balance 1108 ml 160 ml 240 ml Intake Oral 240 ml 960 ml 240 ml IV Total 868 ml Output Urine Total 800 ml # Voids 3 5 1 # Bowel Movements 1 1 4 1 Result Diagram: 07/22/17 0635 07/22/1735 Objective Remarks GENERAL: This is a well-nourished, well-developed patient, in moderate respiratory distress SKIN: No rashes, lightly clammy and diaphoretic HEAD: Atraumatic. Normocephalic. EYES: Pupils equal round and reactive. Extraocular motions intact. No scleral icterus. ENT: Nose without bleeding, or drainage, Airway patent. NECK: Trachea midline. Supple CARDIOVASCULAR: Regular tachycardia RESPIRATORY: Perfuse crackles mostly at the basilar with using respiratory muscles GASTROINTESTINAL: Abdomen soft, non-tender, nondistended. Positive bowel sounds MUSCULOSKELETAL: Extremities without clubbing, cyanosis, or edema. Pedal pulses appreciated NEUROLOGICAL: Awake and alert. Moves all extremity. Normal speech.no focal neurological deficit A/P Problem List: (1) Hypotension ICD Code: I95.9 - Hypotension, unspecified (2) Community acquired bacterial pneumonia ICD Code: J15.9 - Unspecified bacterial pneumonia (3) Acute on chronic respiratory failure ICD Code: J96.20 - Acute and chronic respiratory failure, unspecified whether with hypoxia or hypercapnia Status: Resolved (4) Pulmonary fibrosis ICD Code: J84.10 - Pulmonary fibrosis, unspecified Status: Chronic Assessment and Plan Critical care note: I was called by our nurse practitioner at 1140 to see the patient having acute respiratory failure with hypoxia O2 sat dropped to mid 80s I ordered a stat chest x-ray, ABG, held iv fluid, transferred to ICU [facility] was called, came to see the patient she looked diaphoretic and tachypneic but she was able to answer simple question, O2 sat improved to above 90 on 100% nonrebreather Pulmonary saw the patient this morning he recommended BiPAP at night ABG and chest x-ray personally reviewed by me ABG was not remarkable for hypoxia but rather mild alkalosis, chest x-ray diffuse interstitial marking mostly due to pulmonary fibrosis no signs of pulmonary edema, will avoid giving Lasix, I called insurance office manager and discussed with him the case he recommended to transfer care to them for closer monitoring Critical time provided 60 minutes 72-year-old female with Acute on chronic respiratory failure due to pulmonary fibrosis Acute exacerbation of pulmonary fibrosis Community-acquired pneumonia Hypotension DVT prophylaxis Plan: Continue DuoNeb oxygen, and Solu-Medrol Pulmonary following Patient on iv fluids and Midrin, hold beta sonido On Zosyn and Levaquin SCD and heparin for DVT prophylaxis Problem Qualifiers (1) Acute on chronic respiratory failure: Qualified Codes: J96.21 - Acute and chronic respiratory failure with hypoxia Elton Hutson MD Jul 22, 2017 14:20
[2017-07-22] MEDS: FAMOTIDINE 20 MG/2 ML VIAL IV PUSH SCH (14:47)
--- NOTE | 2017-07-22 16:08 | HHI.PR ---
Subjective Remarks 72 YOWF with Hypoxic RF,PF,PN Was tr to floor Today started desaturating sat 84% on 5LNC tr back to IMC On PRB No Fever or CP Objective Vital Signs Vital Signs Date Time Temp Pulse Resp B/P (MAP) Pulse Ox O2 Delivery O2 Flow Rate FiO2 07/22/17 11:00 97.8 83 22 121/61 (81) 88 07/22/17 10:53 84 Nasal Cannula 5.00 07/22/17 08:33 Nasal Cannula 4.00 07/22/17 08:00 97.4 97 19 115/58 (77) 90 07/22/17 04:18 93 Nasal Cannula 5.00 07/22/17 04:00 Nasal Cannula 4.00 07/22/17 04:00 98.8 106 22 129/64 (85) 90 07/22/17 00:00 98.2 103 24 120/57 (78) 90 07/22/17 00:00 Nasal Cannula 4.00 Humidified 07/21/17 21:00 Nasal Cannula 5.00 Humidified 07/21/17 20:52 88 Nasal Cannula 4.00 07/21/17 20:30 Nasal Cannula 4.00 Humidified 07/21/17 20:30 112/70 (84) 07/21/17 20:00 98.0 84 20 103/70 (81) 91 07/21/17 20:00 105 I/O 07/21/17 07/21/17 07/21/17 07/22/17 07/22/17 07/22/17 07:00 15:00 23:00 07:00 15:00 23:00 Intake Total 1108 ml 960 ml 240 ml Output Total 800 ml Balance 1108 ml 160 ml 240 ml Intake Oral 240 ml 960 ml 240 ml IV Total 868 ml Output Urine Total 800 ml # Voids 3 5 1 # Bowel Movements 1 1 4 1 Result Diagram: 07/22/1735 07/22/17634 Objective Remarks GENERAL: MBMN WF sob SKIN: Warm and dry. HEAD: Normocephalic. EYES: No scleral icterus. No injection or drainage. NECK: Supple, trachea midline. No JVD or lymphadenopathy. CARDIOVASCULAR: Regular rate and rhythm without murmurs, gallops, or rubs. RESPIRATORY: Breath sounds equal bilaterally. No accessory muscle use. Insp rales GASTROINTESTINAL: Abdomen soft, non-tender, nondistended. MUSCULOSKELETAL: No cyanosis, or edema. BACK: Nontender without obvious deformity. No CVA tenderness. A/P Assessment and Plan Hypoxic RF Pulm Fibrosis with ac exac Pneumonia H/O Colitis PLAN: DW pt and her Will try High flow 02 Keep sat >88% IV Solumedrol Cont Abx Gurinder Banks MD Jul 22, 2017 16:07
[2017-07-22] MEDS: methylPREDNISolone SOD SUCC 125 MG/2 ML VIAL IV PUSH SCH (18:22)
[2017-07-22] MEDS: LEVOFLOXACIN 750 MG PREMIX INJ 150 ML IV SCH (18:23)
[2017-07-22] MEDS: ENOXAPARIN SODIUM 40 MG/0.4 ML SYRINGE SQ SCH (18:23)
[2017-07-22] MEDS: ATORVASTATIN 20 MG TAB PO SCH (19:30)
[2017-07-22 20:09] LABS: POTASSIUM 3.3 MEQ/L (3.5-5.1)
[2017-07-23] VITALS (24 sets, daily range): BP systolic 71–201; BP diastolic 51–117; PULSE 91–129; RESP 20–50; TEMP 98–98.8; O2SAT 76–90
[2017-07-23] MEDS: methylPREDNISolone SOD SUCC 125 MG/2 ML VIAL IV PUSH SCH ×2 (00:38→05:42)
[2017-07-23] MEDS: FAMOTIDINE 20 MG/2 ML VIAL IV PUSH SCH (02:00)
[2017-07-23] MEDS: INSULIN NovoLIN REGULAR SUPPLEMENTAL SCALE SQ SCH ×2 (02:00→08:00)
[2017-07-23] MEDS: ALPRAZolam 0.25 MG TAB PO PRN (02:41)
[2017-07-23] MEDS: RESP: ALBUTEROL 2.5 MG/IPRATROPIUM 0.5 MG NEB (SCH) NEB ×2 (03:47→09:44)
[2017-07-23] MEDS: CHLORHEXIDINE GLUCONATE 2 % 1 PACK (2 CLOTHS) TOP SCH (04:00)
[2017-07-23 04:19] LABS: HEMATOCRIT 41.9 % (35.0-46.0); MEAN CELL VOLUME 89.9 FL (80.0-100.0); MEAN CORPUSCULAR HEMOGLOBIN 29.5 PG (27.0-34.0); MEAN CORPUSCULAR HGB CONC 32.8 % (32.0-36.0); PLATELET COUNT 245 TH/MM3 (150-450); RED BLOOD COUNT 4.66 MIL/MM3 (4.00-5.30); RED CELL DISTRIBUTION WIDTH 16.6 % (11.6-17.2); WHITE BLOOD COUNT 30.3 TH/MM3 (4.0-11.0)
[2017-07-23 04:34] LABS: HEMO FLAGS AUTO DIFF
[2017-07-23 04:46] LABS: ALKALINE PHOSPHATASE 66 U/L (45-117); ALT (GPT) 156 U/L (10-53); ANION GAP 9 MEQ/L (5-15); AST (GOT) 131 U/L (15-37); BLOOD UREA NITROGEN 19 MG/DL (7-18); CHLORIDE 111 MEQ/L (98-107); GLOMERULAR FILTRATION RATE 78 ML/MIN (>89); MAGNESIUM 1.8 MG/DL (1.5-2.5); POTASSIUM 3.7 MEQ/L (3.5-5.1); SODIUM (NA) 143 MEQ/L (136-145); TOTAL BILIRUBIN ADULT 1.1 MG/DL (0.2-1.0)
[2017-07-23 05:23] LABS: CORRECTED NUCLEATED RBC 1 /100 WBC (0-0); PLATELET ESTIMATE SMEAR NORMAL (NORMAL); PLATELET MORPHOLOGY NORMAL (NORMAL); POLYS (SEG NEUTROPHILS) 99 % (16-70); SCAN/DIFF FINAL DIFF MANUAL; WBC DIFF SAMPLE 100
[2017-07-23] MEDS: LEVOTHYROXINE SODIUM 75 MCG TAB PO SCH (05:42)
[2017-07-23] MEDS ORDERED: ETOMIDATE 20 MG/10 ML VIAL IV PUSH ONE (07:00)
[2017-07-23] MEDS ORDERED: PROPOFOL 1000 MG/100 ML INJ 100 ML IV PRN (07:00)
[2017-07-23] MEDS ORDERED: ETOMIDATE 40 MG/20 ML VIAL ONE (07:07)
[2017-07-23] MEDS ORDERED: PROPOFOL 500 MG/50 ML INJ 50 ML ONE (07:08)
--- NOTE | 2017-07-23 07:39 | HHI.CCPN ---
Subjective Remarks/Hospital Course 71-year-old very pleasant white female with a history of colitis, atrial fibrillation, and colonic surgery, was admitted here in February this year with progressively and rapidly worsening shortness of breath. She has been having shortness of breath for the last 5 months. She was diagnosed with pulmonary fibrosis. She was doing well on 4 L nasal cannula oxygen at home however within the last day or 2 she was demanding more oxygen and wasn't comfortable even on 10 L per statement. Her x-ray showed the lung infiltrate and her CT scan of the chest showed extensive interstitial infiltrates. She has been seeing in the office of Dr. Naryaan Luna. SUBJ 07/20: Breathing comfortably on NC 4L. Intermittently SOB, but now able to talk in full sentences. WBC improved from 22.6 to 11.1. Potassium getting replaced. 07/22 Craig called for resp distress. Placed on NRB with good sats CXR showed stable pulm fibrosis with no acute findings. Afebrile. Awake and alert. 07/23 Patient was placed on BIPAP overnight with 100% FIO2. Patient is tachycardic , tachypneic and hypoxic after discussion with patient and her she was agrreable to intubation. Patient was subsequently intubated and placed on mechanical ventilation. Objective Vital Signs Date Time Temp Pulse Resp B/P (MAP) Pulse Ox O2 Delivery O2 Flow Rate FiO2 07/23/17 06:00 93 07/23/17 04:17 90 100 07/23/17 04:00 98.8 33 119/82 (94) 07/22/17 20:21 BiPAP 07/22/17 10:53 5.00 Intake and Output 07/23/17 07/23/17 07/24/17 08:00 16:00 00:00 Intake Total 300 ml Balance 300 ml Result Diagram: 07/23/17 0344 07/23/17 0344 Other Results Laboratory Tests Test 07/22/17 11:50 07/22/17 18:01 07/23/17 03:44 Blood Gas Puncture Site RT RADIAL Blood Gas Patient Temperature 98.6 Blood Gas HCO3 23 mmol/L Blood Gas Base Excess -0.7 mmol/L Blood Gas Oxygen Saturation 96 % Arterial Blood pH 7.44 Arterial Blood Partial Pressure CO2 34 mmHg Arterial Blood Partial Pressure O2 95 mmHg Arterial Blood Oxygen Content 16.3 Vol % Arterial Blood Carboxyhemoglobin 1.2 % Arterial Blood Methemoglobin 0.7 % Blood Gas Hemoglobin 12.1 G/DL Oxygen Delivery Device NRB Blood Gas Liter Flow 15 L/M Potassium Level 3.3 MEQ/L 3.7 MEQ/L Phosphorus Level 2.2 MG/DL 2.6 MG/DL White Blood Count 30.3 TH/MM3 Red Blood Count 4.66 MIL/MM3 Hemoglobin 13.8 GM/DL Hematocrit 41.9 % Mean Corpuscular Volume 89.9 FL Mean Corpuscular Hemoglobin 29.5 PG Mean Corpuscular Hemoglobin Concent 32.8 % Red Cell Distribution Width 16.6 % Platelet Count 245 TH/MM3 Mean Platelet Volume 8.4 FL CBC Comment AUTO DIFF Differential Total Cells Counted 100 Neutrophils % (Manual) 99 % Monocytes % 1 % Neutrophils # (Manual) 30.0 TH/MM3 Nucleated Red Blood Cells 1 /100 WBC Differential Comment FINAL DIFF MANUAL Platelet Estimate NORMAL Platelet Morphology Comment NORMAL Blood Urea Nitrogen 19 MG/DL Creatinine 0.73 MG/DL Random Glucose 120 MG/DL Total Protein 6.5 GM/DL Albumin 2.6 GM/DL Calcium Level 8.9 MG/DL Magnesium Level 1.8 MG/DL Alkaline Phosphatase 66 U/L Aspartate Amino Transf (AST/SGOT) 131 U/L Alanine Aminotransferase (ALT/SGPT) 156 U/L Total Bilirubin 1.1 MG/DL Sodium Level 143 MEQ/L Chloride Level 111 MEQ/L Carbon Dioxide Level 23.0 MEQ/L Anion Gap 9 MEQ/L Estimat Glomerular Filtration Rate 78 ML/MIN Imaging Last Impressions Chest X-Ray 07/22/17 0000 Signed Impressions: Service Date/Time: Saturday, July 22, 2017 12:46 - CONCLUSION: Stable scarring and pulmonary fibrosis with no definite evidence of pneumonia. Omid Clemente MD Chest CT 07/19/17 0000 Signed Impressions: Service Date/Time: Wednesday, July 19, 2017 18:09 - CONCLUSION: Diffuse bilateral interstitial chronic fibrotic lung disease which is honeycombed without consolidated infiltrate, nodule, mass or adenopathy.. Ozzie Lopez MD Objective Remarks GENERAL: Patient is 72 yo intubated for resp failure SKIN: Warm and dry. HEAD: Normocephalic. EYES: No scleral icterus. No injection or drainage. NECK: Supple, trachea midline. No JVD or lymphadenopathy. CARDIOVASCULAR: Tachycardic without murmurs, gallops, or rubs. RESPIRATORY: Breath sounds equal bilaterally. No accessory muscle use. Coarse BS GASTROINTESTINAL: Abdomen soft, non-tender, nondistended. MUSCULOSKELETAL: No cyanosis, or edema. NEURO: Intubated A/P Assessment and Plan Hypoxemic Respiratory Failure.- Intubated Pulmonary fibrosis Hypokalemia Leukocytosis Elevated LFT Hypothyroidism Plan: Neuro: Diprivan infusion for sedation. Daily sedation vacation. Pulm: Continue with vent support keep sat >92% Bronchodilators solumederol 60mg Q6 Check CXR abd ABG post intubation Pulm is following- Dr. Banks CV: Monitor HR and BP keep MAP>65mmHg On ASA, Lopressor 25mg Q12, Lipitor : Monitor renal function, electrolytes replacement per protocol. GI: On Pepcid for GI prophylaxis. Start tube feeds- Glucerna 1.5 with goal rate 45ml/hr Monitor LFT's, check US liver ID:Monitor for signs of infection s( Fever, WBC) Change abx to Aztreonam and Vanco. d/c Levaquin Strep pneumonia and Legionella urinary Ag negative Check BC, sputum cx, and UA with cx if indicated. Heme. Monitor CBC Endo: SSI with accuchecks GI prophylaxis- On Pepcid DVT prophylaxis- On Lovenox 40mg daily Palliative care eval to asses with goals of care Level 3 Reynaldo Gutierrez MD Jul 23, 2017 07:38
[2017-07-23] MEDS: CHLORHEXIDINE 0.12% (ORAL KIT) 15 ML CUP MT SCH (08:00)
[2017-07-23] MEDS ORDERED: VANCOMYCIN INJ 1,000 MG in SODIUM CHLOR 0.9% 250 ML INJ 250 ML IV SCH (08:00)
[2017-07-23] MEDS ORDERED: fentaNYL DRIP 250 ML IV PRN (08:15)
--- NOTE | 2017-07-23 08:26 | RADRPT ---
EXAM DATE/TIME: 07/23/2017 07:42 [facility] COMPARISON: CHEST SINGLE AP, July 22, 2017, 12:46. INDICATIONS : Post intubation. MEDICAL HISTORY : Chronic obstructive pulmonary disease. Irregular heartbeat SURGICAL HISTORY : None. ENCOUNTER: Subsequent ACUITY: 3 days PAIN SCORE: Non-responsive. LOCATION: Bilateral chest FINDINGS: ETT is approximately 1 cm above the alessia. Redemonstration of diffuse interstitial prominence. No ne w focal consolidation or significant pleural effusion. Cardiomediastinal contours are stable. Remaind er of exam is unchanged. CONCLUSION: 1. ETT approximately 1 cm above the alessia. 2. Stable diffuse interstitial prominence consistent with history of pulmonary fibrosis. 3. Otherwise, no interval change. Raymundo Christie MD on July 23, 2017 at 8:23 Board Certified Radiologist. This report was verified electronically.
[2017-07-23 08:57] LABS: BLOOD GAS BASE EXCESS -6.2 mmol/L (-2-2); BLOOD GAS CARBOXYHEMOGLOBIN 1.1 % (0-4); BLOOD GAS HCO3 19 mmol/L (22-26); BLOOD GAS O2 HGB SATURATION 76 % (90-100); BLOOD GAS OXYGEN CONTENT 15.3 Vol % (12.0-20.0); BLOOD GAS PCO2 39 mmHg (38-42); BLOOD GAS PO2 50 mmHg (61-120); BLOOD GAS TOTAL HGB 14.3 G/DL (12.0-16.0); CRITICAL VALUE YES; OXYGEN DEVICE VENTILATOR; TEMP CORR TO 98.6
[2017-07-23 08:59] LABS: DRAW SITE RT RADIAL; FIO2 100 %; NUMBER OF ARTERIAL PUNCTURES 1; STAT NO; ULNAR PULSE PRESENT; VENT SETTINGS SEE COMMENTS
[2017-07-23] MEDS ORDERED: AZTREONAM INJ 1,000 MG in SODIUM CHLORIDE 0.9% INJ 100 ML IV SCH (09:00)
[2017-07-23] MEDS: ASPIRIN 81 MG CHEW TAB CHEW SCH (09:06)
[2017-07-23] MEDS: METOPROLOL TARTRATE 25 MG TAB PO SCH (09:06)
[2017-07-23] MEDS: SODIUM CHLORIDE 0.9% FLUSH 10 ML FLUSH IV FLUSH SCH (09:07)
--- NOTE | 2017-07-23 09:39 | RADRPT ---
EXAM DATE/TIME: 07/23/2017 08:50 [facility] COMPARISON: US ABDOMEN - LIVER, March 24, 2017, 15:32. INDICATIONS : Increased lab values. MEDICAL HISTORY : COPD. Dyspnea. UTI. Depression. Anxiety. MRSA. Cdiff. Anticoagulant therapy, Aspirin 81mg. SURGICAL HISTORY : Colon resection. Hysterectomy. Cholecystectomy. Colostomy and reversal. Blood transfusions. ENCOUNTER: Subsequent ACUITY: 1 day PAIN SCORE: Nonresponsive. LOCATION: Bilateral upper quadrant MEASUREMENTS: LIVER: 13.4 cm length COMMON DUCT: 3 mm RIGHT KIDNEY: 9.9 x 4.6 x 6.4 cm SPLEEN: 7.3 cm length FINDINGS: LIVER: Normal echotexture without focal lesion or ductal dilatation. COMMON DUCT: No intraluminal mass or stone visualized. GALLBLADDER: Cholecystectomy. PANCREAS: The visualized portions are within normal limits. RIGHT KIDNEY: No hydronephrosis, stone or mass. SPLEEN: No focal lesion. CONCLUSION: Negative abdominal sonogram. Common bile duct is normal dimension. Eusebio Brush MD on July 23, 2017 at 9:34 Board Certified Radiologist. This report was verified electronically.
[2017-07-23] MEDS: RESP: BUDESONIDE 0.5 MG/2 ML NEB NEB SCH (09:44)
[2017-07-23] MEDS ORDERED: BUMETANIDE INJ 1 MG/4 ML VIAL IV PUSH ONE (10:00)
[2017-07-23 10:21] LABS: BACTERIA, URINE OCC /hpf; BLOOD, URINE TRACE (NEG); GLUCOSE,URINE NEG (NEG); HYALINE CAST, URINE 3 /lpf (RARE); KETONE, URINE TRACE mg/dL (NEG); NITRITE,URINE NEG (NEG); URINE COLOR YELLOW (YELLW/STRAW)
[2017-07-23 10:23] LABS: COMMENT (UR) CATH-CULTURE IND; CULTURE IF INDICATED CATH CULTURE IND
[2017-07-23] MEDS ORDERED: NOREPINEPHRINE-DEXTROSE DRIP 250 ML IV ONE (11:06)
[2017-07-23] MEDS ORDERED: ATROPINE SULFATE 1 MG/10 ML SYRINGE ONE (11:07)
--- NOTE | 2017-07-23 11:15 | PD.CONS ---
Consult Service Palliative Care Consult Requested By Dr. Mitchell. . Primary Care Physician Narayan Raymundo DO . Reason for Consultation a. To assist with evaluation and management of symptoms including: dyspnea and debility b. To assist medical decision maker(s) with: better understanding of current medical conditions; weighing benefits/burdens of medical treatment options; making medical treatment decisions. (Tatianna,Shelby NAM) HPI History of Present Illness The patient is a 72 year old female with a past medical history significant for pulmonary fibrosis who presented to the ED on 07/19/17 via EMS for increasing shortness of breath for the past 2 days. Patient denied any fever, chills, or chest pain. Of note the patient was recently hospitalized in February for pneumonia and she is oxygen dependent at home. * ED workup: Vital signs: T:99.7, HR:121, RR:30, BP:131/78, SPO2:87% on 10L nonrebreather. Significant laboratory data included: WBC:22.6, Hb.9, Na:133 , Creatinine:1.16, eGFR:46, AST:46, ALT:58, Total protein:8.7, Albumin:3.3. Chest CT: Diffuse bilateral interstitial chronic fibrotic lung disease which is honeycombed without consolidated infiltrated, nodule, mass or adenopathy. Chest CXR: Right lower lobe infiltrate. Worsening chronic interstitial changes. Cardiomegaly. ECG: Sinus tachycardia. Patient was placed on Bipap and admitted to the ICU for hypoxemic respiratory failure and bacterial pneumonia. * After arrival to ICU under critical care management sputum, urine, blood cultures were ordered as well as broad spectrum antibiotics and steroids. Pulmonology consulted, Dr. Banks. * Pulmonology discussed with patient and her intubation, patient endorsed she wanted everything to be done including intubation if necessary. * 07/20: Patient responding to treatment, weaned down to 4L NC, leukocytosis improving WBCs down to 11.1. Patient transferred to medical surgical floor with telemetry. * 07/22: [facility] called for the patient due to respiratory distress and hypoxia , placed on NRB, f/u chest CXR stable. Transferred to ICU for close monitoring. * 07/23: Patient was placed on BiPAP overnight, she then became tachycardic, tachypneic and hypoxic. Critical care again discussed intubation with the patient and her at which point they both agreed to intubation. The patient was subsequently intubated and placed on mechanical ventilation. Palliative care was consulted to assist with goals of care. * (Shelby Campuzano) History of Present Illness I was stopped by Dr. Mitchell and asked to see the patient as spouse was expected to arrive. Patient had a jonh arrest earlier this morning and then Coded a second time. Patient has underlying severe pulmonary fibrosis and despite aggressive measures, mechanical ventilation FiO2 100%, with oxygen saturation in the 50-60%. Patient is not expected to survive. Srikanth arrived to bedside, medical update provided.Explained patient heart was slowing again, as she was again dropping in the 50s. elected not to proceed with CODE again. Facilities Engineer was at bedside. Son, Buddy called and placed phone to patient ear to say his good-byes. Offered support. Patient peacefully with at bedside. (Zainab Wharton) Review of Systems ROS Limitations: Clinical Condition, Intubated (ROS obtained from review of EMR upon patient's ED presentation) Constitutional: DENIES: Fever, Chills Respiratory: COMPLAINS OF: Shortness of breath Cardiovascular: COMPLAINS OF: Dyspnea on Exertion, DENIES: Chest pain (Shelby Campuzano) Past Family Social History Coded Allergies: cefaclor (Verified Allergy, Severe, Rash, 07/19/17) codeine (Verified Allergy, Severe, Rash, 07/19/17) Past Medical History Pulmonary fibrosis COPD Colitis C diff Atrial fibrillation Hypothyroidism GERD Anxiety Depression Past Surgical History Colectomy and reversal Irasema procedure Cholecystectomy Hysterectomy Reported Medications Reported Meds & Active Scripts Active Levothyroxine (Levothyroxine Sodium) 75 Mcg Tab 75 Mcg PO DAILY Pulmicort Respules (Budesonide) 0.5 Mg/2 Ml Neb 0.5 Mg NEB Q12HR NEB Metoprolol Tartrate 25 Mg Tab 25 Mg PO Q12HR Prednisone 10 Mg Tab 10 Mg PO DAILY Spiriva Handihaler (Tiotropium Inh) 18 Mcg Cap 18 Mcg INH DAILY Xanax (Alprazolam) 0.25 Mg Tab 0.25 Mg PO Q8H PRN Reported Sertraline (Sertraline HCl) 100 Mg Tab 100 Mg PO DAILY Omeprazole 40 Mg Cap 40 Mg PO DAILY Multiple Vitamin 1 Tab 1 Tab PO DAILY Lactobacillus Acidophilus 1 Pkt 1 Pkt PO TID Atorvastatin (Atorvastatin Calcium) 20 Mg Tab 20 Mg PO HS Aspirin 81 Mg Chew 81 Mg CHEW DAILY Apriso (Mesalamine) 0.375 Gm Caper 1.5 Gm PO DAILY Current Medications Medications (Trade) Dose Ordered Sig/Namrata Route Start Time Stop Time Status Last Admin (Aspirin Chew) 81 mg DAILY CHEW 07/20/17 09:00 07/23/17 09:06 (Lipitor) 20 mg HS PO 07/19/17 21:00 07/22/17 19:30 (Pulmicort Respule Neb) 0.5 mg Q12HR NEB NEB 07/19/17 20:00 07/23/17 09:44 (Synthroid) 75 mcg DAILY@0600 PO 07/20/17 06:00 07/23/17 05:42 (Lopressor) 25 mg Q12HR PO 07/19/17 21:00 07/23/17 09:06 Patient Own Medication PT OWN MED: (Mesalam... DAILY PO 07/20/17 09:00 Future Hold (NS Flush) 2 ml UNSCH PRN IV FLUSH 07/19/17 17:15 07/21/17 23:49 (NS Flush) 2 ml BID IV FLUSH 07/19/17 21:00 07/23/17 09:07 (Duoneb Neb) 1 ampule Q6HR NEB NEB 07/19/17 22:00 07/23/17 09:44 (Duoneb Neb) 1 ampule Q4HR NEB PRN INH 07/19/17 17:15 07/21/17 22:00 (Peridex 0.12% Liq) 15 ml BID@08,20 MT 07/19/17 20:00 07/23/17 08:00 (Lovenox Inj) 40 mg Q24H SQ 07/19/17 18:00 07/22/17 18:23 Miscellaneous Information 1 Q361D XX 07/19/17 17:15 (Chlorhexidine 2% Cloth) 3 pack Taper DAILY@04 TOP 07/20/17 04:00 07/16/18 03:59 07/23/17 04:00 (Chlorhexidine 2% Cloth) 3 pack UNSCH PRN TOP 07/19/17 17:15 (Xanax) 0.25 mg Q8H PRN PO 07/19/17 18:30 07/23/17 02:41 (SoluMEDROL INJ) 60 mg Q6H IV PUSH 07/22/17 18:00 07/23/17 05:42 Potassium Chloride 100 ml @ 50 mls/hr Q2H PRN IV 07/22/17 13:30 Potassium Chloride 100 ml @ 50 mls/hr Q2H PRN IV 07/22/17 13:30 (K-Lyte Cl Eff) 50 meq UNSCH PRN PO 07/22/17 13:30 Potassium Chloride 100 ml @ 25 mls/hr UNSCH PRN IV 07/22/17 13:30 Potassium Chloride 100 ml @ 50 mls/hr Q2H PRN IV 07/22/17 13:30 Magnesium Sulfate 4 gm/Sodium Chloride 100 ml @ 50 mls/hr UNSCH PRN IV 07/22/17 13:30 (Mag-Ox) 800 mg UNSCH PRN PO 07/22/17 13:30 Magnesium Sulfate 2 gm/Sodium Chloride 100 ml @ 50 mls/hr UNSCH PRN IV 07/22/17 13:30 (K-Phos) 2,000 mg Q4H PRN PO 07/22/17 13:30 07/22/17 14:47 Sodium Phosphate 30 mmol/Sodium Chloride 250 ml @ 42 mls/hr UNSCH PRN IV 07/22/17 13:30 (K-Phos) 2,000 mg UNSCH PRN PO/TUBE 07/22/17 13:30 Potassium Phosphate 30 mmol/ Sodium Chloride 260 ml @ 42 mls/hr UNSCH PRN IV 07/22/17 13:30 (D50w (Vial) Inj) 50 ml UNSCH PRN IV PUSH 07/22/17 13:30 (Glucagon Inj) 1 mg UNSCH PRN OTHER 07/22/17 13:30 (NovoLIN R SUPPLEMENTAL SCALE) 1 Q6H SQ 07/22/17 14:00 (Pepcid Inj) 10 mg Q12H IV PUSH 07/22/17 15:00 07/23/17 02:00 Propofol 100 ml @ 9.195 mls/ hr TITRATE PRN IV 07/23/17 07:00 07/23/17 09:14 Vancomycin HCl 1000 mg/Sodium Chloride 250 ml @ 250 mls/hr Q12H IV 07/23/17 08:00 07/23/17 09:05 Aztreonam 1000 mg/ Sodium Chloride 100 ml @ 200 mls/hr Q8H IV 07/23/17 09:00 07/23/17 09:07 Fentanyl Citrate 250 ml @ 10 mls/hr TITRATE PRN IV 07/23/17 08:15 07/23/17 09:07 Substance Use Tobacco: Former smoker, smoked one pack a day for 48 years, she quit one year ago Alcohol: Occasional. Prescription med abuse: None reported. Illicits: None reported. . Psychosocial History Patient originally from [place], moved to [place] in 1982. Patient has been for 52 years. She has two sons. 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 Spiritual/Cultural Factors Denominational. . (Shelby Campuzano) Physical Exam Vital Signs Date Time Temp Pulse Resp B/P (MAP) Pulse Ox O2 Delivery O2 Flow Rate FiO2 07/23/17 10:00 91 07/23/17 10:00 91 20 71/52 (58) 80 07/23/17 09:30 103 27 77/56 (63) 77 07/23/17 09:00 101 31 104/61 (75) 79 07/23/17 08:30 100 29 95/66 (76) 80 07/23/17 08:05 98 30 88/52 (64) 80 07/23/17 08:00 95 07/23/17 08:00 95 07/23/17 08:00 98.0 95 32 81 07/23/17 07:30 93 32 80/51 (61) 81 07/23/17 07:24 101 34 130/74 (92) 81 07/23/17 07:22 99 25 119/82 (94) 81 07/23/17 07:19 101 25 97/81 (86) 81 07/23/17 07:15 81 Ventilator 100 07/23/17 07:15 81 100 07/23/17 07:15 111 31 93/68 (76) 76 07/23/17 07:15 100 07/23/17 07:13 107 40 123/81 (95) 79 07/23/17 07:00 118 50 139/100 (113) 82 07/23/17 06:30 98 37 88 07/23/17 06:01 99 40 132/86 (101) 86 07/23/17 06:00 101 39 86 07/23/17 06:00 93 07/23/17 05:30 106 38 86 07/23/17 05:16 103 42 159/70 (99) 86 07/23/17 05:01 129 35 201/117 (145) 84 07/23/17 05:00 118 33 80 07/23/17 04:17 90 100 07/23/17 04:00 98.8 94 33 119/82 (94) 89 07/23/17 04:00 94 07/23/17 02:00 98 07/23/17 00:00 98.3 92 40 123/91 (102) 90 07/23/17 00:00 93 07/22/17 23:55 90 100 07/22/17 22:00 92 07/22/17 20:21 92 BiPAP 100 07/22/17 20:17 93 100 07/22/17 20:00 98.3 118 64 132/98 (109) 80 07/22/17 20:00 118 07/22/17 19:00 Bi-Pap 07/22/17 18:00 100 07/22/17 16:00 97.6 07/22/17 14:00 97.9 07/22/17 12:00 99.8 07/22/17 11:00 97.8 83 22 121/61 (81) 88 07/23/17 07/24/17 19:00 07:00 Intake Total 400 ml Balance 400 ml IV Total 400 ml (Shelby Campuzano) Exam GENERAL: This is an elderly, critically, chronically ill appearing patient. SKIN: Cool to touch. HEAD: Normocephalic. EYES: Eyes closed. NECK: Supple, trachea midline. CARDIOVASCULAR: Bradycardic rate 50s and dropping. RESPIRATORY: Course breath sounds bilaterally. Diminished breath sounds. GASTROINTESTINAL: Abdomen soft, non-tender, nondistended. MUSCULOSKELETAL: mottling noted. NEURO: Intubated. . (Zainab Wharton) Diagnostic Tests Laboratory Laboratory Tests Test 07/22/17 06:35 07/22/17 11:50 07/22/17 18:01 07/23/17 03:44 White Blood Count 24.3 TH/MM3 (4.0-11.0) 30.3 TH/MM3 (4.0-11.0) Red Blood Count 4.26 MIL/MM3 (4.00-5.30) 4.66 MIL/MM3 (4.00-5.30) Hemoglobin 12.6 GM/DL (11.6-15.3) 13.8 GM/DL (11.6-15.3) Hematocrit 38.7 % (35.0-46.0) 41.9 % (35.0-46.0) Mean Corpuscular Volume 90.9 FL (80.0-100.0) 89.9 FL (80.0-100.0) Mean Corpuscular Hemoglobin 29.6 PG (27.0-34.0) 29.5 PG (27.0-34.0) Mean Corpuscular Hemoglobin Concent 32.6 % (32.0-36.0) 32.8 % (32.0-36.0) Red Cell Distribution Width 16.4 % (11.6-17.2) 16.6 % (11.6-17.2) Platelet Count 279 TH/MM3 (150-450) 245 TH/MM3 (150-450) Mean Platelet Volume 8.5 FL (7.0-11.0) 8.4 FL (7.0-11.0) Neutrophils (%) (Auto) 93.9 % (16.0-70.0) Lymphocytes (%) (Auto) 2.8 % (9.0-44.0) Monocytes (%) (Auto) 3.3 % (0.0-8.0) Eosinophils (%) (Auto) 0.0 % (0.0-4.0) Basophils (%) (Auto) 0.0 % (0.0-2.0) Neutrophils # (Auto) 22.8 TH/MM3 (1.8-7.7) Lymphocytes # (Auto) 0.7 TH/MM3 (1.0-4.8) Monocytes # (Auto) 0.8 TH/MM3 (0-0.9) Eosinophils # (Auto) 0.0 TH/MM3 (0-0.4) Basophils # (Auto) 0.0 TH/MM3 (0-0.2) CBC Comment DIFF FINAL AUTO DIFF Differential Comment FINAL DIFF MANUAL Blood Urea Nitrogen 15 MG/DL (7-18) 19 MG/DL (7-18) Creatinine 0.88 MG/DL (0.50-1.00) 0.73 MG/DL (0.50-1.00) Random Glucose 143 MG/DL (74-106) 120 MG/DL (74-106) Calcium Level 9.0 MG/DL (8.5-10.1) 8.9 MG/DL (8.5-10.1) Sodium Level 143 MEQ/L (136-145) 143 MEQ/L (136-145) Potassium Level 2.5 MEQ/L (3.5-5.1) 3.3 MEQ/L (3.5-5.1) 3.7 MEQ/L (3.5-5.1) Chloride Level 108 MEQ/L (98-107) 111 MEQ/L (98-107) Carbon Dioxide Level 21.3 MEQ/L (21.0-32.0) 23.0 MEQ/L (21.0-32.0) Anion Gap 14 MEQ/L (5-15) 9 MEQ/L (5-15) Estimat Glomerular Filtration Rate 63 ML/MIN (>89) 78 ML/MIN (>89) Magnesium Level 1.8 MG/DL (1.5-2.5) 1.8 MG/DL (1.5-2.5) Blood Gas Puncture Site RT RADIAL Blood Gas Patient Temperature 98.6 Blood Gas HCO3 23 mmol/L (22-26) Blood Gas Base Excess -0.7 mmol/L (-2-2) Blood Gas Oxygen Saturation 96 % (90-100) Arterial Blood pH 7.44 (7.380-7.420) Arterial Blood Partial Pressure CO2 34 mmHg (38-42) Arterial Blood Partial Pressure O2 95 mmHg (61-120) Arterial Blood Oxygen Content 16.3 Vol % (12.0-20.0) Arterial Blood Carboxyhemoglobin 1.2 % (0-4) Arterial Blood Methemoglobin 0.7 % (0-2) Blood Gas Hemoglobin 12.1 G/DL (12.0-16.0) Oxygen Delivery Device NRB Blood Gas Liter Flow 15 L/M Phosphorus Level 2.2 MG/DL (2.5-4.9) 2.6 MG/DL (2.5-4.9) Differential Total Cells Counted 100 Neutrophils % (Manual) 99 % (16-70) Monocytes % 1 % (0-8) Neutrophils # (Manual) 30.0 TH/MM3 (1.8-7.7) Nucleated Red Blood Cells 1 /100 WBC (0-0) Platelet Estimate NORMAL (NORMAL) Platelet Morphology Comment NORMAL (NORMAL) Total Protein 6.5 GM/DL (6.4-8.2) Albumin 2.6 GM/DL (3.4-5.0) Alkaline Phosphatase 66 U/L (45-117) Aspartate Amino Transf (AST/SGOT) 131 U/L (15-37) Alanine Aminotransferase (ALT/SGPT) 156 U/L (10-53) Total Bilirubin 1.1 MG/DL (0.2-1.0) Test 07/23/17 08:40 07/23/17 08:46 Urine Color YELLOW (YELLW/STRAW) Urine Turbidity CLEAR (CLEAR) Urine pH 6.0 (5.0-8.5) Urine Specific [place] 1.028 (1.002-1.035) Urine Protein 30 mg/dL (NEG-TRACE) Urine Glucose (UA) NEG mg/dL (NEG) Urine Ketones TRACE mg/dL (NEG) Urine Occult Blood TRACE (NEG) Urine Nitrite NEG (NEG) Urine Bilirubin NEG (NEG) Urine Urobilinogen LESS THAN 2.0 MG/DL (LESS Urine Leukocyte Esterase NEG (NEG) Urine RBC 1 /hpf (0-3) Urine WBC 1 /hpf (0-5) Urine Bacteria OCC /hpf (NONE) Urine Hyaline Casts 3 /lpf (RARE) Urine Yeast (Budding) OCC (NONE) Microscopic Urinalysis Comment CATH-CULTURE IND Blood Gas Puncture Site RT RADIAL Blood Gas Patient Temperature 98.6 Blood Gas HCO3 19 mmol/L (22-26) Blood Gas Base Excess -6.2 mmol/L (-2-2) Blood Gas Oxygen Saturation 76 % (90-100) Arterial Blood pH 7.31 (7.380-7.420) Arterial Blood Partial Pressure CO2 39 mmHg (38-42) Arterial Blood Partial Pressure O2 50 mmHg (61-120) Arterial Blood Oxygen Content 15.3 Vol % (12.0-20.0) Arterial Blood Carboxyhemoglobin 1.1 % (0-4) Arterial Blood Methemoglobin 1.0 % (0-2) Blood Gas Hemoglobin 14.3 G/DL (12.0-16.0) Oxygen Delivery Device VENTILATOR Blood Gas Ventilator Setting SEE COMMENTS Blood Gas Inspired Oxygen 100 % (TatiannaShelby Kailey NAM) Result Diagram: 07/23/17 0344 07/23/17 0344 Microbiology Microbiology Date/Time Source Procedure Growth Status 07/23/17 08:40 Urine Catheterized Urine Urine Culture Pending Received Imaging Last 72 hours Impressions Liver Ultrasound 07/23/17 0000 Signed Impressions: Service Date/Time: Sunday, July 23, 2017 08:50 - CONCLUSION: Negative abdominal sonogram. Common bile duct is normal dimension. Eusebio Brush MD Chest X-Ray 07/23/17 0000 Signed Impressions: Service Date/Time: Sunday, July 23, 2017 07:42 - CONCLUSION: 1. ETT approximately 1 cm above the alessia. 2. Stable diffuse interstitial prominence consistent with history of pulmonary fibrosis. 3. Otherwise, no interval change. Raymundo Christie MD Chest X-Ray 07/22/17 0000 Signed Impressions: Service Date/Time: Saturday, July 22, 2017 12:46 - CONCLUSION: Stable scarring and pulmonary fibrosis with no definite evidence of pneumonia. Omid Clemente MD Procedures 07/23/17: Intubated (Shelby Campuzano) Patient/Family Conference Present at Family Conference: Met with spouse, Buddy "Srikanth'" at bedside. Also spoke with son, Buddy who lives in [place] via phone. . Family Conference Time (mins): 45 (at bedside with spouse and on phone with son. ) Family Conference Location: Bedside, Telephone Issues Discussed: Medical update provided. Explained patient is actively dying and reviewed options of continued aggressive care including FULL CODE vs transition to comfort measures and NO CODE status. Spouse elects NO CODE. Son is aware patient is dying and phone brought to room for son to be able to say his good- byes. Offered support. Facilities Engineer present. . (Zainab Wharton) Assessment and Plan Disease Oriented Problem List: (1) Pulmonary fibrosis (2) COPD (chronic obstructive pulmonary disease) (3) Acute on chronic respiratory failure Symptom Scale: (1) Dyspnea (2) Debility Pertinent Non-Medical Issues Psychosocial: Patient originally from [place], moved to [place] in 1982. Patient has been for 52 years. She has two sons. 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 Spiritual: Denominational. Legal:None known. Ethical issues impacting care:None known. Important Contacts Buddy Dobson (): [phone] . Code Status: Full Code Plan * CODE STATUS: FULL CODE. * HEALTHCARE DECISION-MAKING: Per [place] statutes health care decision making would fall to the patient's in the event she was unable to make decisions on her own. Patient is currently unable to make decisions on her own secondary to her clinical status. (Shelby Campuzano) Symptom Scale: (1) Dyspnea 0-10 Scale: Unable to quantify (2) Debility 0-10 Scale: Unable to quantify Prognosis Patient with severe pulmonary fibrosis post cardiac arrest x 2. Now bradycardic again and actively dying. Spouse elects NO CODE. Code Status: No Code Plan I was stopped by Dr. Mitchell and asked to see the patient as spouse was expected to arrive. Patient had a jonh arrest earlier this morning and then Coded a second time. Patient has underlying severe pulmonary fibrosis and despite aggressive measures, mechanical ventilation FiO2 100%, with oxygen saturation in the 50-60%. Patient is not expected to survive. Srikanth arrived to bedside, medical update provided.Explained patient heart was slowing again, as she was again dropping in the 50s. elected not to proceed with CODE again, NO CODE elected. Facilities Engineer was at bedside. Son, Buddy called and placed phone to patient ear to say his good-byes. Offered support. Patient peacefully with at bedside. (Zainab Wharton) Thank you for the opportunity to participate in the care of Ms. Dobson. (Shelby Campuzano) Attestation To help prompt me to consider important information that might be impacting today's encounter and assessment, information from prior notes written by myself or my colleagues may have been "brought forward" into today's note. My signature on this note, however, is an attestation that I personally performed the exam, history, and/or decision-making noted today, and, unless otherwise indicated, the interactions with patient, family, and staff as well as the review of records all occurred today. I also attest that the listed assessment and stated plan reflect my best clinical judgment today based on the combination of historical information, prior notes, and today's exam/ interactions. When time spent is documented, it refers only to time spent today by the signer, or if indicated, combined time spent today by collaborating physician/nurse practitioner. (Shelby Campuzano) Shelby Campuzano Jul 23, 2017 11:14 Zainab Wharton Jul 23, 2017 14:03
--- NOTE | 2017-07-23 11:50 | HHI.PR ---
Subjective Remarks 72 YOWF with Hypoxic RF,PF,PN Developed Rf, Intubated Pt coded Hypotensive unresponsive Objective Vital Signs Vital Signs Date Time Temp Pulse Resp B/P (MAP) Pulse Ox O2 Delivery O2 Flow Rate FiO2 07/23/17 10:00 91 07/23/17 10:00 91 20 71/52 (58) 80 07/23/17 09:30 103 27 77/56 (63) 77 07/23/17 09:00 101 31 104/61 (75) 79 07/23/17 08:30 100 29 95/66 (76) 80 07/23/17 08:05 98 30 88/52 (64) 80 07/23/17 08:00 95 07/23/17 08:00 95 07/23/17 08:00 98.0 95 32 81 07/23/17 07:30 93 32 80/51 (61) 81 07/23/17 07:24 101 34 130/74 (92) 81 07/23/17 07:22 99 25 119/82 (94) 81 07/23/17 07:19 101 25 97/81 (86) 81 07/23/17 07:15 81 Ventilator 100 07/23/17 07:15 81 100 07/23/17 07:15 111 31 93/68 (76) 76 07/23/17 07:15 100 07/23/17 07:13 107 40 123/81 (95) 79 07/23/17 07:00 118 50 139/100 (113) 82 07/23/17 06:30 98 37 88 07/23/17 06:01 99 40 132/86 (101) 86 07/23/17 06:00 101 39 86 07/23/17 06:00 93 07/23/17 05:30 106 38 86 07/23/17 05:16 103 42 159/70 (99) 86 07/23/17 05:01 129 35 201/117 (145) 84 07/23/17 05:00 118 33 80 07/23/17 04:17 90 100 07/23/17 04:00 98.8 94 33 119/82 (94) 89 07/23/17 04:00 94 07/23/17 02:00 98 07/23/17 00:00 98.3 92 40 123/91 (102) 90 07/23/17 00:00 93 07/22/17 23:55 90 100 07/22/17 22:00 92 07/22/17 20:21 92 BiPAP 100 07/22/17 20:17 93 100 07/22/17 20:00 98.3 118 64 132/98 (109) 80 07/22/17 20:00 118 07/22/17 19:00 Bi-Pap 07/22/17 18:00 100 07/22/17 16:00 97.6 07/22/17 14:00 97.9 07/22/17 12:00 99.8 I/O 07/22/17 07/22/17 07/22/17 07/23/17 07/23/17 07/23/17 07:00 15:00 23:00 07:00 15:00 23:00 Intake Total 240 ml 620 ml 300 ml 400 ml Output Total 600 ml Balance 240 ml 20 ml 300 ml 400 ml Intake Oral 240 ml 520 ml 300 ml IV Total 100 ml 400 ml Output Urine Total 600 ml # Voids 5 1 2 # Bowel Movements 4 1 2 0 Result Diagram: 07/23/17 0344 07/23/17343 Objective Remarks GENERAL: MBMN WF sob SKIN: Warm and dry. HEAD: Normocephalic. EYES: No scleral icterus. No injection or drainage. NECK: Supple, trachea midline. No JVD or lymphadenopathy. CARDIOVASCULAR: Regular rate and rhythm without murmurs, gallops, or rubs. RESPIRATORY: Breath sounds equal bilaterally. No accessory muscle use. Insp rales GASTROINTESTINAL: Abdomen soft, non-tender, nondistended. MUSCULOSKELETAL: No cyanosis, or edema. BACK: Nontender without obvious deformity. No CVA tenderness. A/P Assessment and Plan Hypoxic RF VDRF S/P code Pulm Fibrosis with ac exac Pneumonia H/O Colitis PLAN: Vent support pressors to Keep MAP >65 IV Solumedrol Prognosis grave on his way here Gurinder Banks MD Jul 23, 2017 11:50
--- NOTE | 2017-07-23 16:11 | EKG ---
Date Performed: 07/22/2017 Time Performed: 15:37:31 PTAGE: 72 years EKG: SINUS TACHYCARDIA WITH FREQUENT ECTOPIC PREMATURE COMPLEXES NONSPECIFIC T-WAVE ABNORMALITY ABNORMAL RHYTHM ECG Compared to prior tracing no significant change PREVIOUS TRACING : 07/19/2017 15.11 DOCTOR: Seth Gustafson Interpretating Date/Time 07/23/2017 16:08:45
== END 2017-07-23 12:09 | disposition expired | DRG 208 ==
LOC: NEPC 14:59 → NEDA 17:23 → HIMN 20:55 → N04B 07-20 10:58 → HIMN 07-22 12:50
PROVIDERS: ADMIT Internal Medicine Critical Care Medicine; ATTEND Internal Medicine Critical Care Medicine
PROC: 0BH17EZ Insertion of Endotracheal Airway into Trachea, Via Natural or Artificial Opening (ICD-10-PCS; principal; 2017-07-21)
PROC: 5A1945Z Respiratory Ventilation, 24-96 Consecutive Hours (ICD-10-PCS; 2017-07-21)
DX: J96.21 Acute and chronic respiratory failure with hypoxia (principal); J15.9 Unspecified bacterial pneumonia; E87.3 Alkalosis; I95.9 Hypotension, unspecified; J84.10 Pulmonary fibrosis, unspecified; I11.9 Hypertensive heart disease without heart failure; Z99.81 Dependence on supplemental oxygen; J44.0 Chronic obstructive pulmonary disease with (acute) lower respiratory infection; I48.91 Unspecified atrial fibrillation; E03.9 Hypothyroidism, unspecified; E78.5 Hyperlipidemia, unspecified; E87.6 Hypokalemia; K21.9 Gastro-esophageal reflux disease without esophagitis; Z79.82 Long term (current) use of aspirin; Z86.19 Personal history of other infectious and parasitic diseases; Z87.891 Personal history of nicotine dependence
CPT/HCPCS: 31500; 36600; 71010; 71250; 76705; 80048; 80053; 81001; 82805; 83735; 83880; 84100; 84132; 85007; 85025; 85027; 85610; 85730; 87040; 87086; 87449; 87641; 90686; 93005; 94002; 94003; 94640; 94664; 96365; J0461; J0692; J1650; J1956; J2543; J2920; J2930; J3010; J3370; J3480; J7030; J7050; J7626; Q2038